=== PATIENT | male | born 1950 | race Caucasian/White ===

== ENCOUNTER 2021-07-31 15:40 | Outpatient (REF) | payer MEDICARE, OTHER, SELFPAY ==
[2021-07-31 17:13] LABS: Erythrocyte Sedimentation Rate 5 MM/HR (0-15)
[2021-08-01 13:42] LABS: Lyme Abs Screen <0.90 index
== END 2021-07-31 15:41 | disposition home or self-care (01) ==
LOC: HO.LAB 15:40
PROVIDERS: Visit Provider Psychiatry & Neurology Neurology
DX: G43.009 Migraine without aura, not intractable, without status migrainosus (principal)
CPT/HCPCS: 36415; 85652; 86617; 86618

== ENCOUNTER 2024-02-02 11:01 | Outpatient (AMB) | payer MEDICARE, OTHER, SELFPAY ==
--- NOTE | 2024-02-02 11:09 | MHC.OFFVIS ---
Vital Signs 02/02/24 11:22 Weight 176 lb Intake Visit Reasons: Bilateral inguinal hernia Intake Note: This patient presents for an assessment for bilateral inguinal hernia. Patient c/o; Onset October 2023, reports pain, reports bilateral bulge, reports constipation, reports extreme gas, reports constant abdominal pain. 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 Accompanied by: Self / Same As Patient Allergies cat dander Allergy (Verified 02/02/24 11:14) Unknown dog dander Allergy (Verified 02/02/24 11:14) Unknown mold Allergy (Verified 02/02/24 11:14) Unknown Medication List - Last Reconciled 02/02/24 by Travon Babin MD atorvastatin 40 mg PO DAILY dapagliflozin propanediol (Farxiga) 10 mg PO DAILY duloxetine 30 mg PO DAILY gabapentin 300 mg PO BID omeprazole 20 mg PO DAILY oxycodone-acetaminophen 10-325 mg 1 tab PO QID PRN semaglutide (Ozempic) mg subcut sertraline 100 mg PO DAILY tizanidine 2 mg PO BID trazodone 50 mg PO DAILY HPI Comments Details: 73-year-old male patient presenting for evaluation of bilateral inguinal hernias. He reports pain bilateral groins which seems to be increasing in severity. He also has a long history of back issues and underwent 3 recent back surgeries with resulting right foot drop. He continues to have back pain a daily basis. He now reports increased abdominal pain especially in the lower abdomen with associated constipation with alternating diarrhea. There has been no bleeding per rectum. He reported approximately 20 lb weight loss over the past month and feels his appetite is not so great. He is on Ozempic subcutaneously. He reports nausea without vomiting. He occasionally needs to take an enema to have a bowel movement but then will have several days of diarrhea. He does report a previous colonoscopy several years ago but is not sure where this was performed. [facility] Surgical History History of back surgery Family History Father Lung cancer Social History Unable to assess alcohol history related to: Unknown Patient Tobacco Use Status: Tobacco use Unknown Review of Systems Const All systems reviewed & are unremarkable except as noted in HPI and below Reports anorexia, Denies chills, Denies fever(s), Denies headache(s), Reports poor appetite and Denies weakness ENT Denies headache(s) Card Denies chest pain, Denies irregular heart rhythm, Denies palpitations and Denies dyspnea Resp Denies cough, Denies excessive phlegm production and Denies dyspnea GI Reports abdominal pain, Reports bloating, Reports change in bowel habits, Reports constipation, Denies heartburn, Reports diarrhea, Reports nausea and Denies vomiting Denies difficulty urinating and Denies urinary frequency Musc Denies back pain, Denies muscle weakness and Denies numbness Skin/Breast Denies changing lesions and Denies unusual bruising Neuro Denies headache(s), Denies numbness, Denies paresthesias and Denies weakness Psych Denies anxiety and Denies depression Endo Denies palpitations Reynold/Lymph Denies lymphadenopathy Physical Exam Const General: cooperative and no acute distress Nutritional Appearance: well nourished Orientation/consciousness: patient oriented x3 Limitations: no limitations HEENT Head: Yes normocephalic and Yes atraumatic Ears: hearing grossly normal bilaterally Resp Effort & Inspection: normal respiratory effort, no audible wheezes, no cough and no respiratory distress Cardio Jugular venous distension: no JVD GI Other: Small easily reducible bilateral inguinal hernias which increase in size with Valsalva maneuvers. There is minimal tenderness to deep palpation. No evidence of strangulation or incarceration. Inspection: Yes normal to inspection and Yes distended Palpation (GI): Soft to palpation, nontender, no guarding and not rigid Percussion: Yes normal to percussion Auscultation: normal bowel sounds Skin Other: Warm, dry, no rash Neuro General: patient oriented x3 Extrem General: Yes no clubbing, cyanosis or edema Assessment & Plan Assessment & Plan (1) Bilateral inguinal hernia: Code(s): K40.20 - Bilateral inguinal hernia, without obstruction or gangrene, not specified as recurrent Category: Medical Qualifiers: Obstruction and gangrene presence: without obstruction or gangrene Recurrence: non-recurrent Qualified Code(s): K40.20 - Bilateral inguinal hernia, without obstruction or gangrene, not specified as recurrent (2) Constipation: Code(s): K59.00 - Constipation, unspecified Category: Medical Qualifiers: Constipation type: drug induced constipation Qualified Code(s): K59.03 - Drug induced constipation (3) Abdominal bloating: Code(s): R14.0 - Abdominal distension (gaseous) Category: Medical Plan 73-year-old male patient presenting with complaints of 20 lb weight loss, abdominal distention, bloating, constipation and diarrhea presenting with bilateral small reducible inguinal hernias. It is difficult to say that his abdominal symptoms are due to the small inguinal hernias. Weight loss may be due to his Ozempic although I recommended further evaluation with CT abdomen and pelvis given his ongoing bowel symptoms. He will return following the CT to review the results and discuss treatment options. Orders: Orders CT abdomen wo IV con Today K59.00 - Constipation, unspecified Coding Level of Care Code New Pt Level 4 (49655) Diagnoses Non-recurrent bilateral inguinal hernia without obstruction or gangrene K40.20 Obstruction and gangrene presence: without obstruction or gangrene Recurrence: non-recurrent Drug-induced constipation K59.03 Constipation type: drug induced constipation Abdominal bloating R14.0
== END 2024-02-02 11:33 | disposition home or self-care (01) ==
PROVIDERS: PCP Family Medicine; Visit Provider Surgery
DX: K40.20 Bilateral inguinal hernia, without obstruction or gangrene, not specified as recurrent (principal); K59.03 Drug induced constipation; R14.0 Abdominal distension (gaseous)
CPT/HCPCS: 99203

== ENCOUNTER → 2024-02-02 11:01 | Outpatient (BNVA) | payer MEDICARE, OTHER, SELFPAY | PROVIDERS: PCP Family Medicine; Visit Provider Surgery | DX: K40.20 Bilateral inguinal hernia, without obstruction or gangrene, not specified as recurrent (principal); K59.03 Drug induced constipation; T50.905A Adverse effect of unspecified drugs, medicaments and biological substances, initial encounter; R14.0 Abdominal distension (gaseous) | CPT/HCPCS: 99202 ==

== ENCOUNTER 2024-02-05 08:23 | Outpatient (REF) | payer MEDICARE, OTHER, SELFPAY ==
--- NOTE | ~2024-02-05 | CT_ITS ---
EXAMINATION: CT ABDOMEN WITHOUT CONTRAST CLINICAL INFORMATION: Constipation unspecified COMPARISON: None available. TECHNIQUE: Contiguous axial thin section helical images of the abdomen were performed without contrast. The data set was reformatted in the coronal and sagittal planes and reviewed on an independent workstation. This CT examination was performed using dose optimization techniques as appropriate, variously including the following: *Automated exposure control *Adjustment of mA and/or kV according to patient size (this includes techniques or standardized protocols for targeted exams where dose is matched to indication/reason for exam; i.e. extremities or head) *Use of iterative reconstruction technique DLP: 335 mGy-cm FINDINGS: LUNG BASES: Lung bases grossly clear. No pleural effusions. Coronary artery calcifications noted. LIVER, GALLBLADDER, BILIARY TREE: There is a too small to characterize focus in the inferior right lobe of the liver. 5 mm, probably a tiny cyst. Liver otherwise unremarkable. No intrahepatic biliary dilatation. Surgical clips are seen in the gallbladder fossa. PANCREAS: Unremarkable SPLEEN: Unremarkable ADRENAL GLANDS AND KIDNEYS: Unremarkable. No nephrolithiasis or hydronephrosis or suspicious mass. There does appear to be a simple cyst off the lateral anterior mid left kidney at 16 mm. No further workup needed. BOWEL LOOPS: No bowel obstruction or right or left abdominal inflammatory change. Appendix normal. Pelvis not scanned. Moderate colonic stool burden observed. LYMPH NODES: Normal. VASCULAR: Aorta is atherosclerotic but not aneurysmal. BONES: Postsurgical changes in the lower lumbar spine. Hardware creates artifact. No fracture. CT/CT abdomen wo IV con IMPRESSION: No acute findings. No bowel obstruction. No peripancreatic inflammation. Moderate stool burden in the colon. Fleischner guidelines were followed.
== END 2024-02-05 08:24 | disposition home or self-care (01) ==
LOC: HO.CT 08:23
PROVIDERS: Visit Provider Surgery
DX: K59.00 Constipation, unspecified (principal)
CPT/HCPCS: 74150

== ENCOUNTER 2024-02-16 14:39 | Outpatient (AMB) | payer MEDICARE, OTHER, SELFPAY ==
--- NOTE | 2024-02-16 14:48 | A.OFFVIS_ITS ---
Vital Signs 02/16/24 14:55 Height 5 ft 9 in Weight 175 lb BMI 25.8 BP 175/87 H Blood Pressure Location Lt brachial Position Sitting Pulse 73 Intake Visit Reasons: CT follow up visit Intake Note: Patient is seen in office for CT scan following, bilateral inguinal hernias. Pt c/o: here for results no changes since last visit CT:02/05/24 Signs Cleaner Required: No Accompanied by: Self / Same As Patient Allergies cat dander Allergy (Verified 02/16/24 14:56) Unknown dog dander Allergy (Verified 02/16/24 14:56) Unknown mold Allergy (Verified 02/16/24 14:56) Unknown Medication List - Last Reconciled 02/16/24 by Travon Babin MD atorvastatin 40 mg PO DAILY dapagliflozin propanediol (Farxiga) 10 mg PO DAILY duloxetine 30 mg PO DAILY gabapentin 300 mg PO BID omeprazole 20 mg PO DAILY oxycodone-acetaminophen 10-325 mg 1 tab PO QID PRN semaglutide (Ozempic) mg subcut sertraline 100 mg PO DAILY tizanidine 2 mg PO BID trazodone 50 mg PO DAILY HPI Comments Details: 73-year-old male patient presenting for evaluation of bilateral inguinal hernias. He reports pain bilateral groins which seems to be increasing in severity. He also has a long history of back issues and underwent 3 recent back surgeries with resulting right foot drop. He continues to have back pain a daily basis. He now reports increased abdominal pain especially in the lower abdomen with associated constipation with alternating diarrhea. There has been no bleeding per rectum. He reported approximately 20 lb weight loss over the past month and feels his appetite is not so great. He is now off the Ozempic. He underwent CT abdomen and pelvis because of the weight loss and constipation. CT abdomen revealed a increased stool burden but otherwise was normal. He returns today to discuss repair of the bilateral inguinal hernias. He does continue to have pain in the right side. [facility] Surgical History History of back surgery Family History Father Lung cancer Social History Unable to assess alcohol history related to: Unknown Patient Tobacco Use Status: Tobacco use Unknown Review of Systems Const All systems reviewed & are unremarkable except as noted in HPI and below Reports anorexia, Denies chills, Denies fever(s), Denies headache(s), Reports poor appetite and Denies weakness ENT Denies headache(s) Card Denies chest pain, Denies irregular heart rhythm, Denies palpitations and Denies dyspnea Resp Denies cough, Denies excessive phlegm production and Denies dyspnea GI Reports abdominal pain, Reports bloating, Reports change in bowel habits, Reports constipation, Denies heartburn, Reports diarrhea, Reports nausea and Denies vomiting Denies difficulty urinating and Denies urinary frequency Musc Denies back pain, Denies muscle weakness and Denies numbness Skin/Breast Denies changing lesions and Denies unusual bruising Neuro Denies headache(s), Denies numbness, Denies paresthesias and Denies weakness Psych Denies anxiety and Denies depression Endo Denies palpitations Reynold/Lymph Denies lymphadenopathy Physical Exam Vital Signs: Last Vital Signs Pulse 73 02/16/24 14:55 BP 175/87 H 02/16/24 14:55 BMI result Body Mass Index 25.8 Const General: cooperative and no acute distress Nutritional Appearance: well nourished Orientation/consciousness: patient oriented x3 Limitations: no limitations HEENT Head: Yes normocephalic and Yes atraumatic Ears: hearing grossly normal bilaterally Resp Effort & Inspection: normal respiratory effort, no audible wheezes, no cough and no respiratory distress Cardio Jugular venous distension: no JVD GI Other: Small easily reducible bilateral inguinal hernias which increase in size with Valsalva maneuvers. There is minimal tenderness to deep palpation. No evidence of strangulation or incarceration. Inspection: Yes normal to inspection and Yes distended Palpation (GI): Soft to palpation, nontender, no guarding and not rigid Percussion: Yes normal to percussion Auscultation: normal bowel sounds Skin Other: Warm, dry, no rash Neuro General: patient oriented x3 Extrem General: Yes no clubbing, cyanosis or edema Assessment & Plan Assessment & Plan (1) Bilateral inguinal hernia: Code(s): K40.20 - Bilateral inguinal hernia, without obstruction or gangrene, not specified as recurrent Category: Medical Qualifiers: Obstruction and gangrene presence: without obstruction or gangrene Recurrence: non-recurrent Qualified Code(s): K40.20 - Bilateral inguinal hernia, without obstruction or gangrene, not specified as recurrent (2) Constipation: Code(s): K59.00 - Constipation, unspecified Category: Medical Qualifiers: Constipation type: drug induced constipation Qualified Code(s): K59.03 - Drug induced constipation (3) Abdominal bloating: Code(s): R14.0 - Abdominal distension (gaseous) Category: Medical Plan 73-year-old male patient presenting with complaints of 20 lb weight loss, abdominal distention, bloating, constipation and diarrhea presenting with bilateral small reducible inguinal hernias. CT abdomen was normal other than showing evidence of constipation. His hernias continue to cause discomfort therefore I recommended repair of the bilateral reducible inguinal hernias with mesh. After discussion of the procedure, risks, and alternatives, he consents to the repair of the bilateral inguinal hernias with mesh. Coding Level of Care Code Est Pt Level 4 (83726) Diagnoses Non-recurrent bilateral inguinal hernia without obstruction or gangrene K40.20 Obstruction and gangrene presence: without obstruction or gangrene Recurrence: non-recurrent Drug-induced constipation K59.03 Constipation type: drug induced constipation Abdominal bloating R14.0
[2024-02-16 14:55] VITALS: BP 175/87; PULSE 73; BMI 25.8
== END 2024-02-16 15:18 | disposition home or self-care (01) ==
PROVIDERS: PCP Family Medicine; Visit Provider Surgery
DX: K40.20 Bilateral inguinal hernia, without obstruction or gangrene, not specified as recurrent (principal); K59.03 Drug induced constipation; R14.0 Abdominal distension (gaseous)
CPT/HCPCS: 99214

== ENCOUNTER → 2024-02-16 14:39 | Outpatient (BNVA) | payer MEDICARE, OTHER, SELFPAY | PROVIDERS: PCP Family Medicine; Visit Provider Surgery | DX: K40.20 Bilateral inguinal hernia, without obstruction or gangrene, not specified as recurrent (principal); K59.03 Drug induced constipation; T50.905A Adverse effect of unspecified drugs, medicaments and biological substances, initial encounter; R14.0 Abdominal distension (gaseous) | CPT/HCPCS: 99212 ==

== ENCOUNTER 2024-03-02 08:14 | Day surgery (SDC) | payer MEDICARE, OTHER, SELFPAY ==
[2024-02-23 12:22] VITALS: BMI 25.8
--- NOTE | 2024-03-01 11:51 | P.CONAN_ITS ---
Documented by User: Court Olivas NP 03/01/24 12:02 HPI - Anesthesia Eval Consult details Narrative: 73yo M for Bilateral Hernia Inguinal Reducible with mesh Follows [facility] for CAD s/p VENKAT 2015, htn. Last office visit 12/2023 and stable from cardiac standpoint Anesthesia Pre-Procedure Meds Is the patient on any of the following meds?: SGLT2 Inhib PMFSH Active Problems Active Problems: All Active Problems Abdominal bloating (Acute) Constipation (Acute) Bilateral inguinal hernia (Acute) Past Medical History Medical History Migraine Right foot drop Neuropathy GERD (gastroesophageal reflux disease) Type 2 diabetes mellitus Chronic renal insufficiency Asthma Lumbar back pain Hyperlipidemia CAD (coronary artery disease) Family History Family History Father Lung cancer Surgical History Surgical History H/O colonoscopy Hx of heart artery stent History of open reduction and internal fixation (ORIF) procedure Hx of arthroscopy of shoulder History of back surgery Hx of cholecystectomy History of back surgery Social History Social History Are you a primary residential child care counselor to a significant other at home: No Do you presently have visiting nurse or other home services: No Unable to assess alcohol history related to: Unknown Patient Tobacco Use Status: Never used Tobacco Use of substances other than those prescribed or required for medical reasons: No Have you been hit, kicked, punched, or otherwise hurt by someone within the past year? If so, by whom?: No Are you DNR?: No Advance Directives Information Provided: Yes (as above noted) Advance Directives on File: No Recently lost weight without trying: No Eating poorly because of decreased appetite: No Nutrition Risks: Surgical patient >75years Poor oral hygiene: No (upper partial) Meds Allergies Allergy/AdvReac Type Severity Reaction Status Date / Time animal dander Allergy Intermediate hayfever Verified 03/02/24 08:48 empagliflozin Allergy Intermediate Rash Verified 03/02/24 08:48 [From Jardiance] environmental allergies Allergy Intermediate hayfever Verified 03/02/24 08:48 mold Allergy Intermediate hayfever Verified 03/02/24 08:48 Home Medications ?Medication ?Instructions ?Recorded ?Confirmed ?Last Taken ?Type atorvastatin 40 mg tablet 40 mg PO BEDTIME 02/02/24 03/02/24 Unknown History dapagliflozin propanediol 10 mg 10 mg PO QAM 02/02/24 03/02/24 02/27/24 History tablet (Farxiga) gabapentin 300 mg capsule 300 mg PO BID 02/02/24 03/02/24 Unknown History omeprazole 20 mg tablet,delayed 20 mg PO BID 02/02/24 03/02/24 03/02/24 History release sertraline 100 mg tablet 100 mg PO QAM 02/02/24 03/02/24 Unknown History trazodone 50 mg tablet 50 mg PO BEDTIME 02/02/24 03/02/24 Unknown History albuterol sulfate 2.5 mg/3 mL 2.5 mg inhalation Q4-6H PRN 02/23/24 03/02/24 Unknown History (0.083 %) solution for nebulization Shortness Of Breath Or Wheezing albuterol sulfate 90 mcg/actuation 2 puff inhalation Q4-6H PRN 02/23/24 03/02/24 Unknown History aerosol inhaler Shortness Of Breath Or Wheezing divalproex 250 mg tablet,delayed 250 mg PO BID PRN migraine 02/23/24 03/02/24 Unknown History release (Depakote) headaches insulin degludec 100 unit/mL (3 12 unit subcut DAILY 03/02/24 03/02/24 03/02/24 07:00 History mL) subcutaneous pen (Tresiba 6 units FlexTouch U-100 insulin) Exam Height,Weight and Vital Signs: Height 5 ft 9 in Weight 79.379 kg Pertinent Lab Results Pertinent Lab Results: CBC and BMP 11/2023 WNL Narrative Narrative: EKG 10/2023 NSR @ 61 LAD Stress and Echo from 2021 [place] Assessment and Plan Assessment Anesthesia Assessment: Chart Reviewed Documented by User: Mary Acosta MD 03/02/24 09:50 [facility] Past Medical History Medical History Migraine Right foot drop Neuropathy GERD (gastroesophageal reflux disease) Type 2 diabetes mellitus Chronic renal insufficiency Asthma Lumbar back pain Hyperlipidemia CAD (coronary artery disease) Family History Family History Father Lung cancer Surgical History Surgical History H/O colonoscopy Hx of heart artery stent History of open reduction and internal fixation (ORIF) procedure Hx of arthroscopy of shoulder History of back surgery Hx of cholecystectomy History of back surgery History of Problems with Anesthesia: No Social History Social History Are you a primary residential child care counselor to a significant other at home: No Do you presently have visiting nurse or other home services: No Unable to assess alcohol history related to: Unknown Patient Tobacco Use Status: Never used Tobacco Use of substances other than those prescribed or required for medical reasons: No Have you been hit, kicked, punched, or otherwise hurt by someone within the past year? If so, by whom?: No Are you DNR?: No Advance Directives Information Provided: Yes (as above noted) Advance Directives on File: No Recently lost weight without trying: No Eating poorly because of decreased appetite: No Nutrition Risks: Surgical patient >75years Poor oral hygiene: No (upper partial) Meds Allergies Allergy/AdvReac Type Severity Reaction Status Date / Time animal dander Allergy Intermediate hayfever Verified 03/02/24 08:48 empagliflozin Allergy Intermediate Rash Verified 03/02/24 08:48 [From Jardiance] environmental allergies Allergy Intermediate hayfever Verified 03/02/24 08:48 mold Allergy Intermediate hayfever Verified 03/02/24 08:48 Home Medications ?Medication ?Instructions ?Recorded ?Confirmed ?Last Taken ?Type atorvastatin 40 mg tablet 40 mg PO BEDTIME 02/02/24 03/02/24 Unknown History dapagliflozin propanediol 10 mg 10 mg PO QAM 02/02/24 03/02/24 02/27/24 History tablet (Farxiga) gabapentin 300 mg capsule 300 mg PO BID 02/02/24 03/02/24 Unknown History omeprazole 20 mg tablet,delayed 20 mg PO BID 02/02/24 03/02/24 03/02/24 History release sertraline 100 mg tablet 100 mg PO QAM 02/02/24 03/02/24 Unknown History trazodone 50 mg tablet 50 mg PO BEDTIME 02/02/24 03/02/24 Unknown History albuterol sulfate 2.5 mg/3 mL 2.5 mg inhalation Q4-6H PRN 02/23/24 03/02/24 Unknown History (0.083 %) solution for nebulization Shortness Of Breath Or Wheezing albuterol sulfate 90 mcg/actuation 2 puff inhalation Q4-6H PRN 02/23/24 03/02/24 Unknown History aerosol inhaler Shortness Of Breath Or Wheezing divalproex 250 mg tablet,delayed 250 mg PO BID PRN migraine 02/23/24 03/02/24 Unknown History release (Depakote) headaches insulin degludec 100 unit/mL (3 12 unit subcut DAILY 03/02/24 03/02/24 03/02/24 07:00 History mL) subcutaneous pen (Tresiba 6 units FlexTouch U-100 insulin) Exam Airway Mallampati Class: III TM Dist: >3cm Neck ROM: Limited Loose/Missing/Broken Teeth: Yes and Upper Heart: RRR Lungs: CTA Assessment and Plan Assessment Anesthesia Assessment: Anesthesia Plan Discussed Final Anesthetic Review History of Problems with Anesthesia: No NPO: Yes ASA Class: III Final Preanesthetic Review: Meds/Allgs Chart Reviewed, Consent Obtained/Reviewed and Anes Risks/Benef Reviewed Patient Risk: Intermediate Procedure Risk: Low Anesthetic Plan Anesthetic Plan: GA Disposition: Standard PACU
--- OUTSIDE RECORDS SUMMARY | 2024-03-02 08:16 | XMS_ITS | Continuity of Care Document ---
Author Organization [facility] Address [address] [place] [id number]- Care Team Providers Care Manager Community Development Name Role Phone Conner Lomeli MD Primary Care Physician [phone] Encounter [facility] ACCT R [id number] Date(s): 07/07/19 - 07/17/19 [facility] [address] [place] [id number]- [facility] Attending Physician: Carrington Kim Admitting Physician: AdmtrCarrington Referring Physician: Admtr, Ar8 Allergies, Adverse Reactions, Alerts Substance Reaction Severity Status Cats hayfever Active Dogs hayfever Active Dust hayfever Active Mold hayfever Active Pollen hayfever Active Immunizations Not Given Vaccine Date Status Refusal Reason pneumococcal 13-valent vaccine 06/11/17 Not Given Patient Refuses Medications aspirin 325 mg oral delayed release tablet 325 mg, 1, tablet, By Mouth, Daily, # 30 tablet, Refills 0, Maintenance, 05/10/19 16:33:25 EDT Start Date: 05/10/19 Status: Ordered atorvastatin 40 mg oral tablet 1 tablet = 40 mg, By Mouth, Daily at bedtime, TAKE 1 TABLET BY MOUTH EVERY DAY AT BEDTIME, # 90 tablet, 3 Refills, Maintenance, Tablet, Route to Pharmacy Electronically, [id number], [facility]/pharmacy #[id number] Start Date: 04/06/17 Stop Date: 04/01/18 Status: Ordered Basaglar KwikPen 100 units/mL subcutaneous solution = 40 units, Subcutaneous Injection, Daily at bedtime, # 10 mL, 0 Refills, Maintenance, 05/10/19 16:31:45 EDT, Solution Start Date: 05/10/19 Status: Ordered benazepril 5 mg oral tablet 1 tablet = 5 mg, By Mouth, Daily, # 90 tablet, 3 Refills, Maintenance, 01/25/18 13:38:02 EDT Start Date: 01/25/18 Status: Ordered benazepril 5 mg oral tablet TAKE 1 TABLET BY MOUTH EVERY DAY Start Date: 03/22/17 Status: Ordered Colace sodium 50 mg oral capsule 1 capsule = 50 mg, By Mouth, 2 times a day, PRN for constipation, # 60 capsule, 0 Refills, Maintenance, 03/31/17 8:54:33, Capsule Start Date: 03/31/17 Status: Ordered docusate sodium 100 mg oral tablet 1 tablet = 100 mg, By Mouth, 2 times a day, PRN for constipation, # 14 tablet, 0 Refills, Maintenance, 05/27/17 10:11:30, Tablet Start Date: 05/27/17 Stop Date: 06/03/17 Status: Ordered famotidine 40 mg oral tablet TAKE 1 TABLET BY MOUTH EVERY DAY Start Date: 05/10/19 Status: Ordered Flovent Diskus 100 mcg/inh inhalation powder INHALE 1 PUFF BY MOUTH DIRECTED TWICE A DAY Start Date: 05/10/19 Status: Ordered glipiZIDE 5 mg oral tablet See Instructions, 1 tablet By Mouth in am and 3 tablet By Mouth in pm, Refills 0, Maintenance, 05/10/19 16:30:33 EDT, Instructions Replace Required Details Start Date: 05/10/19 Status: Ordered isosorbide mononitrate 30 mg oral tablet, extended release 30 mg, 1, tablet, By Mouth, Daily in AM, # 30 tablet, Refills 2, Tot. Refills 2, Maintenance, 07/07/19 9:34:37 EST, Route to Pharmacy Electronically, [id number], [facility]/pharmacy #[id number], 172, cm, 07/07/19 9:07:44 EST, Height, 97.5... Start Date: 07/07/19 Status: Ordered metoprolol 25 mg oral tablet 12.5 mg, 0.5, tablet, By Mouth, Daily, Refills 0, Maintenance, 03/02/19 10:56:35 EDT Start Date: 03/02/19 Status: Ordered MiraLax oral powder for reconstitution = 17 Gm, By Mouth, Daily, dissolve in water before taking, # 255 Gm, 0 Refills, Maintenance, 03/02/19 10:58:53 EDT, REC Powder Start Date: 03/02/19 Status: Ordered Miscellaneous Rx TAKE 1 TABLET BY MOUTH TWICE A DAY Start Date: 03/22/17 Status: Ordered Miscellaneous Rx USE DIRECTED TO TEST BLOOD SUGARS 3 TIMES DAILY Start Date: 03/22/17 Status: Ordered Miscellaneous Rx TEST FOUR TIMES A DAY (DX: E11.9) Start Date: 03/22/17 Status: Ordered montelukast 10 mg oral tablet TAKE 1 TABLET BY MOUTH EVERY EVENING Start Date: 05/10/19 Status: Ordered omeprazole 20 mg oral enteric coated capsule TAKE 1 CAPSULE BY MOUTH EVERY DAY Start Date: 07/07/19 Status: Ordered PARoxetine 20 mg oral tablet TAKE 2 TABLETS EVERY MORNING Start Date: 03/22/17 Status: Ordered topiramate 50 mg oral tablet TAKE 3 TABLET BY MOUTH AT BEDTIME Start Date: 03/22/17 Status: Ordered Problem List Condition Effective Dates Status Health Status Inform ant CAD in [place] artery(Confirmed) Active Social History Social History Type Response Smoking Status Never smoker; Tobacc o user in household: No entered on: 02/08/16 Sex
--- OUTSIDE RECORDS SUMMARY | 2024-03-02 08:17 | XMS_ITS | Continuity of Care Document ---
Author Organization [facility] Address [address] [facility] [place] [address]- Care Team Providers Care [employer] Hemmer Name Role Phone Chelsi SHIELDS, Issac Simon Primary Care Physician Encounter 01/08/24 - 01/15/24 [facility] [address], [address] [place], [place] [address] Attending Physician: Farzana NEVAREZ, Doug Bahena Admitting Physician: Doug Yanes NP Referring Physician: Farzana SUPPLY CHAIN DEVELOPMENT MANAGER, Doug Bahena Allergies, Adverse Reactions, Alerts Substance Reaction Severity Status Cats hayfever Active Dogs hayfever Active Dust hayfever Active Mold hayfever Active Pollen hayfever Active Jardiance RASH Active Immunizations Given and Recorded Vaccine Date Status Refusal Reason RSV vaccine preF3, recombinant 07/13/23 Recorded influenza virus vaccine, inactivated 06/23/23 Brad rded influenza virus vaccine, inactivated 04/15/22 Brad rded influenza virus vaccine, inactivated 06/28/21 Brad rded influenza virus vaccine, inactivated 04/18/20 Brad rded influenza virus vaccine, inactivated 04/25/19 Brad rded SARS-CoV-2(COVID-19)mRNA-LNP vac([id number]) 06/23/23 Recorded SARS-CoV-2 (COVID-19) mRNA BNT-162b2 vac 04/29/22 Recorded SARS-CoV-2 (COVID-19) mRNA BNT-162b2 vac 05/08/21 Recorded SARS-CoV-2 (COVID-19) mRNA BNT-162b2 vac 10/15/20 Recorded SARS-CoV-2 (COVID-19) mRNA BNT-162b2 vac 09/24/20 Recorded [id number] 12y+ bivalent booster vax 04/15/22 Recorded pneumococcal 23-valent vaccine 10/08/21 Recorded tetanus/diphtheria/pertussis, acel(Tdap) 05/16/20 Recorded zoster vaccine, inactivated 04/20/20 Recorded pneumococcal 13-valent vaccine 04/25/19 Recorded pneumococcal 13-valent vaccine 09/09/16 Recorded Medications Albuterol (Eqv-ProAir HFA) 90 mcg/inh inhalation aerosol 2 puffs = 180 mcg, Inhalation, Every 6 hours, PRN Wheezing/Shortness of Breath, # 8.5 Gm, 5 Refills, Maintenance, 08/03/23 10:27:00 EST, Inhaler, [facility]/pharmacy #[id number], Partial fill upon patient requestif the prescription is for a schedule II opioid james... Start Date: 08/03/23 Status: Ordered albuterol 0.083% inhalation solution 3 mL = 2.5 mg, Inhalation, Every 6 hours, PRN for wheezing, # 60 each, 2 Refills, Maintenance, 04/29/23 12:22:00 EDT, Solution, [facility]/pharmacy #[id number], Partial fill upon patient request if the prescription is for a schedule II opioid drug., 172, cm, 04/08... Start Date: 04/29/23 Status: Ordered atorvastatin 40 mg oral tablet 1 tablet, By Mouth, Daily at bedtime, # 90 tablet, 1 Refills, Maintenance, 09/21/23 13:01:00 EST, [facility] STORE [id number], 172, cm, 06/30/23 9:51:00 EST, Height, 84.8, kg, 02/17/23 8:16:00 EDT, Dry Weight Start Date: 09/21/23 Status: Ordered bisacodyl 10 mg rectal suppository 1 supp = 10 mg, Rectally, Daily, PRN for constipation, # 12 supp, 1 Refills, Maintenance, 12/11/23 13:29:00 EDT, Suppository, [facility], Partial fill upon patient request if the prescription is for a schedule II opioid drug., 173, cm, 0... Start Date: 12/11/23 Status: Ordered Colace Capsule 100 mg, 1, capsule, By Mouth, 2 times a day, Refills 0, Maintenance, 11/19/23 9:28:00 EDT, Partial fill upon patient request if the prescription is for a schedule II opioid drug. Start Date: 11/19/23 Status: Ordered duloxetine 30 mg oral enteric coated capsule 1 capsule = 30 mg, By Mouth, Daily, # 90 capsule, 0 Refills, Maintenance, 12/29/23 13:11:00 EDT, Capsule, [facility]/pharmacy #[id number], Partial fill upon patient request if the prescription is for a schedule II opioid drug., 173, cm, 12/15/23 10:39:00 EDT, Heig... Start Date: 12/29/23 Status: Ordered Enoxaparin 0.4 mL = 40 mg, Subcutaneous Injection, Every 24 hours, 0 Refills, Maintenance, 11/20/23 7:53:00 EDT, Injection, Partial fill upon patient request if the prescription is for a schedule II opioid drug. Start Date: 11/20/23 Status: Ordered Farxiga 10 mg oral tablet 1 tablet = 10 mg, By Mouth, Daily, # 30 tablet, 0 Refills, Maintenance, 10/26/23 9:07:00 EDT, Tablet, Partial fill upon patient request if the prescription is for a schedule II opioid drug. Start Date: 10/26/23 Status: Ordered FREESTYLE LITE TEST STRIP FREESTYLE LITE TEST STRIP, See Instructions, # 200 Unknown, 1 Refills, Maintenance, USE TWICE A DAYTO CHECK GLUOCSE FOR TYPE 2 DIABETES MELLITUS, 12/26/23 10:29:00 EDT, 173, cm, 12/15/23 10:39:00 EDT, Height, 81.8, kg, 12/09/23 17:44:00 EDT, Dry Weight Start Date: 12/26/23 Status: Ordered Freestyle Lite Test Strips See Instructions, # 600 each, Refills 1, Tot. Refills 1, Maintenance, use twice a day to check gluocse for Type 2 Diabetes Mellitus, 11/05/22 9:27:00 EDT, Supply, 172, cm, 11/05/22 9:12:00 EDT, Height Start Date: 11/05/22 Stop Date: 05/04/23 Status: Ordered gabapentin 400 mg oral capsule 400 mg, 1, capsule, By Mouth, 3 times a day, # 120 capsule, Refills 0, Maintenance, 12/10/23 14:33:00 EDT, Partial fill upon patient request if the prescription is for a schedule II opioid drug. Start Date: 12/10/23 Status: Ordered MiraLax Powder 1 pack/packet = 17 Gm, By Mouth, Daily, PRN Constipation, 0 Refills, Maintenance, 11/20/23 7:53:00 EDT, Powder, Partial fill upon patient request if the prescription is for a schedule II opioid drug. Start Date: 11/20/23 Status: Ordered Miscellaneous Rx USE DIRECTED TO TEST BLOOD SUGARS 3 TIMES DAILY Start Date: 03/22/17 Status: Ordered Miscellaneous Rx TEST FOUR TIMES A DAY (DX: E11.9) Start Date: 03/22/17 Status: Ordered omeprazole 20 mg oral enteric coated capsule 1 capsule = 20 mg, By Mouth, 2 times a day, # 180 capsule, 1 Refills, Maintenance, 08/03/23 10:27:00 EST, EC Capsule, [facility]pharmacy #[id number], Partial fill upon patient request if the prescription is for a schedule II opioid drug., 172, cm, 06/30/23 9:51:0... Start Date: 08/03/23 Status: Ordered Ozempic 8 mg/3 mL (2 mg dose) subcutaneous solution = 2 mg, Subcutaneous Injection, Every week, in the abdomen, thigh, or upper arm, # 3 mL, 2 Refills,Maintenance, 12/15/23 11:17:00 EDT, Solution, [id number], Partial fill upon patient requestif the prescription is for a schedule II opioid james... Start Date: 12/15/23 Status: Ordered Pen [place], 31 G x 5 mm BD Ultra Fine III See Instructions, # 100 each, Refills 5, Tot. Refills 5, Maintenance, use as directed for Type 2 Diabetes Mellitus to inject insulin once a day, 08/27/23 16:46:00 EST, Supply, 172, cm, 06/30/23 9:51:00 EST, Height, 84.8, kg, 02/17/23 8:16:00 EDT, Dry... Start Date: 08/27/23 Stop Date: 02/23/24 Status: Ordered Pen [place], 31 G x 5 mm BD Ultra Fine III See Instructions, # 300 each, Refills 2, Tot. Refills 2, Maintenance, use as directed for Type 2 Diabetes Mellitus, 11/05/22 9:29:00 EDT, Supply, 172, cm, 11/05/22 9:12:00 EDT, Height Start Date: 11/05/22 Stop Date: 08/02/23 Status: Ordered Senna 8.6 mg oral tablet 17.2 mg, 2, tablet, By Mouth, Daily, PRN, Refills 0, Maintenance, Constipation, 11/20/23 7:53:00 EDT, Tablet, Partial fill upon patient request if the prescription is for a schedule II opioid drug. Start Date: 11/20/23 Status: Ordered sertraline 100 mg oral tablet 1 tablet = 100 mg, By Mouth, Daily, along with sertraline 25 mg daily., # 90 tablet, 3 Refills, Maintenance, 09/23/23 10:05:00 EST, Tablet, [id number], Partial fill upon patient request if the prescription is for a schedule II opioid drug., 17... Start Date: 09/23/23 Status: Ordered tiZANidine 2 mg oral capsule 1 capsule = 2 mg, By Mouth, 4 times a day, PRN as needed for muscle spasm, for 30 days, # 60 capsule, 1 Refills, Hard Stop 02/13/24 11:27:00 EDT, 12/15/23 11:27:00 EDT, Capsule, [id number], Partial fill upon patient request if the prescription... Start Date: 12/15/23 Stop Date: 02/13/24 Status: Ordered tiZANidine 2 mg oral capsule 1 capsule = 2 mg, By Mouth, 2 times a day, PRN as needed for muscle spasm, # 180 capsule, 0 Refills, Maintenance, 02/13/24 11:27:00 EDT, Capsule, [id number], Partial fill upon patient requestif the prescription is for a schedule II opioid james... Start Date: 02/13/24 Stop Date: 04/13/24 Status: Ordered traZODone 50 mg oral tablet 50 mg, 1, tablet, By Mouth, Daily at bedtime, TAKE 1 TABLET BY MOUTH EVERY DAY AT BEDTIME NEEDED Start Date: 04/08/23 Status: Ordered Tresiba FlexTouch 100 units/mL subcutaneous solution INJECT 12 UNITS SUBCUTANEOUS INJECTION DAILY Start Date: 12/10/23 Status: Ordered Tylenol 325 mg oral tablet 975 mg, By Mouth, Every 8 hours, Refills 0, Maintenance, 11/19/23 9:28:00 EDT, Partial fill upon patient request if the prescription is for a schedule II opioid drug. Start Date: 11/19/23 Status: Ordered Problem List Condition Confirmation Course Effective Dates Status H ealth Status Informant Stage 3b chronic kidney disease (CKD) Confirmed Active Constipation Confirmed Active CAD in [place] artery Confirmed Active Dysuria Confirmed Active History of syncope Confirmed Active Hyperlipidemia Confirmed Active Lumbar back pain with radiculopathy affecting lower extremity Confirmed Active Moderate persistent asthma Confirmed Active Type 2 diabetes mellitus with diabetic neuropathy Confirmed Active Medication management Confirmed Active Post-nasal drip Confirmed Active Seborrheic keratoses Confirmed Active Results Radiology Reports * Exam Date Time Procedure Performing Provider Status 01/08/24 5:14 PM Lumbar Spine 2 or 3 Views Christina Hicks; Auth (Verified) Notes: (Lumbar Spine 2 or 3 Views) Reason For Exam: Pain RESULT: Lumbar Spine 2 or 3 Views Lumbar Spine 2 or 3 Views Reason: Pain COMPARISON: Multiple prior lumbar spine radiographs, most recently 11/18/2023, 11/15/2023 and 04/11/2023.. FINDINGS: No acute bone lesions or fractures. Posterior fusion hardware involving L4-S1 with a disc space device at L4-L5. Similar consideration of the posterior surgical hardware without evidence of hardware failure. The intervertebral disc device is slightly tilted, though similar to the prior radiographs from 11/18/2023 and 11/15/2023 and may be positional. Mild multilevel disc height loss of the upper lumbar spine. Gentle dextrocurvature of the lumbar spine. Surgical clips have been removed. Soft tissue is otherwise unremarkable. IMPRESSION: 1. Postoperative changes of the lower lumbar spine without significant change from 11/18/2023. WSN: [id number] Ordering Physician: Doug Yanes Dictated By: Bala Ceballos MD Dictated Date/Time: 01/08/24 6:38 pm Reviewed By: Bala Ceballos MD Signed By: Bala Ceballos MD Signed Date/Time: 01/08/24 6:38 pm Transcribed By: DILLAN Transcribed Date/Time: 01/08/24 6:27 pm Social History Social History Type Response Smoking Status Never smoker; Tobacc o user in household: No entered on: 02/08/16 Sex Implantable Device List Procedure Provider Procedure Date Device Type Site Decompression Transforaminal Lumbar Inte Maycol De Guzman MD 01/01/25 Unknown Other Device Identifier Serial Number Lot or Batch Number Manufacturing Date Expiration Date Distinct Identification Code MRI Safety Implantable Status Assigning Authority [id number] Unknown [id number] Unknown 01/01/25 Unknown Unknown Active GS1 [id number] Unknown [id number] Unknown 01/01/25 Unknown Unknown Active GS1 Procedure Provider Procedure Date Device Type Site Decompression Transforaminal Lumbar Inte Maycol De Guzman MD 11/16/23 Unknown Other Device Identifier Serial Number Lot or Batch Number Manufacturing Date Expiration Date Distinct Identification Code MRI Safety Implantable Status Assigning Authority Unknown [id number] Unknown Unknown 10/19/25 Unknown Unknown Active Unknown Procedure Provider Procedure Date Device Type Site Decompression Transforaminal Lumbar Inte Maycol De Guzman MD 11/13/23 Unknown Back Device Identifier Serial Number Lot or Batch Number Manufacturing Date Expiration Date Distinct Identification Code MRI Safety Implantable Status Assigning Authority Unknown [id number] Unknown 07/23/25 Unknown Unknown Active Unknown Patient Care team information Care Team Personnel Name: Edita Raphael RN Position: [facility] RN Member Role: Primary Care Nurse Name: Alla Ibarra RN Position: [facility] RN Member Role: Primary Care Nurse Name: Lindsay Smith RN Position: [facility] RN Member Role: Primary Care Nurse Name: Haley Osullivan RN Position: [facility] RN Member Role: Primary Care Nurse Name: Rosa Motley RN Position: [facility] RN Member Role: Primary Care Nurse Name: Yuri Lima Position: [facility] Outreach Member Role: Lifetime Consulting Physician Name: Sunshine Turner RN Position: [facility] ED RN W/OE and Tasks Member Role: Primary Care Nurse Name: Rowdy Cerda MD Position: [facility] Renal MD Member Role: Lifetime Consulting Physician Address: Address: [address] [place] [address] [facility] [place] [address]- Name: Issac Gagnon MD Position: [facility] Physician - Primary Care Member Role: PCP Address: Address: [address] [place] [address] Primary [place], [place] [address] Name: Yoselin Strange RN Position: S RN Member Role: Primary Care Nurse Name: Darern Araiza RN Position: S RN Member Role: Primary Care Nurse Care Team Related Persons Name: REEMA IZQUIERDO Address: home [address] [address] Name: LETTY IZQUIERDO Address: home [address], [place] Name: ARYA IZQUIERDO Address: home [address] [place] [address]
--- OUTSIDE RECORDS SUMMARY | 2024-03-02 08:17 | XMS_ITS | Continuity of Care Document ---
Author Organization [facility] Address [address] [place] [id number]- Care Team Providers Care Instant Powder Supervisor Name Role Phone Issac Gagnon MD Primary Care Physician Encounter [facility] [place] Date(s): 04/08/23 - 05/08/23 [facility] [address] [place] [address]- Attending Physician: Carrington Kim Admitting Physician: AdmtrCarrington Referring Physician: Admtr, Ar8 Allergies, Adverse Reactions, Alerts Substance Reaction Severity Status Cats hayfever Active Dogs hayfever Active Dust hayfever Active Mold hayfever Active Pollen hayfever Active Jardiance RASH Active Immunizations Given and Recorded Vaccine Date Status Refusal Reason SARS-CoV-2 (COVID-19) mRNA BNT-162b2 vac 04/29/22 Recorded SARS-CoV-2 (COVID-19) mRNA BNT-162b2 vac 05/08/21 Recorded SARS-CoV-2 (COVID-19) mRNA BNT-162b2 vac 10/15/20 Recorded SARS-CoV-2 (COVID-19) mRNA BNT-162b2 vac 09/24/20 Recorded influenza virus vaccine, inactivated 04/15/22 Brad rded influenza virus vaccine, inactivated 06/28/21 Brad rded influenza virus vaccine, inactivated 04/18/20 Brad rded influenza virus vaccine, inactivated 04/25/19 Brad rded [id number] 12y+ bivalent booster vax 04/15/22 Recorded pneumococcal 23-valent vaccine 10/08/21 Recorded tetanus/diphtheria/pertussis, acel(Tdap) 05/16/20 Recorded zoster vaccine, inactivated 04/20/20 Recorded pneumococcal 13-valent vaccine 04/25/19 Recorded pneumococcal 13-valent vaccine 09/09/16 Recorded Medications Albuterol (Eqv-ProAir HFA) 90 mcg/inh inhalation aerosol 2 puffs = 180 mcg, Inhalation, Every 6 hours, PRN Wheezing/Shortness of Breath, # 8.5 Gm, 2 Refills, Maintenance, 04/29/23 12:20:00 EDT, Inhaler, [facility]/pharmacy #[id number], Partial fill upon patient requestif the prescription is for a schedule II opioid james... Start Date: 04/29/23 Status: Ordered albuterol 0.083% inhalation solution 3 mL = 2.5 mg, Inhalation, Every 6 hours, PRN for wheezing, # 60 each, 2 Refills, Maintenance, 04/29/23 12:22:00 EDT, Solution, [facility]/pharmacy #[id number], Partial fill upon patient request if the prescription is for a schedule II opioid drug., 172, cm, 04/08... Start Date: 04/29/23 Status: Ordered atorvastatin 40 mg oral tablet 1 tablet = 40 mg, By Mouth, Daily at bedtime, # 90 tablet, 1 Refills, Maintenance, 03/20/23 11:43:00 EDT, Tablet, [facility]/pharmacy #[id number], 172, cm, 01/09/23 15:36:00 EDT, Height, 84.8, kg, 02/17/23 8:16:00 EDT, Dry Weight Start Date: 03/20/23 Stop Date: 09/16/23 Status: Ordered divalproex sodium 250 mg oral tablet, extended release 1 tablet = 250 mg, 0 Refills, Maintenance, 04/03/23 11:20:00 EDT, Partial fill upon patient requestif the prescription is for a schedule II opioid drug. Start Date: 04/03/23 Status: Ordered Flovent Diskus 100 mcg/inh inhalation powder 1 puffs, By Mouth, 2 times a day, INHALE 1 PUFF BY MOUTH DIRECTED TWICE A DAY, # 3 each, 3 Refills, Maintenance, 08/12/22 16:50:00 EST, Powder, [facility]/pharmacy #[id number], Partial fill upon patient request if the prescription is for a schedule II opioid dr... Start Date: 08/12/22 Status: Ordered Freestyle Lite Test Strips See Instructions, # 600 each, Refills 1, Tot. Refills 1, Maintenance, use twice a day to check gluocse for Type 2 Diabetes Mellitus, 11/05/22 9:27:00 EDT, Supply, 172, cm, 11/05/22 9:12:00 EDT, Height Start Date: 11/05/22 Stop Date: 05/04/23 Status: Ordered gabapentin 300 mg oral capsule 300 mg, 1, capsule, By Mouth, 3 times a day, # 270 capsule, Refills 3, Tot. Refills 3, Maintenance,04/22/23 15:31:00 EDT, [id number] fill upon patient request if the prescription is for a schedule II... Start Date: 04/22/23 Status: Ordered ipratropium nasal 21 mcg/inh spray See Instructions, SPRAY 2 SPRAYS INTRANASALLY IN EACH NOSTRIL 3 TIMES A DAY, # 30 Unknown, 1 Refills, Maintenance, 09/30/22 12:00:00 EST, [id number], 28, SPRAY 2 SPRAYS INTRANASALLY IN EACH NOSTRIL 3 TIMES A DAY, 172, cm, 09/05/22 15:08:00 EST, H... Start Date: 09/30/22 Status: Ordered Miscellaneous Rx TAKE 1 TABLET [...] 2 times a day, # 180 capsule, 0 Refills, Maintenance, 05/07/23 8:45:00EDT, EC Capsule, [facility]/pharmacy #[id number], Partial fill upon patient request if the prescription is for aschedule II opioid drug., 172, cm, 04/08/23 8:37:00... Start Date: 05/07/23 Status: Ordered Pen [place], 31 G x 5 mm BD Ultra Fine III See Instructions, # 300 each, Refills 2, Tot. Refills 2, Maintenance, use as directed for Type 2 Diabetes Mellitus, 11/05/22 9:29:00 EDT, Supply, 172, cm, 11/05/22 9:12:00 EDT, Height Start Date: 11/05/22 Stop Date: 08/02/23 Status: Ordered sertraline 100 mg oral tablet 1 tablet = 100 mg, By Mouth, Daily, along with sertraline 25 mg daily., # 90 tablet, 1 Refills, Maintenance, 03/12/23 16:16:00 EDT, Tablet, [facility]/pharmacy #[id number], Partial fill upon patient request if the prescription is for a schedule II opioid drug., 17... Start Date: 03/12/23 Status: Ordered sertraline 25 mg oral tablet 1 tablet = 25 mg, By Mouth, Daily, along with sertraline 100 mg daily., # 90 tablet, 1 Refills, Maintenance, 03/13/23 15:21:00 EDT, Tablet, [facility]/pharmacy #[id number], Partial fill upon patient request if the prescription is for a schedule II opioid drug., 17... Start Date: 03/13/23 Status: Ordered traZODone 50 mg oral tablet TAKE 1 TABLET BY MOUTH EVERY DAY AT BEDTIME NEEDED Start Date: 04/08/23 Status: Ordered Trulicity Pen 3 mg/0.5 mL subcutaneous solution See Instructions, INJECT 3 MG (0.5 ML) SUBCUTANEOUS INJECTION SUBCUTANEOUSLY ONCE A WEEK, # 6 Unknown, 1 Refills, Maintenance, 05/07/23 9:29:00 EDT, [id number], 172, cm, 04/08/23 8:37:00 EDT, Height, 84.8, kg, 02/17/23 8:16:00 EDT, Dry Weight Start Date: 05/07/23 Status: Ordered Problem List Condition Confirmation Course Effective Dates Status H ealth Status Informant Stage 3b chronic kidney disease (CKD) Confirmed Active CAD in [place] artery Confirmed Active Hyperlipidemia Confirmed Active Moderate persistent asthma Confirmed Active Type 2 diabetes mellitus with diabetic neuropathy Confirmed Active Medication management Confirmed Active Post-nasal drip Confirmed Active Seborrheic keratoses Confirmed Active Social History Social History Type Response Smoking Status Never smoker; Tobacc o user in household: No entered on: 02/08/16 Sex Laboratory * Event Display: Non Lab Results Authored Date: Radiology * Event Display: X-Ray Chest, Non- BH Authored Date: * Event Display: CT Scan Abdomen, Non- BH Authored Date: Patient Care team information Care Team Personnel Name: Edita Raphael RN Position: [facility] RN Member Role: Primary Care Nurse Name: Yuri Lima Position: [facility] Outreach Member Role: Lifetime Consulting Physician Name: Sunshine Turner RN Position: [facility] ED RN W/OE and Tasks Member Role: Primary Care Nurse Name: Rowdy Cerda MD Position: [facility] Renal MD Member Role: Lifetime Consulting Physician Address: Address: [address] [place] [address] [facility] [place] [address]- Name: Chelsi SHIELDS, Issac Simon Position: [facility] Physician - Primary Care Member Role: PCP Address: Address: [address] [place] [address] [address] Care Team Related Persons Name: REEMA IZQUIERDO Address: [address] [place] [address] Name: LETTY IZQUIERDO Address: home [address] [place] [address] Name: ARYA IZQUIERDO Address: home [address] [place] [address]
--- OUTSIDE RECORDS SUMMARY | 2024-03-02 08:17 | XMS_ITS | Continuity of Care Document ---
Author Organization [facility] Address [address] [place] [address]- Care Team Providers Care Air Carrier Operations Inspector Name Role Phone Conner Lomeli MD Primary Care Physician [phone] Encounter [facility] [place] Date(s): 07/28/19 - 11/25/19 [facility] [address] [place] [id number]- [facility] Attending Physician: Osorio Chavez MD Referring Physician: Conner Lomeli MD Allergies, Adverse Reactions, Alerts Substance Reaction Severity Status Cats hayfever Active Dogs hayfever Active Pollen hayfever Active Dust hayfever Active Mold hayfever Active Immunizations Not Given Vaccine Date Status Refusal Reason pneumococcal 13-valent vaccine 06/11/17 Not Given Patient Refuses Medications amLODIPine 2.5 mg oral tablet 2.5 mg, 1, tablet, By Mouth, Daily, # 90 tablet, Refills 2, Tot. Refills 2, Maintenance, 07/18/19 13:23:00 EST, Route to Pharmacy Electronically, [facility]/pharmacy #[id number], 172, cm, 07/07/19 9:07:00 EST, Height, 97.5, kg, 10/20/17 15:14:00 EDT, Dry Weight Start Date: 07/18/19 Status: Ordered aspirin 325 mg oral delayed release tablet 325 mg, 1, tablet, By Mouth, Daily, # 30 tablet, Refills 0, Maintenance, 05/10/19 16:33:25 EDT Start Date: 05/10/19 Status: Ordered atorvastatin 40 mg oral tablet 1 tablet = 40 mg, By Mouth, Daily at bedtime, TAKE 1 TABLET BY MOUTH EVERY DAY AT BEDTIME, # 90 tablet, 3 Refills, Maintenance, Tablet, Route to Pharmacy Electronically, [id number], [facility]/pharmacy #[id number] Start Date: 04/06/17 Stop Date: 04/01/18 Status: Ordered Basaglar KwikPen 100 units/mL subcutaneous solution = 40 units, Subcutaneous Injection, Daily at bedtime, # 10 mL, 0 Refills, Maintenance, 05/10/19 16:31:45 EDT, Solution Start Date: 05/10/19 Status: Ordered benazepril 5 mg oral tablet TAKE 1 TABLET BY MOUTH EVERY DAY Start Date: 03/22/17 Status: Ordered benazepril 5 mg oral tablet 1 tablet = 5 mg, By Mouth, Daily, # 90 tablet, 3 Refills, Maintenance, 08/17/19 10:28:00 EST, [facility]/pharmacy #[id number], 172, cm, 07/07/19 9:07:00 EST, Height, 97.5, kg, 10/20/17 15:14:00 EDT, Dry Weight Start Date: 08/17/19 Status: Ordered Colace sodium 50 mg oral [...] Required Details Start Date: 05/10/19 Status: Ordered metoprolol 25 mg oral tablet [...] Status Health Status Inform ant CAD in [place] artery(Confirmed) Active Social History Social History Type Response Smoking Status Never smoker; Tobacc o user in household: No entered on: 02/08/16 Sex
--- OUTSIDE RECORDS SUMMARY | 2024-03-02 08:17 | XMS_ITS | Continuity of Care Document ---
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 Name Role Phone Chelsi SHIELDS, Issac Simon Primary Care Physician Encounter [facility] Date(s): 11/15/23 - 11/20/[address] [id number] Discharge Disposition: Disch/Trans to IP Rehab or unit w/in Hos Attending Physician: Maycol De Guzman MD Admitting Physician: Maycol De Guzman MD Referring Physician: Maycol De Guzman MD Allergies, Adverse Reactions, Alerts Substance Reaction [...] influenza virus vaccine, inactivated 04/25/19 Brad rded [id number] 12y+ bivalent booster vax 04/15/22 Recorded pneumococcal 23-valent vaccine 10/08/21 Recorded tetanus/diphtheria/pertussis, acel(Tdap) 05/16/20 Recorded zoster vaccine, inactivated 04/20/20 Recorded pneumococcal 13-valent vaccine 04/25/19 Recorded pneumococcal 13-valent vaccine 09/09/16 Recorded Medications Albuterol (Eqv-ProAir HFA) 90 mcg/inh inhalation aerosol 2 puffs = 180 mcg, Inhalation, Every 6 hours, PRN Wheezing/Shortness of Breath, # 8.5 Gm, 5 Refills, Maintenance, 08/03/23 10:27:00 EST, Inhaler, [facility]/pharmacy #[id number], Partial fill upon patient requestif the prescription is for a schedule II opioid james... Start Date: 08/03/23 Status: Ordered albuterol 0.083% inhalation solution 3 mL = 2.5 mg, Inhalation, Every 6 hours, PRN for wheezing, # 60 each, 2 Refills, Maintenance, 04/29/23 12:22:00 EDT, Solution, [facility]/pharmacy #[id number], Partial fill upon patient request if the prescription is for a schedule II opioid drug., 172, cm, 04/08... Start Date: 04/29/23 Status: Ordered atorvastatin 40 mg oral tablet 1 tablet, By Mouth, Daily at bedtime, # 90 tablet, 1 Refills, Maintenance, 09/21/23 13:01:00 EST, [id number], 172, cm, 06/30/23 9:51:00 EST, Height, 84.8, kg, 02/17/23 8:16:00 EDT, Dry Weight Start Date: 09/21/23 Status: Ordered Colace Capsule 100 mg, 1, capsule, By Mouth, 2 times a day, Refills 0, Maintenance, 11/19/23 9:28:00 EDT, Partial fill upon patient request if the prescription is for a schedule II opioid drug. Start Date: 11/19/23 Status: Ordered Enoxaparin 0.4 mL = 40 [...] opioid drug. Start Date: 10/26/23 Status: Ordered Freestyle Lite Test Strips See Instructions, # 600 each, Refills 1, Tot. Refills 1, Maintenance, use twice a day to check gluocse for Type 2 Diabetes Mellitus, 11/05/22 9:27:00 EDT, Supply, 172, cm, 11/05/22 9:12:00 EDT, Height Start Date: 11/05/22 Stop Date: 05/04/23 Status: Ordered gabapentin 300 mg oral capsule 300 mg, Capsule, By Mouth, 11/20/23 15:00:00 EDT Start Date: 11/20/23 Stop Date: 11/20/23 Status: Completed gabapentin 300 mg oral capsule 300 mg, 1, capsule, By Mouth, 3 times a day, # 270 capsule, Refills 3, Tot. Refills 3, Maintenance,04/22/23 15:31:00 EDT, Route to Pharmacy Electronically, [facility]/pharmacy #[id number], Partial fill upon patient request if the prescription is for a schedule II... Start Date: 04/22/23 Status: Ordered MiraLax Powder 1 pack/packet = [...] Refills, Maintenance, 08/03/23 10:27:00 EST, EC Capsule, [facility]/pharmacy #[id number], Partial fill upon patient request if the prescription is for a schedule II opioid drug., 172, cm, 06/30/23 9:51:0... Start Date: 08/03/23 Status: Ordered oxyCODONE 5 mg oral tablet See Instructions, PRN, 1-2 tablets By Mouth Every 4 hours, # 84 tablet, Refills 0, Tot. Refills 0, Acute 11/26/23 6:56:00 EDT, Pain , Moderate, 11/19/23 6:56:00 EDT, Instructions Replace Required Details, Print Requisition, Partial fill upon patient r... Start Date: 11/19/23 Stop Date: 11/26/23 Status: Ordered OxyCONTIN 10 mg oral tablet, extended release 10 mg, By Mouth, Every 12 hours, # 14 tablet, Refills 0, Tot. Refills 0, Maintenance, 11/19/23 6:56:00 EDT, Print Requisition, Partial fill upon patient request if the prescription is for a schedule II opioid drug. Start Date: 11/19/23 Stop Date: 11/26/23 Status: Ordered Pen [place], 31 G x 5 mm BD Ultra Fine III See Instructions, # 100 each, Refills 5, Tot. Refills 5, Maintenance, use as directed for Type 2 Diabetes Mellitus to inject insulin once a day, 08/27/23 16:46:00 EST, Supply, 172, cm, 06/30/23 9:51:00 EST, Height, 84.8, kg, 02/17/23 8:16:00 EDT, Dry... Start Date: 08/27/23 Stop Date: 02/23/24 Status: Ordered Pen [place], 31 G x 5 mm BD Ultra [...] 17... Start Date: 09/23/23 Status: Ordered tiZANidine 4 mg oral tablet 2 mg, By Mouth, Every 6 hours, PRN, Refills 0, Maintenance, Spasm, 11/20/23 7:53:00 EDT, Partial fill upon patient request if the prescription is for a schedule II opioid drug. Start Date: 11/20/23 Status: Ordered traZODone 50 mg oral tablet 50 mg, 1, tablet, By Mouth, Daily at bedtime, TAKE 1 TABLET BY MOUTH EVERY DAY AT BEDTIME NEEDED Start Date: 04/08/23 Status: Ordered Tresiba FlexTouch 100 units/mL subcutaneous solution = 16 units, Subcutaneous Injection, Daily, # 5 each, 1 Refills, Maintenance, 08/27/23 16:41:00 EST,[facility]/pharmacy #[id number], Partial fill upon patient request if the prescription is for a schedule II opioid drug., 172, cm, 06/30/23 9:51:00 EST, Height, 84.... Start Date: 08/27/23 Status: Ordered Trulicity Pen 4.5 mg/0.5 mL subcutaneous solution = 0.5 mL, Subcutaneous Injection, Every week, rotate injection sites, # 6 mL, 3 Refills, Maintenance, 11/06/23 16:12:00 EDT, Solution, [facility]/pharmacy #[id number], Partial fill upon patient request if the prescription is for a schedule II opioid drug., 172, cm... Start Date: 11/06/23 Status: Ordered Tylenol 325 mg oral tablet 975 mg, By Mouth, Every 8 hours, Refills 0, Maintenance, 11/19/23 9:28:00 EDT, Partial fill upon patient request if the prescription is for a schedule II opioid drug. Start Date: 11/19/23 Status: Ordered Problem List Condition Confirmation Course Effective Dates Status H ealth Status Informant Stage 3b chronic kidney disease (CKD) Confirmed Active CAD in [place] artery Confirmed Active History of syncope Confirmed Active Hyperlipidemia Confirmed Active Moderate persistent asthma Confirmed Active Type 2 diabetes mellitus with diabetic neuropathy Confirmed Active Medication management Confirmed Active Post-nasal drip Confirmed Active Seborrheic keratoses Confirmed Active Results Radiology Reports (Most Recent Ten) * Exam Date Time Procedure Performing Provider Status 11/18/23 3:57 AM Lumbar Spine 2 or 3 Views Kamar Zambrano ; Auth (Verified) Notes: (Lumbar Spine 2 or 3 Views) Reason For Exam: Upright AP and lateral;Postop RESULT: Lumbar Spine 2 or 3 Views Lumbar Spine 2 or 3 Views REASON: Postop; Upright AP and lateral; Clinical Question(s): S P Fusion COMPARISON: 11/15/2023 FINDINGS: Previously seen fusion contrast has been extended now involving L4-S1. Hardware appears intact. Overlying posterior skin flakita and surgical drain. Intervertebral spacer at L4-L5. Unchanged grade 1 anterolisthesis L4-L5. There are surgical clips in the right upper quadrant. IMPRESSION: Postoperative changes as above. WSN: [id number] Ordering Physician: Lissa Shell Dictated By: Julian Montgomery MD Dictated Date/Time: 11/18/23 10:00 a Reviewed By: Julian Montgomery MD Signed By: Julian Montgomery MD Signed Date/Time: 11/18/23 10:00 am Transcribed By: CSB Transcribed Date/Time: 11/18/23 9:58 am * Exam Date Time Procedure Performing Provider Status 11/17/23 9:16 PM C-Arm > 1 Hour Benito Serna; Auth (Claudine ified) Notes: (C-Arm > 1 Hour) Reason For Exam: Posterior Lumbar Fusion/Decompression RESULT: C-Arm > 1 Hour Lumbar Spine 2 or 3 Views, C-Arm > 1 Hour Reason: Posterior Lumbar Fusion Decompression COMPARISON: 11/16/2023 FINDINGS: Multiple intraoperative fluoroscopic spot images during fusion revision surgery. Fluoroscopy time: 1 minute 41 seconds Technologist time: 1 hour 45 minutes IMPRESSION: See above WSN: [id number] Ordering Physician: Maycol De Guzman Dictated By: Addison Howard MD Dictated Date/Time: 11/18/23 7:55 am Reviewed By: Addison Howard MD Signed By: Addison Howard MD Signed Date/Time: 11/18/23 7:55 am Transcribed By: DILLAN Transcribed Date/Time: 11/18/23 7:51 am * Exam Date Time Procedure Performing Provider Status 11/17/23 9:16 PM Lumbar Spine 2 or 3 Views Benito Serna ; Modified Notes: (Lumbar Spine 2 or 3 Views) Reason For Exam: Posterior Lumbar Fusion/Decompression RESULT: Lumbar Spine 2 or 3 Views Lumbar Spine 2 or 3 Views, C-Arm > 1 Hour Reason: Posterior Lumbar Fusion Decompression COMPARISON: 11/16/2023 FINDINGS: Multiple intraoperative fluoroscopic spot images during fusion revision surgery. Fluoroscopy time: 1 minute 41 seconds Technologist time: 1 hour 45 minutes IMPRESSION: See above WSN: [id number] Ordering Physician: Maycol De Guzman Dictated By: Addison Howard MD Dictated Date/Time: 11/18/23 7:55 am Reviewed By: Addison Howard MD Signed By: Addison Howard MD Signed Date/Time: 11/18/23 7:55 am Transcribed By: DILLAN Transcribed Date/Time: 11/18/23 7:51 am * Exam Date Time Procedure Performing Provider Status 11/16/23 5:24 PM Lumbar Spine 2 or 3 Views Hayes Simeon; Aime Notes: (Lumbar Spine 2 or 3 Views) Reason For Exam: SPONDYLOLISTHESIS LUMBAR, INTERVERTEBRAL DISC DISO RESULT: Lumbar Spine 2 or 3 Views Lumbar Spine 2 or 3 Views Reason: SPONDYLOLISTHESIS LUMBAR, INTERVERTEBRAL DISC DISO COMPARISON: Plain film 11/15/2023 FINDINGS: Multiple intraoperative fluoroscopic spot images with posterior fusion hardware in the lower lumbarspine. IMPRESSION: See above WSN: [id number] Ordering Physician: Maycol De Guzman Dictated By: Addison Howard MD Dictated Date/Time: 11/17/23 9:16 am Reviewed By: Addison Howard MD Signed By: Addison Howard MD Signed Date/Time: 11/17/23 9:16 am Transcribed By: DILLAN Transcribed Date/Time: 11/17/23 9:10 am * Exam Date Time Procedure Performing Provider Status 11/16/23 5:24 PM C-Arm > 1 Hour Branden Simeon; Blanca (Ve rified) Notes: (C-Arm > 1 Hour) Reason For Exam: SPONDYLOLISTHESIS LUMBAR, INTERVERTEBRAL DISC DISO RESULT: C-Arm > 1 Hour C-Arm > 1 Hour INDICATION: Reason: SPONDYLOLISTHESIS LUMBAR, INTERVERTEBRAL DISC DISO COMPARISONS: None TECHNIQUE: Fluoroscopy support was provided. There was no radiologist in attendance. FLUOROSCOPY TIME: 2 minutes, 38 seconds EXPOSURE: 101.37 mGy (reference air kerma) TECHNOLOGIST TIME: 1 hour, 45 minutes FINDINGS: Fluoroscopy support was provided. There was no radiologist in attendance. IMPRESSION: See above. WSN: [id number] Ordering Physician: Maycol De Guzman Dictated By: Addison Howard MD Dictated Date/Time: 11/17/23 9:17 am Reviewed By: Addison Howard MD Signed By: Addison Howard MD Signed Date/Time: 11/17/23 9:17 am Transcribed By: DILLNA Transcribed Date/Time: 11/16/23 8:12 pm * Exam Date Time Procedure Performing Provider Status 11/15/23 9:[address] Lumbar Spine W/O Contrast Mary Cantu i; Blanca (Verified) Notes: (CT Lumbar Spine W/O Contrast) Reason For Exam: Postop Spinal Fusion RESULT: CT Lumbar Spine W/O Contrast CT Lumbar Spine W/O Contrast Reason: Postop Spinal Fusion; Clinical Question(s): Fracture Dislocation; fall s p lumbar fusion; Order Comment: CLINICAL QUESTION: Fracture/Dislocation TECHNIQUE: Thin section axial images were acquired through the lumbar spine. Bone and soft tissue algorithms were reconstructed along with coronal and sagittal reformats. Weight-based protocol using automatic tube modulation was used to optimize exposure parameters. CTDIvol Body: 32.40 mGy, DLP Body: 993 mGy*cm. COMPARISON: CT 05/02/2017 FINDINGS: Grade I anterolisthesis at L4-L5. Posterior fusion hardware L4-L5. A few locules of gas within the central canal at L3 and L4. Patient with recent spinal surgery 11/13/2023 Possible left paracentral disc herniation at L3-L4 No evidence of hardware complication. No change in the appearance of the hardware when compared with prior intraoperative and postoperative plain films IMPRESSION: No evidence of fracture. Spinal canal gas likely from recent surgery. No change in appearance of the hardware when compared with prior postsurgical radiographs. No evidence of hardware complication Possible left paracentral disc herniation at L3-L4. WSN: [id number] Ordering Physician: Maycol De Guzman Dictated By: Addison Howard MD Dictated Date/Time: 11/15/23 9:24 am Reviewed By: Addison Howard MD Signed By: Addison Howard MD Signed Date/Time: 11/15/23 9:24 am Transcribed By: DILLAN Transcribed Date/Time: 11/15/23 9:14 am * Exam Date Time Procedure Performing Provider Status 11/15/23 2:17 AM Lumbar Spine 2 or 3 Views Sandy Irving; Auth (Verified) Notes: (Lumbar Spine 2 or 3 Views) Reason For Exam: Other: RESULT: Lumbar Spine 2 or 3 Views Lumbar Spine 2 or 3 Views Reason: unwitnessed fall. COMPARISON: Lumbar spine radiographs dated 11/13/2023 and 03/01/2023. FINDINGS: No bone lesions or fractures. Status post discectomy of L4-5, secured with bilateral transpedicular screws and vertical paraspinal rods. Mild loss of intervertebral disc space height at L5-S1. Normal alignment. No spondylolysis or spondylolisthesis. Normal soft tissues. IMPRESSION: Postoperative change in the lumbar spine with no radiographic evidence of lumbar vertebral fracture. WSN: [id number] Ordering Physician: Marleny Monk Dictated By: Faith Lemon MD Dictated Date/Time: 11/15/23 6:12 am Reviewed By: Faith Lemon MD Signed By: Faith Lemon MD Signed Date/Time: 11/15/23 6:12 am Transcribed By: DILLAN Transcribed Date/Time: 11/15/23 6:09 am * Exam Date Time Procedure Performing Provider Status 11/15/23 1:[address] Cervical Spine W/O Contrast Marquis Ferris; Auth (Verified) Notes: (CT Cervical Spine W/O Contrast) Reason For Exam: unwitnessed fall RESULT: CT Cervical Spine W/O Contrast CT Head/Brain W/O Contrast, CT Cervical Spine W/O Contrast INDICATION: Reason: unwitnessed fall; clinical question: Hemorrhage. TECHNIQUE: Noncontrast head CT using axial technique was reconstructed in axial and coronal planes.Noncontrast spiral CT through the cervical spine was formatted in 3 planes. Automatic tube modulation was used for the cervical spine and iterative dose reconstruction was used for both the head and cervical spine to optimize scan parameters and image quality. CTDIvol Body: 19.40 mGy, DLP Body: 489 mGy*cm. CTDIvol Head: 42.00 mGy, DLP Head: 840 mGy*cm. COMPARISON: Brain MRI 04/26/2023 FINDINGS: Building Illuminating Engineer View Findings, Lines and Tubes: None. BRAIN AND EXTRA-AXIAL SPACES: No parenchymal hemorrhage, midline shift, or mass effect. [place]-white matter differentiation is wellpreserved. Ventricles, sulci, and basilar cisterns are normal. Mild low-density white matter changes. No subarachnoid hemorrhage. No subdural or epidural collection. CALVARIUM, SKULL BASE, AND SOFT TISSUES: Small right frontal scalp hematoma No fractures or suspicious bony lesions. The paranasal sinuses and mastoid air cells are clear. Visualized orbits and globes are intact. The extracranial soft tissues are unremarkable. CERVICAL SPINE: No fracture. No acute osseous abnormalities. Normal alignment. No locked or perched facet. Moderate multilevel degenerative disc space narrowingand end plate irregularity. OTHER BONES: No acute abnormality. CERVICAL SOFT TISSUES AND LUNG APICES: Normal soft tissues. No pneumothorax. Visualized thyroid gland is atrophic. IMPRESSION: No acute abnormality of the head or cervical spine. Wet read provided via [facility] by Dr. Espinoza on 11/15/2023 2:23 AM. I have personally reviewed the images and I agree with this report. WSN: [id number] Ordering Physician: Marleny Monk Dictated By: Travon Espinoza DO Dictated Date/Time: 11/15/23 7:26 am Reviewed By: Addison Howard MD Signed By: Addison Howard MD Signed Date/Time: 11/15/23 7:31 am Transcribed By: IDLLAN Transcribed Date/Time: 11/15/23 2:23 am * Exam Date Time Procedure Performing Provider Status 11/15/23 1:[address] Head/Brain W/O Contrast Ramez Ferris; Auth (Verified) Notes: (CT Head/Brain W/O Contrast) Reason For Exam: Other: RESULT: CT Head/Brain W/O Contrast CT Head/Brain W/O Contrast, CT Cervical Spine W/O Contrast INDICATION: Reason: unwitnessed fall; clinical question: Hemorrhage. TECHNIQUE: Noncontrast head CT using axial technique was reconstructed in axial and coronal planes.Noncontrast spiral CT through the cervical spine was formatted in 3 planes. Automatic tube modulation was used for the cervical spine and iterative dose reconstruction was used for both the head and cervical spine to optimize scan parameters and image quality. CTDIvol Body: 19.40 mGy, DLP Body: 489 mGy*cm. CTDIvol Head: 42.00 mGy, DLP Head: 840 mGy*cm. COMPARISON: Brain MRI 04/26/2023 FINDINGS: Building Illuminating Engineer View Findings, Lines and Tubes: None. BRAIN AND EXTRA-AXIAL SPACES: No parenchymal hemorrhage, midline shift, or mass effect. Durand-white matter differentiation is wellpreserved. Ventricles, sulci, and basilar cisterns are normal. Mild low-density white matter changes. No subarachnoid hemorrhage. No subdural or epidural collection. CALVARIUM, SKULL BASE, AND SOFT TISSUES: Small right frontal scalp hematoma No fractures or suspicious bony lesions. The paranasal sinuses and mastoid air cells are clear. Visualized orbits and globes are intact. The extracranial soft tissues are unremarkable. CERVICAL SPINE: No fracture. No acute osseous abnormalities. Normal alignment. No locked or perched facet. Moderate multilevel degenerative disc space narrowingand end plate irregularity. OTHER BONES: No acute abnormality. CERVICAL SOFT TISSUES AND LUNG APICES: Normal soft tissues. No pneumothorax. Visualized thyroid gland is atrophic. IMPRESSION: No acute abnormality of the head or cervical spine. Wet read provided via [facility] by Dr. Espinoza on 11/15/2023 2:23 AM. I have personally reviewed the images and I agree with this report. WSN: [id number] Ordering Physician: Marleny Monk Dictated By: Travon Espinoza DO Dictated Date/Time: 11/15/23 7:26 am Reviewed By: Addison Howard MD Signed By: dAdison Howard MD Signed Date/Time: 11/15/23 7:31 am Transcribed By: DILLAN Transcribed Date/Time: 11/15/23 2:23 am * Exam Date Time Procedure Performing Provider Status 11/13/23 7:22 PM Lumbar Spine 2 or 3 Views Darnell Jacques; Auth (Verified) Notes: (Lumbar Spine 2 or 3 Views) Reason For Exam: post -op;Localization Films RESULT: Lumbar Spine 2 or 3 Views Lumbar Spine 2 or 3 Views Reason: Localization Films; post -op; Clinical Question(s): S P Fusion COMPARISON: 04/01/2023 FINDINGS: Interval placement of intervertebral disc spacer and posterior spinal fusion had L4-L5, with bilateral transpedicular screws noted. Remainder of the intervertebral disc spaces are preserved. Normal alignment. No spondylolysis or spondylolisthesis. Normal soft tissues. IMPRESSION: Interval posterior spinal fusion at L4-5 with placement of intervertebral disc spacer with no residual anterolisthesis. WSN: [id number] Ordering Physician: Mitzy Cabrera Dictated By: Masha Pimentel MD Dictated Date/Time: 11/13/23 7:46 pm Reviewed By: Masha Pimentel MD Signed By: Masha Pimentel MD Signed Date/Time: 11/13/23 7:46 pm Transcribed By: DILLAN Transcribed Date/Time: 11/13/23 7:44 pm Vital Signs Most recent to oldest [Reference Range]: 1 2 3 Weight 87.2 kg (11/17/23 5:59 PM) 87.2 kg (11/16/23 1:58 PM) Oxygen Saturation [94-100 %] 98 % (11/20/23 1:05 PM) 98 % (11/20/23 11:00 AM) 97 % (11/20/23 7:35 AM) Pulse Rate [55-90 bpm] 62 bpm (11/20/23 1:05 PM) 64 bpm (11/20/23 11:00 AM) 59 bpm (11/20/23 7:35 AM) Blood Pressure [90-138/55-84 mm Hg] 101/58mm Hg (11/20/23 1:05 PM) 149/85mm Hg *H* (11/20/23 11:00 AM) 117/61mm Hg (11/20/23 7:35 AM) Respiratory Rate [16-30 br/min] 16 br/min (11/20/23 2:00 PM) 18 br/min (11/20/23 1:05 PM) 17 br/min (11/20/23 11:00 AM) Temperature [96.8-100.4 DegF] 98.4 DegF (11/20/23 1:05 PM) 98.1 DegF (11/20/23 11:00 AM) 98.7 DegF (11/20/23 7:35 AM) Liters per Minute 6 L/min (11/17/23 10:00 PM) 3 L/min (11/16/23 8:00 PM) 3 L/min (11/16/23 7:45 PM) Mode of Delivery (Oxygen) Room air (11/20/23 1:05 PM) Room air (11/20/23 11:00 AM) Room air (11/20/23 7:35 AM) Blood pressure sites Arm, left (11/20/23 1:05 PM) Arm, left (11/20/23 11:00 AM) Arm, left (11/20/23 7:35 AM) Temperature Route Oral (11/20/23 1:05 PM) Oral (11/20/23 11:00 AM) Oral (11/20/23 7:35 AM) Dry Weight 87.2 kg (11/16/23 1:58 PM) 87.2 kg (11/13/23 7:00 AM) Weight Obtained Via Bed scale (11/16/23 1:58 PM) Dry Weight Obtained Via Bed scale (11/16/23 1:58 PM) Standing scale (11/13/23 7:00 AM) Social History Social History Type Response Smoking Status Never smoker; Tobacc o user in household: No entered on: 02/08/16 Sex Implantable Device List Procedure Provider Procedure Date Device Type Site Decompression Transforaminal Lumbar Maycol Crook MD 01/01/25 Unknown Other Device Identifier Serial Number Lot or Batch Number Manufacturing Date Expiration Date Distinct Identification Code MRI Safety Implantable Status Assigning Authority [id number] Unknown [id number] Unknown 01/01/25 Unknown Unknown Active GS1 [id number] Unknown [id number] Unknown 01/01/25 Unknown Unknown Active GS1 Procedure Provider Procedure Date Device Type Site Decompression Transforaminal Lumbar Maycol Crook MD 11/16/23 Unknown Other Device Identifier Serial Number Lot or Batch Number Manufacturing Date Expiration Date Distinct Identification Code MRI Safety Implantable Status Assigning Authority Unknown [id number] Unknown Unknown 10/19/25 Unknown Unknown Active Unknown Procedure Provider Procedure Date Device Type Site Decompression Transforaminal Lumbar Maycol Crook MD 11/13/23 Unknown Back Device Identifier Serial Number Lot or Batch Number Manufacturing Date Expiration Date Distinct Identification Code MRI Safety Implantable Status Assigning Authority Unknown [id number] Unknown 07/23/25 Unknown Unknown Active Unknown History and physical note * Event Display: History and Physical Hospital Authored Date: Cardiology * Event Display: Cardiac Rhythm Strips Authored Date: * Event Display: Cardiac Rhythm Strips Authored Date: Hospital Progress note * Darren Araiza RN: PERFORM, SIGN, VERIFY Event Display: Progress Note Hospital Authored Date: Patient: BRANDEN OSWALD Age: 73 years Sex: Male : 1950 Associated Diagnoses: None Author: Darren Araiza RN Findings Problem Related to Alteration in Comfort : Alteration in Comfort/new 11/20/2023 7:00 EDT Alteration in Comfort Related to Surgery Goals & Outcomes: Comfort Pt will report acceptable level of comfort & pain control, Pt will state importance of adhering to pain strategy regime, Pt will demonstrate necessary skills to manage pain, Non-verbal indicators will indicate comfort/pain control Interventions Implemented: Comfort Assess pain using appropriate pain scale/tools, Assess aggravating factors & prevent them accordingly, Assess alleviating factors & promote them accordingly BH Goals/Interventions, Comfort Yes Comfort, Problem Start 11/13/2023 18:18 Reviewed plan with, Comfort Patient Patient Progression, Comfort Pt progressing according to plan Comfort, Problem Ongoing Yes . Nursing Data Cardiac Data. : Cardiac Data. 11/20/2023 9:08 EDT Carotid Pulse, Left Normal Carotid Pulse, Right Normal Brachial Pulse, Left Normal Brachial Pulse, Right Normal Radial Pulse, Left Normal Radial Pulse, Right Normal Femoral Pulse, Left Normal Femoral Pulse, Right Normal Popliteal Pulse, Left Normal Popliteal Pulse, Right Normal Posttibial Pulse, Left Normal Posttibial Pulse, Right Normal Dorsalis Pedis Pulse, Left Normal Dorsalis Pedis Pulse, Right Normal Periorbital, left None Periorbital, right None Edema, Left Arm None Edema, Right Arm None Hand, left None Hand, right None Edema, sacral None Edema, Left Pretibial None Edema, Right Pretibial None Ankle, left None Ankle, right None Pedal, left None Pedal, right None Cardiovascular WNL except . Gastrointestinal Data. : Gastrointestinal Data. 11/20/2023 9:08 EDT Abdomen Distended, Non-tender, Round LLQ Tenderness To palpation LUQ Tenderness To palpation RLQ Tenderness To palpation RUQ Tenderness To palpation Bowel Sounds LUQ Present Bowel Sounds RUQ Present Bowel Sounds LLQ Present Bowel Sounds RLQ Present GI WNL except Normal Bowel Pattern Daily . Genitourinary Data. : Genitourinary Data. 11/20/2023 9:08 EDT WNL . Integumentary Data. : Integumentary Data. 11/20/2023 9:12 EDT Sensory Perception No impairment Moisture Rarely moist Activity Walks occasionally Mobility Very limited Nutrition Adequate Friction and Shear No apparent problem Tyrese Score 19 Nursing Care Plan initiated/updated Yes 11/20/2023 9:08 EDT Skin Integrity Not intact Integumentary WNL except 11/20/2023 9:07 EDT Integumentary WNL except Lumbar Lower, Middle Skin Abnormality Type: Surgical incision Wound Assessment Activity: Reassessment Surgical Incision Detailed Assessment: Yes Incision Surgical Detail: Unable to visualize Wound Dressing: Dry sterile dressing Wound Dressing Assessment: Clean, Dry, Intact Wound Dressing Activity: Intact . Musculoskeletal Data. : Musculoskeletal Data. 11/20/2023 9:08 EDT Musculoskeletal Symptoms Weakness Musculoskeletal WNL except . Vital Signs : VITAL SIGNS SECTION 11/20/2023 7:35 EDT Temperature 98.7 DegF Temperature Route Oral Pulse Rate 59 bpm Respiratory Rate 16 br/min Systolic Blood Pressure 117 mm Hg Diastolic Blood Pressure 61 mm Hg Blood pressure sites Arm, left Mean Arterial Pressure 80 mm Hg Pulse Pressure 56 mm Hg Oxygen Saturation 97 % Mode of Delivery (Oxygen) Room air . Pain Data : PAIN SECTION 11/20/2023 9:08 EDT 1 - 10 Pain Scale Score 6 . Narrative/Incidental Patient alert and oriented, complains of 6/10 pain, medicated with gabapentin, oxycodone per MD order with moderate relief. Lung sounds clear, denies shortness of breath or chest pains. Pulses palpable, no edema noted. Patient noted to have DSD dressing to the back, CDI. Voids cyu. Abdomen is round, soft and nontender, denies nausea or vomiting. Tolerating diet well. Ambulates one person assist wi tht the walker, can be unsteady at times. Voiding clear yellow urine at this time. Call mccartney in reach, can make needs known. . . Discharge Information Case Management Discharge Plan : Case Management Discharge Plan Data 11/19/2023 11:25 EDT Discharge Level of Care at Discharge Inpatient Rehab Facility/Unit Discharge Nursing Homes/Rehab Facilities [facility] Discharge Transportation Arranged [facility] [phone] [facility] [phone] Mode of Transportation Arranged Ambulance Name of Agency #1 [facility] Agency Senior Enlisted Advisor #1 Admissions Service Categories #1 Occupational Therapy, Physical Therapy, Alf Name of Person Notified of Transfer Branden Oswald Name of Receiving Clinician/Provider A clinician will be assigned to you at the facility Phone Number of Receiving Facility [facility] 11/18/2023 14:25 EDT Discharge Level of Care at Discharge In Error (In Error) Discharge VNA/Hospice/Home Care In Error (In Error) Name of Agency #1 In Error (In Error) Agency Senior Enlisted Advisor #1 In Error (In Error) Service Categories #1 In Error (In Error) Service Comments #1 In Error (In Error) Rehabilitation Discharge : Rehab Discharge Index 11/19/2023 9:06 EDT Comments on treatment indicated ADLs, funct mob, transfers, sfety, pt edu, TLSO,spinal precau Full chart review completed Yes Hospital course per CIS 11/19/2023 8:19 EDT Walker: distance 20-50 11/17/2023 8:16 EDT Walker: distance < 10 11/16/2023 8:14 EDT Walker: distance >50 * Chris Jolly NP: PERFORM, SIGN, VERIFY Event Display: Progress Note Hospital Authored Date: Patient: BRANDEN OSWALD Age: 73 years Sex: Male : 1950 Associated Diagnoses: None Author: Chris Jolly NP Ortho S: no c/o CP, SOB, N/V, +flatus, voiding spontaneously. Patient had a bowel movement on 424. Pain is well controlled while in bed, increases with ambulation. DF remains weaker on the right side, unchanged from previous exams. Dr. De Guzman aware. This is impeding his progress with physical therapy. PT recommended acute rehab. [facility] and will be discharged today. Due to his decreased mobility, patient will be started on Lovenox 40 mg daily for DVT prophylaxis per Dr. De Guzman. Dressings to be changed daily by nursing. O: Vitals Temperature 98.7 (07:36) Systolic Blood Pressure 117 (07:36) Diastolic Blood Pressure 61 (07:36) Pulse 59 (07:36) SpO2 97 (07:36) Respiratory Rate 16 (07:36) Last 24 Hours Glucose, POC: Glucose, POC (11/19/23) General: alert, lucid, in NAD Heart: RRR, normal S1S2 Lungs: CTAb Abdomen: obese, soft NT BS hypo active Neurovascular: calves soft NT, +DF weaker on the right. Dr De Guzman aware Dressing: CDI Impression and Plan Spondylolisthesis of lumbar region Plan s/p L4-5 TLIF on 11/13/23 and lumbar implant revision on 11/16/23, L4-5 revision fusion, L4-S1 PISF with Dr. De Guzman. 24 hours postop abx Pain controlled. Tolerating diet Voiding spontaneously. Encourage ambulation. Daily dressing changes by nursing Quality/Care Management DVT Prophylaxis: pneumatic compression boots, Lovenox 40 mg daily until fully ambulatory. Other spondylosis with radiculopathy, lumbar region Case discussed with Dr. De Guzman. * Margie Lobo RN: PERFORM, SIGN, VERIFY Event Display: Progress Note Hospital Authored Date: Patient: BRANDEN OSWALD Age: 73 years Sex: Male : 1950 Associated Diagnoses: None Author: Margie Lobo RN Findings Problem Related to Alteration in Comfort : Alteration in Comfort/new 11/19/2023 21:00 EDT Alteration in Comfort Related to Surgery Goals & Outcomes: Comfort Pt will report acceptable level of comfort & pain control, Pt will state importance of adhering to pain strategy regime, Pt will demonstrate necessary skills to manage pain, Non-verbal indicators will indicate comfort/pain control Interventions Implemented: Comfort Assess pain using appropriate pain scale/tools, Assess aggravating factors & prevent them accordingly, Assess alleviating factors & promote them accordingly BH Goals/Interventions, Comfort Yes Comfort, Problem Start 11/13/2023 18:18 Reviewed plan with, Comfort Patient Patient Progression, Comfort Pt progressing according to plan Comfort, Problem Ongoing Yes . Nursing Data Cardiac Data. : Cardiac Data. 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 Gastrointestinal Data. : Gastrointestinal Data. 11/19/2023 21:00 EDT Gastrointestinal Symptoms Belching, Flatulence Abdomen Soft, Distended, Non-tender Bowel Sounds LUQ Present Bowel Sounds RUQ Present Bowel Sounds LLQ Present Bowel Sounds RLQ Present GI WNL except Normal Bowel Pattern Daily . Integumentary Data. : Integumentary Data. 11/19/2023 21:00 EDT Skin Color Normal for ethnicity Skin Description Dry Skin Temperature Warm Skin Integrity Not intact Sensory Perception No impairment Mobility Slightly limited Integumentary WNL except Lumbar Lower, Middle Skin Abnormality Type: Surgical incision Wound Assessment Activity: Reassessment Surgical Incision Detailed Assessment: Yes Incision Surgical Detail: Unable to visualize Wound Dressing: Dry sterile dressing Wound Dressing Assessment: Clean, Dry, Intact Wound Dressing Activity: Intact . Musculoskeletal Data. : Musculoskeletal Data. 11/19/2023 21:00 EDT Musculoskeletal Symptoms Weakness Musculoskeletal WNL except . Neurological Data. : Neurological Data. 11/19/2023 21:00 EDT Neurological Symptoms Weakness or loss of muscle strength Level of Consciousness Full Consciousness Orientated to person, place, time Person, Place, Time, Event Facial Symmetry Intact Characteristics of Speech Clear and normal Tone LUE Normal Tone RUE Normal Tone LLE Normal Tone RLE Normal Sensation LUE Intact Sensation RUE Intact Sensation LLE Intact Sensation RLE Intact Movement LUE Spontaneous Movement RUE Spontaneous Movement LLE Spontaneous Movement RLE Spontaneous Tremors None Response Eye Opening Spontaneously Motor Response-Adult Obeys commands Verbal Response-Adult Oriented and converses [place] Coma Score 15 1 - 10 Pain Scale Score 6 Neuro WNL except Headache None Memory Intact Swallow - Neuro Normal . Respiratory/Pulmonary Data. : Respiratory/Pulmonary Data. 11/19/2023 21:00 EDT Respiratory Symptoms None Respiratory effort Unlabored Chest expansion Symmetrical Accessory Muscles use No Patient participation Cooperative Incentive Spirometry Predicted Volume 1,500 mL Incentive Spirometry Volume Achieved 2,250 mL Respiratory pattern Regular Left Upper Lobe Breath Sounds Clear Right Upper Lobe Breath Sounds Clear Right Middle Lobe Breath Sounds Clear Left Lower Lobe Breath Sounds Clear Right Lower Lobe Breath Sounds Clear Respiratory distress None Respiratory Treatment(s) Cough and deep breathe, Incentive spirometry Respiratory Treatment(s) Cough and deep breathe, Incentive spirometry Respiratory WNL except . Vital Signs : VITAL SIGNS SECTION 11/19/2023 19:48 EDT Temperature 98.7 DegF Temperature Route Oral Pulse Rate 66 bpm Respiratory Rate 16 br/min Systolic Blood Pressure 122 mm Hg Diastolic Blood Pressure 65 mm Hg Blood pressure sites Arm, left Mean Arterial Pressure 84 mm Hg Pulse Pressure 57 mm Hg Oxygen Saturation 98 % Mode of Delivery (Oxygen) Room air . Pain Data : PAIN SECTION 11/19/2023 21:00 EDT 1 - 10 Pain Scale Score 6 . Narrative/Incidental P: Alteration to Comfort I: See interventions listed above E: Pt is alert and oriented x4, VSS. Pain 6/10, see MAR for medications given. Pt verbally stated that ...I feel a lot better today . Denies dizziness, numbness, and tingling. RLE continues to be weaker than LLE (unchanged). Positive color and movement, good capillary refill and pedal pulses. No edema present. Lungs were clear to auscultation, denies shortness of breath and chest pain. IS use encouraged, reached 2250mL. Positive bowel sounds. Abdomen softly distended and nontender. Passing gas, denies nausea and vomiting. Tolerating p.o intake, last bowel movement 11/17. Pt is voiding adequate amounts of urine. Lower back DSD, clean dry and intact. See CIS for full assessment. Call mccartney is within reach and bed set to the lowest position.. Discharge Information Case Management Discharge Plan : Case Management Discharge Plan Data 11/19/2023 11:25 EDT Discharge Level of Care at Discharge Inpatient Rehab Facility/Unit Discharge Nursing Homes/Rehab Facilities [facility] Discharge Transportation Arranged [facility] [address] [facility] [phone] Mode of Transportation Arranged Ambulance Name of Agency #1 [facility] Agency Senior Enlisted Advisor #1 Admissions Service Categories #1 Occupational Therapy, Physical Therapy, Alf Name of Person Notified of Transfer Branden Oswald Name of Receiving Clinician/Provider A clinician will be assigned to you at the facility Phone Number of Receiving Facility [facility] 11/18/2023 14:25 EDT Discharge Level of Care at Discharge In Error (In Error) Discharge VNA/Hospice/Home Care In Error (In Error) Name of Agency #1 In Error (In Error) Agency Senior Enlisted Advisor #1 In Error (In Error) Service Categories #1 In Error (In Error) Service Comments #1 In Error (In Error) Rehabilitation Discharge : Rehab Discharge Index 11/19/2023 9:06 EDT Comments on treatment indicated ADLs, funct mob, transfers, sfety, pt edu, TLSO,spinal precau Full chart review completed Yes Hospital course per CIS 11/19/2023 8:19 EDT Walker: distance 20-50 11/17/2023 8:16 EDT Walker: distance < 10 11/16/2023 8:14 EDT Walker: distance >50 Note * Lila Alicia RN: PERFORM Event Display: Discharge/Transfer Note Hospital Authored Date: [id number] Nursing Discharge Note Entered On: 11/20/2023 14:48 EDT Performed On: 11/20/2023 14:47 EDT by Lila Alicia RN Nursing Discharge Note 2 Discharge Time : 11/20/2023 16:00 EDT Discharge Comments : 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 Lila Alicia RN - 11/20/2023 16:01 EDT Discharge Level of Care at Discharge : Inpatient Rehab Facility/Unit Discharge Nursing Homes/Rehab Facilities : [facility] Patient Left Unit Via : Ambulance Patient Accompanied Off Unit with : Ambulance/Chair Van Personnel Handover Given to Transport Personnel : Yes DC Instructions Provided & Signed by Pt : Yes Patient Understands D/C Instructions : Yes Verbalized Understanding of D/C Plan By : Patient Patient Instructions Discharge Signed : Yes Did Pt have Specialty Bed or Wound Vac : No Lila Alicia RN - 11/20/2023 14:47 EDT * Lila Alicia RN: PERFORM Event Display: Patient Education/Instruction Authored Date: [id number] Inpatient Adult Discharge Instructions. [address] [address] Name: BRANDEN OSWALD : 1950?? Visit: 11/15/2023 08:57?? Current Date: 11/20/2023 14:58 ?? Account: [id number]?? Inpatient Adult Discharge Instructions We would like to thank you for allowing us to assist you with your healthcare needs. The following includes patient education materials and information regarding your injury/illness. Our entire staffstrives to provide an excellent experience for our patients and their families. PLEASE ENSURE YOU FOLLOW-UP PER THE INSTRUCTIONS BELOW! ?? YOUR OPINION IS IMPORTANT TO US! Please complete the survey you may receive by mail or email. Your feedback will be used to make improvements to the healthcare experiences of our patients and their families. Surveys are administered by [employer]. ?? If further treatment with your primary care physician or another doctor is recommended, it is important for you to keep the appointment. Call your primary care physician or return to the Emergency Department immediately if your condition worsens, fails to improve, or new symptoms develop. If you need to find a doctor, you can call [facility] for a referral at [phone] or toll free at [phone] or log in to [email or web address].. ?? [facility], in keeping with [facility] guidance, no longer requires face masks for staff, patientsor visitors in most situations. Similiar to time spent indoors at other locations, there is the chance that you were exposed to repiratory viruses during your time with us (such as flu or COVID-19). If you develop symptoms concerning for a viral respiratory infection, please seek testing (and treatment if indicated) from your medical provider or home test kit. ?? You can view and manage your care through the patient portal or by using a health care yuli of your choosing. [employer] is a website that allows you to securely view your medical information including your hospital discharge summary, office visit summaries, medications and follow-up visits. You can also request appointments, renew medications, and request access to your medical information using a health care yuli of your choosing, or just ask a question. You can enroll at [email or web address] or register during your next office visit. You have been discharged from [facility], Patient Care Unit: S3??. If you have any questions regarding these instructions, including results of studies pending, afteryou leave, please call us and we will be happy to assist you 16/02. [facility] Your Care Team Attending Physician Maycol De Guzman MD?? Consulting Providers Maycol De Guzman MD?? Discharging Providers Rik NEVAREZ, Chris Your Diagnosis Other spondylosis with radiculopathy, lumbar region Spondylolisthesis of lumbar region Tests Performed Below is a partial list of the tests performed during your hospitalization. You may have had other tests and procedures not included in this list. Please discuss all test results with your provider. CBC w/ Differential Comprehensive Metabolic Panel GLUCOSE POC HOLD GEL TUBE CT Cervical Spine W/O Contrast CT Head/Brain W/O Contrast CT Lumbar Spine W/O Contrast Spine Lumbar 2 or 3 Views XR C-Arm > 1 Hour XR Lumbar Spine 2 or 3 Views No tests performed during this visit.?? Primary Care Provider Issac Gagnon MD? Advance Directive Health Care Proxy on File Yes - Health Care Proxy Discharge Vitals Temperature: 98.4 DegF Weight: 87.2 kg Pulse Rate: 62 bpm ?? Respiratory Rate: 16 br/min ?? Systolic Blood Pressure: 101 mm Hg ?? Diastolic Blood Pressure: 58 mm Hg ?? Oxygen Saturation: 98 % ?? Studies Pending All studies ordered during this hospital stay have been completed unless listed below. Please discuss all pending results with your provider listed above in these instructions. ?? No incomplete studies found?? What to do next Instructions From Your Doctor ?? Orders?? Unit Discharge Criteria Met, ??11/20/23 7:56:00 EDT?? Prescriptions??, ??11/20/23 7:56:00 EDT , ??11/19/23 9:37:00 EDT?? Scheduled Follow-Up Appointments Thursday 10:15 AM EDT ?? With: Nathanael NEVAREZ, Reinier Diop Where: [facility] [address] [place] [phone]- Status: Pending Thursday 1:40 PM EDT ?? With: Issac Gagnon MD Where: Primary Care [address] [address]- Status: Pending You Need to Schedule the Following Appointments Follow Up with??[facility] When:??Within Within two weeks Discharge Medications BRANDEN OSWALD :1950 Visit Date:11/15/2023 Medications: Please continue your medications until treatment is completed or stopped by your provider. Medications not listed below should be discontinued. Discuss any questions related to medications with your provider. What How Much When Why Instructions Next Dose New Acetaminophen (Tylenol 325 mg oral tablet) 975 Milligram Oral Every 8 hours 11/19 tonight at 10pm New Docusate (Colace Capsule) 100 Milligram Oral Twice a day 11/19 tonight New Enoxaparin 40 Milligram Subcutaneous Injection Every 24 hours 11/20 tomorrow morning at 8am New Polyethylene Glycol 3350 (MiraLax Powder) 17 gram Oral Daily as needed for Constipation as needed New Senna (Senna 8.6 mg oral tablet) 2 tab(s) Oral Daily as needed for Constipation as needed New Tizanidine (tiZANidine 4 mg oral tablet) 2 Milligram Oral Every 6 hours as needed for Spasm as needed Changed Oxycodone (oxyCODONE 5 mg oral tablet) See instructions 1-2 tablets By Mouth Every 4 hours, As needed for Pain , Moderate ?? Printed Prescription as needed Changed Oxycodone (OxyCONTIN 10 mg oral tablet, extended release) 10 Milligram Oral Every 12 hours Duration: 7 Days Printed Prescription 11/19 tonight at 8pm Unchanged Albuterol (Albuterol (Eqv-ProAir HFA) 90 mcg/ inh inhalation aerosol) 2 puff(s) Inhalation Every 6 hours as needed for Wheezing/Shortness of Breath as needed Unchanged Albuterol (albuterol 0.083% inhalation solution) 3 Milliliter Inhalation Every 6 hours as needed for for wheezing as needed Unchanged Atorvastatin (atorvastatin 40 mg oral tablet) 1 tab(s) Oral Daily at Bedtime 11/19 tonight Unchanged dapagliflozin (Farxiga 10 mg oral tablet) 1 tab(s) Oral Daily 11/20 tomorrow morning Unchanged dulaglutide (Trulicity Pen 4.5 mg/ 0.5 mL subcutaneous solution) 0.5 Milliliter Subcutaneous Injection Every week rotate injection sites ?? resume home schedule Unchanged Gabapentin (gabapentin 300 mg oral capsule) 1 capsule Oral 3 times a day 11/19 tonight Unchanged insulin degludec (Tresiba FlexTouch 100 units/ mL subcutaneous solution) 16 unit(s) Subcutaneous Injection Daily Diabetes mellitus 11/20 tomorrow morning Unchanged Omeprazole (omeprazole 20 mg oral enteric coated capsule) 1 capsule Oral Twice a day 11/19 tonight Unchanged Sertraline (sertraline 100 mg oral tablet) 1 tab(s) Oral Daily along with sertraline 25 mg daily. ?? 11/20 tomorrow morning Unchanged Trazodone (traZODone 50 mg oral tablet) 1 tab(s) Oral Daily at Bedtime TAKE 1 TABLET BY MOUTH EVERY DAY AT BEDTIME NEEDED ?? 11/19 tonight ?? What How Much When Comments Stop Taking Divalproex Sodium (divalproex sodium 250 mg oral tablet, extended release) 1 tab(s) Stop Taking Ipratropium Nasal (ipratropium nasal 21 mcg/ inh spray) See instructions SPRAY 2 SPRAYS INTRANASALLY IN EACH NOSTRIL 3 TIMES A DAY ?? Prescription Given During Visit Oxycodone (OxyCONTIN 10 mg oral tablet, extended release) - 10 mg, By Mouth, Every 12 hours, # 14 tablet, 0 Refills?? Oxycodone (oxyCODONE 5 mg oral tablet) - , # 84 tablet, 0 Refills, 1-2 tablets By Mouth Every 4 hours?? Laboratory Results Below is a partial list of the most recent Laboratory test results done prior to this discharge. You may have had other tests and procedures not included in this list. Please discuss all test resultswith your provider. CBC w/ Differential (11/18/2023) ???WBC - 6.9 k/mm3???RBC - 3.64 m/mm3???Hgb - 10.7 Gm/dL???Hct - 31.3 %???MCV - 86.0 femtoliters???MCH - 29.4 pg???MCHC - 34.2 g/dL???Platelet Count - 136 k/mm3???RDW-SD - 39.2 femtoliters???MPV - 10.8 femtoliters???Nucleated RBC (Automated) - 0.0 #/100 WBC'S???Abs. NRBC - 0.0 k/mm3???Abs. Neut - 5.3 k/mm3???Abs. Lymph - 0.8 k/mm3???Abs. [place] - 0.6 k/mm3???Abs. Eo - 0.1 k/mm3???Abs. Baso - 0.0 k/mm3???Neut % - 77.3 %???Lymph % - 11.5 %???[place] % - 9.3 %???Eos % - 1.0 %???Baso % - 0.3 %???Imm Gran - 0.6 %???Abs. Imm Gran - 0.0 k/mm3 Comprehensive Metabolic Panel (11/18/2023) ???Sodium - 140 mmol/L???Potassium - 4.3 mmol/L???Chloride - 106 mmol/L???Bicarbonate Level - 21 mmol/L???Anion Gap - 13???Glucose Level - 189 mg/dL???BUN - 19 mg/dL???Creatinine-Blood - 1.4 mg/dL???Estimated GFR Creatinine - 52 ML/MIN/1.73 M2???Calcium - 8.0 mg/dL???Protein, Total - 5.3 Gm/dL???Albumin - 3.4 Gm/dL???AG Ratio - 1.8???Alkaline Phosphatase - 44 units/L???AST (SGOT) - 51 units/L???ALT (SGPT) - 18 units/L???Bilirubin, Total - 0.5 mg/dL GLUCOSE POC (11/20/2023) ???Glucose, POC - 189 mg/dL HOLD GEL TUBE (11/15/2023) ???Hold Gel Top - SPECIMEN DISCARDED AFTER 1 WEEK Allergies (NKA means No Known Allergies) Cats??(hayfever) Dogs??(hayfever) Dust??(hayfever) Jardiance??(RASH) Mold??(hayfever) Pollen??(hayfever) Problems Active Problems??(9) CAD in [place] artery?? History of syncope?? Hyperlipidemia?? Medication management?? Moderate persistent asthma?? Post-nasal drip?? Seborrheic keratoses?? Stage 3b chronic kidney disease (CKD)?? Type 2 diabetes mellitus with diabetic neuropathy?? Education Materials Below is the list of Educational Leaflet Providered with your Discharge Instructions. Valuables and Belongings I fully understand and agree that [facility] accepts no responsibility for all my personal property including clothing, toilet articles, radios, jewelry, dentures, hearing aids, rings, money, or any other property that is in my possession or is brought to me after admission. I understand certain valuables may be placed in a hospital safe for a short period of time. I understand that the hospital is not liable for loss or damage due to accident, fire, or other natural occurrence while said property is in the safe. I accept full responsibility for any personal property that I keep with me, and will not hold the hospital responsible in case of loss or disappearance. I acknowledge that i have been encouraged to send valuables and belongings home. ?? No Valuables/Belongings: No valuables/belongings present Review of Valuable and Belonging List: With patient Disposition of Belongings: Valuables Locked Possessions released to: Wedding band sent home with spouse Date for Pt to Sign Valuables/Belongings: 11/20/23 13:05:00 ?? Other Discharge Information ? Case Management Discharge Plan?? Discharge Plan?? Discharge Agency Information?? Discharge Level of Care at Discharge: Inpatient Rehab Facility/Unit Name of Agency #1: [facility] Discharge Rx Program: Discharge Prescription Program Agency Senior Enlisted Advisor #1: Admissions Discharge Transportation Arranged: [facility] [phone] Service Categories #1: Occupational Therapy, Physical Therapy, [place] Mode of Transportation Arranged: Ambulance Name of Person Notified of Transfer: Branden Oswald Discharge Nursing Homes/Rehab Facilities: [facility] Name of Receiving Clinician/Provider: A clinician will be assigned to you at the facility ?? Phone Number of Receiving Facility: [facility] ?? Pulmonary Rehab Status?? Pulmonary Rehab Discharge Status?? Respiratory Rate: 16 br/min ? Common Emergency Awareness Tips IS IT A STROKE? Act FAST and Check for these signs: FACE Does the face look uneven? ARM Does one arm drift down? SPEECH Does their speech sound strange? TIME Call at any sign of stroke ?? Heart Attack Signs Chest discomfort: Most heart attacks involve discomfort in the center of the chest and lasts more than a few minutes, or goes away and comes back. It can feel like uncomfortable pressure, squeezing, fullness or pain. Discomfort in upper body: Symptoms can include pain or discomfort in one or both arms, back, neck, jaw or stomach. Shortness of breath: With or without discomfort. Other signs: Breaking out in a cold sweat, nausea, or lightheaded. Remember, MINUTES DO MATTER. If you experience any of these heart attack warning signs, call to get immediate medical attention! ?? Smoking can increase your chances of developing chronic health problems and can cause harmful effects to other family members in your house. If you smoke, you are strongly encouraged to quit. Please call [facility] Reissued Link at [phone] or [phone] ([phone]) or log in to [email or web address] for referrals to smoking cessation programs. ?? 194 Suicide & Crisis Lifeline is available 16/02 if you or someone you know needs to find a reason to keep living. By calling 970 you'll be connected to a skilled, trained counselor at a crisis center in your area. INPATIENT DISCHARGE INSTRUCTIONS SIGNATURE KOREY BRANDEN OSWALD Location:[facility] Registration Date and Time:11/15/2023 08:57 EDT Primary Care Physician: Chelsi SHIELSD, Issac Simon, Attending Physician: Maycol De Guzman MD, I BRANDEN OSWALD, have received the above patient education materials/instructions and have verbalized understanding. If ambulance or transport services are being used I further acknowledge being givena choice of service. ?? If you need to contact me, please call me at this number: . Patient/Supervisor Pole Yard Name: Patient/Supervisor Pole Yard Signature: Relationship to Patient: Witness Name/Signature: Date: * Chris Jolly NP: MODIFY, SIGN, PERFORM, SIGN, VERIFY Event Display: Discharge/Transfer Note Hospital Authored Date: [id number] Patient: BRANDEN OSWALD Age: 73 years Sex: Male : 1950 Associated Diagnoses: None Author: Chris Jolly NP Discharge Summary Admission Date: 11/13/2023 Discharge Date: 11/20/2023 Admitting Diagnosis: Spondylolisthesis of lumbar region, Other spondylosis with radiculopathy, lumbar region. Discharge Diagnosis: Spondylolisthesis of lumbar region, Other spondylosis with radiculopathy, lumbar region. Final Diagnosis: Spondylolisthesis of lumbar region, Other spondylosis with radiculopathy, lumbar region. Procedure: L4-5 TLIF. L4-5 laminectomy on 11/13/2023, lumbar implant revision on 11/16/2023, L4-5 revision fusion and L4-S1 PISF on 11/17/[address] De Guzman. Surgeon: Dr. De Guzman Past Medical History: CAD in [place] artery History of syncope Hyperlipidemia Moderate persistent asthma Post-nasal drip Seborrheic keratoses Stage 3b chronic kidney disease (CKD) Type 2 diabetes mellitus with diabetic neuropathy Orthopedics: It is anticipated that he will be discharged to rehab today pending PT, OT clearance. The patient is doing well from a surgical standpoint. His incision is healing well. Neurovascular status is intact with know right LE weakness. Calves are supple and nontender. The patient is weight bearing as tolerated. Making slow progress with Physical Therapy and Occupational therapy. Moderate assist with ambulation, ambulating with a walker. Pain is well controlled on his current regimen, Acetaminophen 650 mg every 6 hours and Oxycodone 5-10 mg every 4 hours as needed . Patient is tolerating this well. He will be sent to rehab with a prescription for this medication. Prescription: Oxycodone 5 mg tablet, 1-2 tablets every 4 hours as needed for mild to moderate pain,7 days # 84 Hospital course: Relatively uneventful medically. Patient struggled with pain postoperatively, particularly with ambulation. Patient has right leg dorsiflexion weakness which has been unchanged, Dr. De Guzman is aware. He had postoperative urinary retention requiring a Albert catheter which since has been removed. Patient is voiding spontaneously. Last BM was on 11/19/23. Current Medication List: Acetaminophen (Tylenol 325 mg oral tablet) 975 Milligram By Mouth Every 8 hours Albuterol (albuterol 0.083% inhalation solution) 3 Milliliter 2.5 Milligram Inhalation Every 6 hours as needed for wheezing Albuterol (Albuterol (Eqv-ProAir HFA) 90 mcg/inh inhalation aerosol) 2 puff(s) 180 Microgram Inhalation Every 6 hours as needed Wheezing/Shortness of Breath Atorvastatin (atorvastatin 40 mg oral tablet) 1 tab(s) By Mouth Daily at bedtime dapagliflozin (Farxiga 10 mg oral tablet) 1 tab(s) 10 Milligram By Mouth Daily Docusate (Colace Capsule) 100 Milligram 1 capsule By Mouth 2 times a day dulaglutide (Trulicity Pen 4.5 mg/0.5 mL subcutaneous solution) 0.5 Milliliter Subcutaneous Injection Every week rotate injection sites Durable Medical Equipment (BuyVIPe Test Strips) See Instructions for 90 Days use twice a dayto check gluocse for Type 2 Diabetes Mellitus Durable Medical Equipment (Pen [place], 31 G x 5 mm BD Ultra Fine III) See Instructions for 90 Daysuse as directed for Type 2 Diabetes Mellitus Durable Medical Equipment (Pen [place], 31 G x 5 mm BD Ultra Fine III) See Instructions for 30 Daysuse as directed for Type 2 Diabetes Mellitus to inject insulin once a day Enoxaparin 0.4 Milliliter 40 Milligram Subcutaneous Injection Every 24 hours Gabapentin (gabapentin 300 mg oral capsule) 300 Milligram 1 capsule By Mouth 3 times a day insulin degludec (Tresiba FlexTouch 100 units/mL subcutaneous solution) 16 unit(s) Subcutaneous Injection Daily Miscellaneous Rx USE DIRECTED TO TEST BLOOD SUGARS 3 TIMES DAILY Miscellaneous Rx TEST FOUR TIMES A DAY (DX: E11.9) Omeprazole (omeprazole 20 mg oral enteric coated capsule) 1 capsule 20 Milligram By Mouth 2 times aday Oxycodone (oxyCODONE 5 mg oral tablet) See Instructions as needed 1-2 tablets By Mouth Every 4 hours Pain , Moderate Oxycodone (OxyCONTIN 10 mg oral tablet, extended release) 10 Milligram By Mouth Every 12 hours for 7 Days Polyethylene Glycol 3350 (MiraLax Powder) 1 pack/packet 17 gram By Mouth Daily as needed Constipation Senna (Senna 8.6 mg oral tablet) 17.2 Milligram 2 tab(s) By Mouth Daily as needed Constipation Sertraline (sertraline 100 mg oral tablet) 1 tab(s) 100 Milligram By Mouth Daily along with sertraline 25 mg daily. Tizanidine (tiZANidine 4 mg oral tablet) 2 Milligram By Mouth Every 6 hours as needed Spasm Trazodone (traZODone 50 mg oral tablet) 50 Milligram 1 tablet By Mouth Daily at bedtime TAKE 1 TABLET BY MOUTH EVERY DAY AT BEDTIME NEEDED Allergies (Active and Proposed Allergies Only) Pollen (Severity: Unknown severity, Onset: Unknown) Reactions: hayfever Mold (Severity: Unknown severity, Onset: Unknown) Reactions: hayfever Jardiance (Severity: Unknown severity, Onset: Unknown) Reactions: RASH Dust (Severity: Unknown severity, Onset: Unknown) Reactions: hayfever Dogs (Severity: Unknown severity, Onset: Unknown) Reactions: hayfever Cats (Severity: Unknown severity, Onset: Unknown) Reactions: hayfever Current Labs: Basic Metabolic Panel: Hematology: Sodium: 140 mmol/L (11/18/23) Hgb: 10.7 Gm/dL (11/18/23) Potassium (POC): 4.3 mmol/L (11/18/23) Hemoglobin A1C (Monitoring): ------ Phosphorus: ------ WBC: 6.9 k/mm3 (11/18/23) Magnesium: ------ Platelets: 136 k/mm3 (11/18/23) BUN (POC) POC Cartridge: 19 mg/dL (11/18/23) INR Level: ------ Creatinine-Blood: 1.4 mg/dL (11/18/23) Creatinine Clearance: ------ Additional - Last 24 Hours Abs. Baso: 0.0 k/mm3 (11/18/23) Abs. Eo: 0.1 k/mm3 (11/18/23) Abs. Imm Gran: 0.0 k/mm3 (11/18/23) Abs. Lymph: 0.8 k/mm3 (11/18/23) Abs. [place]: 0.6 k/mm3 (11/18/23) Abs. Neut: 5.3 k/mm3 (11/18/23) Abs. NRBC: 0.0 k/mm3 (11/18/23) AG Ratio: 1.8 (11/18/23) Albumin: 3.4 Gm/dL (11/18/23) Alkaline Phosphatase: 44 units/L (11/18/23) ALT (SGPT): 18 units/L (11/18/23) Anion Gap: 13 (11/18/23) AST (SGOT): 51 units/L (11/18/23) Baso %: 0.3 % (11/18/23) Bicarbonate Level: 21 mmol/L (11/18/23) Bilirubin, Total: 0.5 mg/dL (11/18/23) Calcium: 8.0 mg/dL (11/18/23) Chloride: 106 mmol/L (11/18/23) Eos %: 1.0 % (11/18/23) Estimated GFR Creatinine: 52 ML/MIN/1.73 M2 (11/18/23) Glucose Level: 189 mg/dL (11/18/23) Glucose, POC: Glucose, POC (11/18/23) Hct: 31.3 % (11/18/23) Imm Gran: 0.6 % (11/18/23) Lymph %: 11.5 % (11/18/23) MCH: 29.4 pg (11/18/23) MCHC: 34.2 g/dL (11/18/23) MCV: 86.0 femtoliters (11/18/23) [place] %: 9.3 % (11/18/23) MPV: 10.8 femtoliters (11/18/23) Neut %: 77.3 % (11/18/23) Nucleated RBC (Automated): 0.0 #/100 WBC'S (11/18/23) Protein, Total: 5.3 Gm/dL (11/18/23) RBC: 3.64 m/mm3 (11/18/23) RDW-SD: 39.2 femtoliters (11/18/23) DVT prophylaxis Lovenox 40 mg daily subcutaneous injections until fully ambulatory. Disposition: Anticipates being discharged today to rehab. Follow up at [facility] as previously scheduled, patient is aware of this. The patient has a dry clean dressing in place. This to be changed daily and as needed Stay at the rehab is expected to be less than 30 days. Discharge Plan Discharge Disposition Discharge: . * Sundar Calderon RN: VERIFY, PERFORM, SIGN Event Display: Case Management Discharge Plan Authored Date: Patient: BRANDEN OSWALD Age: 73 years Sex: Male : 1950 Associated Diagnoses: None Author: Sundar Calderon RN Discharge Plan Case Management Discharge Plan : Case Management Discharge Plan Data 11/18/2023 14:25 EDT Discharge Level of Care at Discharge Homehealth/VNA Discharge VNA/Hospice/Home Care [facility] [phone] Name of Agency #1 [facility] [phone] Agency Senior Enlisted Advisor #1 Intake Service Categories #1 Physical Therapy Service [facility]. Please call their office(or your son!) with any questions or concerns. Patient Care team information Care Team Personnel Name: Edita Raphael RN Position: [facility] RN Member Role: Primary Care Nurse Name: Alla Ibarra RN Position: [facility] RN Member Role: Primary Care Nurse Name: Lindsay Smith RN Position: [facility] RN Member Role: Primary Care Nurse Name: Haley Osullivan RN Position: [facility] RN Member Role: Primary Care Nurse Name: Yuri Lima Position: [facility] Outreach Member Role: Lifetime Consulting Physician Name: Sunshine Turner RN Position: [facility] ED RN W/OE and Tasks Member Role: Primary Care Nurse Name: Rowdy Cerda MD Position: [facility] Renal MD Member Role: Lifetime Consulting Physician Address: Address: [address] [place] [address] [facility] [place] [address]- Name: Issac Gagnon MD Position: [facility] Physician - Primary Care Member Role: PCP Address: Address: [address] [place] [id number]- Name: Yoselin Strange RN Position: [facility] RN Member Role: Primary Care Nurse Name: Darren Araiza RN Position: [facility] RN Member Role: Primary Care Nurse Care Team Related Persons Name: REEMA OSWALD Address: [address] [place] [address] Name: LETTY OSWALD Address: home [address] [place] [address] Name: ARYA OSWALD Address: home [address] [place] [address]
--- OUTSIDE RECORDS SUMMARY | 2024-03-02 08:17 | XMS_ITS | Continuity of Care Document ---
Author Organization [facility] Address [address] [place] [address]- Care Team Providers Care Wilderness Guide Name Role Phone Radu Duarte MD Primary Care Physician ( [phone] Encounter [facility] Date(s): 08/28/21 - 09/27/21 [facility] [address] [place] [address]- [place] Allergies, Adverse Reactions, Alerts Substance Reaction Severity Status Cats hayfever Active Dogs hayfever Active Dust hayfever Active Mold hayfever Active Pollen hayfever Active Immunizations Not Given Vaccine Date Status Refusal Reason pneumococcal 13-valent vaccine 06/11/17 Not Given Patient Refuses Medications amLODIPine 5 mg oral tablet 5 mg, 1, tablet, By Mouth, Daily, dose increase, # 30 tablet, Refills 5, Tot. Refills 5, Maintenance, 07/24/21 16:01:00 EST, Route to Pharmacy Electronically, [facility]/pharmacy #[id number], Partial fill upon patient request if the prescription is for a schedule... Start Date: 07/24/21 Status: Ordered aspirin 325 mg oral delayed [...] Refills, Maintenance, Tablet, Route to Pharmacy Electronically, [id number], [facility]/pharmacy #[id number] Start Date: 04/06/17 Stop Date: 04/01/18 Status: Ordered Basaglar KwikPen 100 units/mL subcutaneous solution = 40 units, Subcutaneous Injection, Daily at bedtime, # 10 mL, 0 Refills, Maintenance, 05/10/19 16:31:45 EDT, Solution Start Date: 05/10/19 Status: Ordered benazepril 10 mg oral tablet 1 tablet = 10 mg, By Mouth, Daily, Dose increase, # 30 tablet, 5 Refills, Maintenance, 07/24/21 16:01:00 EST, Tablet, [facility]/pharmacy #[id number], Partial fill upon patient request if the prescription is for a schedule II opioid drug., 172, cm, 05/14/21 10:50:... Start Date: 07/24/21 Status: Ordered Cetirizine 0 Refills, Maintenance, 08/26/21 11:44:00 EST, Partial fill upon patient request if the prescription is for a schedule II opioid drug. Start Date: 08/26/21 Status: Ordered Colace sodium 50 mg oral capsule 1 capsule = 50 mg, By Mouth, 2 times a day, PRN for constipation, # 60 capsule, 0 Refills, Maintenance, 03/31/17 8:54:33, Capsule Start Date: 03/31/17 Status: Ordered Divalproex Sodium By Mouth, 0 Refills, Maintenance, 08/26/21 11:45:00 EST, Partial fill upon patient request if the prescription is for a schedule II opioid drug. Start Date: 08/26/21 Status: Ordered Flovent Diskus 100 mcg/inh inhalation powder INHALE 1 PUFF BY MOUTH DIRECTED TWICE A DAY Start Date: 05/10/19 Status: Ordered glipiZIDE 5 mg oral tablet See Instructions, 1 tablet By Mouth in am and 3 tablet By Mouth in pm, Refills 0, Maintenance, 05/10/19 16:30:33 EDT, Instructions Replace Required Details Start Date: 05/10/19 Status: Ordered Miscellaneous Rx TAKE 1 TABLET [...] EVERY MORNING Start Date: 03/22/17 Status: Ordered Toprol XL 25 mg oral tablet, extended release 12.5 mg, 0.5, tablet, By Mouth, Daily, # 15 tablet, Refills 5, Tot. Refills 5, Maintenance, 08/29/21 13:30:00 EST, Route to Pharmacy Electronically, [facility]/pharmacy #[id number], Partial fill upon patient request if the prescription is for a schedule II opioid... Start Date: 08/29/21 Stop Date: 02/25/22 Status: Ordered traZODone 50 mg oral tablet 50 mg, 1, tablet, By Mouth, 2 times a day, Refills 0, Maintenance, 08/26/21 11:43:00 EST, Partial fill upon patient request if the prescription is for a schedule II opioid drug. Start Date: 08/26/21 Status: Ordered Trulicity Pen Subcutaneous Infusion, 0 Refills, Maintenance, 08/26/21 11:45:00 EST, Partial fill upon patient request if the prescription is for a schedule II opioid drug. Start Date: 08/26/21 Status: Ordered Vitamin D2 By Mouth, 0 Refills, Maintenance, 08/26/21 11:44:00 EST, Partial fill upon patient request if the prescription is for a schedule II opioid drug. Start Date: 08/26/21 Status: Ordered Problem List Condition Effective Dates Status Health Status Inform ant CAD in [place] artery(Confirmed) Active Obese class I(Confirmed) Active Vital Signs Most recent to oldest [Reference Range]: 1 Height 172 cm (08/29/21 3:05 PM) Weight 100 kg (08/29/21 3:05 PM) Social History Social History Type Response Smoking Status Never smoker; Tobacc o user in household: No entered on: 02/08/16 Sex
--- OUTSIDE RECORDS SUMMARY | 2024-03-02 08:17 | XMS_ITS | Continuity of Care Document ---
Author Organization [facility] Address [address] [place] [address]- Care Team Providers Care Network Intelligence Analyst Name Role Phone Chelsi SHIELDS, Issac Simon Primary Care Physician Encounter [facility] Date(s): 10/26/23 - 11/25/23 [facility] [address] [place], [place] [address] Attending Physician: Carrington Kim Admitting Physician: AdmCarrington england Referring Physician: Admtr ArChristian Allergies, Adverse Reactions, Alerts Substance Reaction Severity [...] influenza virus vaccine, inactivated 04/25/19 Brad rded [id number] 12y+ bivalent booster vax 04/15/22 Recorded pneumococcal 23-valent vaccine 10/08/21 Recorded tetanus/diphtheria/pertussis, acel(Tdap) 05/16/20 Recorded zoster vaccine, inactivated 04/20/20 Recorded pneumococcal 13-valent vaccine 04/25/19 Recorded pneumococcal 13-valent vaccine 09/09/16 Recorded Medications Albuterol (Eqv-ProAir HFA) 90 mcg/inh inhalation aerosol 2 puffs = 180 mcg, Inhalation, Every 6 hours, PRN Wheezing/Shortness of Breath, # 8.5 Gm, 5 Refills, Maintenance, 08/03/23 10:27:00 EST, Inhaler, [facility]/pharmacy #[id number], Partial fill upon patient requestif the prescription is for a schedule II opioid james... Start Date: 08/03/23 Status: Ordered albuterol 0.083% inhalation solution 3 mL = 2.5 mg, Inhalation, Every 6 hours, PRN for wheezing, # 60 each, 2 Refills, Maintenance, 04/29/23 12:22:00 EDT, Solution, [facility]/pharmacy #[id number], Partial fill upon patient request if the prescription is for a schedule II opioid drug., 172, cm, 04/08... Start Date: 04/29/23 Status: Ordered atorvastatin 40 mg oral tablet 1 tablet, By Mouth, Daily at bedtime, # 90 tablet, 1 Refills, Maintenance, 09/21/23 13:01:00 EST, [facility] STORE [id number], 172, cm, 06/30/23 9:51:00 EST, Height, 84.8, [...] Maintenance,04/22/23 15:31:00 EDT, Route to Pharmacy Electronically, [facility]/pharmacy #[id number], Partial fill upon patient request [...] Refills, Maintenance, 08/03/23 10:27:00 EST, EC Capsule, [facility]/pharmacy #[id number], Partial fill upon patient request [...] 11/19/23 Stop Date: 11/26/23 Status: Ordered Pen [place], 31 G x 5 mm BD Ultra Fine III See Instructions, # 100 each, Refills 5, Tot. Refills 5, Maintenance, use as directed for Type 2 Diabetes Mellitus to inject insulin once a day, 08/27/23 16:46:00 EST, Supply, 172, cm, 06/30/23 9:51:00 EST, Height, 84.8, kg, 02/17/23 8:16:00 EDT, Dry... Start Date: 08/27/23 Stop Date: 02/23/24 Status: Ordered Pen [place], 31 G x 5 mm BD Ultra [...] 3 Refills, Maintenance, 09/23/23 10:05:00 EST, Tablet, [facility]/pharmacy #[id number], Partial fill upon patient request if the [...] 5 each, 1 Refills, Maintenance, 08/27/23 16:41:00 EST,[facility]/pharmacy #[id number], Partial fill upon patient request [...] kidney disease (CKD) Confirmed Active CAD in [place] artery Confirmed Active History of syncope Confirmed [...] Device Type Site Decompression Transforaminal Lumbar Inte Gab SHIELDS, Maycol Main 01/01/25 Unknown Other Device Identifier Serial Number Lot or Batch Number Manufacturing Date Expiration Date Distinct Identification Code MRI Safety Implantable Status Assigning Authority [id number] Unknown [id number] Unknown 01/01/25 Unknown Unknown Active GS1 [id number] Unknown [id number] Unknown 01/01/25 Unknown Unknown Active GS1 Procedure Provider Procedure Date Device Type Site Decompression Transforaminal Lumbar Inte Maycol De Guzman MD 11/16/23 Unknown Other Device Identifier Serial Number Lot or Batch Number Manufacturing Date Expiration Date Distinct Identification Code MRI Safety Implantable Status Assigning Authority Unknown [id number] Unknown Unknown 10/19/25 Unknown Unknown Active Unknown Procedure Provider Procedure Date Device Type Site Decompression Transforaminal Lumbar Inte Macyol De Guzman MD 11/13/23 Unknown Back Device Identifier Serial Number Lot or Batch Number Manufacturing Date Expiration Date Distinct Identification Code MRI Safety Implantable Status Assigning Authority Unknown [id number] Unknown 07/23/25 Unknown Unknown Active Unknown Patient Care team information Care Team Personnel Name: Edita Raphael RN Position: [facility] RN Member Role: Primary Care Nurse Name: Alla Ibarra RN Position: [facility] RN Member Role: Primary Care Nurse Name: Lindsay Smith RN Position: [facility] RN Member Role: Primary Care Nurse Name: Haley Osullivan RN Position: [facility] RN Member Role: Primary Care Nurse Name: Yuri Lima Position: [facility] Outreach Member Role: Lifetime Consulting Physician Name: Sunshine Turner RN Position: [facility] ED RN W/OE and Tasks Member Role: Primary Care Nurse Name: Rowdy Cerda MD Position: [facility] Renal MD Member Role: Lifetime Consulting Physician Address: Address: [address] [place] [address] [facility] [place] [address]- Name: Issac Gagnon MD Position: [facility] Physician - Primary Care Member Role: PCP Address: Address: [address] [place] [address] [place] [address]- Name: Yoselin Strange RN Position: [facility] RN Member Role: Primary Care Nurse Name: Darren Araiza RN Position: [facility] RN Member Role: Primary Care Nurse Care Team Related Persons Name: REEMA IZQUIERDO Address: home [address] [address] Name: LETTY IZQUIERDO Address: [address] [place] [address] Name: ARYA IZQUIERDO Address: home [address] [place] [address]
--- OUTSIDE RECORDS SUMMARY | 2024-03-02 08:17 | XMS_ITS | Continuity of Care Document ---
Author Organization [facility] Address [address] [place] [address] [address] [place] [address]- Care Team Providers Care Subsurface Augmentee Operator Name Role Phone Chelsi SHIELDS, Issac Simon Primary Care Physician Encounter [facility] Date(s): 09/19/22 - 10/19/22 [facility] [address] [place] [address]- Attending Physician: Erasmo Kim8 Admitting Physician: AdmtrCarrington Referring Physician: Admtr, Ar8 Allergies, Adverse Reactions, Alerts Substance Reaction Severity Status Cats hayfever Active Jardiance RASH Active Dogs hayfever Active Pollen hayfever Active Dust hayfever Active Mold hayfever Active Immunizations Given and Recorded Vaccine Date [...] influenza virus vaccine, inactivated 04/25/19 Brad rded [id number] 12y+ bivalent booster vax 04/15/22 Recorded pneumococcal 23-valent vaccine 10/08/21 Recorded tetanus/diphtheria/pertussis, acel(Tdap) 05/16/20 Recorded zoster vaccine, inactivated 9/25/20 Recorded pneumococcal 13-valent vaccine 04/25/19 Recorded pneumococcal 13-valent vaccine 09/09/16 Recorded Not Given Vaccine Date Status Refusal Reason pneumococcal 13-valent vaccine 06/11/17 Not Given Patient Refuses Medications Albuterol (Eqv-ProAir HFA) 90 mcg/inh inhalation aerosol 2 puffs, Inhalation, Every 6 hours, PRN Wheezing/Shortness of Breath, 0 Refills, Maintenance, 08/08/22 13:46:00 EST, Partial fill upon patient request if the prescription is for a schedule II opioid drug. Start Date: 08/08/22 Status: Ordered aspirin 325 mg oral delayed [...] Refills, Maintenance, Tablet, Route to Pharmacy Electronically, [id number], [facility]/pharmacy #[id number] Start Date: 04/06/17 Stop Date: 04/01/18 Status: Ordered Cetirizine 0 Refills, Maintenance, 08/26/21 11:44:00 EST, Partial fill upon patient request if the prescription is for a schedule II opioid drug. Start Date: 08/26/21 Status: Ordered doxycycline hyclate 100 mg oral capsule 1 capsule = 100 mg, By Mouth, 2 times a day, # 14 capsule, 0 Refills, Maintenance, 09/05/22 15:44:00 EST, [facility]/pharmacy #[id number], Partial fill upon patient request if the prescription is for a schedule II opioid drug., 172, cm, 09/05/22 15:08:00 EST, Height Start Date: 09/05/22 Status: Ordered Flovent Diskus 100 mcg/inh inhalation powder 1 puffs, By Mouth, 2 times a day, INHALE 1 PUFF BY MOUTH DIRECTED TWICE A DAY, # 3 each, 3 Refills, Maintenance, 08/12/22 16:50:00 EST, Powder, [facility]/pharmacy #[id number], Partial fill upon patient request if the prescription is for a schedule II opioid dr... Start Date: 08/12/22 Status: Ordered gabapentin 100 mg oral capsule 100 mg, 1, capsule, By Mouth, Daily at bedtime, # 90 capsule, Refills 3, Tot. Refills 3, Maintenance, 08/08/22 14:05:00 EST, Route to Pharmacy Electronically, [facility]/pharmacy #[id number], Partial fill upon patient request if the prescription is for a schedule... Start Date: 08/08/22 Status: Ordered ipratropium nasal 21 mcg/inh spray See Instructions, SPRAY 2 SPRAYS INTRANASALLY IN EACH NOSTRIL 3 TIMES A DAY, # 30 Unknown, 1 Refills, Maintenance, 09/30/22 12:00:00 EST, [facility] STORE [id number], 28, SPRAY 2 SPRAYS INTRANASALLY IN EACH NOSTRIL 3 TIMES A DAY, 172, cm, 09/05/22 15:08:00 EST, H... Start Date: 09/30/22 Status: Ordered MiraLax oral powder for reconstitution = 17 Gm, By Mouth, Daily, dissolve in water before taking, # 255 Gm, 0 Refills, Maintenance, 08/08/22 13:45:00 EST, REC Powder, Partial fill upon patient request if the prescription is for a scheduleII opioid drug. Start Date: 08/08/22 Status: Ordered Miscellaneous Rx TAKE 1 TABLET [...] mg, By Mouth, 2 times a day, TAKE 1 CAPSULE BY MOUTH EVERY DAY Start Date: 07/07/19 Status: Ordered sertraline 100 mg oral tablet 1 tablet = 100 mg, By Mouth, Daily, # 90 tablet, 0 Refills, Maintenance, 08/08/22 13:43:00 EST, Tablet, Partial fill upon patient request if the prescription is for a schedule II opioid drug. Start Date: 08/08/22 Status: Ordered topiramate 50 mg oral capsule, extended release 1 capsule = 50 mg, By Mouth, Daily, contents of capsule may be mixed with soft foods such as applesauce, # 30 capsule, 0 Refills, Maintenance, 08/08/22 13:43:00 EST, ER Capsule, Partial fill upon patient request if the prescription is for a schedule I... Start Date: 08/08/22 Status: Ordered traZODone 50 mg oral tablet 50 mg, 1, tablet, By Mouth, Daily at bedtime, Refills 0, Maintenance, 08/26/21 11:43:00 EST, Partial fill upon patient request if the prescription is for a schedule II opioid drug. Start Date: 08/26/21 Status: Ordered Trulicity Pen 1.5 mg/0.5 mL subcutaneous solution 0.5 mL = 1.5 mg, Subcutaneous Injection, Every week, rotate injection sites, # 6.5 mL, 0 Refills, Maintenance, 09/30/22 16:14:00 EST, Solution, [facility]/pharmacy #[id number], Partial fill upon patient request if the prescription is for a schedule II opioid drug.... Start Date: 09/30/22 Stop Date: 12/29/22 Status: Ordered Vitamin D2 By Mouth, 0 Refills, Maintenance, 08/26/21 11:44:00 EST, Partial fill upon patient request if the prescription is for a schedule II opioid drug. Start Date: 08/26/21 Status: Ordered Problem List Condition Confirmation Course Effective Dates Status H ealth Status Informant Acute sinusitis Confirmed Active Stage 3b chronic kidney disease (CKD) Confirmed Active CAD in [place] artery Confirmed Active Hyperlipidemia Confirmed Active Moderate persistent asthma Confirmed Active Type 2 diabetes mellitus with diabetic neuropathy Confirmed Active Medication management Confirmed Active Post-nasal drip Confirmed Active Seborrheic keratoses Confirmed Active Social History Social History Type Response Smoking Status Never smoker; Tobacc o user in household: No entered on: 02/08/16 Sex Note * Event Display: Non BH Cardiovascular Results Authored Date: [id number] Patient Care team information Care Team Personnel Name: Edita Raphael RN Position: [facility] RN Member Role: Primary Care Nurse Name: Yuri Lima Position: [facility] Outreach Member Role: Lifetime Consulting Physician Name: Sunshine Turner RN Position: [facility] ED RN W/OE and Tasks Member Role: Primary Care Nurse Name: Chelsi SHIELDS, Issac Simon Position: [facility] Primary Care Physician Member Role: PCP Address: Address: [address] [place], [place] [address] [address]- [place] Care Team Related Persons Name: REEMA IZQUIERDO Address: [address] [place] [address] Name: LETTY IZQUIERDO Address: [address] [place] [address] Name: ARYA IZQUIERDO Address: home [address] [place] [address]
--- OUTSIDE RECORDS SUMMARY | 2024-03-02 08:17 | XMS_ITS | Continuity of Care Document ---
Author Organization [facility] Address [address] [place] [address] D[address] [place] [address]- Care Team Providers Care Merchandise Carrier Name Role Phone Chelsi SHIELDS, Issac Simon Primary Care Physician Encounter [facility] Date(s): 02/18/23 - 03/20/23 [facility] [address] [place] [address]- Allergies, Adverse Reactions, Alerts Substance Reaction Severity [...] influenza virus vaccine, inactivated 04/25/19 Brad rded [id number] 12y+ bivalent booster vax 04/15/22 Recorded pneumococcal [...] opioid drug. Start Date: 08/08/22 Status: Ordered allopurinol 100 mg oral tablet 100 mg, 1, tablet, By Mouth, Daily, # 30 tablet, Refills 3, Tot. Refills 3, Maintenance, 01/22/23 9:16:00 EDT, Route to Pharmacy Electronically, [facility]/pharmacy #[id number], Partial fill upon patient request if the prescription is for a schedule II opioid drug... Start Date: 01/22/23 Status: Ordered atorvastatin 40 mg oral tablet 1 tablet = 40 mg, By Mouth, Daily at bedtime, # 90 tablet, 1 Refills, Maintenance, 03/20/23 11:43:00 EDT, Tablet, [id number], 172, cm, 01/09/23 15:36:00 EDT, Height, 84.8, kg, 02/17/23 8:16:00 EDT, Dry Weight Start Date: 03/20/23 Stop Date: 09/16/23 Status: Ordered Flovent Diskus 100 mcg/inh inhalation powder 1 puffs, By Mouth, 2 times a day, INHALE 1 PUFF BY MOUTH DIRECTED TWICE A DAY, # 3 each, 3 Refills, Maintenance, 08/12/22 16:50:00 EST, Powder, [facility]/pharmacy #[id number], Partial fill upon patient request [...] times a day, # 270 capsule, Refills 0, Tot. Refills 0, Maintenance,01/26/23 12:45:00 EDT, Route to Pharmacy Electronically, [facility]/pharmacy #[id number], Partial fill upon patient request if the prescription is for a schedule II... Start Date: 01/26/23 Status: Ordered ipratropium nasal 21 mcg/inh spray See Instructions, SPRAY 2 SPRAYS INTRANASALLY IN EACH NOSTRIL 3 TIMES A DAY, # 30 Unknown, 1 Refills, Maintenance, 09/30/22 12:00:00 EST, [facility] STORE [id number], 28, SPRAY 2 SPRAYS INTRANASALLY IN EACH [...] day, # 180 capsule, 0 Refills, Maintenance, 02/23/23 15:25:00 EDT, EC Capsule, [facility]/pharmacy #[id number], Partial fill upon patient request if the prescription is for a schedule II opioid drug., 172jacky, 01/09/23 15:36:... Start Date: 02/23/23 Status: Ordered oxyCODONE 5 mg oral capsule 1 capsule = 5 mg, By Mouth, Every 6 hours, PRN as needed for pain, 0 Refills, Maintenance, :14:00 EDT, Capsule, Partial fill upon patient request if the prescription is for a schedule II opioid drug. Start Date: 02/17/23 Status: Ordered Pen [place], 31 G x 5 mm BD Ultra Fine III See Instructions, # 300 each, Refills 2, Tot. Refills 2, Maintenance, use as directed for Type 2 Diabetes Mellitus, 11/05/22 9:29:00 EDT, Supply, 172 cm, 11/05/22 9:12:00 EDT, Height Start Date: 11/05/22 Stop Date: 08/02/23 Status: Ordered sertraline 100 mg oral tablet 1 tablet = 100 mg, By Mouth, Daily, along with sertraline 25 mg daily., # 90 tablet, 1 Refills, Maintenance, 03/12/23 16:16:00 EDT, Tablet, [facility]/pharmacy #[id number], Partial fill upon patient request if the prescription is for a schedule II opioid drug., 17... Start Date: 03/12/23 Status: Ordered sertraline 25 mg oral tablet 1 tablet = 25 mg, By Mouth, Daily, along with sertraline 100 mg daily., # 90 tablet, 1 Refills, Maintenance, 03/13/23 15:21:00 EDT, Tablet, [facility]/pharmacy #[id number], Partial fill upon patient request if the prescription is for a schedule II opioid drug., 17... Start Date: 03/13/23 Status: Ordered topiramate 50 mg oral capsule, [...] Trulicity Pen 1.5 mg/0.5 mL subcutaneous solution See Instructions, INJECT 1.5 MG (0.5 ML) SUBCUTANEOUS INJECTION EVERY WEEK,X90 DAYS,ROTATE INJECTION SITES, # 6 Unknown, 1 Refills, Maintenance, 03/16/23 9:47:00 EDT, [id number], 172, cm, 01/09/23 15:36:00 EDT, Height, 84.8, kg, 02/17/23 8:16:00... Start Date: 03/16/23 Status: Ordered Problem List Condition Confirmation Course Effective Dates Status H ealth Status Informant Stage 3b chronic kidney disease (CKD) Confirmed Active CAD in [place] artery Confirmed Active Hyperlipidemia Confirmed Active Moderate persistent asthma Confirmed Active Type 2 diabetes mellitus with diabetic neuropathy Confirmed Active Medication management Confirmed Active Post-nasal drip Confirmed Active Seborrheic keratoses Confirmed Active Social History Social History Type Response Smoking Status Never smoker; Tobacc o user in household: No entered on: 02/08/16 Sex Patient Care team information Care Team Personnel Name: Edita Raphael RN Position: [facility] RN Member Role: Primary Care Nurse Name: Diamond Ocampo Position: [facility] TA Member Role: Lifetime Consulting Physician Name: Yuri Lima Position: [facility] Outreach Member Role: Lifetime Consulting Physician Name: Sunshine Turner RN Position: [facility] ED RN W/OE and Tasks Member Role: Primary Care Nurse Name: Issac Gagnon MD Position: [facility] Physician - Primary Care Member Role: PCP Address: Address: [address] [place] [address] [place] [address]- [place] Care Team Related Persons Name: REEMA IZQUIERDO Address: [address] [place] [address] Name: LETTY IZQUIERDO Address: [address] [place] [address] Name: ARYA IZQUIERDO Address: [address] [place] [address]
--- OUTSIDE RECORDS SUMMARY | 2024-03-02 08:17 | XMS_ITS | Continuity of Care Document ---
Author Organization [facility] Address [address] [place] [address]- Care Team Providers Care Car Body Designer Name Role Phone Chelsi SHIELDS, Issac Simon Primary Care Physician [place] [facility] [place] 12/19[place]22 - 01/18/23 [facility] [address], [place] [address] Attending Physician: Carrington Kim Admitting Physician: AdmCarrington [...] influenza virus vaccine, inactivated 04/25/19 Brad rded [id number] 12y+ bivalent booster vax 04/15/22 Recorded pneumococcal [...] opioid drug. Start Date: 08/08/22 Status: Ordered atorvastatin 40 mg oral tablet 1 tablet = 40 mg, By Mouth, Daily at bedtime, TAKE 1 TABLET BY MOUTH EVERY DAY AT BEDTIME, # 90 tablet, 3 Refills, Maintenance, Tablet, Route to Pharmacy Electronically, [id number], [facility]/pharmacy #[id number] Start Date: 04/06/17 Stop Date: 04/01/18 Status: Ordered Cetirizine 0 Refills, Maintenance, 08/26/21 11:44:00 EST, Partial fill upon patient request if the prescription is for a schedule II opioid drug. Start Date: 08/26/21 Status: Ordered doxycycline hyclate 100 mg oral capsule 1 capsule = 100 mg, By Mouth, 2 times a day, # 14 capsule, 0 Refills, Maintenance, 09/05/22 15:44:00 EST, [facility]/pharmacy #[id number], Partial fill upon patient request if the prescription is for a schedule II opioid drug., 172, cm, 09/05/22 15:08:00 EST, Height Start Date: 09/05/22 Status: Ordered Flovent Diskus 100 mcg/inh inhalation powder 1 puffs, By Mouth, 2 times a day, INHALE 1 PUFF BY MOUTH DIRECTED TWICE A DAY, # 3 each, 3 Refills, Maintenance, 08/12/22 16:50:00 EST, Powder, [facility]acy [id number], Partial fill upon patient request if the prescription is for a schedule II opioid drFaisal. Start Date: 08/12/22 Status: Ordered Freestyle Lite [...] 270 capsule, Refills 0, Tot. Refills 0, Maintenance,10/27/22 16:23:00 EDT, Route to Pharmacy Electronically, [facility]/pharmacy #[id number], Partial fill upon patient request if the prescription is for a schedule II... Start Date: 10/27/22 Status: Ordered ipratropium nasal 21 mcg/inh spray See Instructions, SPRAY 2 SPRAYS INTRANASALLY IN EACH NOSTRIL 3 TIMES A DAY, # 30 Unknown, 1 Refills, Maintenance, 09/30/22 12:00:00 EST, [facility] STORE [id number], 28, SPRAY 2 SPRAYS INTRANASALLY IN EACH NOSTRIL 3 TIMES A DAY, 172, cm, 09/05/22 15:08:00 EST, H... Start Date: 09/30/22 Status: Ordered meclizine 25 mg oral tablet 1 tablet = 25 mg, By Mouth, 3 times a day, PRN for motion sickness, # 30 tablet, 0 Refills, Maintenance, 11/21/22 12:57:00 EDT, Tablet, [facility]/pharmacy #[id number], Partial fill upon patient request if the prescription is for a schedule II opioid drug., 172, c... Start Date: 11/21/22 Status: Ordered MiraLax oral powder for reconstitution [...] (DX: E11.9) Start Date: 03/22/17 Status: Ordered naproxen 250 mg oral tablet See Instructions, PRN, 1-2 tablet(s) By Mouth q12h with food. Take lowest effective dose, # 30 tablet, Refills 0, Tot. Refills 0, Maintenance, Pain , Moderate, 12/13/22 8:51:00 EDT, Instructions Replace Required Details, Route to Pharmacy Electronic... Start Date: 12/13/22 Status: Ordered omeprazole 20 mg oral enteric coated capsule 1 capsule = 20 mg, By Mouth, 2 times a day, TAKE 1 CAPSULE BY MOUTH EVERY DAY Start Date: 07/07/19 Status: Ordered Pen [place], 31 G x 5 mm BD Ultra [...] Start Date: 08/26/21 Status: Ordered Trulicity Pen 3 mg/0.5 mL subcutaneous solution = 3 mg, Subcutaneous Injection, Every week, # 6 mL, 1 Refills, Maintenance, 11/18/22 17:26:00 EDT, [facility]/pharmacy #[id number], Partial fill upon patient request if the prescription is for a schedule II opioid drug., 172, cm, 11/05/22 9:12:00 EDT, Height Start Date: 11/18/22 Stop Date: 05/17/23 Status: Ordered Vitamin D2 By Mouth, 0 Refills, Maintenance, 08/26/21 11:44:00 EST, Partial fill upon patient request if the prescription is for a schedule II opioid drug. Start Date: 08/26/21 Status: Ordered Problem List Condition Confirmation Course Effective Dates Status H ealth Status Informant Stage 3b chronic kidney disease (CKD) Confirmed Active CAD in [place] artery Confirmed Active Hyperlipidemia Confirmed Active Moderate [...] Team Personnel Name: Edita Raphael RN Position: [facility] RN Member Role: Primary Care Nurse Name: Diamond Ocampo Position: [facility] TA Member Role: Lifetime Consulting Physician Name: Yuri Lima Position: [facility] Outreach Member Role: Lifetime Consulting Physician Name: Sunshine Turner RN Position: [facility] ED RN W/OE and Tasks Member Role: Primary Care Nurse Name: Chelsi SHIELDS, Issac Simon Position: [facility] Physician - Primary Care Member Role: PCP Address: Address: [address] [place] [address] [place] [address]- [place] Care Team Related Persons Name: REEAM IZQUIERDO Address: [address] [place] [address] Name: LETTY IZQUIERDO Address: [address] [place] [address] Name: ARYA IZQUIERDO Address: [address] [place] [address]
--- OUTSIDE RECORDS SUMMARY | 2024-03-02 08:17 | XMS_ITS | Continuity of Care Document ---
Author Organization [facility] Address [address] [place] [address]- Care Team Providers Care Sales Leader Name Role Phone Issac Gagnon MD Primary Care Physician [phone] [place] [facility] [id number] Date(s): 10/08/23 - 11/07/23 [facility] [address] [place] [address]- Attending Physician: AdmCarrington england Admitting Physician: Admtr, Ar8 Referring Physician: Admtr, Ar8 Allergies, Adverse Reactions, [...] influenza virus vaccine, inactivated 04/25/19 Brad rded [id number] 12y+ bivalent booster vax 04/15/22 Recorded pneumococcal 23-valent vaccine 10/08/21 Recorded tetanus/diphtheria/pertussis, acel(Tdap) 05/16/20 Recorded zoster vaccine, inactivated 04/20/20 Recorded pneumococcal 13-valent vaccine 04/25/19 Recorded pneumococcal 13-valent vaccine 09/09/16 Recorded Medications Albuterol (Eqv-ProAir HFA) 90 mcg/inh inhalation aerosol 2 puffs = 180 mcg, Inhalation, Every 6 hours, PRN Wheezing/Shortness of Breath, # 8.5 Gm, 5 Refills, Maintenance, 08/03/23 10:27:00 EST, Inhaler, [facility]/pharmacy #[id number], Partial fill upon patient requestif the prescription is for a schedule II opioid james... Start Date: 08/03/23 Status: Ordered albuterol 0.083% inhalation solution 3 mL = 2.5 mg, Inhalation, Every 6 hours, PRN for wheezing, # 60 each, 2 Refills, Maintenance, 04/29/23 12:22:00 EDT, Solution, [facility]/pharmacy #[id number], Partial fill upon patient request if the prescription is for a schedule II opioid drug., 172, cm, 04/08... Start Date: 04/29/23 Status: Ordered atorvastatin 40 mg oral tablet 1 tablet, By Mouth, Daily at bedtime, # 90 tablet, 1 Refills, Maintenance, 09/21/23 13:01:00 EST, [facility] STORE [id number], 172, cm, 06/30/23 9:51:00 EST, Height, 84.8, kg, 02/17/23 8:16:00 EDT, Dry Weight Start Date: 09/21/23 Status: Ordered divalproex sodium 250 mg oral tablet, extended release 1 tablet = 250 mg, 0 Refills, Maintenance, 04/03/23 11:20:00 EDT, Partial fill upon patient requestif the prescription is for a schedule II opioid drug. Start Date: 04/03/23 Status: Ordered Farxiga 10 mg oral tablet [...] Maintenance,04/22/23 15:31:00 EDT, Route to Pharmacy Electronically, [facility]/pharmacy #[id number], Partial fill upon patient request if the prescription is for a schedule II... Start Date: 04/22/23 Status: Ordered ipratropium nasal 21 mcg/inh spray See Instructions, SPRAY 2 SPRAYS INTRANASALLY IN EACH NOSTRIL 3 TIMES A DAY, # 30 Unknown, 1 Refills, Maintenance, 09/30/22 12:00:00 EST, [facility] STORE [id number], 28, SPRAY 2 SPRAYS INTRANASALLY IN EACH [...] Refills, Maintenance, 08/03/23 10:27:00 EST, EC Capsule, [facility]/pharmacy #[id number], Partial fill upon patient request if the prescription is for a schedule II opioid drug., 172, cm, 06/30/23 9:51:0... Start Date: 08/03/23 Status: Ordered Pen [place], 31 G x 5 mm BD Ultra Fine III See Instructions, # 100 each, Refills 5, Tot. Refills 5, Maintenance, use as directed for Type 2 Diabetes Mellitus to inject insulin once a day, 08/27/23 16:46:00 EST, Supply, 172, cm, 06/30/23 9:51:00 EST, Height, 84.8, kg, 02/17/23 8:16:00 EDT, Dry... Start Date: 08/27/23 Stop Date: 02/23/24 Status: Ordered Pen [place], 31 G x 5 mm BD Ultra [...] drug., 17... Start Date: 09/23/23 Status: Ordered traZODone 50 mg oral tablet [...] 172, cm... Start Date: 11/06/23 Status: Ordered Problem List Condition Confirmation Course Effective Dates Status H ealth Status Informant Stage 3b chronic kidney disease (CKD) Confirmed Active CAD in [place] artery Confirmed Active History of syncope Confirmed [...] Team Personnel Name: Edita Raphael RN Position: [facility] RN Member Role: Primary Care Nurse Name: Yuri Lima Position: [facility] Outreach Member Role: Lifetime Consulting Physician Name: Sunshine Turner RN Position: [facility] ED RN W/OE and Tasks Member Role: Primary Care Nurse Name: Rowdy Cerda MD Position: [facility] Renal MD Member Role: Lifetime Consulting Physician Address: Address: [address] [place] [address] [facility] [place] [address]- Name: Chelsi SHIELDS, Issac Simon Position: [facility] Physician - Primary Care Member Role: PCP Address: Address: [address] [place] [address] [place] [address]- Care Team Related Persons Name: REEMA IZQUIERDO Address: [address] [place] [address] Name: LETTY IZQUIERDO Address: [address] [place] [address] Name: ARYA IZQUIERDO Address: [address] [place] [address]
--- OUTSIDE RECORDS SUMMARY | 2024-03-02 08:17 | XMS_ITS | Continuity of Care Document ---
Author Organization [facility] Address [address] [place] [address] Matheus abdullahi, [address] [place] [address]- Care Team Providers Care Project Analyst Name Role Phone Chelsi SHIELDS, Issac K Primary Care Physician [place] [facility] [place] 02/17/24 - 02/24/[address] [place], [place] [address] Attending Physician: Not on Staff, Attending MD Referring Physician: Assobtali PODIATRIST ASSISTANT, Doug Bahena Allergies, Adverse Reactions, Alerts Substance Reaction Severity Status Jardiance RASH Active Cats hayfever Active Dogs hayfever Active Dust hayfever Active Pollen hayfever Active Mold hayfever Active Immunizations Given and Recorded Vaccine Date Status Refusal Reason RSV vaccine preF3, recombinant 07/13/23 Recorded influenza virus vaccine, inactivated 06/23/23 Brad rded influenza virus vaccine, inactivated 04/15/22 Brad rded influenza virus vaccine, inactivated 06/28/21 Brad rded influenza virus vaccine, inactivated 04/18/20 Brad rded influenza virus vaccine, inactivated 04/25/19 Brad rded SARS-CoV-2(COVID-19)mRNA-LNP vac(pon818) 06/23/23 Recorded SARS-CoV-2 (COVID-19) mRNA BNT-162b2 vac 04/29/22 Recorded SARS-CoV-2 (COVID-19) mRNA BNT-162b2 vac 05/08/21 Recorded SARS-CoV-2 (COVID-19) mRNA BNT-162b2 vac 10/15/20 Recorded SARS-CoV-2 (COVID-19) mRNA BNT-162b2 vac 09/24/20 Recorded [id number] 12y+ bivalent booster vax 04/15/22 Recorded pneumococcal 23-valent vaccine 10/08/21 Recorded tetanus/diphtheria/pertussis, acel(Tdap) 05/16/20 Recorded zoster vaccine, inactivated 04/20/20 Recorded pneumococcal 13-valent vaccine 04/25/19 Recorded pneumococcal 13-valent vaccine 09/09/16 Recorded Medications Albuterol (Eqv-ProAir HFA) 90 mcg/inh inhalation aerosol 2 puffs = 180 mcg, Inhalation, Every 6 hours, PRN Wheezing/Shortness of Breath, # 8.5 Gm, 5 Refills, Maintenance, 08/03/23 10:27:00 EST, Inhaler, [facility]/pharmacy #[id number], Partial fill upon patient requestif the prescription is for a schedule II opioid james... Start Date: 08/03/23 Status: Ordered albuterol 0.083% inhalation solution 3 mL = 2.5 mg, Inhalation, Every 6 hours, PRN for wheezing, # 60 each, 2 Refills, Maintenance, 04/29/23 12:22:00 EDT, Solution, [facility]/pharmacy #[id number], Partial fill upon patient request if the prescription is for a schedule II opioid drug., 172, cm, 13... Start Date: 04/29/23 Status: Ordered atorvastatin 40 mg oral tablet 1 tablet, By Mouth, Daily at bedtime, # 90 tablet, 1 Refills, Maintenance, 09/21/23 13:01:00 EST, [facility] STORE [id number], 172, cm, 06/30/23 9:51:00 EST, Height, 84.8, kg, 02/17/23 8:16:00 EDT, Dry Weight Start Date: 09/21/23 Status: Ordered bisacodyl 10 mg rectal suppository 1 supp = 10 mg, Rectally, Daily, PRN for constipation, # 12 supp, 1 Refills, Maintenance, 12/11/23 13:29:00 EDT, Suppository, [facility], Partial fill upon patient [...] 0 Refills, Maintenance, 12/29/23 13:11:00 EDT, Capsule, [facility]/pharmacy #[id number], Partial fill upon patient request if the [...] 20 mg oral enteric coated capsule 1 capsule, By Mouth, 2 times a day, # 180 capsule, 1 Refills, Maintenance, 02/16/24 9:27:00 EDT, [id number], 173, cm, 01/08/24 16:16:00 EDT, Height, 81.8, kg, 12/09/23 17:44:00 EDT, Dry Weight Start Date: 02/16/24 Status: Ordered Ozempic 8 mg/3 mL (2 mg dose) subcutaneous solution = 2 mg, Subcutaneous Injection, Every week, in the abdomen, thigh, or upper arm, # 3 mL, 2 Refills,Maintenance, 12/15/23 11:17:00 EDT, Solution, [id number], Partial fill upon patient requestif the prescription is for a schedule II opioid james... Start Date: 12/15/23 Status: Ordered Pen Benedict, 31 G x 5 mm BD Ultra Fine III See Instructions, # 100 each, Refills 5, Tot. Refills 5, Maintenance, use as directed for Type 2 Diabetes Mellitus to inject insulin once a day, 08/27/23 16:46:00 EST, Supply, 172, cm, 06/30/23 9:51:00 EST, Height, 84.8, kg, 02/17/23 8:16:00 EDT, Dry... Start Date: 08/27/23 Stop Date: 02/23/24 Status: Ordered Pen Benedict, 31 G x 5 mm BD Ultra [...] 3 Refills, Maintenance, 09/23/23 10:05:00 EST, Tablet, [facility]/pharmacy #[id number], Partial fill upon patient request if the prescription is for a schedule II opioid drug., 17... Start Date: 09/23/23 Status: Ordered tiZANidine 2 mg oral capsule 1 capsule = 2 mg, By Mouth, 2 times a day, PRN as needed for muscle spasm, # 180 capsule, 0 Refills, Maintenance, 02/13/24 11:27:00 EDT, Capsule, [facility]/pharmacy #[id number], Partial fill upon patient requestif the prescription is for a schedule II opioid james... Start Date: 02/13/24 Stop Date: 04/13/24 Status: Ordered traZODone 50 mg oral tablet 50 mg, 1, tablet, By Mouth, Daily at bedtime, TAKE 1 TABLET BY MOUTH EVERY DAY AT BEDTIME NEEDED Start Date: 04/08/23 Status: Ordered Tresiba Subcutaneous Infusion, Daily, 0 Refills, Maintenance, 02/17/24 14:59:00 EDT, Partial fill upon patient request if the prescription is for a schedule II opioid drug. Start Date: 02/17/24 Status: Ordered Tresiba FlexTouch 100 units/mL subcutaneous [...] Confirmed Active Constipation Confirmed Active CAD in [place] artery Confirmed Active Dysuria Confirmed Active History of syncope Confirmed Active Hyperlipidemia Confirmed Active Lumbar back pain with radiculopathy affecting lower extremity Confirmed Active Moderate persistent asthma Confirmed Active Type 2 diabetes mellitus with diabetic neuropathy Confirmed Active Medication management Confirmed Active Post-nasal drip Confirmed Active Seborrheic keratoses Confirmed Active Vital Signs Most recent to oldest [Reference Range]: 1 Height 173 cm (02/17/24 2:58 PM) Weight 78.4 kg (02/17/24 2:58 PM) Body Mass Index [18.5-24.99 kg/m2] 26.2 kg/m2 *H* (02/17/24 2:58 PM) Social History Social History Type Response Smoking Status Never smoker; Tobacc o user in household: No entered on: 02/08/16 Sex Implantable Device List Procedure Provider Procedure Date Device Type Site Decompression Transforaminal Lumbar Maycol Crook MD 01/01/25 Unknown Other Device Identifier Serial Number Lot or Batch Number Manufacturing Date Expiration Date Distinct Identification Code MRI Safety Implantable Status Assigning Authority [id number] Unknown [id number] Unknown 01/01/25 Unknown Unknown Active GS1 [id number] Unknown [id number] Unknown 01/01/25 Unknown Unknown Active GS1 Procedure Provider Procedure Date Device Type Site Decompression Transforaminal Lumbar Maycol Crook MD 11/16/23 Unknown Other Device Identifier Serial Number Lot or Batch Number Manufacturing Date Expiration Date Distinct Identification Code MRI Safety Implantable Status Assigning Authority Unknown [id number] Unknown Unknown 10/19/25 Unknown Unknown Active Unknown Procedure Provider Procedure Date Device Type Site Decompression Transforaminal Lumbar Maycol Crook MD 11/13/23 Unknown Back Device Identifier Serial Number Lot or Batch Number Manufacturing Date Expiration Date Distinct Identification Code MRI Safety Implantable Status Assigning Authority Unknown [id number] Unknown 07/23/25 Unknown Unknown Active Unknown Patient Care team information Care Team Personnel Name: Edita Raphael RN Position: [facility] RN Member Role: Primary Care Nurse Name: Alla Ibarra RN Position: [facility] RN Member Role: Primary Care Nurse Name: Lindsay Smith RN Position: [facility] RN Member Role: Primary Care Nurse Name: Haley Osullivan RN Position: [facility] RN Member Role: Primary Care Nurse Name: Rosa Motley RN Position: [facility] RN Member Role: Primary Care Nurse Name: Yuri Lima Position: [facility] Outreach Member Role: Lifetime Consulting Physician Name: Sunshine Turner RN Position: [facility] ED RN W/OE and Tasks Member Role: Primary Care Nurse Name: Rowdy Cerda MD Position: [facility] Renal MD Member Role: Lifetime Consulting Physician Address: Address: [address] [place] [address] [facility] [place] [address]- Name: Issac Gagnon MD Position: [facility] Physician - Primary Care Member Role: PCP Address: Address: [address] [place] [address] [place], [place] [address] Name: Yoselin Strange RN Position: [facility] RN Member Role: Primary Care Nurse Name: Darren Araiza RN Position: [facility] RN Member Role: Primary Care Nurse Care Team Related Persons Name: REEMA IZQUIERDO Address: home [address] [place] [address] Name: LETTY IZQUIERDO Address: home [address] [place] [address] Name: ARYA IZQUIERDO Address: home [address] [place] [address]
--- OUTSIDE RECORDS SUMMARY | 2024-03-02 08:17 | XMS_ITS | Continuity of Care Document ---
Author Organization [facility] Address [address] [place] [address]- Care Team Providers Care Social Services Counselor Name Role Phone Conner Lomeli MD Primary Care Physician Encounter [facility] [place] [facility] [id number] Date(s): 10/05/19 - 10/15/19 [facility] [address] [place] [address] [facility] Attending Physician: AdmtrCarrington Admitting Physician: Admtr, Carrington Referring Physician: Admtr, Ar8 Allergies, Adverse Reactions, [...] 07/18/19 13:23:00 EST, Route to Pharmacy Electronically, [facility]/pharmacy #[id number], 172, cm, 07/07/19 9:07:00 EST, Height, [...] Refills, Maintenance, Tablet, Route to Pharmacy Electronically, [id number], [facility]/pharmacy #[id number] Start Date: 04/06/17 Stop Date: [...] tablet, 3 Refills, Maintenance, 08/17/19 10:28:00 EST, [facility]/pharmacy #[id number], 172, cm, 07/07/19 9:07:00 EST, Height, [...] Status Health Status Inform ant CAD in [place] artery(Confirmed) Active Social History Social History Type Response Smoking Status Never smoker; Tobacc o user in household: No entered on: 02/08/16 Sex
--- OUTSIDE RECORDS SUMMARY | 2024-03-02 08:17 | XMS_ITS | Continuity of Care Document ---
Author Organization [facility] Address [address] [place] [address] Dr [address] [place] [address]- Care Team Providers Care Project Buyer Name Role Phone Chelsi SHIELDS, Issac Simon Primary Care Physician [phone] [place] [facility] [place]/24/22 - 10/19/[address] [place] [address]- Attending Physician: Gab Malik MD Referring Physician: Not on Staff, Referring MD Allergies, Adverse Reactions, Alerts Substance Reaction [...] influenza virus vaccine, inactivated 04/25/19 Brad rded [id number] 12y+ bivalent booster vax 04/15/22 Recorded pneumococcal [...] Refills, Maintenance, Tablet, Route to Pharmacy Electronically, [id number], [facility]/pharmacy #[id number] Start Date: 04/06/17 Stop Date: 04/01/18 Status: Ordered Cetirizine 0 Refills, Maintenance, 08/26/21 11:44:00 EST, Partial fill upon patient request if the prescription is for a schedule II opioid drug. Start Date: 08/26/21 Status: Ordered doxycycline hyclate 100 mg oral capsule 1 capsule = 100 mg, By Mouth, 2 times a day, # 14 capsule, 0 Refills, Maintenance, 09/05/22 15:44:00 EST, [facility]/pharmacy #[id number], Partial fill upon patient request if the prescription is for a schedule II opioid drug., 172, cm, 09/05/22 15:08:00 EST, Height Start Date: 09/05/22 Status: Ordered Flovent Diskus 100 mcg/inh inhalation powder 1 puffs, By Mouth, 2 times a day, INHALE 1 PUFF BY MOUTH DIRECTED TWICE A DAY, # 3 each, 3 Refills, Maintenance, 08/12/22 16:50:00 EST, Powder, [facility]/pharmacy #[id number], Partial fill upon patient request if the prescription is for a schedule II opioid . Start Date: 08/12/22 Status: Ordered gabapentin 100 mg oral capsule 100 mg, 1, capsule, By Mouth, Daily at bedtime, # 90 capsule, Refills 3, Tot. Refills 3, Maintenance, 08/08/22 14:05:00 EST, Route to Pharmacy Electronically, [facility]/pharmacy #[id number], Partial fill upon patient request if the prescription is for a schedule... Start Date: 08/08/22 Status: Ordered ipratropium nasal 21 mcg/inh spray See Instructions, SPRAY 2 SPRAYS INTRANASALLY IN EACH NOSTRIL 3 TIMES A DAY, # 30 Unknown, 1 Refills, Maintenance, 09/30/22 12:00:00 EST, [facility] STORE [id number], 28, SPRAY 2 SPRAYS INTRANASALLY IN EACH [...] 0 Refills, Maintenance, 09/30/22 16:14:00 EST, Solution, [facility]/pharmacy #[id number], Partial fill upon patient request [...] kidney disease (CKD) Confirmed Active CAD in [place] artery Confirmed Active Hyperlipidemia Confirmed Active [...] Team Personnel Name: Edita Raphael RN Position: [facility] RN Member Role: Primary Care Nurse Name: Yuri Lima Position: [facility] Outreach Member Role: Lifetime Consulting Physician Name: Sunshine Turner RN Position: [facility] ED RN W/OE and Tasks Member Role: Primary Care Nurse Name: Issac Gagnon MD Position: [facility] Primary Care Physician Member Role: PCP Address: Address: [address] [place] [address]- Care Team Related Persons Name: REEMA IZQUIERDO Address: [address] [place] [address] Name: LETTY IZQUIERDO Address: [address] [place] [address] Name: ARYA IZQUIERDO Address: home [address] [place] [address]
--- OUTSIDE RECORDS SUMMARY | 2024-03-02 08:17 | XMS_ITS | Continuity of Care Document ---
Author Organization [facility] Address [address] [place] [address] [address] ve [address] [place] [address]- Care Team Providers Care Mercantile Agent Name Role Phone Chelsi SHIELDS, Issac Simon Primary Care Physician [phone] Encounter [facility] Date(s): 04/01/23 - 05/01/23 [facility] [address] [place] [address]- Allergies, Adverse Reactions, Alerts Substance Reaction Severity Status Cats hayfever Active Mold hayfever Active Jardiance RASH Active Dogs hayfever Active Pollen hayfever Active Dust hayfever Active Immunizations Given and Recorded Vaccine [...] influenza virus vaccine, inactivated 04/25/19 Brad rded [id number] 12y+ bivalent booster vax 04/15/22 Recorded pneumococcal 23-valent vaccine 10/08/21 Recorded tetanus/diphtheria/pertussis, acel(Tdap) 05/16/20 Recorded zoster vaccine, inactivated 04/20/20 Recorded pneumococcal 13-valent vaccine 04/25/19 Recorded pneumococcal 13-valent vaccine 09/09/16 Recorded Medications Albuterol (Eqv-ProAir HFA) 90 mcg/inh inhalation aerosol 2 puffs = 180 mcg, Inhalation, Every 6 hours, PRN Wheezing/Shortness of Breath, # 8.5 Gm, 2 Refills, Maintenance, 04/29/23 12:20:00 EDT, Inhaler, [facility]/pharmacy #[id number], Partial fill upon patient requestif the prescription is for a schedule II opioid james... Start Date: 04/29/23 Status: Ordered albuterol 0.083% inhalation solution 3 mL = 2.5 mg, Inhalation, Every 6 hours, PRN for wheezing, # 60 each, 2 Refills, Maintenance, 04/29/23 12:22:00 EDT, Solution, [id number], Partial fill upon patient request if the prescription is for a schedule II opioid drug., 172, cm, 04/08... Start Date: 04/29/23 Status: Ordered atorvastatin 40 mg oral tablet 1 tablet = 40 mg, By Mouth, Daily at bedtime, # 90 tablet, 1 Refills, Maintenance, 03/20/23 11:43:00 EDT, Tablet, [facility]/pharmacy #[id number], 172, cm, 01/09/23 15:36:00 EDT, Height, [...] Maintenance,04/22/23 15:31:00 EDT, Route to Pharmacy Electronically, [facility]/pharmacy #[id number], Partial fill upon patient request if the prescription is for a schedule II... Start Date: 04/22/23 Status: Ordered ipratropium nasal 21 mcg/inh spray See Instructions, SPRAY 2 SPRAYS INTRANASALLY IN EACH NOSTRIL 3 TIMES A DAY, # 30 Unknown, 1 Refills, Maintenance, 09/30/22 12:00:00 EST, [facility] STORE [facility], 28, SPRAY 2 SPRAYS INTRANASALLY IN EACH [...] Refills, Maintenance, 02/23/23 15:25:00 EDT, EC Capsule, [facility]/pharmacy #[id number], Partial fill upon patient request if the prescription is for a schedule II opioid drug., 172, cm, 01/09/23 15:36:... Start Date: 02/23/23 Status: Ordered Pen [place], 31 G x 5 mm BD Ultra [...] 1 Refills, Maintenance, 03/12/23 16:16:00 EDT, Tablet, [facility]/pharmacy #[id number], Partial fill upon patient request if the prescription is for a schedule II opioid drug., 17... Start Date: 03/12/23 Status: Ordered sertraline 25 mg oral tablet 1 tablet = 25 mg, By Mouth, Daily, along with sertraline 100 mg daily., # 90 tablet, 1 Refills, Maintenance, 03/13/23 15:21:00 EDT, Tablet, [facility]/pharmacy #[id number], Partial fill upon patient request if the prescription is for a schedule II opioid drug., 17... Start Date: 03/13/23 Status: Ordered traZODone 50 mg oral tablet TAKE 1 TABLET BY MOUTH EVERY DAY AT BEDTIME NEEDED Start Date: 04/08/23 Status: Ordered Trulicity Pen 1.5 mg/0.5 mL subcutaneous solution See Instructions, 3 mg per week, # 6 Unknown, 1 Refills, Maintenance, 03/16/23 9:47:00 EDT, [id number], 172, cm, 01/09/23 15:36:00 EDT, Height, 84.8, kg, 02/17/23 8:16:00 EDT, Dry Weight Start Date: 03/16/23 Status: Ordered Problem List Condition Confirmation Course Effective Dates Status H ealth Status Informant Stage 3b chronic kidney disease (CKD) Confirmed Active CAD in [place] artery Confirmed Active Hyperlipidemia Confirmed Active Moderate [...] Team Personnel Name: Edita Raphael RN Position: [facility] RN Member Role: Primary Care Nurse Name: Yuri Lima Position: S Outreach Member Role: Lifetime Consulting Physician Name: Sunshine Turner RN Position: [facility] ED RN W/OE and Tasks Member Role: Primary Care Nurse Name: Chelsi SHIELDS, Issac Simon Position: [facility] Physician - Primary Care Member Role: PCP Address: Address: [address] [place] [address] [place] [address]- [place] Care Team Related Persons Name: REEMA IZQUIERDO Address: [address] [place] [address] Name: LETTY IZQUIERDO Address: [address] [place] [address] Name: ARYA IZQUIERDO Address: [address] [place] [address]
--- OUTSIDE RECORDS SUMMARY | 2024-03-02 08:17 | XMS_ITS | Continuity of Care Document ---
Author Organization [facility] Address [address] [place] [place] [address]- Care Team Providers Care Material Checker Name Role Phone Radu Duarte MD Primary Care Physician [place] [facility] [place](s): 07/16/21 - 09/26/21 [facility] [address] [place] [place] [address]- Attending Physician: Gregoria Gonzalez NP Admitting Physician: Gregoria Gonzalez NP Referring Physician: Radu Duarte MD Allergies, Adverse Reactions, Alerts Substance Reaction Severity Status Cats hayfever Active Dust hayfever Active Dogs hayfever Active Pollen hayfever Active Mold hayfever Active Immunizations Not Given Vaccine Date Status Refusal Reason pneumococcal 13-valent vaccine 06/11/17 Not Given Patient Refuses Medications amLODIPine 5 mg oral tablet 5 mg, 1, tablet, By Mouth, Daily, dose increase, # 30 tablet, Refills 5, Tot. Refills 5, Maintenance, 07/24/21 16:01:00 EST, Route to Pharmacy Electronically, [facility]/pharmacy #[id number], Partial fill upon patient request if the [...] Refills, Maintenance, Tablet, Route to Pharmacy Electronically, [id number], [facility]/pharmacy #[id number] Start Date: 04/06/17 Stop Date: 04/01/18 Status: Ordered Basaglar KwikPen 100 units/mL subcutaneous solution = 40 units, Subcutaneous Injection, Daily at bedtime, # 10 mL, 0 Refills, Maintenance, 05/10/19 16:31:45 EDT, Solution Start Date: 05/10/19 Status: Ordered benazepril 10 mg oral tablet 1 tablet = 10 mg, By Mouth, Daily, Dose increase, # 30 tablet, 5 Refills, Maintenance, 07/24/21 16:01:00 EST, Tablet, [facility]/pharmacy #[id number], Partial fill upon patient request if [...] 08/29/21 13:30:00 EST, Route to Pharmacy Electronically, [facility]/pharmacy #[id number], Partial fill upon patient request if the [...] Status Health Status Inform ant CAD in [place] artery(Confirmed) Active Obese class I(Confirmed) Active Social History Social History Type Response Smoking Status Never smoker; Tobacc o user in household: No entered on: 02/08/16 Sex
--- OUTSIDE RECORDS SUMMARY | 2024-03-02 08:17 | XMS_ITS | Continuity of Care Document ---
Author Organization [facility] Address [address] [place] [address] D[address] [place] [address]- Care Team Providers Care Monumental Stonemason Name Role Phone Chelsi SHIELDS, Issac Simon Primary Care Physician Encounter [facility] Date(s): 01/09/23 - 02/08/23 [facility] [address] [place] [address] Drive [address] [place], [place] [address] Attending Physician: Carrington Kim Admitting Physician: AdmCarrington england Referring Physician: Admtr, Ar8 Allergies, Adverse Reactions, [...] influenza virus vaccine, inactivated 04/25/19 Brad rded [id number] 12y+ bivalent booster vax 04/15/22 Recorded pneumococcal [...] 01/22/23 9:16:00 EDT, Route to Pharmacy Electronically, [facility]/pharmacy #[id number], Partial fill upon patient request if the prescription is for a schedule II opioid drug... Start Date: 01/22/23 Status: Ordered atorvastatin 40 mg oral tablet 1 tablet = 40 mg, By Mouth, Daily at bedtime, TAKE 1 TABLET BY MOUTH EVERY DAY AT BEDTIME, # 90 tablet, 3 Refills, Maintenance, Tablet, Route to Pharmacy Electronically, [id number], [facility]/pharmacy #[id number] Start Date: 04/06/17 Stop Date: 04/01/18 Status: Ordered Cetirizine 0 Refills, Maintenance, 08/26/21 11:44:00 EST, Partial fill upon patient request if the prescription is for a schedule II opioid drug. Start Date: 08/26/21 Status: Ordered doxycycline hyclate 100 mg oral capsule 1 capsule = 100 mg, By Mouth, 2 times a day, # 14 capsule, 0 Refills, Maintenance, 09/05/22 15:44:00 EST, [id number], Partial fill upon patient request if the prescription is for a schedule II opioid drug., 172, cm, 09/05/22 15:08:00 EST, Height Start Date: 09/05/22 Status: Ordered Flovent Diskus 100 mcg/inh inhalation powder 1 puffs, By Mouth, 2 times a day, INHALE 1 PUFF BY MOUTH DIRECTED TWICE A DAY, # 3 each, 3 Refills, Maintenance, 08/12/22 16:50:00 EST, Powder, [facility]/pharmacy #[id number], Partial fill [...] Maintenance,01/26/23 12:45:00 EDT, Route to Pharmacy Electronically, [facility]/pharmacy #[id number], Partial fill upon patient request if the prescription is for a schedule II... Start Date: 01/26/23 Status: Ordered ipratropium nasal 21 mcg/inh spray See Instructions, SPRAY 2 SPRAYS INTRANASALLY IN EACH NOSTRIL 3 TIMES A DAY, # 30 Unknown, 1 Refills, Maintenance, 09/30/22 12:00:00 EST, [facility] STORE [id number], 28, SPRAY 2 SPRAYS INTRANASALLY IN EACH NOSTRIL 3 TIMES A DAY, 172, cm, 09/05/22 15:08:00 EST, H... Start Date: 09/30/22 Status: Ordered meclizine 25 mg oral tablet 1 tablet = 25 mg, By Mouth, 3 times a day, PRN for motion sickness, # 30 tablet, 0 Refills, Maintenance, 11/21/22 12:57:00 EDT, Tablet, [facility]/pharmacy #[id number], Partial [...] DAY Start Date: 07/07/19 Status: Ordered Pen [place], 31 G x 5 mm BD Ultra [...] mL, 1 Refills, Maintenance, 11/18/22 17:26:00 EDT, [facility]/pharmacy #[id number], Partial fill upon patient request if the [...] kidney disease (CKD) Confirmed Active CAD in [place] artery Confirmed Active Hyperlipidemia Confirmed Active Moderate [...] Team Personnel Name: Edita Raphael RN Position: [facility] RN Member Role: Primary Care Nurse Name: Diamond Ocampo Position: [facility] TA Member Role: Lifetime Consulting Physician Name: Yuri Lima Position: [facility] Outreach Member Role: Lifetime Consulting Physician Name: Sunshine Turner RN Position: [facility] ED RN W/OE and Tasks Member Role: Primary Care Nurse Name: Issac Gagnon MD Position: [facility] Physician - Primary Care Member Role: PCP Address: Address: [address] [place] [address] [place] [address]- Care Team Related Persons Name: REEMA IZQUIERDO Address: home [address] [place] [address] Name: LETTY IZQUIERDO Address: home [address] [place] [address] Name: ARYA IZQUIERDO Address: home [address] [place] [address]
--- OUTSIDE RECORDS SUMMARY | 2024-03-02 08:17 | XMS_ITS | Continuity of Care Document ---
Author Organization [facility] Address [address] [place] [address]- Care Team Providers Care Manager Employee Benefits Name Role Phone Chelsi SHIELDS, Issac Simon Primary Care Physician [phone] [place] [facility] [place] 11/11/23 [facility] [address] [place] [address] Allergies, Adverse Reactions, Alerts Substance Reaction [...] influenza virus vaccine, inactivated 04/25/19 Brad rded [id number] 12y+ bivalent booster vax 04/15/22 Recorded pneumococcal 23-valent vaccine 10/08/21 Recorded tetanus/diphtheria/pertussis, acel(Tdap) 05/16/20 Recorded zoster vaccine, inactivated 04/20/20 Recorded pneumococcal 13-valent vaccine 04/25/19 Recorded pneumococcal 13-valent vaccine 09/09/16 Recorded Medications Albuterol (Eqv-ProAir HFA) 90 mcg/inh inhalation aerosol 2 puffs = 180 mcg, Inhalation, Every 6 hours, PRN Wheezing/Shortness of Breath, # 8.5 Gm, 5 Refills, Maintenance, 08/03/23 10:27:00 EST, Inhaler, [facility]/pharmacy #[id number], Partial fill upon patient [...] tablet, 1 Refills, Maintenance, 09/21/23 13:01:00 EST, [id number], 172, cm, 06/30/23 9:51:00 EST, Height, 84.8, [...] Maintenance,04/22/23 15:31:00 EDT, Route to Pharmacy Electronically, [facility]/pharmacy #[id number], Partial fill upon patient request if the prescription is for a schedule II... Start Date: 04/22/23 Status: Ordered ipratropium nasal 21 mcg/inh spray See Instructions, SPRAY 2 SPRAYS INTRANASALLY IN EACH NOSTRIL 3 TIMES A DAY, # 30 Unknown, 1 Refills, Maintenance, 09/30/22 12:00:00 EST, [facility] STORE [id number], 28, SPRAY 2 SPRAYS INTRANASALLY IN EACH [...] Refills, Maintenance, 08/03/23 10:27:00 EST, EC Capsule, [facility]/pharmacy #[id number], Partial fill upon patient request if the prescription is for a schedule II opioid drug., 172, cm, 06/30/23 9:51:0... Start Date: 08/03/23 Status: Ordered Pen [place], 31 G x 5 mm BD Ultra Fine III See Instructions, # 100 each, Refills 5, Tot. Refills 5, Maintenance, use as directed for Type 2 Diabetes Mellitus to inject insulin once a day, 08/27/23 16:46:00 EST, Supply, 172, cm, 06/30/23 9:51:00 EST, Height, 84.8, kg, 02/17/23 8:16:00 EDT, Dry... Start Date: 08/27/23 Stop Date: 02/23/24 Status: Ordered Pen [place], 31 G x 5 mm BD Ultra [...] 3 Refills, Maintenance, 09/23/23 10:05:00 EST, Tablet, [facility]/pharmacy #[id number], Partial fill upon patient [...] 5 each, 1 Refills, Maintenance, 08/27/23 16:41:00 EST,[facility]/pharmacy #[id number], Partial fill upon patient request if the prescription is for a schedule II opioid drug., 172, cm, 06/30/23 9:51:00 EST, Height, 84.... Start Date: 08/27/23 Status: Ordered Trulicity Pen 4.5 mg/0.5 mL subcutaneous solution = 0.5 mL, Subcutaneous Injection, Every week, rotate injection sites, # 6 mL, 3 Refills, Maintenance, 11/06/23 16:12:00 EDT, Solution, [facility]/pharmacy #[id number], Partial fill upon patient request if the prescription is for a schedule II opioid drug., 172, cm... Start Date: 11/06/23 Status: Ordered Problem List Condition Confirmation Course Effective Dates Status H ealth Status Informant Stage 3b chronic kidney disease (CKD) Confirmed Active CAD in [place] artery Confirmed Active History of syncope Confirmed Active Hyperlipidemia Confirmed Active Moderate persistent asthma Confirmed Active Type 2 diabetes mellitus with diabetic neuropathy Confirmed Active Medication management Confirmed Active Post-nasal drip Confirmed Active Seborrheic keratoses Confirmed Active Social History Social History Type Response Smoking Status Never smoker; Tobacc o user in household: No entered on: 7/15/16 Sex Patient Care team information Care Team Personnel Name: Edita Raphael RN Position: [facility] RN Member Role: Primary Care Nurse Name: Yuri Lima Position: [facility] Outreach Member Role: Lifetime Consulting Physician Name: Sunshine Turner RN Position: [facility] ED RN W/OE and Tasks Member Role: Primary Care Nurse Name: Rowdy Cerda MD Position: [facility] Renal MD Member Role: Lifetime Consulting Physician Address: Address: [address] [place] [address] [facility] [place] [address]- Name: Chelsi SHIELDS, Issac Simon Position: [facility] Physician - Primary Care Member Role: PCP Address: Address: [address] [place] [address] [place] [address]- Care Team Related Persons Name: REEMA IZQUIERDO Address: [address] [place] [address] Name: LETTY IZQUIERDO Address: home [address] [place] [address] Name: ARYA IZQUIERDO Address: home [address] [place] [address]
--- OUTSIDE RECORDS SUMMARY | 2024-03-02 08:18 | XMS_ITS | Continuity of Care Document ---
Author Organization [facility] Address [address] [place] [address]- Care Team Providers Care Concrete Mixer Truck Driver Name Role Phone Chelsi SHIELDS, Issac Simon Primary Care Physician Encounter [facility] Date(s): 10/26/23 - 11/02/23 [facility] [address] [place], [place] [address] Attending Physician: Juwan Blas MD Referring Physician: Maycol De Guzman MD [...] influenza virus vaccine, inactivated 04/25/19 Brad rded [id number] 12y+ bivalent booster vax 04/15/22 Recorded pneumococcal 23-valent vaccine 10/08/21 Recorded tetanus/diphtheria/pertussis, acel(Tdap) 05/16/20 Recorded zoster vaccine, inactivated 04/20/20 Recorded pneumococcal 13-valent vaccine 04/25/19 Recorded pneumococcal 13-valent vaccine 09/09/16 Recorded Medications Albuterol (Eqv-ProAir HFA) 90 mcg/inh inhalation aerosol 2 puffs = 180 mcg, Inhalation, Every 6 hours, PRN Wheezing/Shortness of Breath, # 8.5 Gm, 5 Refills, Maintenance, 08/03/23 10:27:00 EST, Inhaler, [facility]/pharmacy #[id number], Partial fill upon patient requestif the prescription is for a schedule II opioid james... Start Date: 08/03/23 Status: Ordered albuterol 0.083% inhalation solution 3 mL = 2.5 mg, Inhalation, Every 6 hours, PRN for wheezing, # 60 each, 2 Refills, Maintenance, 04/29/23 12:22:00 EDT, Solution, [facility]/pharmacy #[id number], Partial fill upon patient request if the prescription is for a schedule II opioid drug., 172, cm, 04/08... Start Date: 04/29/23 Status: Ordered atorvastatin 40 mg oral tablet 1 tablet, By Mouth, Daily at bedtime, # 90 tablet, 1 Refills, Maintenance, 09/21/23 13:01:00 EST, [facility] STORE [id number], 172, cm, 06/30/23 9:51:00 EST, Height, 84.8, [...] Maintenance,04/22/23 15:31:00 EDT, Route to Pharmacy Electronically, [facility]/pharmacy #[id number], Partial fill upon patient request if the prescription is for a schedule II... Start Date: 04/22/23 Status: Ordered ipratropium nasal 21 mcg/inh spray See Instructions, SPRAY 2 SPRAYS INTRANASALLY IN EACH NOSTRIL 3 TIMES A DAY, # 30 Unknown, 1 Refills, Maintenance, 09/30/22 12:00:00 EST, [facility] STORE [id number], 28, SPRAY 2 SPRAYS INTRANASALLY IN EACH [...] Refills, Maintenance, 08/03/23 10:27:00 EST, EC Capsule, [facility]/pharmacy #[id number], Partial fill upon patient request if the prescription is for a schedule II opioid drug., 172, cm, 06/30/23 9:51:0... Start Date: 08/03/23 Status: Ordered Pen [place], 31 G x 5 mm BD Ultra Fine III See Instructions, # 100 each, Refills 5, Tot. Refills 5, Maintenance, use as directed for Type 2 Diabetes Mellitus to inject insulin once a day, 08/27/23 16:46:00 EST, Supply, 172, cm, 06/30/23 9:51:00 EST, Height, 84.8, kg, 02/17/23 8:16:00 EDT, Dry... Start Date: 08/27/23 Stop Date: 02/23/24 Status: Ordered Pen [place], 31 G x 5 mm BD Ultra [...] Injection, Every week, rotate injection sites, # 3 each, 1 Refills, Maintenance, 08/14/23 11:33:00 EST, Solution, [id number], Partial fill upon patient request if the prescription is for a schedule II opioid drug., 172,... Start Date: 08/14/23 Status: Ordered Problem List Condition Confirmation Course Effective Dates Status H ealth Status Informant Stage 3b chronic kidney disease (CKD) Confirmed Active CAD in [place] artery Confirmed Active History of syncope Confirmed Active Hyperlipidemia Confirmed Active Moderate persistent asthma Confirmed Active Type 2 diabetes mellitus with diabetic neuropathy Confirmed Active Medication management Confirmed Active Post-nasal drip Confirmed Active Seborrheic keratoses Confirmed Active Vital Signs Most recent to oldest [Reference Range]: 1 Height 172 cm (10/26/23 8:56 AM) Weight 86.5 kg (10/26/23 8:56 AM) Oxygen Saturation [94-100 %] 99 % (10/26/23 8:56 AM) Pulse Rate [55-90 bpm] 63 bpm (10/26/23 8:56 AM) Body Mass Index [18.5-24.99 kg/m2] 29.24 kg/m2 *H* (10/26/23 8:56 AM) Blood Pressure [90-138/55-84 mm Hg] 139/ 66mm Hg *H* (10/26/23 8:56 AM) Respiratory Rate [16-30 br/min] 16 br/mi n (10/26/23 8:56 AM) Blood pressure sites Arm, right (10/26/23 8:56 AM) Weight Obtained Via Standing scale (10/26/23 8:56 AM) Social History Social History Type Response Smoking Status Never smoker; Tobacc o user in household: No entered on: 02/08/16 Sex EKG study * Event Display: ECG 12-Lead Authored Date: Please click on pdf link to open report * Event Display: ECG 12-Lead Authored Date: Ventricular Rate: 61 BPM Atrial Rate: 61 BPM P-R Interval: 202 ms QRS Duration: 90 ms Q-T Interval: 404 ms QTC Calculation(Bazett): 406 ms P [place]: 58 degrees R [place]: -36 degrees T [place]: 0 degrees Normal sinus rhythm Left axis deviation Abnormal ECG When compared with ECG of 03-APR-2023 10:35, No significant change was found Confirmed by Alex Landry ([id number]) on 10/26/2023 10:19:40 AM [place]: Alex Landry Patient Care team information Care Team Personnel Name: Edita Raphael RN Position: [facility] RN Member Role: Primary Care Nurse Name: Yuri Lima Position: [facility] Outreach Member Role: Lifetime Consulting Physician Name: Sunshine Turner RN Position: [facility] ED RN W/OE and Tasks Member Role: Primary Care Nurse Name: Rowdy Cerda MD Position: [facility] Renal MD Member Role: Lifetime Consulting Physician Address: Address: [address] [facility] [place] [address]- Name: Chelsi SHIELDS, Issac Simon Position: [facility] Physician - Primary Care Member Role: PCP Address: Address: [address] [place] [address] [place] [address]- Care Team Related Persons Name: REEMA IZQUIERDO Address: [address] [place] [address] Name: LETTY IZQUIERDO Address: [address] [place] [address] Name: ARYA IZQUIERDO Address: [address] [place] [address]
--- OUTSIDE RECORDS SUMMARY | 2024-03-02 08:18 | XMS_ITS | Continuity of Care Document ---
Author Organization [facility] Address [address] [place] [address]- Care Team Providers Care Assurance Manager Name Role Phone Gerald SHIELDS, Radu Primary Care Physician [place] [facility] [place] - 07/16/[address] [address]- Discharge Disposition: A-D/C Walkout Attending Physician: Not on Staff, Attending MD Admitting Physician: Not on Staff, Admitting MD Referring Physician: Not on Staff, Referring [...] 07/18/19 13:23:00 EST, Route to Pharmacy Electronically, [facility]/pharmacy #[id number], 172, cm, 07/07/19 9:07:00 EST, Height, 97.5, [...] Refills, Maintenance, Tablet, Route to Pharmacy Electronically, [id number], [facility]/pharmacy #[id number] Start Date: 04/06/17 Stop Date: 04/01/18 Status: Ordered Basaglar KwikPen 100 units/mL subcutaneous solution = 40 units, Subcutaneous Injection, Daily at bedtime, # 10 mL, 0 Refills, Maintenance, 05/10/19 16:31:45 EDT, Solution Start Date: 05/10/19 Status: Ordered benazepril 5 mg oral tablet 1 tablet = 5 mg, By Mouth, Daily, # 90 tablet, 3 Refills, Maintenance, 05/13/21 15:41:00 EDT, [facility]/pharmacy #[id number], 172, cm, 05/13/21 14:58:00 EDT, Height Start Date: 05/13/21 Status: Ordered benazepril 5 mg oral tablet TAKE 1 TABLET BY MOUTH EVERY DAY Start Date: 03/22/17 Status: Ordered Colace sodium 50 mg oral capsule 1 capsule = 50 mg, By Mouth, 2 times a day, PRN for constipation, # 60 capsule, 0 Refills, Maintenance, 03/31/17 8:54:33, Capsule Start Date: 03/31/17 Status: Ordered Flovent Diskus 100 mcg/inh inhalation [...] EVERY MORNING Start Date: 03/22/17 Status: Ordered Problem List Condition Effective Dates Status Health Status Inform ant CAD in [place] artery(Confirmed) Active Vital Signs Most recent to oldest [Reference Range]: 1 2 Oxygen Saturation [94-100 %] 96 % (07/16/21 1:44 PM) 99 % (07/16/21 1:35 PM) Pulse Rate [55-90 bpm] 90 bpm (07/16/21 1:44 PM) 98 bpm *H* (07/16/21 1:35 PM) Blood Pressure [90-138/55-84 mm Hg] 162/ 103mm Hg *H* (07/16/21 1:44 PM) 186/106mm Hg *H* (07/16/21 1:44 PM) Respiratory Rate [16-30 br/min] 20 br/mi n (07/16/21 1:44 PM) Temperature [96.8-100.4 DegF] 97.5 DegF (07/16/21 1:44 PM) Mode of Delivery (Oxygen) Room air (07/16/21 1:44 PM) Room air (07/16/21 1:35 PM) Blood pressure sites Arm, left (07/16/21 1:44 PM) Arm, right (07/16/21 1:44 PM) Temperature Route Oral (07/16/21 1:44 PM) Social History Social History Type Response Smoking Status Never smoker; Tobacc o user in household: No entered on: 02/08/16 Sex
--- OUTSIDE RECORDS SUMMARY | 2024-03-02 08:18 | XMS_ITS | Continuity of Care Document ---
Author Organization [facility] Address [address] [place] [address] [address] [place] [address]- Care Team Providers Care Building Insulation Installer Name Role Phone Issac Gagnon MD Primary Care Physician [place] [facility] [place](s): 01/09/23 - 01/16/23 [facility] [address] [place] [address]- Attending Physician: Jamaal Jordan MD Referring Physician: Issac Gagnon MD Allergies, Adverse Reactions, Alerts Substance Reaction [...] influenza virus vaccine, inactivated 04/25/19 Brad rded [id number] 12y+ bivalent booster vax 04/15/22 Recorded pneumococcal 23-valent vaccine 10/08/21 Recorded tetanus/diphtheria/pertussis, acel(Tdap) 05/16/20 Recorded zoster vaccine, inactivated 04/20/20 Recorded pneumococcal 13-valent vaccine 04/25/19 Recorded pneumococcal 13-valent vaccine 2/14/17 Recorded Not Given Vaccine Date Status Refusal [...] Refills, Maintenance, Tablet, Route to Pharmacy Electronically, [id number], [facility]/pharmacy #[id number] Start Date: 04/06/17 Stop Date: 04/01/18 Status: Ordered Cetirizine 0 Refills, Maintenance, 08/26/21 11:44:00 EST, Partial fill upon patient request if the prescription is for a schedule II opioid drug. Start Date: 08/26/21 Status: Ordered doxycycline hyclate 100 mg oral capsule 1 capsule = 100 mg, By Mouth, 2 times a day, # 14 capsule, 0 Refills, Maintenance, 09/05/22 15:44:00 EST, [facility]/pharmacy #[id number], Partial fill upon patient request if the prescription is for a schedule II opioid drug., 172, cm, 09/05/22 15:08:00 EST, Height Start Date: 09/05/22 Status: Ordered Flovent Diskus 100 mcg/inh inhalation powder 1 puffs, By Mouth, 2 times a day, INHALE 1 PUFF BY MOUTH DIRECTED TWICE A DAY, # 3 each, 3 Refills, Maintenance, 08/12/22 16:50:00 EST, Powder, [facility]/pharmacy #[id number], Partial fill upon patient [...] Maintenance,10/27/22 16:23:00 EDT, Route to Pharmacy Electronically, [facility]/pharmacy #[id number], Partial fill upon patient request if the prescription is for a schedule II... Start Date: 10/27/22 Status: Ordered ipratropium nasal 21 mcg/inh spray See Instructions, SPRAY 2 SPRAYS INTRANASALLY IN EACH NOSTRIL 3 TIMES A DAY, # 30 Unknown, 1 Refills, Maintenance, 09/30/22 12:00:00 EST, [facility] STORE [id number], 28, SPRAY 2 SPRAYS INTRANASALLY IN EACH NOSTRIL 3 TIMES A DAY, 172, cm, 09/05/22 15:08:00 EST, H... Start Date: 09/30/22 Status: Ordered meclizine 25 mg oral tablet 1 tablet = 25 mg, By Mouth, 3 times a day, PRN for motion sickness, # 30 tablet, 0 Refills, Maintenance, 11/21/22 12:57:00 EDT, Tablet, [facility]/pharmacy #[id number], Partial fill upon patient [...] DAY Start Date: 07/07/19 Status: Ordered Pen [place], 31 G x 5 mm BD Ultra [...] mL, 1 Refills, Maintenance, 11/18/22 17:26:00 EDT, [facility]/pharmacy #[id number], Partial fill upon patient request if the [...] kidney disease (CKD) Confirmed Active CAD in [place] artery Confirmed Active Hyperlipidemia Confirmed Active Moderate persistent asthma Confirmed Active Type 2 diabetes mellitus with diabetic neuropathy Confirmed Active Medication management Confirmed Active Post-nasal drip Confirmed Active Seborrheic keratoses Confirmed Active Vital Signs Most recent to oldest [Reference Range]: 1 Height 172 cm (01/09/23 3:36 PM) Weight 86.1 kg (01/09/23 3:36 PM) Pulse Rate [55-90 bpm] 75 bpm (01/09/23 3:36 PM) Body Mass Index [18.5-24.99 kg/m2] 29.1 kg/m2 *H* (01/09/23 3:36 PM) Blood Pressure [90-138/55-84 mm Hg] 141/ 98mm Hg *H* (01/09/23 3:36 PM) Blood pressure sites Arm, right (01/09/23 3:36 PM) Weight Obtained Via Standing scale (01/09/23 3:36 PM) Social History Social History Type Response Smoking Status Never smoker; Tobacc o user in household: No entered on: 02/08/16 Sex Patient Care team information Care Team Personnel Name: Edita Raphael RN Position: [facility] RN Member Role: Primary Care Nurse Name: Diamond Ocampo Position: [facility] TA Member Role: Lifetime Consulting Physician Name: Yuri Lima Position: [facility] Outreach Member Role: Lifetime Consulting Physician Name: Sunshine Turner RN Position: [facility] ED RN W/OE and Tasks Member Role: Primary Care Nurse Name: Chelsi SHIELDS, Issac Simon Position: [facility] Physician - Primary Care Member Role: PCP Address: Address: [address] [place] [address] [place] [address]- Care Team Related Persons Name: REEMA IZQUIERDO Address: home [address] [place] [address] Name: LETTY IZQUIERDO Address: [address] [place] [address] Name: ARYA IZQUIERDO Address: [address] [place] [address]
--- OUTSIDE RECORDS SUMMARY | 2024-03-02 08:18 | XMS_ITS | Continuity of Care Document ---
Author Organization [facility] Address [address] [place] [address]- Care Team Providers Care Customer Data Technician Name Role Phone Radu Duarte MD Primary Care Physician Encounter [facility] Date(s): 07/24/21 - 08/23/21 [facility] [address] [place] [address]- [place] Allergies, Adverse Reactions, Alerts Substance Reaction [...] 07/24/21 16:01:00 EST, Route to Pharmacy Electronically, [facility]/pharmacy #[id number], Partial fill upon patient request if the [...] Refills, Maintenance, Tablet, Route to Pharmacy Electronically, [id number], [facility]/pharmacy #[id number] Start Date: 04/06/17 Stop Date: 04/01/18 Status: Ordered Basaglar KwikPen 100 units/mL subcutaneous solution = 40 units, Subcutaneous Injection, Daily at bedtime, # 10 mL, 0 Refills, Maintenance, 05/10/19 16:31:45 EDT, Solution Start Date: 05/10/19 Status: Ordered benazepril 10 mg oral tablet 1 tablet = 10 mg, By Mouth, Daily, Dose increase, # 30 tablet, 5 Refills, Maintenance, 07/24/21 16:01:00 EST, Tablet, [facility]/pharmacy #[id number], Partial fill upon patient request if the prescription is for a schedule II opioid drug., 172, cm, 05/14/21 10:50:... Start Date: 07/24/21 Status: Ordered Colace sodium 50 mg oral [...] Status Health Status Inform ant CAD in [place] artery(Confirmed) Active Social History Social History Type Response Smoking Status Never smoker; Tobacc o user in household: No entered on: 02/08/16 Sex
--- OUTSIDE RECORDS SUMMARY | 2024-03-02 08:18 | XMS_ITS | Continuity of Care Document ---
Author Organization [facility] Address [address] [place] [address]- Care Team Providers Care Muck Farmer Name Role Phone Conner Lomeli MD Primary Care Physician Encounter [facility] Date(s): 09/05/19 - 11/04/19 [facility] [address] [place] [address]- [facility] Attending Physician: Osorio Chavez MD Referring Physician: [...] 07/18/19 13:23:00 EST, Route to Pharmacy Electronically, [facility]/pharmacy #[id number], 172, cm, 07/07/19 9:07:00 EST, [...] Refills, Maintenance, Tablet, Route to Pharmacy Electronically, [id number], [facility]/pharmacy #[id number] Start Date: 04/06/17 Stop [...] tablet, 3 Refills, Maintenance, 08/17/19 10:28:00 EST, [facility]/pharmacy #[id number], 172, cm, 07/07/19 9:07:00 EST, [...] Status Health Status Inform ant CAD in [place] artery(Confirmed) Active Social History Social History Type Response Smoking Status Never smoker; Tobacc o user in household: No entered on: 02/08/16 Sex
--- OUTSIDE RECORDS SUMMARY | 2024-03-02 08:18 | XMS_ITS | Continuity of Care Document ---
Author Organization [facility] Address [address] [place] [address]- Care Team Providers Care Cinder Crane Operator Name Role Phone Chelsi SHIELDS, Issac K Primary Care Physician En[place] [facility] Date(s): 06/14/23 - 06/21/23 [facility] [address] [place] [address]- Attending Physician: Mario Hutchison MD Allergies, Adverse Reactions, Alerts Substance Reaction Severity Status Cats hayfever Active Dust hayfever Active Jardiance RASH Active Dogs hayfever [...] influenza virus vaccine, inactivated 04/25/19 Brad rded [id number] 12y+ bivalent booster vax 04/15/22 Recorded pneumococcal 23-valent vaccine 10/08/21 Recorded tetanus/diphtheria/pertussis, acel(Tdap) 05/16/20 Recorded zoster vaccine, inactivated 04/20/20 Recorded pneumococcal 13-valent vaccine 04/25/19 Recorded pneumococcal 13-valent vaccine 09/09/16 Recorded Medications Albuterol (Eqv-ProAir HFA) 90 mcg/inh inhalation aerosol 2 puffs = 180 mcg, Inhalation, Every 6 hours, PRN Wheezing/Shortness of Breath, # 8.5 Gm, 2 Refills, Maintenance, 04/29/23 12:20:00 EDT, Inhaler, [facility]/pharmacy #[id number], Partial fill upon patient requestif the [...] 1 Refills, Maintenance, 03/20/23 11:43:00 EDT, Tablet, [facility]/pharmacy #[id number], 172, cm, 01/09/23 15:36:00 EDT, Height, [...] 3 Refills, Maintenance, 08/12/22 16:50:00 EST, Powder, [facility]/pharmacy #[id number], Partial fill upon patient request if [...] Maintenance,04/22/23 15:31:00 EDT, Route to Pharmacy Electronically, [facility]/pharmacy #[id number], Partial fill upon patient request if the prescription is for a schedule II... Start Date: 04/22/23 Status: Ordered ipratropium nasal 21 mcg/inh spray See Instructions, SPRAY 2 SPRAYS INTRANASALLY IN EACH NOSTRIL 3 TIMES A DAY, # 30 Unknown, 1 Refills, Maintenance, 09/30/22 12:00:00 EST, [facility] STORE [id number], 28, SPRAY 2 SPRAYS INTRANASALLY IN EACH [...] 0 Refills, Maintenance, 05/07/23 8:45:00EDT, EC Capsule, [facility]/pharmacy #[id number], Partial fill upon patient request if the prescription is for aschedule II opioid drug., 172, cm, 04/08/23 8:37:00... Start Date: 05/07/23 Status: Ordered Pen [place], 31 G x 5 mm BD Ultra [...] 1 Refills, Maintenance, 03/12/23 16:16:00 EDT, Tablet, [facility]/pharmacy #[id number], Partial fill upon patient request if the prescription is for a schedule II opioid drug., 17... Start Date: 03/12/23 Status: Ordered sertraline 25 mg oral tablet 1 tablet = 25 mg, By Mouth, Daily, along with sertraline 100 mg daily., # 90 tablet, 1 Refills, Maintenance, 03/13/23 15:21:00 EDT, Tablet, [facility]/pharmacy #[id number], Partial fill upon patient request if [...] Refills, Maintenance, 05/07/23 9:29:00 EDT, [id number], 172, cm, 04/08/23 8:37:00 EDT, Height, 84.8, kg, 02/17/23 8:16:00 EDT, Dry Weight Start Date: 05/07/23 Status: Ordered Problem List Condition Confirmation Course Effective Dates Status H ealth Status Informant Stage 3b chronic kidney disease (CKD) Confirmed Active CAD in [place] artery Confirmed Active Hyperlipidemia Confirmed Active Moderate [...] Team Personnel Name: Edita Raphael RN Position: [facility] RN Member Role: Primary Care Nurse Name: Yuri Lima Position: S Outreach Member Role: Lifetime Consulting Physician Name: Sunshine Turner RN Position: [facility] ED RN W/OE and Tasks Member Role: Primary Care Nurse Name: Rowdy Cerda MD Position: [facility] Renal MD Member Role: Lifetime Consulting Physician Address: Address: [address] [place] [address] [facility] [place] [address]- Name: Issac Gagnon MD Position: [facility] Physician - Primary Care Member Role: PCP Address: Address: [address] [place] [address] [place] [address]- Care Team Related Persons Name: REEMA IZQUIERDO Address: [address] [place] [address] Name: LETTY IZQUIERDO Address: home [address] [place] [address] Name: ARYA IZQUIERDO Address: home [address] [place] [address]
--- OUTSIDE RECORDS SUMMARY | 2024-03-02 08:18 | XMS_ITS | Continuity of Care Document ---
Author Organization [facility] Address [address] [place] [address]- Care Team Providers Care Button Sewer Hand Name Role Phone Chelsi SHIELDS, Issac Simon Primary Care Physician Encounter [facility] Date(s): 07/08/23 - 08/07/[address] [address] Attending Physician: AdmCarrington england Admitting Physician: AdmtrCarrington Referring Physician: Admtr, Ar8 Allergies, Adverse Reactions, Alerts Substance Reaction Severity Status Cats hayfever Active Dogs hayfever Active Pollen hayfever Active Jardiance RASH Active Dust hayfever Active Mold hayfever Active [...] influenza virus vaccine, inactivated 04/25/19 Brad rded [id number] 12y+ bivalent booster vax 04/15/22 Recorded pneumococcal 23-valent vaccine 10/08/21 Recorded tetanus/diphtheria/pertussis, acel(Tdap) 05/16/20 Recorded zoster vaccine, inactivated 04/20/20 Recorded pneumococcal 13-valent vaccine 04/25/19 Recorded pneumococcal 13-valent vaccine 09/09/16 Recorded Medications Albuterol (Eqv-ProAir HFA) 90 mcg/inh inhalation aerosol 2 puffs = 180 mcg, Inhalation, Every 6 hours, PRN Wheezing/Shortness of Breath, # 8.5 Gm, 5 Refills, Maintenance, 08/03/23 10:27:00 EST, Inhaler, [facility]/pharmacy #[id number], Partial fill upon patient requestif the prescription is for a schedule II opioid james... Start Date: 08/03/23 Status: Ordered albuterol 0.083% inhalation solution 3 mL = 2.5 mg, Inhalation, Every 6 hours, PRN for wheezing, # 60 each, 2 Refills, Maintenance, 04/29/23 12:22:00 EDT, Solution, [facility]/pharmacy #[id number], Partial fill upon patient request if the prescription is for a schedule II opioid drug., 172, cm, 04/08... Start Date: 04/29/23 Status: Ordered atorvastatin 40 mg oral tablet 1 tablet = 40 mg, By Mouth, Daily at bedtime, # 90 tablet, 1 Refills, Maintenance, 03/20/23 11:43:00 EDT, Tablet, [facility]/pharmacy #[id number], 172, cm, 01/09/23 15:36:00 EDT, Height, [...] 3 Refills, Maintenance, 08/12/22 16:50:00 EST, Powder, [facility]/pharmacy #[id number], Partial fill upon patient request [...] Maintenance,04/22/23 15:31:00 EDT, Route to Pharmacy Electronically, [facility]/pharmacy #[id number], Partial fill upon patient request if the prescription is for a schedule II... Start Date: 04/22/23 Status: Ordered GlipiZIDE XL 5 mg oral tablet, extended release 1 tablet = 5 mg, By Mouth, Daily, # 90 tablet, 0 Refills, Maintenance, 06/30/23 10:29:00 EST, ER Tablet, [facility]/pharmacy #[id number], Partial fill upon patient request if the prescription is for a schedule IIopioid drug., 172, cm, 06/30/23 9:51:00 EST, Height... Start Date: 06/30/23 Status: Ordered ipratropium nasal 21 mcg/inh spray See Instructions, SPRAY 2 SPRAYS INTRANASALLY IN EACH NOSTRIL 3 TIMES A DAY, # 30 Unknown, 1 Refills, Maintenance, 09/30/22 12:00:00 EST, [facility] STORE 16028, 28, SPRAY 2 SPRAYS INTRANASALLY IN EACH [...] 9:51:0... Start Date: 08/03/23 Status: Ordered Pen [place], 31 G x 5 mm BD Ultra [...] 1 Refills, Maintenance, 03/12/23 16:16:00 EDT, Tablet, [facility]/pharmacy #[id number], Partial fill upon patient request if the prescription is for a schedule II opioid drug., 17... Start Date: 03/12/23 Status: Ordered traZODone 50 mg oral tablet TAKE 1 TABLET BY MOUTH EVERY DAY AT BEDTIME NEEDED Start Date: 04/08/23 Status: Ordered Trulicity Pen 3 mg/0.5 mL subcutaneous solution See Instructions, INJECT 3 MG (0.5 ML) SUBCUTANEOUS INJECTION SUBCUTANEOUSLY ONCE A WEEK, # 6 Unknown, 1 Refills, Maintenance, 05/07/23 9:29:00 EDT, [id number], 172, cm, 04/08/23 8:37:00 EDT, Height, 84.8, kg, 02/17/23 8:16:00 EDT, Dry Weight Start Date: 05/07/23 Status: Ordered Problem List Condition Confirmation Course Effective Dates Status H ealth Status Informant Stage 3b chronic kidney disease (CKD) Confirmed Active CAD in [place] artery Confirmed Active History of syncope Confirmed [...] Team Personnel Name: Edita Raphael RN Position: [facility] RN Member Role: Primary Care Nurse Name: Yuri Lima Position: [facility] Outreach Member Role: Lifetime Consulting Physician Name: Sunshine Turner RN Position: [facility] ED RN W/OE and Tasks Member Role: Primary Care Nurse Name: Rowdy Cerda MD Position: [facility] Renal MD Member Role: Lifetime Consulting Physician Address: Address: [address] [place] [address] [facility] [place] [address]- Name: Chelsi SHIELDS, Issac Simon Position: [facility] Physician - Primary Care Member Role: PCP Address: Address: [address] [place] [address]- Care Team Related Persons Name: REEMA IZQUIERDO Address: [address] [place] [address] Name: LETTY IZQUIERDO Address: home [address] [place] [address] Name: ARYA IZQUIERDO Address: [address] [place] [address]
--- OUTSIDE RECORDS SUMMARY | 2024-03-02 08:18 | XMS_ITS | Continuity of Care Document ---
Author Organization [facility] Address [address] [place] [address]- Care Team Providers Care Nib Finisher Name Role Phone Chelsi SHIELDS, Issac Simon Primary Care Physician Encounter [facility] Date(s): 04/01/23 - 05/01/23 [facility] [address] [place], [place] [address] Attending Physician: Carrington Kim Admitting Physician: [...] influenza virus vaccine, inactivated 04/25/19 Brad rded [id number] 12y+ bivalent booster vax 04/15/22 Recorded pneumococcal 23-valent vaccine 10/08/21 Recorded tetanus/diphtheria/pertussis, acel(Tdap) 05/16/20 Recorded zoster vaccine, inactivated 04/20/20 Recorded pneumococcal 13-valent vaccine 04/25/19 Recorded pneumococcal 13-valent vaccine 09/09/16 Recorded Medications Albuterol (Eqv-ProAir HFA) 90 mcg/inh inhalation aerosol 2 puffs = 180 mcg, Inhalation, Every 6 hours, PRN Wheezing/Shortness of Breath, # 8.5 Gm, 2 Refills, Maintenance, 04/29/23 12:20:00 EDT, Inhaler, [facility]/pharmacy #[id number], Partial fill upon patient requestif the prescription is for a schedule II opioid james... Start Date: 04/29/23 Status: Ordered albuterol 0.083% inhalation solution 3 mL = 2.5 mg, Inhalation, Every 6 hours, PRN for wheezing, # 60 each, 2 Refills, Maintenance, 04/29/23 12:22:00 EDT, Solution, [facility]/pharmacy #[id number], Partial fill upon patient request if the prescription is for a schedule II opioid drug., 172, cm, 04/08... Start Date: 04/29/23 Status: Ordered atorvastatin 40 mg oral tablet 1 tablet = 40 mg, By Mouth, Daily at bedtime, # 90 tablet, 1 Refills, Maintenance, 03/20/23 11:43:00 EDT, Tablet, [facility]/pharmacy #[id number], 172, cm, 01/09/23 15:36:00 EDT, [...] 3 Refills, Maintenance, 08/12/22 16:50:00 EST, Powder, [facility]/pharmacy #[id number], Partial fill upon patient request [...] Maintenance,04/22/23 15:31:00 EDT, Route to Pharmacy Electronically, [facility]/pharmacy #[id number], Partial fill upon patient request if the prescription is for a schedule II... Start Date: 04/22/23 Status: Ordered ipratropium nasal 21 mcg/inh spray See Instructions, SPRAY 2 SPRAYS INTRANASALLY IN EACH NOSTRIL 3 TIMES A DAY, # 30 Unknown, 1 Refills, Maintenance, 09/30/22 12:00:00 EST, [facility] STORE [id number], 28, SPRAY 2 SPRAYS INTRANASALLY IN EACH [...] Refills, Maintenance, 02/23/23 15:25:00 EDT, EC Capsule, [facility]/pharmacy #[id number], Partial fill upon patient request if the prescription is for a schedule II opioid drug., 172, cm, 01/09/23 15:36:... Start Date: 02/23/23 Status: Ordered Pen [place], 31 G x 5 mm BD Ultra [...] 1 Refills, Maintenance, 03/12/23 16:16:00 EDT, Tablet, [facility]/pharmacy #[id number], Partial fill upon patient request if the prescription is for a schedule II opioid drug., 17... Start Date: 03/12/23 Status: Ordered sertraline 25 mg oral tablet 1 tablet = 25 mg, By Mouth, Daily, along with sertraline 100 mg daily., # 90 tablet, 1 Refills, Maintenance, 03/13/23 15:21:00 EDT, Tablet, [facility]/pharmacy #[id number], Partial fill upon patient request [...] Refills, Maintenance, 03/16/23 9:47:00 EDT, [facility], 172, cm, 01/09/23 15:36:00 EDT, Height, 84.8, kg, 02/17/23 8:16:00 EDT, Dry Weight Start Date: 03/16/23 Status: Ordered Problem List Condition Confirmation Course Effective Dates Status H ealth Status Informant Stage 3b chronic kidney disease (CKD) Confirmed Active CAD in [place] artery Confirmed Active Hyperlipidemia Confirmed Active Moderate [...] Name: Edita Raphael RN Position: [facility] RN Member Role: Primary Care Nurse Name: Yuri Lima Position: [facility] Outreach Member Role: Lifetime Consulting Physician Name: Sunshine Turner RN Position: [facility] ED RN W/OE and Tasks Member Role: Primary Care Nurse Name: Chelsi SHIELDS, Issac Simon Position: [facility] Physician - Primary Care Member Role: PCP Address: Address: [address] [place] [address] [place] [address]- [place] Care Team Related Persons Name: REEMA IZQUIERDO Address: [address] [place] [address] Name: LETTY IZQUIERDO Address: [address] [place] [address] Name: ARYA IZQUIERDO Address: home [address] [place] [address]
--- OUTSIDE RECORDS SUMMARY | 2024-03-02 08:18 | XMS_ITS | Continuity of Care Document ---
Author Organization [facility] Address [address] [place] [address]- Care Team Providers Care Grocery Store Courtesy Clerk Name Role Phone Gerald SHIELDS, Radu Primary Care Physician [place] [facility] [place] - 06/20/[address] [address] Attending Physician: Carrington Kim Admitting Physician: Carrington Kim Referring Physician: AdmtrCarrington Allergies, Adverse Reactions, Alerts Substance Reaction Severity [...] 07/24/21 16:01:00 EST, Route to Pharmacy Electronically, [facility]/pharmacy #[id number], Partial fill upon patient request if the [...] Refills, Maintenance, Tablet, Route to Pharmacy Electronically, [id number], [facility]/pharmacy #[id number] Start Date: 04/06/17 Stop Date: [...] 5 Refills, Maintenance, 07/24/21 16:01:00 EST, Tablet, [facility]/pharmacy #[id number], Partial fill upon patient request if the [...] Status: Ordered montelukast 10 mg oral tablet 10 mg, 1, tablet, By Mouth, Daily, Refills 0, Maintenance, 12/17/21 14:30:00 EDT, Partial fill uponpatient request if the prescription is for a schedule II opioid drug. Start Date: 12/17/21 Status: Ordered omeprazole 20 mg oral enteric [...] 08/29/21 13:30:00 EST, Route to Pharmacy Electronically, [facility]/pharmacy #[id number], Partial fill upon patient request if the [...] List Condition Confirmation Course Effective Dates Status Health St atus Informant CAD in [place] artery Confirmed Active Obese class I Confirmed Active Social History Social History Type Response Smoking Status Never smoker; Tobacc o user in household: No entered on: 02/08/16 Sex Patient Care team information Care Team Personnel Name: Edita Raphael RN Position: [facility] RN Member Role: Primary Care Nurse Name: Radu Duarte MD Position: [facility] Outreach Member Role: PCP Address: Address: [address] [place] [address]- Name: Yuri Lima Position: [facility] Outreach Member Role: Lifetime Consulting Physician Name: Sunshine Turner RN Position: [facility] ED RN W/OE and Tasks Member Role: Primary Care Nurse Care Team Related Persons Name: REEMA IZQUIERDO Address: [address] [place] [address] Name: LETTY IZQUIERDO Address: [address] [place] [address] Name: ARYA IZQUIERDO Address: home [address] [place] [address]
--- OUTSIDE RECORDS SUMMARY | 2024-03-02 08:18 | XMS_ITS | Continuity of Care Document ---
Author Organization [facility] Address [address] [place] [address]- Care Team Providers Care Alkylation Operator Name Role Phone Chelsi SHIELDS, Issac Simon Primary Care Physician Encounter [facility] Date(s): 04/07/23 - 05/16/[address] [address] Attending Physician: Con NEVAREZ, Cata Farfan Admitting Physician: Cata Andujar NP Referring Physician: Cata Andujar NP Allergies, Adverse Reactions, Alerts Substance Reaction Severity [...] influenza virus vaccine, inactivated 04/25/19 Brad rded [id number] 12y+ bivalent booster vax 04/15/22 Recorded pneumococcal 23-valent vaccine 10/08/21 Recorded tetanus/diphtheria/pertussis, acel(Tdap) 05/16/20 Recorded zoster vaccine, inactivated 04/20/20 Recorded pneumococcal 13-valent vaccine 04/25/19 Recorded pneumococcal 13-valent vaccine 09/09/16 Recorded Medications Albuterol (Eqv-ProAir HFA) 90 mcg/inh inhalation aerosol 2 puffs = 180 mcg, Inhalation, Every 6 hours, PRN Wheezing/Shortness of Breath, # 8.5 Gm, 2 Refills, Maintenance, 04/29/23 12:20:00 EDT, Inhaler, [facility]/pharmacy #[id number], Partial fill upon patient requestif the prescription is for a schedule II opioid james... Start Date: 04/29/23 Status: Ordered albuterol 0.083% inhalation solution 3 mL = 2.5 mg, Inhalation, Every 6 hours, PRN for wheezing, # 60 each, 2 Refills, Maintenance, 04/29/23 12:22:00 EDT, Solution, [facility]/pharmacy #[id number], Partial fill upon patient request if the prescription is for a schedule II opioid drug., 172, cm, 04/08... Start Date: 04/29/23 Status: Ordered atorvastatin 40 mg oral tablet 1 tablet = 40 mg, By Mouth, Daily at bedtime, # 90 tablet, 1 Refills, Maintenance, 03/20/23 11:43:00 EDT, Tablet, [facility]/pharmacy #[id number], 172, cm, 01/09/23 15:36:00 EDT, Height, [...] Maintenance,04/22/23 15:31:00 EDT, Route to Pharmacy Electronically, [facility]/pharmacy #[id number], Partial fill upon patient request if the prescription is for a schedule II... Start Date: 04/22/23 Status: Ordered ipratropium nasal 21 mcg/inh spray See Instructions, SPRAY 2 SPRAYS INTRANASALLY IN EACH NOSTRIL 3 TIMES A DAY, # 30 Unknown, 1 Refills, Maintenance, 09/30/22 12:00:00 EST, [facility] STORE 78962, 28, SPRAY 2 SPRAYS INTRANASALLY IN EACH [...] 0 Refills, Maintenance, 05/07/23 8:45:00EDT, EC Capsule, [facility]/pharmacy #[id number], Partial fill upon patient request if the prescription is for aschedule II opioid drug., 172, cm, 04/08/23 8:37:00... Start Date: 05/07/23 Status: Ordered Pen [place], 31 G x 5 mm BD Ultra [...] 1 Refills, Maintenance, 03/12/23 16:16:00 EDT, Tablet, [facility]/pharmacy #[id number], Partial fill upon patient request if the prescription is for a schedule II opioid drug., 17... Start Date: 03/12/23 Status: Ordered sertraline 25 mg oral tablet 1 tablet = 25 mg, By Mouth, Daily, along with sertraline 100 mg daily., # 90 tablet, 1 Refills, Maintenance, 03/13/23 15:21:00 EDT, Tablet, [id number], Partial fill upon patient [...] Refills, Maintenance, 05/07/23 9:29:00 EDT, [facility], 172, cm, 04/08/23 8:37:00 EDT, Height, 84.8, kg, 02/17/23 8:16:00 EDT, Dry Weight Start Date: 05/07/23 Status: Ordered Problem List Condition Confirmation Course Effective Dates Status H ealth Status Informant Stage 3b chronic kidney disease (CKD) Confirmed Active CAD in [place] artery Confirmed Active Hyperlipidemia Confirmed Active Moderate [...] Primary Care Nurse Name: Yuri Lima Position: [facility] Outreach Member Role: Lifetime Consulting Physician Name: Sunshine Turner RN Position: [facility] ED RN W/OE and Tasks Member Role: Primary Care Nurse Name: Rowdy Cerda MD Position: [facility] Renal MD Member Role: Lifetime Consulting Physician Address: Address: [address] [place] [address] [facility] [place] [address]- Name: Chelsi SHIELDS, Issac Simon Position: [facility] Physician - Primary Care Member Role: PCP Address: Address: [address] [place] [address] [place] [address]- Care Team Related Persons Name: REEMA IZQUIERDO Address: [address] [place] [address] Name: LETTY IZQUIERDO Address: [address] [place] [address] Name: ARYA IZQUIERDO Address: [address] [place] [address]
--- OUTSIDE RECORDS SUMMARY | 2024-03-02 08:18 | XMS_ITS | Continuity of Care Document ---
Author Organization [facility] gualberto Address [address] [place] [address] [address] [place] [address]- Care Team Providers Care Nurse Tech Name Role Phone Chelsi SHIELDS, Issac Simon Primary Care Physician [phone] Encounter [facility] Date(s): 03/02/23 - 03/09/23 [facility] [address] [place] [address]- Attending Physician: Mack Thakkar MD Allergies, Adverse Reactions, Alerts Substance Reaction [...] influenza virus vaccine, inactivated 04/25/19 Brad rded [id number] 12y+ bivalent booster vax 04/15/22 Recorded pneumococcal [...] 01/22/23 9:16:00 EDT, Route to Pharmacy Electronically, [facility]/pharmacy #[id number], Partial fill upon patient request if the prescription is for a schedule II opioid drug... Start Date: 01/22/23 Status: Ordered atorvastatin 40 mg oral tablet 1 tablet = 40 mg, By Mouth, Daily at bedtime, TAKE 1 TABLET BY MOUTH EVERY DAY AT BEDTIME, # 90 tablet, 3 Refills, Maintenance, Tablet, Route to Pharmacy Electronically, [id number], [facility]/pharmacy #[id number] Start Date: 04/06/17 Stop Date: 04/01/18 Status: Ordered Flovent Diskus 100 mcg/inh inhalation powder 1 puffs, By Mouth, 2 times a day, INHALE 1 PUFF BY MOUTH DIRECTED TWICE A DAY, # 3 each, 3 Refills, Maintenance, 08/12/22 16:50:00 EST, Powder, [facility]/pharmacy #[id number], Partial fill upon patient [...] Maintenance,01/26/23 12:45:00 EDT, Route to Pharmacy Electronically, [facility]/pharmacy #[id number], Partial fill upon patient request if the prescription is for a schedule II... Start Date: 01/26/23 Status: Ordered ipratropium nasal 21 mcg/inh spray See Instructions, SPRAY 2 SPRAYS INTRANASALLY IN EACH NOSTRIL 3 TIMES A DAY, # 30 Unknown, 1 Refills, Maintenance, 09/30/22 12:00:00 EST, [facility] STORE [id number], 28, SPRAY 2 SPRAYS INTRANASALLY IN EACH [...] Refills, Maintenance, 02/23/23 15:25:00 EDT, EC Capsule, [facility]/pharmacy #[id number], Partial fill upon patient [...] drug. Start Date: 02/17/23 Status: Ordered [place], 31 G x 5 mm BD Ultra Fine III See Instructions, # 300 each, Refills 2, Tot. Refills 2, Maintenance, use as directed for Type 2 Diabetes Mellitus, 11/05/22 9:29:00 EDT, Supply, 172jacky, 11/05/22 9:12:00 EDT, Height Start Date: 11/05/22 [...] mL, 1 Refills, Maintenance, 11/18/22 17:26:00 EDT, [facility]/pharmacy #[id number], Partial fill upon patient request if the prescription is for a schedule II opioid drug., 172, cm, 11/05/22 9:12:00 EDT, Height Start Date: 11/18/22 Stop Date: 05/17/23 Status: Ordered Problem List Condition Confirmation Course [...] Team Personnel Name: Edita Raphael RN Position: [facility] RN Member Role: Primary Care Nurse Name: Diamond Ocampo Position: [facility] TA Member Role: Lifetime Consulting Physician Name: Yuri Lima Position: [facility] Outreach Member Role: Lifetime Consulting Physician Name: Sunshine Turner RN Position: [facility] ED RN W/OE and Tasks Member Role: Primary Care Nurse Name: Chelsi SHIELDS, Issac Simon Position: [facility] Physician - Primary Care Member Role: PCP Address: Address: [address] [place] [address] [place] [address]- Care Team Related Persons Name: REEMA IZQUIERDO Address: [address] [place] [address] Name: LETTY IZQUIERDO Address: [address] [place] [address] Name: ARYA IZQUIERDO Address: [address] [place] [address]
--- OUTSIDE RECORDS SUMMARY | 2024-03-02 08:18 | XMS_ITS | Continuity of Care Document ---
Author Organization [facility] Address [address] [place] [address]- Care Team Providers Care Process Treater Name Role Phone Issac Gagnon MD Primary Care Physician [phone] Encounter [facility] Date(s): 10/12/23 - 11/12/23 [facility] [address] [place] [address]- Attending Physician: Osorio Chavez MD Admitting Physician: Osorio Chavez MD Referring Physician: Issac Gagnon MD Allergies, [...] influenza virus vaccine, inactivated 04/25/19 Brad rded [id number] 12y+ bivalent booster vax 04/15/22 Recorded pneumococcal 23-valent vaccine 10/08/21 Recorded tetanus/diphtheria/pertussis, acel(Tdap) 05/16/20 Recorded zoster vaccine, inactivated 04/20/20 Recorded pneumococcal 13-valent vaccine 04/25/19 Recorded pneumococcal 13-valent vaccine 09/09/16 Recorded Medications Albuterol (Eqv-ProAir HFA) 90 mcg/inh inhalation aerosol 2 puffs = 180 mcg, Inhalation, Every 6 hours, PRN Wheezing/Shortness of Breath, # 8.5 Gm, 5 Refills, Maintenance, 08/03/23 10:27:00 EST, Inhaler, [facility]/pharmacy #[id number], Partial fill upon patient requestif the prescription is for a schedule II opioid james... Start Date: 08/03/23 Status: Ordered albuterol 0.083% inhalation solution 3 mL = 2.5 mg, Inhalation, Every 6 hours, PRN for wheezing, # 60 each, 2 Refills, Maintenance, 04/29/23 12:22:00 EDT, Solution, [facility]/pharmacy #[id number], Partial fill upon patient request if the prescription is for a schedule II opioid drug., 172, cm, 04/08... Start Date: 04/29/23 Status: Ordered atorvastatin 40 mg oral tablet 1 tablet, By Mouth, Daily at bedtime, # 90 tablet, 1 Refills, Maintenance, 09/21/23 13:01:00 EST, [facility] STORE [id number], 172, cm, 06/30/23 9:51:00 EST, Height, 84.8, [...] Maintenance,04/22/23 15:31:00 EDT, [id number] Partial fill upon patient request if the prescription is for a schedule II... Start Date: 04/22/23 Status: Ordered ipratropium nasal 21 mcg/inh spray See Instructions, SPRAY 2 SPRAYS INTRANASALLY IN EACH NOSTRIL 3 TIMES A DAY, # 30 Unknown, 1 Refills, Maintenance, 09/30/22 12:00:00 EST, [facility] STORE [id number], 28, SPRAY 2 SPRAYS INTRANASALLY IN EACH [...] Refills, Maintenance, 08/03/23 10:27:00 EST, EC [facility]apsule, [id number] Partial fill upon patient request if the prescription is for a schedule II opioid drug., 172, cm, 06/30/23 9:51:0... Start Date: 08/03/23 Status: Ordered Pen [place], 31 G x 5 mm BD Ultra Fine III See Instructions, # 100 each, Refills 5, Tot. Refills 5, Maintenance, use as directed for Type 2 Diabetes Mellitus to inject insulin once a day, 08/27/23 16:46:00 EST, Supply, 172, cm, 06/30/23 9:51:00 EST, Height, 84.8, kg, 02/17/23 8:16:00 EDT, Dry... Start Date: 08/27/23 Stop Date: 02/23/24 Status: Ordered [place], 31 G x 5 mm BD Ultra [...] kidney disease (CKD) Confirmed Active CAD in [place] artery Confirmed Active History of syncope Confirmed [...] Team Personnel Name: Edita Raphael RN Position: [facility] RN Member Role: Primary Care Nurse Name: Yuri Lima Position: [facility] Outreach Member Role: Lifetime Consulting Physician Name: Sunshine Turner RN Position: [facility] ED RN W/OE and Tasks Member Role: Primary Care Nurse Name: Rowdy Cerda MD Position: [facility] Renal MD Member Role: Lifetime Consulting Physician Address: Address: [address] [place] [address] [facility] [place] [address]- Name: Chelsi SHIELDS, Issac Simon Position: [facility] Physician - Primary Care Member Role: PCP Address: Address: [address] [place] [address] [place] [address]- Care Team Related Persons Name: REEMA IZQUIERDO Address: [address] [place] [address] Name: LETTY IZQUIERDO Address: [address] [place] [address] Name: ARYA IZQUIERDO Address: [address] [place] [address]
--- OUTSIDE RECORDS SUMMARY | 2024-03-02 08:18 | XMS_ITS | Continuity of Care Document ---
Author Organization [facility] gualberto Address [address] [place] [address] [address] [place] [address]- Care Team Providers Care Supervisor [place] Name Role Phone Chelsi SHEILDS, Issac Simon Primary Care Physician Encounter [facility] Date(s): 02/18/23 - 03/25/23 [facility] [address] [place] [address]- Attending Physician: Jamaal Jordan MD Allergies, Adverse Reactions, Alerts Substance Reaction [...] influenza virus vaccine, inactivated 04/25/19 Brad rded [id number] 12y+ bivalent booster vax 04/15/22 Recorded pneumococcal [...] 01/22/23 9:16:00 EDT, Route to Pharmacy Electronically, [facility]/pharmacy #[id number], Partial fill upon patient request if the prescription is for a schedule II opioid drug... Start Date: 01/22/23 Status: Ordered atorvastatin 40 mg oral tablet 1 tablet = 40 mg, By Mouth, Daily at bedtime, # 90 tablet, 1 Refills, Maintenance, 03/20/23 11:43:00 EDT, Tablet, [facility]/pharmacy #[id number], 172, cm, 01/09/23 15:36:00 EDT, Height, 84.8, kg, 02/17/23 8:16:00 EDT, Dry Weight Start Date: 03/20/23 Stop Date: 09/16/23 Status: Ordered Flovent Diskus 100 mcg/inh inhalation powder 1 puffs, By Mouth, 2 times a day, INHALE 1 PUFF BY MOUTH DIRECTED TWICE A DAY, # 3 each, 3 Refills, Maintenance, 08/12/22 16:50:00 EST, Powder, [facility]/pharmacy #[id number], Partial fill upon patient request if the [...] Maintenance,01/26/23 12:45:00 EDT, Route to Pharmacy Electronically, [facility]/pharmacy #[id number], Partial fill upon patient request if the prescription is for a schedule II... Start Date: 01/26/23 Status: Ordered ipratropium nasal 21 mcg/inh spray See Instructions, SPRAY 2 SPRAYS INTRANASALLY IN EACH NOSTRIL 3 TIMES A DAY, # 30 Unknown, 1 Refills, Maintenance, 09/30/22 12:00:00 EST, [facility] STORE [id number], 28, SPRAY 2 SPRAYS INTRANASALLY IN EACH [...] Refills, Maintenance, 02/23/23 15:25:00 EDT, EC Capsule, [facility]/pharmacy #[id number], Partial fill upon patient [...] drug. Start Date: 02/17/23 Status: Ordered Pen [place], 31 G x 5 mm BD Ultra [...] Refills, Maintenance, 03/12/23 16:16:00 EDT, Tablet, [facility]/pharmacy #[id number], Partial fill upon patient request if the prescription is for a schedule II opioid drug., 17... Start Date: 03/12/23 Status: Ordered sertraline 25 mg oral tablet 1 tablet = 25 mg, By Mouth, Daily, along with sertraline 100 mg daily., # 90 tablet, 1 Refills, Maintenance, 03/13/23 15:21:00 EDT, Tablet, [facility]/pharmacy #[id number], Partial fill upon patient [...] Refills, Maintenance, 03/16/23 9:47:00 EDT, [id number], 172, cm, 01/09/23 15:36:00 EDT, Height, 84.8, kg, 02/17/23 8:16:00... Start Date: 03/16/23 Status: Ordered Problem List Condition Confirmation Course Effective Dates Status H ealth Status Informant Stage 3b chronic kidney disease (CKD) Confirmed Active CAD in [place] artery Confirmed Active Hyperlipidemia Confirmed Active Moderate [...] Team Personnel Name: Edita Raphael RN Position: [facility] RN Member Role: Primary Care Nurse Name: Diamond Ocampo Position: [facility] TA Member Role: Lifetime Consulting Physician Name: Yuri Lima Position: [facility] Outreach Member Role: Lifetime Consulting Physician Name: Sunshine Turner RN Position: [facility] ED RN W/OE and Tasks Member Role: Primary Care Nurse Name: Chelsi SHIELDS, Issac Simon Position: [facility] Physician - Primary Care Member Role: PCP Address: Address: [address] [place] [address]- [place] Care Team Related Persons Name: REEMA IZQUIERDO Address: [address] [place] [address] Name: LETTY IZQUIERDO Address: [address] [place] [address] Name: ARYA IZQUIERDO Address: [address] [place] [address]
--- OUTSIDE RECORDS SUMMARY | 2024-03-02 08:18 | XMS_ITS | Continuity of Care Document ---
Author Organization [facility] Address [address] [place] [address]- Care Team Providers Care Transmitter Engineer Name Role Phone Radu Duarte MD Primary Care Physician Encounter [facility] Date(s): 05/16/21 - 08/07/21 [facility] [address] [place] [address]- Attending Physician: Gregoria Gonzalez NP Admitting Physician: [...] 07/24/21 16:01:00 EST, Route to Pharmacy Electronically, [facility]/pharmacy #[id number], Partial fill upon patient request if the [...] Refills, Maintenance, Tablet, Route to Pharmacy Electronically, [id number], [facility]/pharmacy #[id number] Start Date: 04/06/17 Stop Date: 04/01/18 Status: Ordered Basaglar KwikPen 100 units/mL subcutaneous solution = 40 units, Subcutaneous Injection, Daily at bedtime, # 10 mL, 0 Refills, Maintenance, 05/10/19 16:31:45 EDT, Solution Start Date: 05/10/19 Status: Ordered benazepril 10 mg oral tablet 1 tablet = 10 mg, By Mouth, Daily, Dose increase, # 30 tablet, 5 Refills, Maintenance, 07/24/21 16:01:00 EST, Tablet, [facility]/pharmacy #[id number], Partial fill upon [...] Status Health Status Inform ant CAD in [place] artery(Confirmed) Active Social History Social History Type Response Smoking Status Never smoker; Tobacc o user in household: No entered on: 02/08/16 Sex
--- OUTSIDE RECORDS SUMMARY | 2024-03-02 08:18 | XMS_ITS | Continuity of Care Document ---
Author Organization [facility] Address [address] [place] [address]- Care Team Providers Care Health Sciences Manager Name Role Phone Conner Lomeli MD Primary Care Physician [phone] Encounter [facility] Date(s): 05/13/19 - 08/05/19 [facility] [address] [place] [address]- [facility] Attending Physician: Gregoria Gonzalez NP Admitting Physician: Gregoria Gonzalez NP Referring Physician: Conner Lomeli MD Allergies, Adverse [...] 07/18/19 13:23:00 EST, Route to Pharmacy Electronically, [facility]/pharmacy #[id number], 172, cm, 07/07/19 9:07:00 EST, [...] Refills, Maintenance, Tablet, Route to Pharmacy Electronically, [id number], [facility]/pharmacy #[id number] Start Date: 04/06/17 Stop Date: 04/01/18 Status: [...] Status Health Status Inform ant CAD in [place] artery(Confirmed) Active Social History Social History Type Response Smoking Status Never smoker; Tobacc o user in household: No entered on: 02/08/16 Sex
--- OUTSIDE RECORDS SUMMARY | 2024-03-02 08:18 | XMS_ITS | Continuity of Care Document ---
Author Organization [facility] ter Address [address] [place] [id number]- Care Team Providers Care Medical Staffing Coordinator Name Role Phone Chelsi SHIELDS, Issac iSmon Primary Care Physician Encounter [facility] [place] Date(s): 12/10/23 - 12/11/[address] [id number]- Encounter Diagnosis Radicular pain(Final) - 12/10/23 Nerve compression(Final) - 12/10/23 Uncontrolled pain(Final) - 12/10/23 Back pain(Final) - 12/10/23 Discharge Disposition: A-D/C Home Attending Physician: Jhoan Sloan MD Admitting Physician: Ari Galarza MD Referring Physician: Not on Staff, Referring [...] influenza virus vaccine, inactivated 04/25/19 Brad rded [id number] 12y+ bivalent booster vax 04/15/22 Recorded pneumococcal 23-valent vaccine 10/08/21 Recorded tetanus/diphtheria/pertussis, acel(Tdap) 05/16/20 Recorded zoster vaccine, inactivated 04/20/20 Recorded pneumococcal 13-valent vaccine 04/25/19 Recorded pneumococcal 13-valent vaccine 09/09/16 Recorded Medications Albuterol (Eqv-ProAir HFA) 90 mcg/inh inhalation aerosol 2 puffs = 180 mcg, Inhalation, Every 6 hours, PRN Wheezing/Shortness of Breath, # 8.5 Gm, 5 Refills, Maintenance, 08/03/23 10:27:00 EST, Inhaler, [facility]/pharmacy #[id number], Partial fill upon patient requestif the prescription is for a schedule II opioid jamse... Start Date: 08/03/23 Status: Ordered albuterol 0.083% inhalation solution 3 mL = 2.5 mg, Inhalation, Every 6 hours, PRN for wheezing, # 60 each, 2 Refills, Maintenance, 04/29/23 12:22:00 EDT, Solution, [facility]/pharmacy #[id number], Partial fill upon patient request if the prescription is for a schedule II opioid drug., 172, cm, 04/08... Start Date: 04/29/23 Status: Ordered atorvastatin 40 mg oral tablet 1 tablet, By Mouth, Daily at bedtime, # 90 tablet, 1 Refills, Maintenance, 09/21/23 13:01:00 EST, [id number], 172, cm, 06/30/23 9:51:00 EST, Height, 84.8, kg, 02/17/23 8:16:00 EDT, Dry Weight Start Date: 09/21/23 Status: Ordered bisacodyl 10 mg rectal suppository 1 supp = 10 mg, Rectally, Daily, PRN for constipation, # 12 supp, 1 Refills, Maintenance, 12/11/23 13:29:00 EDT, Suppository, [facility], Partial fill upon patient request if [...] opioid drug. Start Date: 10/26/23 Status: Ordered Fioricet Tablet 1 tablet, Tablet, By Mouth, Every 6 hours, PRN for Headache, Routine, 12/10/23 17:13:00 EDT Notes: acetaminophen/butalbital/caffeine 325 mg-50 mg-40 mg oral tablet Start Date: 12/10/23 Stop Date: 12/12/23 Status: Discontinued Freestyle Lite Test Strips See Instructions, # [...] Refills, Maintenance, 08/03/23 10:27:00 EST, EC Capsule, [facility]/pharmacy #[id number], Partial fill upon patient request if the prescription is for a schedule II opioid drug., 172, cm, 06/30/23 9:51:0... Start Date: 08/03/23 Status: Ordered oxyCODONE 5 mg oral tablet 5 mg, Tablet, By Mouth, Hold for: Pain Intensity less than 5, RR<12, Somnolence, 12/11/23 9:00:00 EDT Start Date: 12/11/23 Stop Date: 12/11/23 Status: Completed Pen [place], 31 G x 5 mm BD Ultra Fine III See Instructions, # 100 each, Refills 5, Tot. Refills 5, Maintenance, use as directed for Type 2 Diabetes Mellitus to inject insulin once a day, 08/27/23 16:46:00 EST, Supply, 172, cm, 06/30/23 9:51:00 EST, Height, 84.8, kg, 02/17/23 8:16:00 EDT, Dry... Start Date: 08/27/23 Stop Date: 02/23/24 Status: Ordered [place], 31 G x 5 mm BD Ultra Fine III See Instructions, # 300 each, Refills 2, Tot. Refills 2, Maintenance, use as directed for Type 2 Diabetes Mellitus, 11/05/22 9:29:00 EDT, Supply, 172, cm, 11/05/22 9:12:00 EDT, Height Start Date: 11/05/22 Stop Date: 08/02/23 Status: Ordered Percocet 10 mg-325 mg oral tablet 1 tablet, By Mouth, Every 6 hours, PRN Pain , Severe, for 14 days, for acute on chronic back pain postoperatively., # 56 tablet, 0 Refills, Acute 12/21/23 11:07:00 EDT, 12/07/23 11:07:00 EDT, [id number], Partial fill upon patient request if th... Start Date: 12/07/23 Stop Date: 12/21/23 Status: Ordered Senna 8.6 mg oral tablet [...] 3 Refills, Maintenance, 09/23/23 10:05:00 EST, Tablet, [facility]/pharmacy #[id number], Partial fill upon patient request if [...] INJECTION DAILY Start Date: 12/10/23 Status: Ordered Trulicity Pen 4.5 mg/0.5 mL subcutaneous solution = 0.5 mL, Subcutaneous Injection, Every week, rotate injection sites, # 6 mL, 3 Refills, Maintenance, 11/06/23 16:12:00 EDT, Solution, [facility]/pharmacy #[id number], Partial fill upon patient request if [...] kidney disease (CKD) Confirmed Active CAD in [place] artery Confirmed Active History of syncope Confirmed Active Hyperlipidemia Confirmed Active Lumbar back pain with radiculopathy affecting lower extremity Confirmed Active Moderate persistent asthma Confirmed Active Type 2 diabetes mellitus with diabetic neuropathy Confirmed Active Medication management Confirmed Active Post-nasal drip Confirmed Active Seborrheic keratoses Confirmed Active Results Radiology Reports * Exam Date Time Procedure Performing Provider Status 12/09/23 10:14 PM MRI Lumbar Spine W+W/O Contrast Izabela Torres; Blanca (Verified) Notes: (MRI Lumbar Spine W+W/O Contrast) Reason For Exam: Epidural abscess;Other: RESULT: MRI Lumbar Spine W+W/O Contrast MRI Lumbar Spine W+W/O Contrast INDICATION: Refer to EMR; Hx of Present Illness: 4 17 had spinal fusion, had to be operated on two more times after that for hardware repair, went to rehab, has been home x1wk, has been having back Rhip R groin pain and R foot drop since the surg. sent for r o DVT.; Reason: Other:; Epidural abscess; Clinical Question(s): Epidural Empyema; Special Instructions: obtain within six hours; Order Comment: Please Epidural Empyema TECHNIQUE: MRI of the lumbar spine was performed with and without intravenous contrast utilizing sagittal T1, sagittal T2, sagittal STIR, axial T1, and fat- saturated axial T2-weighted sequences, and post-contrast sagittal T1 and fat- saturated axial T1-weighted sequences. 18 mL of Clariscan was administered intravenously. COMPARISON: CT lumbar spine, 12/09/2023. FINDINGS: Multiple images are degraded by motion, which may obscure fine detail. LOCALIZER: Localizer images include large [id number] sagittal T2 weighted sequence through the entire spine. Mild loss of vertebral body height at T6 and T7 is noted with evidence of prior vertebroplasty at these levels. Vertebral body heights, morphology, and alignment are maintained throughoutthe remainder of the cervical and thoracic spine. Probable hemangiomas are noted at C7 and T5. Multilevel disc bulges are present, greatest at C4-5 and C5-6 with at least mild central stenosis at these levels. No high-grade stenosis or cord compression is seen. NUMBERING: Numbering is based on large ubmev-sx-axzk images of the entire spine. There is a normal complement of 7 cervical, 12 thoracic, and 5 lumbar vertebral bodies. LUMBAR SPINE: ALIGNMENT, VERTEBRAE, MARROW, AND DISCS: There has been posterior fusion from L4 through S1, with pedicle screws in place bilaterally at L4, on the left at L5, and bilaterally at S1. There appears keesha a ghost track from prior right pedicle screw at L5. Interbody graft base is also present at L4-L5. The hardware and immediately adjacent structures are not directly assessed due to susceptibility artifact. There is evidence of right laminectomy at L4-5, with fluid in the laminectomy bed best seen on sagittal images (partially obscured on multiple axial images by susceptibility artifact. Grade 1 anterolisthesis of L4 on L5 is unchanged. Mild dextroconvex lumbar curvature is noted. Alignment is otherwise preserved. Vertebral body heights are preserved. Marrow signal is mildly heterogeneous with no suspicious marrow lesions. Rounded T1 and T2 hyperintense foci in the T11 and less prominently T12, L1, and L3 vertebral bodies are compatible with hemangiomas. Intervertebral discs are desiccated between L3 and the sacrum with mild loss of disc space at L4-5 and L5-S1. No abnormal fluid signal or enhancement in the disc spaces. CONUS: The conus is normal in signal and contour, with normal level of termination at L1. There is epidural enhancement at the surgical site, greatest in the right L4-5 laminectomy bed where there iker small amount of fluid. PARASPINAL TISSUES: Edema in the posterior soft tissues compatible with sequelae of recent surgery.No discrete paraspinal fluid collection DETAILED FINDINGS BY LEVEL: L1-L2: No significant canal stenosis or neural foraminal narrowing. L2-L3: No significant canal stenosis or neural foraminal narrowing. L3-L4: Mild broad-based disc bulge. Minimal central stenosis. Minimal right and mild to moderate left neural foraminal narrowing. L4-L5: Prior fusion and hemilaminectomy. Fluid is present in the right laminectomy bed with smooth surrounding enhancement, likely granulation tissue in the setting of recent surgery. Mild central stenosis is seen, right greater than left. There is suspected moderate right and mild left neural foraminal narrowing, not well assessed due to susceptibility. L5-S1: Broad-based disc bulge with superimposed right paracentral disc extrusion, partially effacing the right subarticular recess with crowding of traversing right S1 nerve root. Otherwise no significant central stenosis. Mild right and minimal left neural foraminal narrowing IMPRESSION: 1. Postsurgical changes from L4-5 and L5-S1 fusion and right L4-5 laminectomy, with fluid in the right L4-5 laminectomy bed and surrounding enhancement which likely reflects granulation tissue. Evaluation is limited by susceptibility artifact from hardware, but there is suspected mild right-sided central stenosis, and moderate right and mild left neural foraminal narrowing at L4-5. 2. Right paracentral disc extrusion at L5-S1 effacing the right subarticular recess with crowding of the traversing right S1 nerve root. 3. No clear signs of discitis/osteomyelitis or other spinal infection. Major findings are in agreement with the preliminary report by [facility]. WSN: [id number] Ordering Physician: Mateus Julian Dictated By: Aleta Godwin MD Dictated Date/Time: 12/10/23 11:42 a Reviewed By: Aleta Godwin MD Signed By: Aleta Godwin MD Signed Date/Time: 12/10/23 11:42 am Transcribed By: DILLAN Transcribed Date/Time: 12/10/23 11:04 am * Exam Date Time Procedure Performing Provider Status 12/09/23 4:[address] Lumbar Spine W/ Contrast Yolis Ovalle; Auth (Verified) Notes: (CT Lumbar Spine W/ Contrast) Reason For Exam: Back Pain RESULT: CT Lumbar Spine W/ Contrast CT Abd/Pelvis W/ IV Contrast Only, CT Lumbar Spine W/ Contrast Reason: LLQ abdominal pain; Clinical Question(s): Diverticulitis; TECHNIQUE: Spiral CT through the abdomen, pelvis, and lumbar spine with IV contrast formatted in 3 planes. 100 cc of Omnipaque 300 was administered intravenously. Bone and soft tissue algorithms werereconstructed for the lumbar spine along with coronal and sagittal reformats. This study was performed without oral contrast. Weight-based protocol using automatic tube modulation was used to optimize exposure parameters. CTDIvol Body: 15.30 mGy, DLP Body: 836 mGy*cm. COMPARISON: Noncontrast lumbar spine-11/15/[address] abdomen/pelvis with IV contrast-06/09/2017. FINDINGS: Jar Capper View Findings, Lines and Tubes: None. Visualized Chest: No focal consolidation. Minimal nodular pleural thickening of the posterior pleura bilaterally (201:8). Posterior left lower lobe 2 mm nodule (201:6). No pleural effusion. The heartis normal in size. Status post coronary artery stenting. No pericardial effusion. Diaphragm: Intact. Liver: Multiple subcentimeter circumscribed low-density lesions likely represent cysts (in the absence of known malignancy). Gallbladder: Absent consistent with prior cholecystectomy. Bile ducts: Mild intrahepatic and extra hepatic biliary ductal dilatation, likely due to the reservoir effect given post cholecystectomy status. Spleen: Normal. Pancreas: Mild fatty atrophy. Adrenal glands: Normal. Kidneys and ureters: No hydronephrosis, stones, or suspicious masses. Simple appearing renal cysts and hypodensities that are too small to characterize are noted, requiring no dedicated follow up. Bladder: Normal. Reproductive organs: Prostatomegaly measuring 5.1 cm (201:130). Partially visualized small bilateral hydroceles. Stomach, small bowel, and large bowel: Mild sliding hiatal hernia. Stomach is physiologically distended with ingested contents. Small bowel loops are normal in caliber. Moderate stool throughout the colon. No evidence of obstruction. No evidence of acute inflammatory change. Appendix: Normal caliber appendix without evidence of acute inflammatory changes. Peritoneum and retroperitoneum: No ascites or pneumoperitoneum. No omental or mesenteric lesions. Lymph nodes: No enlarged lymph nodes. Blood vessels: Mild vascular calcifications but no aneurysm. No evidence of venous thrombosis. Abdominal and pelvic wall: Small fat-containing umbilical and bilateral inguinal hernias. There is heterogeneous density in the posterior paraspinal musculature, compatible with the recent surgery. No discrete rim-enhancing fluid collection is seen in this region. Small foci of subcutaneous gas is seen anteriorly in the left aspect of the abdominal wall, likely injection site. Lumbar spine: Grade 1 anterolisthesis of L4 on L5 without significant change. Status post discectomy at L4-5, secured with bilateral vertical paraspinal rods and bilateral transpedicular screws in L4 and S1 as well as a left L5 transpedicular screw. Tract from prior right L5 transpedicular screw is seen. Lucency along the superior aspect of the right L5 transverse process isseen, which may reflect postoperative change. The intervertebral spacer at the L4-5 level appears similar in position to the prior examination. There is slight concavity of the right anterosuperior aspect of the L5 vertebral body with adjacent sclerosis which may reflect evolving postoperative change. Other bone: No acute abnormality. IMPRESSION: 1. No evidence of an acute abnormality of the abdomen or pelvis. 2. Postsurgical changes of the lumbar spine, with evidence of surgical revision of the posterior fusion which now extends from L4 through S1. The disc spacer device at L4-L5 is unchanged. There is noevidence of acute hardware complication. I have personally reviewed the images and I agree with this report. WSN: [id number] Ordering Physician: Layne Munson Dictated By: Francesco Del Angel MD Dictated Date/Time: 12/09/23 5:40 pm Reviewed By: Faith Lemon MD Signed By: Faith Lemon MD Signed Date/Time: 12/09/23 5:45 pm Transcribed By: DILLAN Transcribed Date/Time: 12/09/23 5:20 pm * Exam Date Time Procedure Performing Provider Status 12/09/23 4:[address] Abd/Pelvis W/ IV Contrast Only Mariacrmen Sol; Auth (Verified) Notes: (CT Abd/Pelvis W/ IV Contrast Only) Reason For Exam: LLQ abdominal pain;Other: RESULT: CT Abd/Pelvis W/ IV Contrast Only CT Abd/Pelvis W/ IV Contrast Only, CT Lumbar Spine W/ Contrast Reason: LLQ abdominal pain; Clinical Question(s): Diverticulitis; TECHNIQUE: Spiral CT through the abdomen, pelvis, and lumbar spine with IV contrast formatted in 3 planes. 100 cc of Omnipaque 300 was administered intravenously. Bone and soft tissue algorithms werereconstructed for the lumbar spine along with coronal and sagittal reformats. This study was performed without oral contrast. Weight-based protocol using automatic tube modulation was used to optimize exposure parameters. CTDIvol Body: 15.30 mGy, DLP Body: 836 mGy*cm. COMPARISON: Noncontrast lumbar spine-11/15/[address] abdomen/pelvis with IV contrast-06/09/2017. FINDINGS: Jar Capper View Findings, Lines and Tubes: None. Visualized Chest: No focal consolidation. Minimal nodular pleural thickening of the posterior pleura bilaterally (201:8). Posterior left lower lobe 2 mm nodule (201:6). No pleural effusion. The heartis normal in size. Status post coronary artery stenting. No pericardial effusion. Diaphragm: Intact. Liver: Multiple subcentimeter circumscribed low-density lesions likely represent cysts (in the absence of known malignancy). Gallbladder: Absent consistent with prior cholecystectomy. Bile ducts: Mild intrahepatic and extra hepatic biliary ductal dilatation, likely due to the reservoir effect given post cholecystectomy status. Spleen: Normal. Pancreas: Mild fatty atrophy. Adrenal glands: Normal. Kidneys and ureters: No hydronephrosis, stones, or suspicious masses. Simple appearing renal cysts and hypodensities that are too small to characterize are noted, requiring no dedicated follow up. Bladder: Normal. Reproductive organs: Prostatomegaly measuring 5.1 cm (201:130). Partially visualized small bilateral hydroceles. Stomach, small bowel, and large bowel: Mild sliding hiatal hernia. Stomach is physiologically distended with ingested contents. Small bowel loops are normal in caliber. Moderate stool throughout the colon. No evidence of obstruction. No evidence of acute inflammatory change. Appendix: Normal caliber appendix without evidence of acute inflammatory changes. Peritoneum and retroperitoneum: No ascites or pneumoperitoneum. No omental or mesenteric lesions. Lymph nodes: No enlarged lymph nodes. Blood vessels: Mild vascular calcifications but no aneurysm. No evidence of venous thrombosis. Abdominal and pelvic wall: Small fat-containing umbilical and bilateral inguinal hernias. There is heterogeneous density in the posterior paraspinal musculature, compatible with the recent surgery. No discrete rim-enhancing fluid collection is seen in this region. Small foci of subcutaneous gas is seen anteriorly in the left aspect of the abdominal wall, likely injection site. Lumbar spine: Grade 1 anterolisthesis of L4 on L5 without significant change. Status post discectomy at L4-5, secured with bilateral vertical paraspinal rods and bilateral transpedicular screws in L4 and S1 as well as a left L5 transpedicular screw. Tract from prior right L5 transpedicular screw is seen. Lucency along the superior aspect of the right L5 transverse process isseen, which may reflect postoperative change. The intervertebral spacer at the L4-5 level appears similar in position to the prior examination. There is slight concavity of the right anterosuperior aspect of the L5 vertebral body with adjacent sclerosis which may reflect evolving postoperative change. Other bone: No acute abnormality. IMPRESSION: 1. No evidence of an acute abnormality of the abdomen or pelvis. 2. Postsurgical changes of the lumbar spine, with evidence of surgical revision of the posterior fusion which now extends from L4 through S1. The disc spacer device at L4-L5 is unchanged. There is noevidence of acute hardware complication. I have personally reviewed the images and I agree with this report. WSN: [id number] Ordering Physician: Layne Munson Dictated By: Francesco Del Angel MD Dictated Date/Time: 12/09/23 5:40 pm Reviewed By: Faith Lemon MD Signed By: Faith Lemon MD Signed Date/Time: 12/09/23 5:45 pm Transcribed By: DILLAN Transcribed Date/Time: 12/09/23 5:20 pm * Exam Date Time Procedure Performing Provider Status 12/09/23 3:52 PM US Doppler Ext Lower Venous Right Fent on , Silvia; Auth (Verified) Notes: (US Doppler Ext Lower Venous Right) Reason For Exam: Pain in limb;Other: RESULT: US Doppler Ext Lower Venous Right US Doppler Ext Lower Venous Right Hx of Present Illness: 4 17 had spinal fusion, had to be operated on two more times after that for hardware repair, went to rehab, has been home x1wk, has been having back R hip R groin pain and R foot drop since the surg. sent for r o DVT.; Reason: Other:; Pain in limb; Clinical Question(s): Thrombus COMPARISON: None IMAGING TECHNIQUE: Ultrasound of the veins from the groin through the calf was performed using grayscale, color, and spectral Doppler ultrasound assessing for complete compressibility and normal flowcharacteristics. FINDINGS: Common femoral vein: Patent. No thrombosis. Femoral vein: Patent. No thrombosis. Popliteal vein: Patent. No thrombosis. Gastrocnemius veins: The visualized portions are patent without evidence of thrombosis. Peroneal veins: The visualized portions are patent without evidence of thrombosis. Posterior tibial veins: The visualized portions are patent without evidence of thrombosis. Contralateral common femoral vein: Patent. No thrombosis. OTHER FINDINGS: Anechoic oblong fluid collection is noted in the right popliteal fossa measuring 2.7 x 0.9 x 0.2 cm. IMPRESSION: 1. No evidence of deep venous thrombosis. 2. 2.7 cm right Romero's cyst. WSN: [id number] Ordering Physician: Layne Munson Dictated By: Aleta Godwin MD Dictated Date/Time: 12/09/23 3:58 pm Reviewed By: Aleta Godwin MD Signed By: Aleta Godwin MD Signed Date/Time: 12/09/23 3:58 pm Transcribed By: DILLAN Transcribed Date/Time: 12/09/23 3:56 pm Vital Signs Most recent to oldest [Reference Range]: 1 2 3 Height 173 cm (12/10/23 7:00 AM) 173 cm (12/10/23 5:53 AM) 173 cm (12/09/23 5:44 PM) Weight 77.2 kg (12/10/23 5:53 AM) 81.8 kg (12/09/23 5:44 PM) 81.8 kg (12/09/23 1:55 PM) Oxygen Saturation [94-100 %] 95 % (12/11/23 11:00 AM) 96 % (12/11/23 7:00 AM) 98 % (12/11/23 3:00 AM) Pulse Rate [55-90 bpm] 78 bpm (12/11/23 11:00 AM) 83 bpm (12/11/23 7:00 AM) 81 bpm (12/11/23 3:00 AM) Body Mass Index [18.5-24.99 kg/m2] 25.79 kg/m2 *H* (12/10/23 5:53 AM) 27.33 kg/m2 *H* (12/09/23 5:44 PM) 27.33 kg/m2 *H* (12/09/23 12:50 PM) Blood Pressure [90-138/55-84 mm Hg] 137/94mm Hg (12/11/23 11:00 AM) 147/98mm Hg *H* (12/11/23 7:00 AM) 176/96mm Hg *H* (12/11/23 3:00 AM) Respiratory Rate [16-30 br/min] 18 br/min (12/11/23 4:31 PM) 18 br/min (12/11/23 12:40 PM) 18 br/min (12/11/23 10:43 AM) Temperature [96.8-100.4 DegF] 98.4 DegF (12/11/23 11:00 AM) 98.4 DegF (12/11/23 7:00 AM) 98.1 DegF (12/11/23 3:00 AM) Liters per Minute 1 L/min (12/10/23 1:55 AM) Mode of Delivery (Oxygen) Room air (12/11/23 7:00 AM) Room air (12/11/23 3:00 AM) Room air (12/10/23 11:00 PM) Blood pressure sites Arm, left (12/11/23 11:00 AM) Arm, left (12/11/23 7:00 AM) Arm, left (12/11/23 3:00 AM) Temperature Route Temporal (12/11/23 11:00 AM) Temporal (12/11/23 7:00 AM) Temporal (12/11/23 3:00 AM) Dry Weight 81.8 kg (12/09/23 5:44 PM) 81.8 kg (12/09/23 1:55 PM) 81.8 kg (12/09/23 12:50 PM) Weight Obtained Via Bed scale (12/10/23 5:53 AM) Patient/family stated (12/09/23 12:50 PM) Dry Weight Obtained Via Patient/family s tated (12/09/23 12:50 PM) Social History Social History Type Response Smoking Status Never smoker; Tobacc o user in household: No entered on: 02/08/16 Sex Implantable Device List Procedure Provider Procedure Date Device Type Site Decompression Transforaminal Lumbar Maycol Crook MD 01/01/25 Unknown Other Device Identifier Serial Number Lot or Batch Number Manufacturing Date Expiration Date Distinct Identification Code MRI Safety Implantable Status Assigning Authority [id number] Unknown [id number] Unknown 01/01/25 Unknown Unknown Active GS1 [id number] Unknown [id number] Unknown 01/01/25 Unknown Unknown Active GS1 Procedure Provider Procedure Date Device Type Site Decompression Transforaminal Lumbar Maycol Crook MD 11/16/23 Unknown Other Device Identifier Serial Number Lot or Batch Number Manufacturing Date Expiration Date Distinct Identification Code MRI Safety Implantable Status Assigning Authority Unknown [id number] Unknown Unknown 10/19/25 Unknown Unknown Active Unknown Procedure Provider Procedure Date Device Type Site Decompression Transforaminal Lumbar Maycol Crook MD 11/13/23 Unknown Back Device Identifier Serial Number Lot or Batch Number Manufacturing Date Expiration Date Distinct Identification Code MRI Safety Implantable Status Assigning Authority Unknown [id number] Unknown 07/23/25 Unknown Unknown Active Unknown Admission evaluation note * Charan Jessica MD: PERFORM, MODIFY Event Display: Admission Note Authored Date: [id number] Patient: ??WHITE, BRANDEN ? Age:??73 Years?Sex:??Male?:??[id number]?? Chief Complaint/Reason for Consultation Uncontrolled back pain. History of Present Illness 73 explore the possibility history significant for coronary artery disease status post stenting, history of essential hypertension, type 2 diabetes mellitus,??diabetic neuropathy, mood disorder,??history of spondylolisthesis status post L4-L5 TLIF,??L4-5 laminectomy on 11/13/2023,??lumbar implant revision on 11/16/2023,??L4-L5 revision fusion??and L5-S1 PSF on??11/17/2023??by ??Gab??presentsto our hospital with a chief complaint of lower??back pain??and right lower extremity weakness. ? Patient has a history of chronic low back pain and had??procedures as mentioned above. ??Patient mentioned that??since his first surgery on 11/12, he has been having right lower??extremity weakness.??The weakness has not gotten better.?? Patient was in the rehab, was eventually discharged home fromrehab. ??Patient was doing his physical therapy at home, however??for the last 2 3 days from, his lower back pain has gotten more worse.?? He mentions it hurts even to get??out of the bed??and to turn on sides.?? His pain medication??was??increased,??however??did not help much.?? He denies any??urin rachelle or bladder incontinence.?? He feels numbness in bilateral lower extremities. ??He denies any??anesthesia in the area in his thighs,??denies any??fall??or trauma.?? Patient called the office and he was asked to come to ER for further evaluation and management. ?? Patient underwent CT scan??which did not show any??hardware complication. ??MRI was done??which showed??postsurgical changes from L4-5 and L5-S1 fusion and right L4-5 laminectomy, with fluid in the right L4-5 laminectomy bed and surrounding enhancement which likely reflects granulation tissue ?? Blood work with no leukocytosis. ??Electrolytes fairly normal range. ?? Otherwise denies any chest pain, shortness of breath.?? No fever, chills. ??No??passing out episode.?? No bladder or bowel??complaints. Review of Systems Negative except above Objective Measurements?? Height: 173 cm (12/10/23) Weight: 77.2 kg (12/10/23) Dry Weight: 81.8 kg (12/09/23) Body Mass Index:??25.79 kg/m2??High (12/10/23) ? Vital Signs?? Temperature: 97.7 DegF (12/10/23 08:00:00) Temperature Route: Oral (12/10/23 08:00:00) Pulse Rate: 85 bpm (12/10/23 08:00:00) Respiratory Rate: 18 br/min (12/10/23 11:52:00) Systolic Blood Pressure:??146 mm Hg??High (12/10/23 08:00:00) Diastolic Blood Pressure:??93 mm Hg??High (12/10/23 08:00:00) Blood pressure sites: Arm, right (12/10/23 08:00:00) Mean Arterial Pressure: 123 mm Hg (12/10/23 05:53:00) Pulse Pressure: 74 mm Hg (12/10/23 05:53:00) Oxygen Saturation: 97 % (12/10/23 08:00:00) Liters per Minute: 1 L/min (12/10/23 01:55:00) Mode of Delivery (Oxygen): Room air (12/10/23 08:00:00) Early Warning Score: 2 (12/10/23 13:26:43) ? Pain Scores?? No qualifying data available. ? Ventilator Settings?? No qualifying data available. ?? Intake/Output? No Data Available ?? Precautions No Precautions documented.? Mercedez Coma Scale Orlando Coma Score: 15 (12/09/23 19:45:00) Motor Response-Adult: Obeys commands (12/09/23 19:45:00) Response Eye Opening: Spontaneously (12/09/23 19:45:00) Verbal Response-Adult: Oriented and converses (12/09/23 19:45:00) ? Physical Exam General:??Alert and oriented, mild distress from pain HEENT: No pallor, icterus next respiratory: Normal extubation. ?? Cardiovascular: Normal rate and rhythm. ??No murmur?? abdomen: Soft and nontender bowel sound present Extremities: No peripheral edema Neuro:??Upper extremities??strength 5 x 5.?? Sensation decreased in bilateral lower extremities as compared to??upper extremities.?? Right??lower extremity weakness??pronounced as compared to left.??Also has impaired dorsiflexion on right side Assessment/Plan Diagnoses Back pain ??(M54.9) COPD with emphysema ??(J43.9) Chronic pain ??(G89.29) Chronic, continuous use of opioids ??(F11.90) Depression ??(F32.A) Diabetic neuropathy ??(E11.40) Nerve compression ??(T14.8XXA) Radicular pain ??(M54.10) Type 2 diabetes mellitus ??(E11.9) Uncontrolled pain ??(R52) ?? Discharge Planning:? Patient with history of??COPD,??diabetes mellitus, diabetic neuropathy,??spondylolisthesis??with??history of laminectomy and??subsequent revision procedure, presents with??uncontrolled low back pain??and right lower extremity weakness. ?? Radicular pain ??(M54.10) Back pain ??(M54.9) Spondylolisthesis status post L4-L5 TLIF,??L4-5 laminectomy on 11/13/2023,??lumbar implant revision on 11/16/2023,??L4-L5 revision fusion??and L5-S1 PSF on??11/17/2023??by ??Gab?? -??Pt admitted for sev lowback pain -Has weakness in RLE, also has foot drop on right side -ER spoke with Dr. Gusman with [facility] recommending inpatient mission for pain control and will speak with Dr. De Guzman to see patient today -CT with no hardware complications -MRI shows postsurgical changes from L4-5 and L5-S1 fusion and right L4-5 laminectomy, with fluid in the right L4-5 laminectomy bed and surrounding enhancement which likely reflects granulation tissue, no evidence of infection -Pt on oxycodone at home; noticed recent prescription for percocet ( oxy dose increased) -No any bladder or bowel incontinence -Will do dilaudid for sev pain, sdchedule tylenol, oxy for mod pain. Tizanidine for spasm -Will reach out to [facility] office -PT eval ?? Type 2 diabetes mellitus ??(E11.9) Diabetic neuropathy ??(E11.40) -On Insulin degludec 12 u daily and glipizide -Sliding scale -POC -Will do 10 U AM -Hypoglycemia protocols ? COPD with emphysema ??(J43.9) -Not in exacerbation -Continue albuterol PRN ?? Depression ??(F32.A) -Continue home meds: trazodone, sertaline 125 ? DVTp: Lovenox ?? Code status: FULL ? Disposition: Continue with pain management. ??PT evaluation. ??Await evaluation by spine surgery. ?? I spent 75 minutes on??chart review, history taking, patient examination, labs, documentation, reviewing??images,??care coordination. ? Histories Allergies Allergies ?(Active and Proposed Allergies Only) Pollen? (Severity: Unknown severity, Onset: Unknown) ?Reactions: hayfever Mold? (Severity: Unknown severity, Onset: Unknown) ?Reactions: hayfever Jardiance? (Severity: Unknown severity, Onset: Unknown) ?Reactions: RASH Dust? (Severity: Unknown severity, Onset: Unknown) ?Reactions: hayfever Dogs? (Severity: Unknown severity, Onset: Unknown) ?Reactions: hayfever Cats? (Severity: Unknown severity, Onset: Unknown) ?Reactions: hayfever ? Past Medical History/Problem List Active Problems(10) CAD in [place] artery History of syncope Hyperlipidemia Lumbar back pain with radiculopathy affecting lower extremity Medication management Moderate persistent asthma Post-nasal drip Seborrheic keratoses Stage 3b chronic kidney disease (CKD) Type 2 diabetes mellitus with diabetic neuropathy ? Past Surgical History Cholecystectomy: 2017 Surgery-spine: 2005 Arthroscopy-right shoulder: 1994 ORIF - Open reduction and internal fixation of fracture-right elbow: 1991 ? Social History Alcohol Details:??Use: Never. Employment/School Details:??Status: Retired. 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 Exercise Details:??Self assessment: Fair condition. ??Regular exercise: No. Home/Environment Details:??Living situation: Home/Independent. ??Lives with: Spouse. Nutrition/Health Details:??Diet: Diabetic. Substance Abuse Details:??Use: Never. Tobacco Details:??Never smoker, Tobacco user in household: No. Electronic Cigarette/Vaping Details:??Electronic Cigarette Use: Never. ? Psychosocial History ? Family History Mother: Diabetes mellitus Father: Cancer of lung Brother??(): Alcohol user ? Travel History Travel Outside [facility]: No ? Functional Assessments Activity Assistance: Moderate assistance, One person assistance Activity Status ADL: Back to bed, Bathroom privileges, Up with assistance Ambulatory devices needed: Walker Repositioning: Assist ?? Medications Home Medications Acetaminophen (Tylenol 325 mg oral tablet)?975?Milligram?By Mouth?Every 8 hours Albuterol (albuterol 0.083% inhalation solution)?3?Milliliter?2.5?Milligram?Inhalation?Every 6 hours?as needed?for wheezing Albuterol (Albuterol (Eqv-ProAir HFA) 90 mcg/inh inhalation aerosol)?2?puff(s)?180?Microgram?Inhalation?Every 6 hours?as needed?Wheezing/Shortness of Breath Atorvastatin (atorvastatin 40 mg oral tablet)?1?tab(s)?By Mouth?Daily at bedtime dapagliflozin (Farxiga 10 mg oral tablet)?1?tab(s)?10?Milligram?By Mouth?Daily Docusate (Colace Capsule)?100?Milligram?1?capsule?By Mouth?2 times a day dulaglutide (Trulicity Pen 4.5 mg/0.5 mL subcutaneous solution)?0.5?Milliliter?Subcutaneous Injection?Every week?rotate injection sites Durable Medical Equipment (Freestyle Lite Test Strips)?See Instructions?for 90?Days?usetwice a day to check gluocse for Type 2 Diabetes Mellitus Durable Medical Equipment ([place], 31 G x 5 mm BD Ultra Fine III)?See Instructions?for 90?Days?use as directed for Type 2 Diabetes Mellitus Durable Medical Equipment ([place], 31 G x 5 mm BD Ultra Fine III)?See Instructions?for 30?Days?use as directed for Type 2 Diabetes Mellitus to inject insulin once a day Enoxaparin?0.4?Milliliter?40?Milligram?Subcutaneous Injection?Every 24 hours Gabapentin (gabapentin 300 mg oral capsule)?300?Milligram?1?capsule?By Mouth?3 times a day insulin degludec (Tresiba FlexTouch 100 units/mL subcutaneous solution)?16?unit(s)?Subcutaneous Injection?Daily Miscellaneous Rx?USE DIRECTED TO TEST BLOOD SUGARS 3 TIMES DAILY Miscellaneous Rx?TEST FOUR TIMES A DAY (DX: E11.9) Omeprazole (omeprazole 20 mg oral enteric coated capsule)?1?capsule?20?Milligram?By Mouth?2 times a day Oxycodone / Acetaminophen (Percocet 10 mg-325 mg oral tablet)?1?tab(s)?By Mouth?Every 6hours?as needed?Pain , Severe?for 14?Days?for acute on chronic back pain postoperatively. Polyethylene Glycol 3350 (MiraLax Powder)?1?pack/packet?17?gram?By Mouth?Daily?as needed?Constipation Senna (Senna 8.6 mg oral tablet)?17.2?Milligram?2?tab(s)?By Mouth?Daily?as needed?Constipation Sertraline (sertraline 100 mg oral tablet)?1?tab(s)?100?Milligram?By Mouth?Daily?along with sertraline 25 mg daily. Tizanidine (tiZANidine 4 mg oral tablet)?2?Milligram?By Mouth?Every 6 hours?as needed?Spasm Trazodone (traZODone 50 mg oral tablet)?50?Milligram?1?tablet?By Mouth?Daily at bedtime?TAKE 1 TABLET BY MOUTH EVERY DAY AT BEDTIME NEEDED ? Inpatient Medications Medications (16) Active SCHEDULED: (3) Acetaminophen 325 mg Tablet (Tylenol 325 mg oral tablet) ??975 mg, By Mouth, Every 8 hours Insulin Lispro 100 units/mL Inj (Geriatrics LISPRO Sliding Scale) ??2-10 units, Subcutaneous Injection, 3 times a day before meals NaCl 0.9% Flush 3ml (NaCL 0.9% Flush) ??3 mL, IV Push, Every 8 hours CONTINUOUS: (0) PRN: (13) Dextrose Inj Syringe (Dextrose 50% Inj Syringe (25Gm)) ??12.5 Gm, IV Push Slowly, Every 20 minutes Dextrose Inj Syringe (Dextrose 50% Inj Syringe (25Gm)) ??25 Gm, IV Push Slowly, Every 15 minutes Docusate Sodium 100 mg Capsule (Docusate Sodium Capsule) ??100 mg 1 capsule, By Mouth, 2 times a day Glucagon 1 mg Inj (Glucagon Inj) ??1 mg, Intramuscular, Once Glucose 40% Gel (15 Gm) (Glucose Gel) ??15 Gm, By Mouth, Every 20 minutes Glucose 40% Gel (15 Gm) (Glucose Gel) ??30 Gm, By Mouth, Every 20 minutes HYDROmorphone 1 mg/mL Inj Syringe (Dilaudid Inj) ??1 mg 1 mL, IV Push Slowly, Every 4 hours Melatonin 3 mg Tablet (Melatonin Tablet) ??3 mg, By Mouth, Daily at bedtime NaCl 0.9% Flush 3ml (NaCL 0.9% Flush) ??3 mL, IV Push, Every 8 hours OxyCODONE 5 mg IR Tablet (oxyCODONE 5 mg oral tablet) ??5 mg, By Mouth, Every 6 hours Polyethylene Glycol 17 Gm Powder (MiraLax Powder) ??17 Gm 1 pack/packet, By Mouth, Daily Senna Tablet ??8.6 mg 1 tablet, By Mouth, 2 times a day Simethicone 80 mg Chewable Tablet (Simethicone Tablet) ??80 mg, Chew, 3 times a day ? Results Recent Labs BLOOD COUNT & DIFF WBC 7.3 k/mm3 ()?? 12/10/2023 09:19 RBC 4.65 m/mm3 (Low)?? 12/10/2023 09:19 Hgb 13.6 Gm/dL (Low)?? 12/10/2023 09:19 Hct 40.6 % ()?? 12/10/2023 09:19 MCV 87.3 femtoliters ()?? 12/10/2023 09:19 MCH 29.2 pg ()?? 12/10/2023 09:19 MCHC 33.5 g/dL ()?? 12/10/2023 09:19 Platelet Count 295 k/mm3 ()?? 12/10/2023 09:19 RDW-SD 42.8 femtoliters ()?? 12/10/2023 09:19 MPV 10.5 femtoliters ()?? 12/10/2023 09:19 Nucleated RBC (Automated) 0.0 #/100 WBC'S ()?? 12/10/2023 09:19 Abs. NRBC 0.0 k/mm3 ()?? 12/10/2023 09:19 Abs. Neut 3.2 k/mm3 ()?? 12/09/2023 14:41 Abs. Lymph 2.6 k/mm3 ()?? 12/09/2023 14:41 Abs. [place] 0.5 k/mm3 ()?? 12/09/2023 14:41 Abs. Eo 0.7 k/mm3 (High)?? 12/09/2023 14:41 Abs. Baso 0.1 k/mm3 ()?? 12/09/2023 14:41 Neut % 44.8 % ()?? 12/09/2023 14:41 Lymph % 36.0 % ()?? 12/09/2023 14:41 [place] % 7.5 % ()?? 12/09/2023 14:41 Eos % 9.5 % (High)?? 12/09/2023 14:41 Baso % 1.4 % ()?? 12/09/2023 14:41 Imm Gran 0.8 % ()?? 12/09/2023 14:41 Abs. Imm Gran 0.1 k/mm3 ()?? 12/09/2023 14:41 ?? CHEM GENERAL Sodium 138 mmol/L ()?? 12/10/2023 09:19 Potassium 5.0 mmol/L ()?? 12/10/2023 09:19 Chloride 101 mmol/L ()?? 12/10/2023 09:19 Bicarbonate Level 21 mmol/L (Low)?? 12/10/2023 09:19 Anion Gap 16 ()?? 12/10/2023 09:19 Glucose Level 147 mg/dL (High)?? 12/10/2023 09:19 Glucose, POC 109 mg/dL (High)?? 12/10/2023 11:12 BUN 17 mg/dL ()?? 12/10/2023 09:19 Creatinine-Blood 1.30 mg/dL (High)?? 12/10/2023 09:19 Estimated GFR Creatinine 57 ML/MIN/1.73 M2 ()?? 12/10/2023 09:19 Calcium 9.7 mg/dL ()?? 12/10/2023 09:19 Magnesium 2.1 mg/dL ()?? 12/10/2023 09:19 Protein, Total 7.4 Gm/dL ()?? 12/09/2023 14:41 Albumin 4.6 Gm/dL ()?? 12/09/2023 14:41 AG Ratio 1.6 ()?? 12/09/2023 14:41 Alkaline Phosphatase 139 units/L (High)?? 12/09/2023 14:41 AST (SGOT) 13 units/L ()?? 12/09/2023 14:41 ALT (SGPT) 10 units/L ()?? 12/09/2023 14:41 Bilirubin, Total 0.4 mg/dL ()?? 12/09/2023 14:41 Lactate 1.3 mmol/L ()?? 12/09/2023 14:41 C-Reactive Protein <0.3 mg/dL ()?? 12/09/2023 14:41 ?? HEME OTHER Sed Rate 23 mm/hr (High)?? 12/09/2023 14:41 ?? UA/URINALYSIS Appear/Color, Urine COLORLESS ()?? 12/09/2023 15:25 Specific [place], Urine 1.009 ()?? 12/09/2023 15:25 pH, Urine 6.0 ()?? 12/09/2023 15:25 Albumin, Urine NEGATIVE ()?? 12/09/2023 15:25 Glucose, Urine 4+ (Abnormal)?? 12/09/2023 15:25 Ketones, Urine NEGATIVE ()?? 12/09/2023 15:25 Bilirubin, Urine NEGATIVE ()?? 12/09/2023 15:25 Hemoglobin, Urine NEGATIVE ()?? 12/09/2023 15:25 Nitrite, Urine NEGATIVE ()?? 12/09/2023 15:25 Leukocyte, Urine NEGATIVE ()?? 12/09/2023 15:25 Urobilinogen NORMAL mg/dL ()?? 12/09/2023 15:25 WBC's, Urine NONE SEEN /HPF ()?? 12/09/2023 15:25 RBC's, Urine <1 /HPF ()?? 12/09/2023 15:25 Mucus SLIGHT /LPF ()?? 12/09/2023 15:25 ?? URINE OTHER Est Creatinine Clearance 47.68 mL/min ()?? 12/10/2023 10:08 ?? VIROLOGY COVID-19 by RT-PCR NEGATIVE ()?? 12/10/2023 03:28 ? Abnormal Labs ?? BLOOD COUNT & DIFF Abs. Eo?0.7 k/mm3 (High)?12/09/2023 14:41 Abs. Imm Gran?0.1 k/mm3 ()?12/09/2023 14:41 Abs. NRBC?0.0 k/mm3 ()?12/10/2023 09:19 Eos %?9.5 % (High)?12/09/2023 14:41 Hgb?13.6 Gm/dL (Low)?12/10/2023 09:19 Imm Gran?0.8 % ()?12/09/2023 14:41 Nucleated RBC (Automated)?0.0 #/100 WBC'S ()?12/10/2023 09:19 RBC?4.65 m/mm3 (Low)?12/10/2023 09:19 RDW-SD?42.8 femtoliters ()?12/10/2023 09:19 ?? CHEM GENERAL AG Ratio?1.6 ()?12/09/2023 14:41 Alkaline Phosphatase?139 units/L (High)?12/09/2023 14:41 Bicarbonate Level?21 mmol/L (Low)?12/10/2023 09:19 Creatinine-Blood?1.30 mg/dL (High)?12/10/2023 09:19 Estimated GFR Creatinine?57 ML/MIN/1.73 M2 ()?12/10/2023 09:19 Glucose Level?147 mg/dL (High)?12/10/2023 09:19 Glucose, POC?109 mg/dL (High)?12/10/2023 11:12 ?? HEME OTHER Hold Blue Top?SPECIMEN DISCARDED AFTER 4 HOURS. ()?12/09/2023 14:41 Sed Rate?23 mm/hr (High)?12/09/2023 14:41 ?? UA/URINALYSIS Albumin, Urine?NEGATIVE ()?12/09/2023 15:25 Appear/Color, Urine?COLORLESS ()?12/09/2023 15:25 Bilirubin, Urine?NEGATIVE ()?12/09/2023 15:25 Glucose, Urine?4+ (Abnormal)?12/09/2023 15:25 Hemoglobin, Urine?NEGATIVE ()?12/09/2023 15:25 Hold Urine Culture?Testing available 48 hours from time of collection. () ?12/09/2023 15:25 Ketones, Urine?NEGATIVE ()?12/09/2023 15:25 Leukocyte, Urine?NEGATIVE ()?12/09/2023 15:25 Mucus?SLIGHT /LPF ()?12/09/2023 15:25 Nitrite, Urine?NEGATIVE ()?12/09/2023 15:25 Urobilinogen?NORMAL mg/dL ()?12/09/2023 15:25 ?? VIROLOGY COVID-19 by RT-PCR?NEGATIVE ()?12/10/2023 03:28 ?? Note: Critical results are displayed in red. ? Blood Glucose Trend Glucose Level:??147 mg/dL??High (12/10/23 09:19:00) Glucose Level:??139 mg/dL??High (12/09/23 14:41:00) Glucose, POC:??109 mg/dL??High (12/10/23 11:12:00) Glucose, POC:??115 mg/dL??High (12/10/23 06:53:00) ? Coagulation Profile?? No qualifying data available. ?? LFT Albumin: 4.6 Gm/dL (14:41) Alkaline Phosphatase:??139 units/L??High (14:41) ALT (SGPT): 10 units/L (14:41) AST (SGOT): 13 units/L (14:41) Bilirubin, Total: 0.4 mg/dL (14:41) ?? Urinalysis Albumin, Urine: NEGATIVE (15:25) Appear/Color, Urine: COLORLESS (15:25) Bilirubin, Urine: NEGATIVE (15:25) Est Creatinine Clearance: 47.68 mL/min (10:08) Est Creatinine Clearance: 48.42 mL/min (15:50) Glucose, Urine: 4+ Abnormal (15:25) Hemoglobin, Urine: NEGATIVE (15:25) Hold Urine Culture: Testing available 48 hours from time of collection. (15:25) Ketones, Urine: NEGATIVE (15:25) Leukocyte, Urine: NEGATIVE (15:25) Mucus: SLIGHT (15:25) Nitrite, Urine: NEGATIVE (15:25) pH, Urine: 6 (15:25) RBC's, Urine: <1 (15:25) Specific [place], Urine: 1.009 (15:25) Urobilinogen: NORMAL (15:25) WBC's, Urine: NONE SEEN (15:25) ?? Microbiology ?? COVID-19 (Novel Coronavirus), Rapid PCR?? Completed?? Source: Nasal Body Site: Nose Collected Dt/Tm: 12/10/2023 02:59 Last Updated Dt/Tm: 12/10/2023 04:22 ? Blood Gases?? No qualifying data available. ? * Charan Jessica MD: PERFORM Event Display: Admission Note Authored Date: Patient evaluated by spine??surgery team.?? I was also able to??discuss with Dr. De Guzman,patient'ssurgeon. ??Advised Patient's right sided weakness and foot drop chronic??no further intervention needed, recommended pain management, and physical therapy.?? Will request PMNR consultation??as well Hospital Progress note * Sung HARGROVE, Valerie: PERFORM, SIGN, VERIFY Event Display: Progress Note Hospital Authored Date: Patient: BRANDEN OSWALD Age: 73 years Sex: Male : 1950 Associated Diagnoses: None Author: Sung RN, Valerie Findings Problem Related to Alteration in Neurological : Alteration in Neurological Function/new 12/11/2023 12:00 EDT Alteration in Neuro status Related to Other: pain control Goals & Outcomes, Neurological Pt is safe with transfers & activities, Pt will maintain intact skin integrity, Pt will remain free from injury, Pt will state importance of adhering to medication regime, Pt/caregiver will receive psychosocial support as needed, Pt/caregiver will state understanding of rehab plan, Pt/caregiver will state strategies to reduce risk factors, Pt/caregiver will state understanding of plan/goals of care, Pt/caregiver will state understanding of the D/C plan Interventions, Neurological Assess/monitor neurologic status, Assess/monitor VS per unit standards & prn, Call/Report variances in assessments to provider, Maintain patient safety if unsteady gait, Monitor for headaches, nausea, vomiting, Monitor speech fluency, aphasia, word finding difficulty, Physical assessment per unit standards, Provide emotional support to Pt/caregiver, Teach pt/caregiver discharge plan & follow up care, Teach pt/caregiver on plan of care, treatment, s/s & meds Goals/Interventions, Neurological Yes Neurological, Problem Start 12/10/2023 16:16 Reviewed plan with, Neurological Patient Patient Progression, Neurological Pt progressing according to plan . Nursing Data Neurological Data. : Neurological Data. 12/11/2023 9:00 EDT Tongue Disposition Midline Level of Consciousness Full Consciousness Orientated to person, place, time Person, Place, Time, Event Hallucinations None Facial Symmetry Intact Characteristics of Speech Clear and normal Swallowing Difficulty None Pupil description, left Regular Pupil description, right Regular Pupil reaction, left Brisk Pupil reaction, right Brisk Pupil Size, Left 3 mm Pupil Size, Right 3 mm Strength LUE 5-Active movement against gravity & full resistance Strength RUE 5-Active movement against gravity & full resistance Strength LLE 4-Active movement against gravity & some resistance Strength RLE 3-Active movement against gravity Tone LUE Normal Tone RUE Normal Tone LLE Normal Tone RLE Normal Sensation LUE Intact Sensation RUE Intact Sensation LLE Diminished Sensation RLE Diminished Movement LUE Spontaneous, To command, Flexes to pain Movement RUE Spontaneous, To command, Flexes to pain Movement LLE Spontaneous, To command, Flexes to pain Movement RLE Spontaneous, To command, Flexes to pain Gait Unsteady Response Eye Opening Spontaneously Motor Response-Adult Obeys commands Verbal Response-Adult Oriented and converses [place] Coma Score 15 Neuro WNL except Headaches, Characteristic Pressing/tightening Headaches, Duration Intermittent Memory Intact . Evaluation Pt AOx4 speech clear, follows simple commands. PERRL face symmetrical tongue midline. pt reports 8/10 DAVIS, denies dizziness and vision changes PRN Fioricet given with good effect. BUE 5/5 RLE 3/5 LLE 4/5 pt ambulates with one assist, gait unsteady. Pt reports N,T to bilateral toes and shins. Lung sounds clear, pt reports occasional SOB with exertion, denies chest pain. Abdomen soft non tender, last BM 12/08 voiding with no complaints, fair p.o. intake, pills whole. POC 119, 125 via phone andat bedside, all questions and concerns addressed pt to be discharged home. Bed in low position, call mccartney with in reach, bed alarm on for safety, hourly rounding, safety maintained.. . * Chris Jolly NP: PERFORM, SIGN, VERIFY Event Display: Progress Note Hospital Authored Date: [id number] Patient: BRANDEN OSWALD Age: 73 years Sex: Male : 1950 Associated Diagnoses: None Author: Chris Jolly NP Mr. Oswald is a pleasant 73-year-old male with CAD status post stenting, hypertension, diabetes mellitus type 2, anxiety, depression, history of spondylolisthesis s/p L4-5 TLIF. L4-5 laminectomy on 11/13/2023, lumbar implant revision on 11/16/2023, L4-5 revision fusion and L4-S1 PISF on 11/17/[address] De Guzman presented emergency department for pain in the right side of back, right hip and right leg. Patient reports has had pain is sites since surgery. States that he has been home from rehab forapproximately 1 week. He was seen by his PCP 12/07/2023 who increased Oxycodone dose. Also recommended to continue tizanidine. States pain has worsened over the last 2 nights. He is also had a right foot drop since the surgery that has not worsened. Denies recent falls, fever, chills. Denies any new numbness or tingling, changes in bowel movements. He does not report urinary or bowel incontinence. Reports pain that starts in his back and travelsdown his leg 10 out of 10. He reports poor pain control overnight. Pain appears to be radicular in nature. Gabapentin or Lyrica should be added to the regimen as narcotics probably will not be effective. Spoke to the son and patient extensively at bedside and notified them that per Dr. De Guzman, there is no surgical intervention needed at this time. Patient and son report understanding. Patient is cleared for discharge from orthopedic standpoint once his pain is under better control. O: Vitals Temperature 98.4 (08:32) Systolic Blood Pressure 147 (08:32) Diastolic Blood Pressure 98 (08:32) Pulse 83 (08:32) SpO2 96 (08:32) Respiratory Rate 18 (06:39) Last 24 Hours Basic Metabolic Panel: Hematology: Sodium: 137 mmol/L (12/11/23) Hgb: 12.6 Gm/dL (12/11/23) Potassium (POC): 4.5 mmol/L (12/11/23) Hemoglobin A1C (Monitoring): ------ Phosphorus: ------ WBC: 7.4 k/mm3 (12/11/23) Magnesium: ------ Platelets: 272 k/mm3 (12/11/23) BUN (POC) POC Cartridge: 20 mg/dL (12/11/23) INR Level: ------ Creatinine-Blood: 1.24 mg/dL (12/11/23) Creatinine Clearance: ------ Additional - Last 24 Hours Abs. NRBC: 0.0 k/mm3 (12/11/23) Anion Gap: 17 (12/11/23) Bicarbonate Level: 22 mmol/L (12/11/23) Calcium: 9.5 mg/dL (12/11/23) Chloride: 98 mmol/L (12/11/23) Est Creatinine Clearance: 49.98 (12/11/23) Estimated GFR Creatinine: 61 ML/MIN/1.73 M2 (12/11/23) Glucose Level: 114 mg/dL (12/11/23) Glucose, POC: 119 mg/dL (12/11/23) Hct: 37.1 % (12/11/23) MCH: 28.9 pg (12/11/23) MCHC: 34.0 g/dL (12/11/23) MCV: 85.1 femtoliters (12/11/23) MPV: 10.7 femtoliters (12/11/23) Nucleated RBC (Automated): 0.0 #/100 WBC'S (12/11/23) RBC: 4.36 m/mm3 (12/11/23) RDW-SD: 41.7 femtoliters (12/11/23) MRI from 12/09/2023: IMPRESSION: 1. Postsurgical changes from L4-5 and L5-S1 fusion and right L4-5 laminectomy, with fluid in the right L4-5 laminectomy bed and surrounding enhancement which likely reflects granulation tissue. Evaluation is limited by susceptibility artifact from hardware, but there is suspected mild right-sided central stenosis, and moderate right and mild left neural foraminal narrowing at L4-5. 2. Right paracentral disc extrusion at L5-S1 effacing the right subarticular recess with crowding of the traversing right S1 nerve root. 3. No clear signs of discitis/osteomyelitis or other spinal infection. CT lumbar spine 12/09/2023: IMPRESSION: 1. No evidence of an acute abnormality of the abdomen or pelvis. 2. Postsurgical changes of the lumbar spine, with evidence of surgical revision of the posterior fusion which now extends from L4 through S1. The disc spacer device at L4-L5 is unchanged. There is noevidence of acute hardware complication. Physical Exam: General: alert,lucid, in NAD Neurovascular/Musculoskeletal: Normal sensation to light touch to BLE and BUE. Calves soft and nontender. Patient is able to raise the bilateral lower extremities against gravity, though the right lower extremity against gravity is weaker. Palpable dorsalis pedis pulse and posterior tibial pulse bilaterally. Skin: Healed surgical site to lower back without swelling or erythema. A/P: Mr. Oswald is a pleasant 73-year-old male with CAD status post stenting, hypertension, diabetesmellitus type 2, anxiety, depression, history of spondylolisthesis s/p L4-5 TLIF. L4-5 laminectomy on 11/13/2023, lumbar implant revision on 11/16/2023, L4-5 revision fusion and L4-S1 PISF on 11/17/[address] De Guzman presented emergency department for pain in the right side of back, right hip and right leg. States pain has worsened over the last several nights. He is also had a right foot drop since the surgery that has not worsened. Was admitted from the ER after discussion with Dr. Gusman who recommended stay for pain control and discussion with Dr. De Guzman -CT scan and MRI performed while in ER. Results above have been reviewed by Dr. De Guzman. No indication for surgery at this time per Dr. De Guzman. -Pain control per primary team. We recommend adding gabapentin or Lyrica to the regimen to help with radicular pain -Can consider vitamin D supplementation. -Right AFO if patient does not currently have one from prior surgery. -Physical therapy eval and treatment. Case discussed with Dr. De Guzman. * Yon AGUILAR, Alberto Mckenna: PERFORM Event Display: Progress Note Hospital Authored Date: Patient: ??BRANDEN OSWALD ? Age:??73 Years?Sex:??Male?:??1950?? Notified by RN that patient tried to leave AMA around 5 AM, however was then agreeable to stay.?? Patient vocalized they would like to speak with surgical team this morning to discuss plan. Pt states he is also frustrated with his pain control regimen however states he was comfortable at the time of my evaluation. Will continue to closely monitor. Day team to follow up.?? Consult note * Luke SHIELDS, Rowdy Zee: PERFORM Event Display: Consultation Note Authored Date: [id number] Patient: ??BRANDEN OSWALD ? Age:??73 Years?Sex:??Male?:??1950?? Chief Complaint/Reason for Consult Pain History of Present Illness 73yo M with h/o CAD, HTN, DM, CKD, depression, recent back surgery that required revision after a fall last month presented with complaint of worsening back pain, bilat??hip pains (worse on right), and bilat knee pains. Pain also radiates down the right lateral leg into the foot. Pain does not radiate below the knee on the left. He had a fall POD 1 with worsening pain and went back for revision on 11/15 and subsequently had another revision on 11/16 with PISF. He went to [facility] for rehab and subsequently transitioned home. He is c/o pain in bilateral hips, knees, and lower back. Reviewed hisCT abd/pelvis and has some moderate degenerative changes at the hips which may be contributing to his pain. He is indep with mobility with a walker since discharge from [facility]. He denies any recent falls, saddle anesthesia, and no bowel/bladder dysfunction. His is at the bedside. Review of Systems 14 point review of systems negative except as noted above in HPI. Physical Exam Vitals & Measurements T:??98.4?F?? HR:??78??(Peripheral)?? RR:??18?? BP:??137/94?? SpO2:??95%?? HT:??173??cm?? WT:??77.2??kg?? BMI:??25.79?? Gen: Alert, oriented x 3 in NAD HEENT: EOMs intact, no JVD. CV: Reg, no murmurs Chest: CTA bilat Abd: +BS, soft, NT Exts:??no pedal edema Neuro: CN II-XII intact MMT: RUE:?LUE: Delt?5/5?Delt?5/5 Bi?5/5?Bi?5/5 WE? 5/5? WE? 5/5 Tri? 5/5? Tri? 5/5 FF? 5/5? FF?5/5 ?? Some giveway weakness with R hip flexion due to pain. RLE:? LLE: HF? 5/5? HF? 5/5 Quad?? 5/5? Quad?? 5/5 DF? 5/5? DF? 5/5 PF? 5/5? PF?5/5 Guevara's negative bilat Babinski absent Sensory: intact DTRs: biceps and patella 1+ bilat SLR: negative on right. Mild pain to palpation of bilat lateral hips and shoulders bilat. ?? Speech/Language: normal. Mobility: bed mobility indep, sit to stand indep, Ambulated 100ft in hallway with RW independent. Stated pain was an 8 but did not appear in any distress or significant discomfort during ambulation. Assessment/Plan 73yo M with??recent h/o back surgery??that required revision x 2 last month, DM, CAD, HTN, depression with multiple musculoskeletal complaints and worsening back pain. Reviewed CT pelvis--signficant degenerative changes at bilateral hips which may be contributing to his pain. ?? Recommend: Switching IV Dilaudid to PO Dilaudid 2mg q 4 hrs prn severe pain.??Could continue scheduled oxycodone for now but would D/C in the next 24-48 hours. Recommend trial of Neurontin 100mg tid and could titrate up to 300mg tid in a couple of days if tolerated.?? Continue Scheduled Tylenol. Lidocaine patches to hips bilateral. Consider switching Zoloft to Cymbalta but would be best done in the outpatient setting. Does not need inpatient rehab as he was??ambulating modified independent in hallway. Also does not need therapy here either. Dispo: home with PT Discussed with patient and at bedside. ?? Problem List/Past Medical History Ongoing CAD in [place] artery History of syncope Hyperlipidemia Lumbar back pain with radiculopathy affecting lower extremity Medication management Moderate persistent asthma Post-nasal drip Seborrheic keratoses Stage 3b chronic kidney disease (CKD) Type 2 diabetes mellitus with diabetic neuropathy Procedure/Surgical History Cholecystectomy: 2016 Surgery-spine: 2004 Arthroscopy-right shoulder: 1993 ORIF - Open reduction and internal fixation of fracture-right elbow: 1991 Home Medications Acetaminophen: 975 mg, By Mouth, Every 8 hours Albuterol: 2.5 mg = 3 mL, Inhalation, Every 6 hours, PRN (for wheezing) Albuterol: 180 mcg = 2 puffs, Inhalation, Every 6 hours, PRN (Wheezing/Shortness of Breath) Atorvastatin: 1 tablet, By Mouth, Daily at bedtime dapagliflozin: 10 mg = 1 tablet, By Mouth, Daily Docusate: 100 mg = 1 capsule, By Mouth, 2 times a day dulaglutide: 0.5 mL, Subcutaneous Injection, Every week, rotate injection sites Durable Medical Equipment: See Instructions, use twice a day to check gluocse for Type 2 Diabetes Mellitus Durable Medical Equipment: See Instructions, use as directed for Type 2 Diabetes Mellitus Durable Medical Equipment: See Instructions, use as directed for Type 2 Diabetes Mellitus to injectinsulin once a day Enoxaparin: 40 mg = 0.4 mL, Subcutaneous Injection, Every 24 hours Gabapentin: 400 mg = 1 capsule, By Mouth, 3 times a day insulin degludec: INJECT 12 UNITS SUBCUTANEOUS INJECTION DAILY Miscellaneous Rx: USE DIRECTED TO TEST BLOOD SUGARS 3 TIMES DAILY Miscellaneous Rx: TEST FOUR TIMES A DAY (DX: E11.9) Omeprazole: 20 mg = 1 capsule, By Mouth, 2 times a day Oxycodone / Acetaminophen: 1 tablet, By Mouth, Every 6 hours, PRN (Pain , Severe), for acute on chronic back pain postoperatively. Polyethylene Glycol 3350: 17 Gm = 1 pack/packet, By Mouth, Daily, PRN (Constipation) Senna: 17.2 mg = 2 tablet, By Mouth, Daily, PRN (Constipation) Sertraline: 100 mg = 1 tablet, By Mouth, Daily, along with sertraline 25 mg daily. Tizanidine: 2 mg, By Mouth, Every 6 hours, PRN (Spasm) Trazodone: 50 mg = 1 tablet, By Mouth, Daily at bedtime, TAKE 1 TABLET BY MOUTH EVERY DAY AT BEDTIME NEEDED Hospital Medications Medications (23) Active SCHEDULED: (8) Acetaminophen 325 mg Tablet (Tylenol 325 mg oral tablet) ??975 mg, By Mouth, Every 8 hours Enoxaparin 40 mg Inj (Enoxaparin Inj) ??40 mg 0.4 mL, Subcutaneous Injection, Daily Insulin Lispro 100 units/mL Inj (Geriatrics LISPRO Sliding Scale) ??2-10 units, Subcutaneous Injection, 3 times a day before meals NaCl 0.9% Flush 3ml (NaCL 0.9% Flush) ??3 mL, IV Push, Every 8 hours OxyCODONE 5 mg IR Tablet (oxyCODONE 5 mg oral tablet) ??5 mg, By Mouth, Every 6 hours Sertraline 25 mg Tablet (sertraline 50 mg oral tablet) ??125 mg, By Mouth, Daily Trazodone 50 mg Tablet (traZODone 50 mg oral tablet) ??50 mg, By Mouth, Daily at bedtime Vitamin D 1000 IU Tablet (Vitamin D3 2000 intl units oral capsule) ??2,000 International_Units, By Mouth, Daily CONTINUOUS: (0) PRN: (15) Acetaminophen/Butalbital/Caffeine Tablet (Fioricet Tablet) ??1 tablet, By Mouth, Every 6 hours Albuterol 90mcg/Inhalation Inhaler HFA (albuterol CFC free 90 mcg/inh inhalation aerosol) ??180 mcg2 puffs, Inhalation, Every 4 hours Dextrose Inj Syringe (Dextrose 50% Inj Syringe (25Gm)) ??12.5 Gm, IV Push Slowly, Every 20 minutes Dextrose Inj Syringe (Dextrose 50% Inj Syringe (25Gm)) ??25 Gm, IV Push Slowly, Every 15 minutes Docusate Sodium 100 mg Capsule (Docusate Sodium Capsule) ??100 mg 1 capsule, By Mouth, 2 times a day Glucagon 1 mg Inj (Glucagon Inj) ??1 mg, Intramuscular, Once Glucose 40% Gel (15 Gm) (Glucose Gel) ??15 Gm, By Mouth, Every 20 minutes Glucose 40% Gel (15 Gm) (Glucose Gel) ??30 Gm, By Mouth, Every 20 minutes HYDROmorphone 1 mg/mL Inj Syringe (Dilaudid Inj) ??1 mg 1 mL, IV Push Slowly, Every 4 hours Melatonin 3 mg Tablet (Melatonin Tablet) ??3 mg, By Mouth, Daily at bedtime NaCl 0.9% Flush 3ml (NaCL 0.9% Flush) ??3 mL, IV Push, Every 8 hours Polyethylene Glycol 17 Gm Powder (MiraLax Powder) ??17 Gm 1 pack/packet, By Mouth, Daily Senna Tablet ??8.6 mg 1 tablet, By Mouth, 2 times a day Simethicone 80 mg Chewable Tablet (Simethicone Tablet) ??80 mg, Chew, 3 times a day Tizanidine 4 mg Tablet (tiZANidine 4 mg oral tablet) ??2 mg, By Mouth, Every 6 hours Lab Results PM&R Labs WBC: 7.4 k/mm3 (12/11/23) Platelet Count: 272 k/mm3 (12/11/23) Sodium: 137 mmol/L (12/11/23) BUN: 20 mg/dL (12/11/23) Creatinine-Blood:??1.24 mg/dL??High (12/11/23) AST (SGOT): 13 units/L (12/09/23 14:41:00) AST (SGOT):??51 units/L??High (11/18/23 01:21:00) ALT (SGPT): 10 units/L (12/09/23 14:41:00) ALT (SGPT): 18 units/L (11/18/23 01:21:00) Note * Khalida Guajardo RN: PERFORM Event Display: Discharge/Transfer Note Hospital Authored Date: [id number] Nursing Discharge Note Entered On: 12/11/2023 16:40 EDT Performed On: 12/11/2023 15:30 EDT by Khalida Guajardo RN Nursing Discharge Note 2 Discharge Time : 12/11/2023 15:30 EDT Discharge Level of Care at Discharge : Homehealth/VNA Discharge VNA/Hospice/Home Care(v001) : [facility] t [phone] Patient Left Unit Via : Wheelchair Patient Accompanied Off Unit with : Significant other, Responsible adult DC Instructions Provided & Signed by Pt : Yes Patient Understands D/C Instructions : Yes Verbalized Understanding of D/C Plan By : Patient, Significant other Patient Instructions Discharge Signed : Yes Discharge Comments : IV removed, cannula tip intact. Pt and SO able to state when pt to take next doses of all meds and when to make and attend all follow up appoitnments Did Pt have Specialty Bed or Wound Vac : No Khalida Guajardo RN - 12/11/2023 16:39 EDT * Amanda SHIELDS, Art: PERFORM, MODIFY, MODIFY Event Display: Discharge/Transfer Note Hospital Authored Date: [id number] Patient: ??WHITE, BRANDEN ? Age:??73 Years?Sex:??Male?:??1950?? Patient Information Discharge Location: A Primary Care Physician: Issac Gagnon MD Admit Date/Time: 12/10/23 02:41 Discharge Disposition Discharge Disposition: Home with Home Health Discharge Diagnosis Uncontrolled pain (R52) Back pain (M54.9) Chronic, continuous use of opioids (F11.90) Moderate persistent asthma (J45.40) Type 2 diabetes mellitus (E11.9) Diabetic neuropathy (E11.40) Hyperlipidemia (E78.5) Stage 3b chronic kidney disease (CKD) (N18.32) CAD in [place] artery (I25.10) Radicular pain (M54.10) Nerve compression (T14.8XXA) Depression (F32.A) Chronic pain (G89.29) _ Discharge Medications Acetaminophen (Tylenol 325 mg oral tablet)?975?Milligram?By Mouth?Every 8 hours Albuterol (albuterol 0.083% inhalation solution)?3?Milliliter?2.5?Milligram?Inhalation?Every 6 hours?as needed?for wheezing Albuterol (Albuterol (Eqv-ProAir HFA) 90 mcg/inh inhalation aerosol)?2?puff(s)?180?Microgram?Inhalation?Every 6 hours?as needed?Wheezing/Shortness of Breath Atorvastatin (atorvastatin 40 mg oral tablet)?1?tab(s)?By Mouth?Daily at bedtime Bisacodyl (bisacodyl 10 mg rectal suppository)?1?suppository(ies)?10?Milligram?Rectal ly?Daily?as needed?for constipation dapagliflozin (Farxiga 10 mg oral tablet)?1?tab(s)?10?Milligram?By Mouth?Daily Docusate (Colace Capsule)?100?Milligram?1?capsule?By Mouth?2 times a day dulaglutide (Trulicity Pen 4.5 mg/0.5 mL subcutaneous solution)?0.5?Milliliter?Subcutaneous Injection?Every week?rotate injection sites Durable Medical Equipment (Freestyle Lite Test Strips)?See Instructions?for 90?Days?usetwice a day to check gluocse for Type 2 Diabetes Mellitus Durable Medical Equipment ([place], 31 G x 5 mm BD Ultra Fine III)?See Instructions?for 90?Days?use as directed for Type 2 Diabetes Mellitus Durable Medical Equipment ([place], 31 G x 5 mm BD Ultra Fine III)?See Instructions?for 30?Days?use as directed for Type 2 Diabetes Mellitus to inject insulin once a day Enoxaparin?0.4?Milliliter?40?Milligram?Subcutaneous Injection?Every 24 hours Gabapentin (gabapentin 400 mg oral capsule)?400?Milligram?1?capsule?By Mouth?3 times a day insulin degludec (Tresiba FlexTouch 100 units/mL subcutaneous solution)?INJECT 12 UNITS SUBCUTANEOUS INJECTION DAILY Miscellaneous Rx?USE DIRECTED TO TEST BLOOD SUGARS 3 TIMES DAILY Miscellaneous Rx?TEST FOUR TIMES A DAY (DX: E11.9) Omeprazole (omeprazole 20 mg oral enteric coated capsule)?1?capsule?20?Milligram?By Mouth?2 times a day Oxycodone / Acetaminophen (Percocet 10 mg-325 mg oral tablet)?1?tab(s)?By Mouth?Every 6hours?as needed?Pain , Severe?for 14?Days?for acute on chronic back pain postoperatively. Polyethylene Glycol 3350 (MiraLax Powder)?1?pack/packet?17?gram?By Mouth?Daily?as needed?Constipation Senna (Senna 8.6 mg oral tablet)?17.2?Milligram?2?tab(s)?By Mouth?Daily?as needed?Constipation Sertraline (sertraline 100 mg oral tablet)?1?tab(s)?100?Milligram?By Mouth?Daily?along with sertraline 25 mg daily. Tizanidine (tiZANidine 4 mg oral tablet)?2?Milligram?By Mouth?Every 6 hours?as needed?Spasm Trazodone (traZODone 50 mg oral tablet)?50?Milligram?1?tablet?By Mouth?Daily at bedtime?TAKE 1 TABLET BY MOUTH EVERY DAY AT BEDTIME NEEDED ? Medications Started Bisacodyl Supp PRN Medications Discontinued None Doses Changed None PCP Follow-Up/Heads-Up F/U for pain control Future Appointments Thursday 10:15 AM EDT ?? With: Nathanael NEVAREZ, Reinier Diop Where: [facility] [address] [place] [id number]- Status: Pending Thursday 1:40 PM EDT ?? With: Chelsi SHIELDS, Issac Simon Where: [place] [address]- Status: Pending Hospital Course Branden Oswald,??73-year-old male, with a medical history of??coronary artery disease status post stenting,??diabetes mellitus type 2, hypertension, anxiety and depression, history of spondylolisthesis??s/p L4-5 TLIF. L4-5 laminectomy on 11/13/2023, lumbar implant revision on 11/16/2023, L4-5 revision fusion and L4-S1 PISF on 11/17/[address] De Guzman?presented to??[facility] on 11/30/2023?for evaluation of??worsened pain in the right side of the back, right hip, right leg.??He was recently discharged from the??rehab??to home??a week prior to his presentation.??Subsequently was seen by his primary care physician 12/06,??who??increased oxycodone dose from 5 mg to 10 mg??every 4-6 hours for pain.??Imaging??was done which showed postsurgical changes of the lumbar spine,??with evidence of??surgical revision of the posterior fusion which??extended from L4-S1, with unchanged disc space device at L4-5.?No acute hardware complication was noted on imaging.?Upon evaluation,??pain was assessed to be radicular in nature.??Per the??orthopedics??team, no surgical intervention??was needed??duringthe hospitalization. ?? Patient??is hemodynamically stable,??ready for discharge.??Tells me that he will continue to managehis pain at home. He will follow-up with the??orthopedician??and his primary care physician in the office. ?? Objective Assessment and Plan ?? Radicular pain ??(M54.10) Back pain ??(M54.9) Foot drop Spondylolisthesis status post L4-L5 TLIF,??L4-5 laminectomy on 11/13/2023,??lumbar implant revision on 11/16/2023,??L4-L5 revision fusion??and L5-S1 PSF on??11/17/2023??by ??Gab?? -CT with no hardware complications -MRI shows postsurgical changes from L4-5 and L5-S1 fusion and right L4-5 laminectomy, with fluid in the right L4-5 laminectomy bed and surrounding enhancement which likely reflects granulation tissue, no evidence of infection -Continue Oxycodone as prescribed by your PCP -Follow up with Orthopedics and PCP in the next??few weeks ?? Type 2 diabetes mellitus ??(E11.9) Diabetic neuropathy ??(E11.40) -Continue Insulin degludec 12 u daily and glipizide ?? COPD with emphysema ??(J43.9) -Not in exacerbation -Continue albuterol PRN ?? Depression ??(F32.A) -Continue home Meds: trazodone, sertraline 125 ?? . Physical Exam General: No acute distress HEENT: EOMI. CV: Regular rate and rhythm. No murmurs, gallops, rubs Respiratory: Diffuse mild wheezing GI: Soft, nontender. Bowel sounds noted : No suprapubic tenderness Extremities: No lower extremity edema Neuro: AAO x3.??Moves all extremities spontaneously. Sensation intact [facility] Pending Results No Pending Results Patient Instructions You came to the hospital for evaluation of your??right??sided??back pain, right hip pain and right leg pain.?? Upon evaluation, it was noted??that??this was not due to??any??acute hardware complication??from her recent surgeries, or significant changes in her spine. ??? Please continue to take your medications as prescribed, including??oxycodone. ??? Please follow-up with the alteration??primary care physician in their offices??in the??following??few weeks. ?If your symptoms become much worse,??or you start developing??any symptoms??such as??urinary retention??(inability to pee),??in inability to move stools along with??hardened belly,??weakness??inthe legs, or??loss of sensation in the legs -please return to the ER for evaluation. Home Health Face to Face *Denotes mandatory pitt ?? *I certify that this patient is under my care and that I or an allowed non- physician working with me had a face to face encounter with the patient on this date:??12/11/2023 13:43 ?? *The encounter with the patient was in whole, or in part, for the following medical condition, which is the primary diagnosis(es) for home health care:??Uncontrolled pain (R52) Back pain (M54.9) Chronic, continuous use of opioids (F11.90) Moderate persistent asthma (J45.40) Type 2 diabetes mellitus (E11.9) Diabetic neuropathy (E11.40) Hyperlipidemia (E78.5) Stage 3b chronic kidney disease (CKD) (N18.32) CAD in [place] artery (I25.10) Radicular pain (M54.10) Nerve compression (T14.8XXA) Depression (F32.A) Chronic pain (G89.29) ?? *Select the indications for the discipline/s that are being arranged for this patient. Nursing (select all that apply): [_] None [_] Medication management (reconciliation, teaching)?? [_] Chronic disease management?? [_] Wound care and treatment?? [_] Home safety evaluation [_] Administer SQ/IM/IV medications?? [_] Cath care?? [_] Drain care?? [_] Trach or GT care?? Other _ Occupation Therapy (select all that apply): [_] None [_] ADL Management [_] Fall prevention training [_] Energy conservation [_] Cognitive training Other _ Physical Therapy (select all that apply): [_] None [X] Functional mobility training [X] Home exercise program to strengthen [_] Increase ROM?? [X] Falls prevention training [X] Home maintenance program for chronic disease Other _ Speech Therapy (select all that apply): [_] None [_] Swallow evaluation and training [_] Speech and language training [_] Cognitive training to process, organize, and/or recall information Other _ ? *Homebound due to (select all that apply): [X] Inability to leave home without assistance/supervision [_] Inability to ambulate without assistance [_] Pain [_] Decreased strength and endurance [_] Unsteady gait [_] Severe SOB and fatigue [_] Impaired transfers [_] Inability to negotiate stairs [_] Limited weight bearing [_] Mental status change? *Physician Signature:??Art Patel MD ?? *By signing this, I certify that I have personally evaluated the patient and agree with the findings and recommendations as documented above. ? ealthFTF Results Image ?CT Lumbar Spine W/ Contrast??12/09/2023 16:32 by Maricarmen Ovalle ?IMPRESSION: 1. No evidence of an acute abnormality of the abdomen or pelvis. 2. Postsurgical changes of the lumbar spine, with evidence of surgical revision of the posterior fusion which now extends from L4 through S1. The disc spacer device at L4-L5 is unchanged. There is no evidenceof acute hardware complication. ?CT Abd/Pelvis W/ IV Contrast Only??12/09/2023 16:32 by Maricarmen Ovalle ?IMPRESSION: 1. No evidence of an acute abnormality of the abdomen or pelvis. 2. Postsurgical changes of the lumbar spine, with evidence of surgical revision of the posterior fusion which now extends from L4 through S1. The disc spacer device at L4-L5 is unchanged. There is no evidenceof acute hardware complication. ?US Doppler Ext Lower Venous Right??12/09/2023 15:52 by Silvia Hicks ?IMPRESSION: 1. No evidence of deep venous thrombosis. 2. 2.7 cm right Romero's cyst. ?MRI Lumbar Spine W+W/O Contrast??12/09/2023 22:14 by Izabela Torres ?IMPRESSION: 1. Postsurgical changes from L4-5 and L5-S1 fusion and right L4-5 laminectomy, with fluid in the right L4-5 laminectomy bed and surrounding enhancement which likely reflectsgranulation tissue. Evaluation is limited by susceptibility artifact from hardware, but there is suspected mild right-sided central stenosis, and moderate right and mild left neural foraminal narrowing at L4-5. 2. Right paracentral disc extrusion at L5-S1 effacing the right subarticular recess withcrowding of the traversing right S1 nerve root. 3. No clear signs of discitis/osteomyelitis or other spinal infection. ?? Patient seen and discussed with the attending physician, Dr. Sloan. Art Patel MD Internal Medicine Resident Pager #[phone] ?? This note was dictated??by [employer] voice detection software,??for any errors??or clarifications, please do not hesitate to reach out for clarifications. ?? 40??minutes spent on discharge * Jhoan Sloan MD: PERFORM Event Display: Discharge/Transfer Note Hospital Authored Date: [id number] I ??interviewed and examined??BRANDEN??WHITE??on??12/10, reviewed the medical record, and discussed care with the resident team. ??I agree with the discharge as outlined. ??We reviewed signs and symptoms of worsening disease, and reasons to call PCP (Chelsi SHIELDS, Issac Simon??phone?? )?? or return to ER. ?? Diagnoses ?? 1. ??Uncontrolled pain ??(R52) 2. ??Back pain ??(M54.9) 3. ??Chronic, continuous use of opioids ??(F11.90) 4. ??Moderate persistent asthma ??(J45.40) 5. ??Type 2 diabetes mellitus ??(E11.9) 6. ??Diabetic neuropathy ??(E11.40) 7. ??Hyperlipidemia ??(E78.5) 8. ??Stage 3b chronic kidney disease (CKD) ??(N18.32) 9. ??CAD in [place] artery ??(I25.10) ?? time on discharge: <30 min ? Please feel free to contact me with any further questions. ? Jhoan Sloan MD TigerText: Jhoan Sloan MD office: ??[phone] ??(internal medicine) office: ??[phone] ??(pediatrics) ?? * Casandra HARGROVE, Khalida: PERFORM Event Display: Patient Education/Instruction Authored Date: [id number] Inpatient Adult Discharge Instructions. [place] [id number] Name: BRANDEN OSWALD : 1950?? Visit: 12/10/2023 02:41?? Current Date: 12/11/2023 14:03 ?? Account: [id number]?? Inpatient Adult Discharge Instructions We would like [...] and their families. Surveys are administered by [employer] ?? If further treatment with your primary care physician or another doctor is recommended, it is important for you to keep the appointment. Call your primary care physician or return to the Emergency Department immediately if your condition worsens, fails to improve, or new symptoms develop. If you need to find a doctor, you can call [facility] Link for a referral at [phone] or toll free at [phone]) or log in to [email or web address].. ?? [facility], in keeping with [facility] guidance, no longer requires face masks for [...] a health care yuli of your choosing. [employer]High is a website that allows you to securely view your medical information including your hospital discharge summary, office visit summaries, medications and follow-up visits. You can also request appointments, renew medications, and request access to your medical information using a health care yuli of your choosing, or just ask a question. You can enroll at [email or web address] or register during your next office visit. You have been discharged from [facility], Patient Care Unit: D5A??. If you have any questions regarding these instructions, including results of studies pending, afteryou leave, please call us and we will be happy to assist you 16/02. [facility] Your Care Team Attending Physician Jhoan Sloan MD?? Consulting Providers Jhoan Sloan MD?? Discharging Providers Art Patel MD Reason for Your Visit Pain control, epidural fluid collection?? Your Diagnosis Chronic, continuous use of opioids Moderate persistent asthma Type 2 diabetes mellitus Diabetic neuropathy Hyperlipidemia Stage 3b chronic kidney disease (CKD) CAD in [place] artery Chronic pain Depression General medical Tests Performed Below is a partial list of the tests performed during your hospitalization. You may have had other tests and procedures not included in this list. Please discuss all test results with your provider. Basic Metabolic Panel CBC CBC w/ Differential Comprehensive Metabolic Panel COVID-19 (Novel Coronavirus), Rapid PCR CRP ESR GLUCOSE POC Hold Blue Top Tube Lactate Level Magnesium Level Urinalysis w/hold for Urine Culture CT Abd/Pelvis W/ IV Contrast Only CT Lumbar Spine W/ Contrast MRI Lumbar Spine W+W/O Contrast US Doppler Ext Lower Venous Right No tests performed during this visit.?? Primary Care Provider Chelsi SHIELDS, Issac Simon? Advance Directive Health Care Proxy on File Yes - Health Care Proxy Discharge Vitals Temperature: 98.4 DegF Height: 173 cm Pulse Rate: 78 bpm Weight: 77.2 kg Respiratory Rate: 18 br/min Body Mass Index:??25.79 kg/m2??High Systolic Blood Pressure: 137 mm Hg Body surface area: 1.93 Diastolic Blood Pressure:??94 mm Hg??High ?? Oxygen Saturation: 95 % ?? Studies Pending All studies ordered during this hospital stay have been completed unless listed below. Please discuss all pending results with your provider listed above in these instructions. ?? No incomplete studies found?? What to do next Instructions From Your Doctor You came to the hospital for evaluation of your??right??sided??back pain, right hip pain and right leg pain.?? Upon evaluation, it was noted??that??this was not due to??any??acute hardware complication??from her recent surgeries, or significant changes in her spine. ??? Please continue to take your medications as prescribed, including??oxycodone. ??? Please follow-up with the alteration??primary care physician in their offices??in the??following??few weeks. ?If your symptoms become much worse,??or you start developing??any symptoms??such as??urinary retention??(inability to pee),??in inability to move stools along with??hardened belly,??weakness??inthe legs, or??loss of sensation in the legs -please return to the ER for evaluation. ?? Orders? 12/11/23 13:42:00 EDT?? Prescriptions??, ??12/11/23 13:42:00 EDT?? Scheduled Follow-Up Appointments Thursday 10:15 AM EDT ?? With: Nathanael NEVAREZ, Reinier Diop Where: [facility] [address] [place] [id number]- Status: Pending Ildefonso Venkata. 10, 2024 1:40 PM EDT ?? With: Chelsi SHIELDS, Issac Simon Where: Primary Care [place] [id number]- Status: Pending Discharge Medications BRANDEN OSWALD :1950 Visit Date:12/10/2023 Medications: Please continue your medications until treatment is completed or stopped by your provider. Medications not listed below should be discontinued. Discuss any questions related to medications with your provider. What How Much When Why Instructions Next Dose New Bisacodyl (bisacodyl 10 mg rectal suppository) 1 suppository(ies) Per rectum Daily as needed for for constipation Refills: 1 Pickup at [facility] 3 Take as prescribed Changed Gabapentin (gabapentin 400 mg oral capsule) 1 capsule Oral 3 times a day Take as prescribed Changed insulin degludec (Tresiba FlexTouch 100 units/ mL subcutaneous solution) INJECT 12 UNITS SUBCUTANEOUS INJECTION DAILY ?? Take as prescribed Unchanged Acetaminophen (Tylenol 325 mg oral tablet) 975 Milligram Oral Every 8 hours Tonight 12/11/23 8pm Unchanged Albuterol (Albuterol (Eqv-ProAir HFA) 90 mcg/ inh inhalation aerosol) 2 puff(s) Inhalation Every 6 hours as needed for Wheezing/Shortness of Breath Take as prescribed Unchanged Albuterol (albuterol 0.083% inhalation solution) 3 Milliliter Inhalation Every 6 hours as needed for for wheezing Take as prescribed Unchanged Atorvastatin (atorvastatin 40 mg oral tablet) 1 tab(s) Oral Daily at Bedtime Take as prescribed Unchanged dapagliflozin (Farxiga 10 mg oral tablet) 1 tab(s) Oral Daily Take as prescribed Unchanged Docusate (Colace Capsule) 100 Milligram Oral Twice a day Take as prescribed Unchanged dulaglutide (Trulicity Pen 4.5 mg/ 0.5 mL subcutaneous solution) 0.5 Milliliter Subcutaneous Injection Every week rotate injection sites ?? Take as prescribed Unchanged Durable Medical Equipment (Freestyle Lite Test Strips) See instructions Type 2 diabetes mellitus with diabetic neuropathy Duration: 90 Days use twice a day to check gluocse for Type 2 Diabetes Mellitus ?? As directed Unchanged Durable Medical Equipment ([place], 31 G x 5 mm BD Ultra Fine III) See instructions Type 2 diabetes mellitus with diabetic neuropathy Duration: 90 Days use as directed for Type 2 Diabetes Mellitus ?? As directed Unchanged Durable Medical Equipment ([place], 31 G x 5 mm BD Ultra Fine III) See instructions Diabetes mellitus Duration: 30 Days use as directed for Type 2 Diabetes Mellitus to inject insulin once a day ?? As directed Unchanged Enoxaparin 40 Milligram Subcutaneous Injection Every 24 hours Tomorrow 12/12/23 9am Unchanged Miscellaneous Rx USE DIRECTED TO TEST BLOOD SUGARS 3 TIMES DAILY ?? As directed Unchanged Miscellaneous Rx TEST FOUR TIMES A DAY (DX: E11.9) ?? As directed Unchanged Omeprazole (omeprazole 20 mg oral enteric coated capsule) 1 capsule Oral Twice a day Take as prescribed Unchanged Oxycodone / Acetaminophen (Percocet 10 mg-325 mg oral tablet) 1 tab(s) Oral Every 6 hours as needed for Pain , Severe Lumbar back pain with radiculopathy affecting lower extremity Duration: 14 Days for acute on chronic back pain postoperatively. ?? Today 12/11/23 4pm as needed Unchanged Polyethylene Glycol 3350 (MiraLax Powder) 17 gram Oral Daily as needed for Constipation Take as prescribed Unchanged Senna (Senna 8.6 mg oral tablet) 2 tab(s) Oral Daily as needed for Constipation Tomorrow 12/12/23 9am as needed Unchanged Sertraline (sertraline 100 mg oral tablet) 1 tab(s) Oral Daily along with sertraline 25 mg daily. ?? Tomorrow 12/12/23 9am Unchanged Tizanidine (tiZANidine 4 mg oral tablet) 2 Milligram Oral Every 6 hours as needed for Spasm Take as prescribed Unchanged Trazodone (traZODone 50 mg oral tablet) 1 tab(s) Oral Daily at Bedtime TAKE 1 TABLET BY MOUTH EVERY DAY AT BEDTIME NEEDED ?? Tonight 12/11/23 9pm as needed Pharmacy Information [facility]: [address], [place] [id number] [phone] Prescription Given During Visit Bisacodyl (bisacodyl 10 mg rectal suppository) - 1 supp = 10 mg, Rectally, Daily, # 12 supp, 1 Refills, [facility], [address] [place] [address] [phone]?? Laboratory Results Below is a partial list of the most recent Laboratory test results done prior to this discharge. You may have had other tests and procedures not included in this list. Please discuss all test resultswith your provider. Est Creatinine Clearance - 49.98 mL/min (12/11/2023) Basic Metabolic Panel (12/11/2023) ???Sodium - 137 mmol/L???Potassium - 4.5 mmol/L???Chloride - 98 mmol/L???Bicarbonate Level - 22 mmol/L???Anion Gap - 17???Glucose Level - 114 mg/dL???BUN - 20 mg/dL???Creatinine-Blood - 1.24 mg/dL???Estimated GFR Creatinine - 61 ML/MIN/1.73 M2???Calcium - 9.5 mg/dL CBC (12/11/2023) ???WBC - 7.4 k/mm3???RBC - 4.36 m/mm3???Hgb - 12.6 Gm/dL???Hct - 37.1 %???MCV - 85.1 femtoliters???MCH - 28.9 pg???MCHC - 34.0 g/dL???Platelet Count - 272 k/mm3???RDW-SD - 41.7 femtoliters???MPV - 10.7 femtoliters???Nucleated RBC (Automated) - 0.0 #/100 WBC'S???Abs. NRBC - 0.0 k/mm3 CBC w/ Differential (12/09/2023) ???WBC - 7.2 k/mm3???RBC - 4.54 m/mm3???Hgb - 13.0 Gm/dL???Hct - 39.1 %???MCV - 86.1 femtoliters???MCH - 28.6 pg???MCHC - 33.2 g/dL???Platelet Count - 291 k/mm3???RDW-SD - 41.0 femtoliters???MPV - 10.6 femtoliters???Nucleated RBC (Automated) - 0.0 #/100 WBC'S???Abs. NRBC - 0.0 k/mm3???Abs. Neut - 3.2 k/mm3???Abs. Lymph - 2.6 k/mm3???Abs. [place] - 0.5 k/mm3???Abs. Eo - 0.7 k/mm3???Abs. Baso - 0.1 k/mm3???Neut % - 44.8 %???Lymph % - 36.0 %???[place] % - 7.5 %???Eos % - 9.5 %???Baso % - 1.4 %???Imm Gran - 0.8 %???Abs. Imm Gran - 0.1 k/mm3 Comprehensive Metabolic Panel (12/09/2023) ???Sodium - 137 mmol/L???Potassium - 4.8 mmol/L???Chloride - 101 mmol/L???Bicarbonate Level - 25 mmol/L???Anion Gap - 11???Glucose Level - 139 mg/dL???BUN - 16 mg/dL???Creatinine-Blood - 1.28 mg/dL???Estimated GFR Creatinine - 58 ML/MIN/1.73 M2???Calcium - 10.0 mg/dL???Protein, Total - 7.4 Gm/dL???Albumin - 4.6 Gm/dL???AG Ratio - 1.6???Alkaline Phosphatase - 139 units/L???AST (SGOT) - 13 units/L???ALT (SGPT) - 10 units/L???Bilirubin, Total - 0.4 mg/dL COVID-19 (Novel Coronavirus), Rapid PCR (12/10/2023) ???COVID-19 by RT-PCR - NEGATIVE CRP (12/09/2023) ? ?C-Reactive Protein - <0.3 mg/dL ESR (12/09/2023) ???Sed Rate - 23 mm/hr GLUCOSE POC (12/11/2023) ???Glucose, POC - 125 mg/dL Hold Blue Top Tube (12/09/2023) ???Hold Blue Top - SPECIMEN DISCARDED AFTER 4 HOURS. Lactate Level (12/09/2023) ???Lactate - 1.3 mmol/L Magnesium Level (12/11/2023) ???Magnesium - 2.0 mg/dL Urinalysis w/hold for Urine Culture (12/09/2023) ???Appear/Color, Urine - COLORLESS???Specific [place], Urine - 1.009???pH, Urine - 6.0???Albumin, Urine - NEGATIVE???Glucose, Urine - 4+???Ketones, Urine - NEGATIVE???Bilirubin, Urine - NEGATIVE???Hemoglobin, Urine - NEGATIVE???Nitrite, Urine - NEGATIVE???Leukocyte, Urine - NEGATIVE???Urobilinogen - NORMAL? ?WBC's, Urine - NONE SEEN? ?RBC's, Urine - <1 /HPF? ?Mucus - SLIGHT? ?Hold Urine Culture - Testing available 48 hours from time of collection. Allergies (NKA means No Known Allergies) Cats??(hayfever) Dogs??(hayfever) Dust??(hayfever) Jardiance??(RASH) Mold??(hayfever) Pollen??(hayfever) Problems Active Problems??(10) CAD in [place] artery?? History of syncope?? Hyperlipidemia?? Lumbar back pain with radiculopathy affecting lower extremity?? Medication management?? Moderate persistent asthma?? Post-nasal drip?? Seborrheic keratoses?? Stage 3b chronic kidney disease (CKD)?? Type 2 diabetes mellitus with diabetic neuropathy?? Education Materials Below is the list of Educational Leaflet Providered with your Discharge Instructions. Valuables and Belongings I fully understand and agree that [facility] accepts no responsibility for all my [...] of Valuable and Belonging List: With patient Date for Pt to Sign Valuables/Belongings: 12/10/23 06:32:00 ?? Other Discharge Information ? Case Management Discharge Plan?? Discharge Plan?? Discharge Agency Information?? Discharge Level of Care at Discharge: Homehealth/VNA Name of Agency #1: [phone] Service Categories #1: Physical Therapy ?? Service Comments #1: [facility] will resume your home services with next visit being sched. for Thursday. If you do not hear from them, please call [phone] ?? Pulmonary Rehab Status?? Pulmonary Rehab Discharge Status?? Respiratory Rate: 18 br/min ? Common Emergency Awareness Tips IS [...] are strongly encouraged to quit. Please call [facility] Link at [phone] or [phone] ([phone]) or log in to [email or web address] for referrals to smoking cessation programs. ?? 659 Suicide & Crisis Lifeline is available 16/02 if you or someone you know needs to find a reason to keep living. By calling 477 you'll be connected to a skilled, trained counselor at a crisis center in your area. INPATIENT DISCHARGE INSTRUCTIONS SIGNATURE KOREY BRANDEN OSWALD Location:[facility] Registration Date and Time:12/10/2023 02:41 EDT Primary Care Physician: Issac Gagnon MD, Attending Physician: Jhoan Sloan MD, I BRANDEN OSWALD, have received the above patient education materials/instructions and have verbalized understanding. If ambulance or transport services are being used I further acknowledge being givena choice of service. ?? If you need to contact me, please call me at this number: . Patient/Vocational Nurse Lvn Name: Patient/Vocational Nurse Lvn Signature: Relationship to Patient: Witness Name/Signature: Date: * Khalida Guajardo RN: PERFORM Event Display: Patient Education Leaflets Authored Date: [id number] Back Care Tips ?? [id number] Back Care Tips Caring for your back These are things you can do to prevent a recurrence of acute back pain and to reduce symptoms from chronic back pain: ??? Stay at a healthy weight. If you are overweight, losing weight will help mosttypes of back pain. ??? Exercise is an important part of recovery from most types of back pain. Themuscles behind and in front of the spine support the back. This means strengthening both the back muscles and the belly (abdominal) muscles will provide better support for your spine.? Swimming and brisk walking are good overall exercises to improve your fitness level. ??? Practice safe lifting methods (see below). ??? Practice good posture when sitting, standing, and walking. Don't sit for a long time. This puts more stress on the low back than standing or walking. ??? Wear quality shoes with good arch support. Foot and ankle alignment can affect back symptoms. Don't wear high heels. ??? Therapeutic massage can help relax the back muscles without stretching them. ??? During the first 24 to 72 hours after an acute injury or flare-up of chronic back pain, put an ice pack on the painful area for 20 minutes and then remove it for 20 minutes. Do this over a period of 60 to 90 minutes, or several times a day. As a safety precaution, don't use a heating pad at bedtime. Sleeping on a heating pad can lead to skin guadalupe or tissue damage. ??? You can alternate using ice and heat. ?? Medicines Talk with your healthcare provider before using medicines, especially if you have other health problems or are taking other medicines. ??? You may use luae-ulf-uvgwjut medicines, such as acetaminophen, ibuprofen, or naproxen to control pain, unless your healthcare provider prescribed other pain medicine. Talk with your provider before taking any medicines if you have a long-term (chronic) condition, such as diabetes, liver or kidney disease, stomach ulcers, or digestive bleeding, or are taking blood thinners. ??? Be careful if you are given prescription pain medicines, opioids, or medicine for muscle spasm. They can cause drowsiness, and affect your coordination, reflexes, and judgment. Don' t drive or operate heavy machinery while taking these types of medicines. Take prescription pain medicine only as prescribed by your provider. ?? Lumbar stretch This simple stretch will help relax muscle spasm and keep your back more limber. If exercise makes your back pain worse, don???t do it. ??? Lie on your back with your knees bent and both feet on the ground. ??? Slowly raise your left knee to your chest as you flatten your low back against the floor. Hold for 5 seconds. ??? Relax and repeat the exercise with your right knee. ??? Do 10 of these exercises for each leg. ?? Safe lifting method ??? Don???t bend over at the waist to lift an object off the floor.?? Instead, bend your knees and hips in a squat.? Keep your back and head upright ??? Hold the object closeto your body, directly in front of you. ??? Straighten your legs to lift the object.? Lower the object to the floor in the reverse fashion. ??? If you must slide something across the floor, push it. ?? Posture tips Sitting Sit in chairs with straight backs or low-back support. Keep your knees lower than your hips, with your feet flat on the floor. When driving, sit up straight. Adjust the seat forward so you are not leaning toward the steering wheel.??A small pillow or rolled towel behind your low back may help if you are driving long distances.?? Standing When standing for long periods, shift most of your weight to one leg at a time. Switch legs every few minutes.?? Sleeping The best way to sleep is on your side with your knees bent. Put a low pillow under your head to support your neck in a neutral spine position. Don't use thick pillows that bend your neck to one side.Put a pillow between your legs to further relax your low back. If you sleep on your back, put pillows under your knees to support your legs in a slightly flexed position. Use a firm mattress. If yourmattress sags, replace it, or use a 1/2-inch plywood board under the mattress to add support. ?? Follow-up care Follow up with your??healthcare provider as advised. If X-rays, a CT scan, or an MRI scan were taken, they may be reviewed by a radiologist. You will betold of any new findings that may affect your care. ?? Call 911 Call 911 if any of the following occur: ??? Trouble breathing ??? Confusion ??? Very drowsy ??? Fainting or loss of consciousness ??? Very fast or very slow heart rate ??? Loss of??bowel or bladder control ?? When to get medical advice Call your healthcare provider right away??if any of these occur: ??? Pain becomes worse or spreads to your arms or legs ??? Weakness or numbness in 1 or both arms or legs ??? Numbness in the groin area ?? Last Reviewed Date: 2022 ?? 5396-1468 [employer]. All rights reserved. This information is not intended as a substitute for professional medical care. Always follow your healthcare professional's instructions. ?? * Khalida Guajardo RN: PERFORM Event Display: Patient Education Leaflets Authored Date: [id number] Back Pain (Acute or Chronic) ?? [id number] Back Pain (Acute or Chronic) Back pain is one of the most common problems. The good news is that most people feel better in 1 to2 weeks, and most of the rest in 1 to 2 months. Most people can remain active. People who have pain??describe it differently???not??everyone is the same. ??? The pain can be sharp, stabbing, shooting, aching, cramping or burning. ??? Movement, standing,bending, lifting, sitting, or walking may worsen pain. ??? It can be limited to one spot or area, or it can be more generalized. ??? It can spread upwards, to the front, or go down your arms or legs (sciatica). ??? It can cause muscle spasm. Most of the time, mechanical problems with the muscles??or spine cause the pain. Mechanical problems??are usually caused by an injury to the muscles or ligaments. Illness can cause back pain, but it's usually not caused by a serious illness. Mechanical problems include:? Physical activity such as sports, exercise, work, or normal activity ??? Overexertion, lifting,pushing, pulling incorrectly or too aggressively ??? Sudden twisting, bending, or stretching from an accident, or accidental movement ??? Poor posture ??? Stretching or moving wrong, without noticingpain at the time ??? Poor coordination, lack of regular exercise (check with your doctor about this) ??? Spinal disc disease or arthritis ??? Stress Pain can also be related to , or illness such as appendicitis, bladder or kidney infections, kidney stones, and pelvic infections. Acute back pain usually gets better in??1 to 2 weeks. Back pain related to disk disease, arthritis in the spinal joints, or narrowing of the spinal canal (spinal stenosis) can become chronic and lastfor months or years. Unless you had a physical injury such as a car accident or fall, X-rays are usually not needed for the first assessment of back pain. If pain continues and does not respond to medical treatment, you may need X-rays and other tests. Home care Try this home care advice: ??? When in bed, try??to find a position of comfort. A firm mattress is best. Try lying flat on your back with pillows under your knees. You can also try lying on your side with your knees bent up toward your chest and a pillow between your knees. ??? At first, don't try to stretch out the sore spots. If there is a strain, it's not like the good soreness you get after exercising without an injury. In this case, stretching may make it worse. ??? Don't sit for long periods, as in a long car ride or during other??travel. This puts more stress on the lower back than standing or walking. ??? During the first 24 to 72 hours after an acute injury or flare up of chronic back pain, apply an ice pack to the painful area for 20 minutes and then remove it for 20 minutes. Do this over a period of 60 to 90 minutes or several times a day. This will reduce swelling and pain. Wrap the ice pack in a thintowel or plastic to protect your skin. ??? You can start with ice, then switch to heat. Heat (hot shower, hot bath, or heating pad) reduces pain and works well for muscle spasms. Heat can be applied to the painful area for 20 minutes then remove it for 20 minutes. Do this over a period of 60 to 90 minutes or several times a day. Don't sleep on a heating pad. It can lead to skin guadalupe or tissue damage. ??? You can alternate ice and heat therapy. Talk with your doctor about??the best treatment for your back pain. ??? Therapeutic massage can help relax the back muscles without stretching them. ??? Be aware of safe lifting methods. Don't lift anything without stretching first. Medicines Talk to your doctor before using medicine, especially if you have other medical problems or are taking other medicines. ??? You may use neql-jqo-ryqoakl medicine as directed on the bottle to control pain, unless another pain medicine was prescribed. Talk with your healthcare provider before using these medicines if you have chronic conditions such as diabetes, liver or kidney disease, stomach ulcers, or digestive bleeding. Also talk with your provider if you take blood thinners. ??? Be careful if you are given a prescription medicines, narcotics, or medicine for muscle spasms. They can cause drowsiness, affect your coordination, reflexes, and judgment. Don't drive or operate heavy machinery. ?? Follow-up care Follow up with your healthcare provider, or as advised.?? If X-rays were taken, you will be told of any new findings that may affect your care. ?? Call 911 Call 911 if any of the following occur: ??? Trouble breathing ??? Confusion ??? Very drowsy or trouble awakening ??? Fainting or loss of consciousness ??? Rapid or very slow heart rate ??? Loss of bowel or bladder control ?? When to seek medical advice Call your healthcare provider right away if any of these occur:? Pain gets worse or spreads toyour legs ??? Your bowel or bladder control changes ??? Fever ??? Blood in your urine ??? Weakness or numbness in one or both legs ??? Numbness in the groin or genital area ?? Last Reviewed Date: 2021 ?? 9281-7888 [employer]. All rights reserved. This information is not intended as a substitute for professional medical care. Always follow your healthcare professional's instructions. ?? * Khalida Guajardo RN: PERFORM Event Display: Patient Education Leaflets Authored Date: [id number] Bisacodyl Rectal Suppository ?? [id number] Bisacodyl Rectal Suppository Brands: Bisac-Evac, Dulcolax, The Magic Bullet Uses For bowel movement. ?? Instructions This medicine is for use in the rectum. DO NOT take this medicine by mouth. Wash your hands before and after using this medicine. However, do not get up right away to wash your hands if you are supposed to lie down for a period of time to give the medicine time to work. Lie on your left side, with your right knee bent toward your chest. Or, you may kneel on both knees, with your arms folded on the floor with your head resting on your arms. Unwrap the suppository and moisten it with a few drops of cool water. Insert the pointed end into the anus, and push it all the way in with your finger. If the suppository becomes soft, you can make it firmer by refrigerating it. You can run it under cold water if the suppository is wrapped. Try to keep the suppository inside you for at least 15 minutes. A bowel movement will usually occurwithin an hour. Keep the medicine at room temperature. Avoid heat and direct light. Frequent or fci use of laxatives can cause your bowels to depend on them. Do not use laxatives for more than one week unless directed by your doctor. To reduce constipation, eat high fiber foods, drink plenty of water and exercise. Tell your doctor and pharmacist about all your medicines. Include prescription and jhdm-foo-epydyzetjmowkxbq, vitamins, and herbal medicines. If you forget to take a dose on time, take it as soon as you remember. If it is almost time for thenext dose, do not take the missed dose. Return to your normal schedule. Do not take 2 doses at one time. Tell your doctor if symptoms do not get better or if they get worse. ?? Cautions Tell your doctor and pharmacist if you ever had an allergic reaction to a medicine. Do not use the medication any more than instructed. It is unknown if this medicine passes into breast milk. Ask your doctor before . During , this medicine should be used only when clearly needed. Talk to your doctor about the risks and benefits. ?? Side Effects The following is a list of some common side effects from this medicine. Please speak with your doctor about what you should do if you experience these or other side effects. ??? abdominal cramps ??? diarrhea ??? nausea ??? rectal burning or irritation ??? stomach upset or abdominal pain Call your doctor or get medical help right away if you notice any of these more serious side effects: ??? bleeding from rectum ??? severe, watery or bloody diarrhea ??? dizziness ??? dry mouth ??? fainting ??? fast or irregular heart beats ??? urinating less often A few people may have an allergic reaction to this medicine. Symptoms can include difficulty breathing, skin rash, itching, swelling, or severe dizziness. If you notice any of these symptoms, seek medical help quickly. ?? Extra Please speak with your doctor, nurse, or pharmacist if you have any questions about this medicine. ?? [email or web address] IMPORTANT NOTE: This document tells you briefly how to take your medicine, but it does not tell youall there is to know about it. Your doctor or pharmacist may give you other documents about your medicine. Please talk to them if you have any questions. Always follow their advice. There is a more complete description of this medicine available in Ukrainian. Scan this code on your smartphone or tablet or use the web address below. You can also ask your pharmacist for a printout. If you have any questions, please ask your pharmacist. The display and use of this drug information is subject to Terms of Use. Copyright(c) 2023 [employer]. ?? [employer]. All rights reserved. This information is not intended as a substitute for professional medical care. Always follow your healthcare professional's instructions. ?? Patient Care team information Care Team Personnel Name: Edita Raphael RN Position: [facility] RN Member Role: Primary Care Nurse Name: Alla Ibarra RN Position: [facility] RN Member Role: Primary Care Nurse Name: Lindsay Smith RN Position: [facility] RN Member Role: Primary Care Nurse Name: Haley Osullivan RN Position: [facility] RN Member Role: Primary Care Nurse Name: Rosa Motley RN Position: [facility] RN Member Role: Primary Care Nurse Name: Yuri Lima Position: [facility] Outreach Member Role: Lifetime Consulting Physician Name: Sunshine Turner RN Position: [facility] ED RN W/OE and Tasks Member Role: Primary Care Nurse Name: Rowdy Cerda MD Position: [facility] Renal MD Member Role: Lifetime Consulting Physician Address: Address: [address] [place] [address] [facility] [address] Name: Issac Gagnon MD Position: [facility] Physician - Primary Care Member Role: PCP Address: Address: [address] [place] [address] [place] [address]- [place] Name: Alie HARGROVE, Yoselin Position: S RN Member Role: Primary Care Nurse Name: Darren Araiza RN Position: S RN Member Role: Primary Care Nurse Care Team Related Persons Name: REEMA OSWALD Address: [place] [address] [address] Name: LETTY OSWALD Address: home [address] [place] [address] Name: ARYA OSWALD Address: home [address] [place] [address]
--- OUTSIDE RECORDS SUMMARY | 2024-03-02 08:18 | XMS_ITS | Continuity of Care Document ---
Author Organization [facility] Address [address] [place] [address]- Care Team Providers Care Hand Tube Bender Name Role Phone Radu Duarte MD Primary Care Physician Encounter [facility] [place] Date(s): 05/14/21 - 06/13/21 [facility] [address] [place] [address]- [place] Allergies, Adverse Reactions, Alerts Substance Reaction [...] 07/18/19 13:23:00 EST, Route to Pharmacy Electronically, [facility]/pharmacy #[id number], 172, cm, 07/07/19 9:07:00 EST, Height, [...] Refills, Maintenance, Tablet, Route to Pharmacy Electronically, [id number], [facility]/pharmacy #[id number] Start Date: 04/06/17 Stop Date: 04/01/18 Status: Ordered Basaglar KwikPen 100 units/mL subcutaneous solution = 40 units, Subcutaneous Injection, Daily at bedtime, # 10 mL, 0 Refills, Maintenance, 05/10/19 16:31:45 EDT, Solution Start Date: 05/10/19 Status: Ordered benazepril 5 mg oral tablet 1 tablet = 5 mg, By Mouth, Daily, # 90 tablet, 3 Refills, Maintenance, 05/13/21 15:41:00 EDT, [facility]/pharmacy #[id number], 172, cm, 05/13/21 14:58:00 EDT, Height [...] Status Health Status Inform ant CAD in [place] artery(Confirmed) Active Social History Social History Type Response Smoking Status Never smoker; Tobacc o user in household: No entered on: 02/08/16 Sex
--- OUTSIDE RECORDS SUMMARY | 2024-03-02 08:18 | XMS_ITS | Continuity of Care Document ---
Author Organization [facility] Address [address] [place] [address] Matheus abdullahi, [address] [place] [address]- Care Team Providers Care Unit Nurse Name Role Phone Chelsi SHIELDS, Issac K Primary Care Physician Encounter [facility] [place] Date(s): 01/19/24 - 02/18/[address] [place], [place] [address] Allergies, Adverse Reactions, Alerts Substance Reaction Severity [...] virus vaccine, inactivated 04/25/19 Brad rded SARS-CoV-2(COVID-19)mRNA-LNP vac([id number]) 06/23/23 Recorded SARS-CoV-2 (COVID-19) mRNA BNT-162b2 vac 04/29/22 Recorded SARS-CoV-2 (COVID-19) mRNA BNT-162b2 vac 05/08/21 Recorded SARS-CoV-2 (COVID-19) mRNA BNT-162b2 vac 10/15/20 Recorded SARS-CoV-2 (COVID-19) mRNA BNT-162b2 vac 09/24/20 Recorded [id number] 12y+ bivalent booster vax 04/15/22 Recorded pneumococcal 23-valent vaccine 10/08/21 Recorded tetanus/diphtheria/pertussis, acel(Tdap) 05/16/20 Recorded zoster vaccine, inactivated 04/20/20 Recorded pneumococcal 13-valent vaccine 04/25/19 Recorded pneumococcal 13-valent vaccine 09/09/16 Recorded Medications Albuterol (Eqv-ProAir HFA) 90 mcg/inh inhalation aerosol 2 puffs = 180 mcg, Inhalation, Every 6 hours, PRN Wheezing/Shortness of Breath, # 8.5 Gm, 5 Refills, Maintenance, 08/03/23 10:27:00 EST, Inhaler, [facility]/pharmacy #[id number], Partial fill upon patient requestif the prescription is for a schedule II opioid james... Start Date: 08/03/23 Status: Ordered albuterol 0.083% inhalation solution 3 mL = 2.5 mg, Inhalation, Every 6 hours, PRN for wheezing, # 60 each, 2 Refills, Maintenance, 04/29/23 12:22:00 EDT, Solution, [facility]/pharmacy #[id number], Partial fill upon patient request if the prescription is for a schedule II opioid drug., 172, cm, 04/08... Start Date: 04/29/23 Status: Ordered atorvastatin 40 mg oral tablet 1 tablet, By Mouth, Daily at bedtime, # 90 tablet, 1 Refills, Maintenance, 09/21/23 13:01:00 EST, [facility] STORE 49650, 172, cm, 06/30/23 9:51:00 EST, Height, 84.8, kg, 02/17/23 8:16:00 EDT, Dry Weight Start Date: 09/21/23 Status: Ordered bisacodyl 10 mg rectal suppository 1 supp = 10 mg, Rectally, Daily, PRN for constipation, # 12 supp, 1 Refills, Maintenance, 12/11/23 13:29:00 EDT, Suppository, [facility], Partial fill upon patient request if [...] 0 Refills, Maintenance, 12/29/23 13:11:00 EDT, Capsule, [facility]/pharmacy #[id number], Partial fill upon patient request if the [...] capsule, 1 Refills, Maintenance, 02/16/24 9:27:00 EDT, [facility] STORE 95632, 173, cm, 01/08/24 16:16:00 EDT, Height, 81.8, kg, 12/09/23 17:44:00 EDT, Dry Weight Start Date: 02/16/24 Status: Ordered Ozempic 8 mg/3 mL (2 mg dose) subcutaneous solution = 2 mg, Subcutaneous Injection, Every week, in the abdomen, thigh, or upper arm, # 3 mL, 2 Refills,Maintenance, 12/15/23 11:17:00 EDT, Solution, [facility]/pharmacy #[id number], Partial fill upon patient requestif the prescription is for a schedule II opioid james... Start Date: 12/15/23 Status: Ordered Pen [place], 31 G x 5 mm BD Ultra Fine III See Instructions, # 100 each, Refills 5, Tot. Refills 5, Maintenance, use as directed for Type 2 Diabetes Mellitus to inject insulin once a day, 08/27/23 16:46:00 EST, Supply, 172, cm, 06/30/23 9:51:00 EST, Height, 84.8, kg, 02/17/23 8:16:00 EDT, Dry... Start Date: 08/27/23 Stop Date: 02/23/24 Status: Ordered Pen [place], 31 G x 5 mm BD Ultra [...] 3 Refills, Maintenance, 09/23/23 10:05:00 EST, Tablet, [facility]/pharmacy #[id number], Partial fill upon patient request if the prescription is for a schedule II opioid drug., 17... Start Date: 09/23/23 Status: Ordered tiZANidine 2 mg oral capsule 1 capsule = 2 mg, By Mouth, 2 times a day, PRN as needed for muscle spasm, # 180 capsule, 0 Refills, Maintenance, 02/13/24 11:27:00 EDT, Capsule, [facility]/pharmacy #[id number], Partial fill upon patient requestif [...] Confirmed Active Constipation Confirmed Active CAD in [place] artery Confirmed Active Dysuria Confirmed Active History [...] Code MRI Safety Implantable Status Assigning Authority [id number] Unknown [id number] Unknown 01/01/25 Unknown Unknown Active GS1 [id number] Unknown [id number] Unknown 01/01/25 Unknown Unknown Active GS1 Procedure Provider Procedure Date Device Type Site Decompression Transforaminal Lumbar Inte Maycol De Guzman MD 11/16/23 Unknown Other Device Identifier Serial Number Lot or Batch Number Manufacturing Date Expiration Date Distinct Identification Code MRI Safety Implantable Status Assigning Authority Unknown [id number] Unknown Unknown 10/19/25 Unknown Unknown Active Unknown Procedure Provider Procedure Date Device Type Site Decompression Transforaminal Lumbar Inte Maycol De Guzman MD 11/13/23 Unknown Back Device Identifier Serial Number Lot or Batch Number Manufacturing Date Expiration Date Distinct Identification Code MRI Safety Implantable Status Assigning Authority Unknown [id number] Unknown 07/23/25 Unknown Unknown Active Unknown Patient Care team information Care Team Personnel Name: Edita Raphael RN Position: [facility] RN Member Role: Primary Care Nurse Name: Alla Ibarra RN Position: [facility] RN Member Role: Primary Care Nurse Name: Lindsay Smith RN Position: [facility] RN Member Role: Primary Care Nurse Name: Haley Osullivan RN Position: [facility] RN Member Role: Primary Care Nurse Name: Rosa Motley RN Position: [facility] RN Member Role: Primary Care Nurse Name: Yuri Lima Position: [facility] Outreach Member Role: Lifetime Consulting Physician Name: Sunshine Turner RN Position: [facility] ED RN W/OE and Tasks Member Role: Primary Care Nurse Name: Rowdy Cerda MD Position: [facility] Renal MD Member Role: Lifetime Consulting Physician Address: Address: [address] [place] [address] [facility] [place] [address]- Name: Issac Gagnon MD Position: [facility] Physician - Primary Care Member Role: PCP Address: Address: [address] [place] [address] [place] [address]- Name: Yoselin Strange RN Position: [facility] RN Member Role: Primary Care Nurse Name: Darren Araiza RN Position: [facility] RN Member Role: Primary Care Nurse Care Team Related Persons Name: REEMA IZQUIERDO Address: [address] [place] [address] Name: LETTY IZQUIERDO Address: home [address] [place], [place] Name: ARYA IZQUIERDO Address: home [address] [place] [address]
--- OUTSIDE RECORDS SUMMARY | 2024-03-02 08:19 | XMS_ITS | Continuity of Care Document ---
Author Organization [facility] Address [address] [place] [address]- Care Team Providers Care Patent Searcher Name Role Phone Issac Gagnon MD Primary Care Physician Encounter [facility] [place] Date(s): 06/14/23 - 07/14/23 [facility] [address] [place] [address]- Attending Physician: Carrington Kim Admitting Physician: AdmtrCarrington [...] influenza virus vaccine, inactivated 04/25/19 Brad rded [id number] 12y+ bivalent booster vax 04/15/22 Recorded pneumococcal 23-valent vaccine 10/08/21 Recorded tetanus/diphtheria/pertussis, acel(Tdap) 05/16/20 Recorded zoster vaccine, inactivated 04/20/20 Recorded pneumococcal 13-valent vaccine 04/25/19 Recorded pneumococcal 13-valent vaccine 09/09/16 Recorded Medications Albuterol (Eqv-ProAir HFA) 90 mcg/inh inhalation aerosol 2 puffs = 180 mcg, Inhalation, Every 6 hours, PRN Wheezing/Shortness of Breath, # 8.5 Gm, 2 Refills, Maintenance, 04/29/23 12:20:00 EDT, Inhaler, [facility]/pharmacy #[id number], Partial fill upon patient requestif the prescription is for a schedule II opioid james... Start Date: 04/29/23 Status: Ordered albuterol 0.083% inhalation solution 3 mL = 2.5 mg, Inhalation, Every 6 hours, PRN for wheezing, # 60 each, 2 Refills, Maintenance, 04/29/23 12:22:00 EDT, Solution, [facility]/pharmacy #[id number], Partial fill upon patient request if the prescription is for a schedule II opioid drug., 172, cm, 04/08... Start Date: 04/29/23 Status: Ordered atorvastatin 40 mg oral tablet 1 tablet = 40 mg, By Mouth, Daily at bedtime, # 90 tablet, 1 Refills, Maintenance, 03/20/23 11:43:00 EDT, Tablet, [facility]/pharmacy #2476, 172, cm, 01/09/23 15:36:00 [...] 3 Refills, Maintenance, 08/12/22 16:50:00 EST, Powder, [facility]/pharmacy #2476, Partial fill upon patient [...] Maintenance,04/22/23 15:31:00 EDT, [id number] Partial fill upon patient request if the prescription is for a schedule II... Start Date: 04/22/23 Status: Ordered GlipiZIDE XL 5 mg oral tablet, extended release 1 tablet = 5 mg, By Mouth, Daily, # 90 tablet, 0 Refills, Maintenance, 06/30/23 10:29:00 EST, ER Tablet, [facility]/pharmacy #[id number], Partial fill upon patient request if the prescription is for a schedule IIopioid drug., 172, cm, 06/30/23 9:51:00 EST, Height... Start Date: 06/30/23 Status: Ordered ipratropium nasal 21 mcg/inh spray See Instructions, SPRAY 2 SPRAYS INTRANASALLY IN EACH NOSTRIL 3 TIMES A DAY, # 30 Unknown, 1 Refills, Maintenance, 09/30/22 12:00:00 EST, [facility] STORE 19772, 28, SPRAY 2 SPRAYS INTRANASALLY IN EACH [...] 0 Refills, Maintenance, 05/07/23 8:45:00EDT, EC Capsule, [facility]/pharmacy #2476, Partial fill upon patient request if the prescription is for aschedule II opioid drug., 172, cm, 04/08/23 8:37:00... Start Date: 05/07/23 Status: Ordered Pen [place], 31 G x 5 mm BD Ultra [...] 1 Refills, Maintenance, 03/12/23 16:16:00 EDT, Tablet, [facility]/pharmacy #3916, Partial fill upon patient request if the [...] Refills, Maintenance, 05/07/23 9:29:00 EDT, [facility], 172, cm, 04/08/23 8:37:00 EDT, Height, 84.8, kg, 02/17/23 8:16:00 EDT, Dry Weight Start Date: 05/07/23 Status: Ordered Problem List Condition Confirmation Course Effective Dates Status H ealth Status Informant Stage 3b chronic kidney disease (CKD) Confirmed Active CAD in [place] artery Confirmed Active History of syncope Confirmed [...] * Event Display: CT Scan Abdomen, Non- Authored Date: Patient Care team information Care Team Personnel Name: Edita Raphael RN Position: [facility] RN Member Role: Primary Care Nurse Name: Yuri Lima Position: [facility] Outreach Member Role: Lifetime Consulting Physician Name: Sunshine Turner RN Position: [facility] ED RN W/OE and Tasks Member Role: Primary Care Nurse Name: Rowdy Cerda MD Position: [facility] Renal MD Member Role: Lifetime Consulting Physician Address: Address: [address] [place] [address] [facility] [place] [address]- Name: Chelsi SHIELDS, Issac Simon Position: [facility] Physician - Primary Care Member Role: PCP Address: Address: [address] [place] [address] [place] [address]- Care Team Related Persons Name: REEMA IZQUIERDO Address: [address] [place] [address] Name: LETTY IZQUIERDO Address: home [address] [place] [address] Name: ARYA IZQUIERDO Address: home [address] [place] [address]
--- OUTSIDE RECORDS SUMMARY | 2024-03-02 08:19 | XMS_ITS | Continuity of Care Document ---
Author Organization [facility] Address [address] [place] [address]- Care Team Providers Care Ob/Gyn Physician Name Role Phone Chelsi SHIELDS, Issac Simon Primary Care Physician [phone] [place] [facility] [place] - 01/22/23 [facility] [address] [place] [address]- Attending Physician: Carrington Kim Admitting Physician: AdmtrCarrington [...] influenza virus vaccine, inactivated 04/25/19 Brad rded [id number] 12y+ bivalent booster vax 04/15/22 Recorded pneumococcal [...] 01/22/23 9:16:00 EDT, Route to Pharmacy Electronically, [facility]/pharmacy #[id number], Partial fill upon patient request if the prescription is for a schedule II opioid drug... Start Date: 01/22/23 Status: Ordered atorvastatin 40 mg oral tablet 1 tablet = 40 mg, By Mouth, Daily at bedtime, TAKE 1 TABLET BY MOUTH EVERY DAY AT BEDTIME, # 90 tablet, 3 Refills, Maintenance, Tablet, Route to Pharmacy Electronically, [id number], [facility]/pharmacy #2476 Start Date: 04/06/17 Stop [...] 16:23:00 EDT, Route to Pharmacy Electronically, [facility]/pharmacy #1994, Partial fill upon patient request if the prescription is for a schedule II... Start Date: 10/27/22 Status: Ordered ipratropium nasal 21 mcg/inh spray See Instructions, SPRAY 2 SPRAYS INTRANASALLY IN EACH NOSTRIL 3 TIMES A DAY, # 30 Unknown, 1 Refills, Maintenance, 09/30/22 12:00:00 EST, [facility] STORE 92649, 28, SPRAY 2 SPRAYS INTRANASALLY IN EACH NOSTRIL 3 TIMES A DAY, 172, cm, 09/05/22 15:08:00 EST, H... Start Date: 09/30/22 Status: Ordered meclizine 25 mg oral tablet 1 tablet = 25 mg, By Mouth, 3 times a day, PRN for motion sickness, # 30 tablet, 0 Refills, Maintenance, 11/21/22 12:57:00 EDT, Tablet, [facility]/pharmacy #[id number], Partial fill upon patient [...] DAY Start Date: 07/07/19 Status: Ordered Pen [place], 31 G x 5 mm BD Ultra [...] 1 Refills, Maintenance, 11/18/22 17:26:00 EDT, [facility]/pharmacy #7297, Partial fill upon patient request if the [...] kidney disease (CKD) Confirmed Active CAD in [place] artery Confirmed Active Hyperlipidemia Confirmed Active Moderate [...] Radiology * Event Display: X-Ray Chest, Non- Authored Date: * Event Display: CT Scan Abdomen, Non- Authored Date: Patient Care team information Care Team Personnel Name: Edita Raphael RN Position: [facility] RN Member Role: Primary Care Nurse Name: Diamond Ocampo Position: [facility] TA Member Role: Lifetime Consulting Physician Name: Yuri Lima Position: [facility] Outreach Member Role: Lifetime Consulting Physician Name: Sunshine Turner RN Position: [facility] ED RN W/OE and Tasks Member Role: Primary Care Nurse Name: Issac Gagnon MD Position: [facility] Physician - Primary Care Member Role: PCP Address: Address: [address] [place] [address] [place] [address]- Care Team Related Persons Name: REEMA IZQUIERDO Address: home [address] [place] [id number] Name: LETTY IZQUIERDO Address: [address] [place] [address] Name: ARYA IZQUIERDO Address: [address] [place] [address]
--- OUTSIDE RECORDS SUMMARY | 2024-03-02 08:19 | XMS_ITS ---
Author Organization [facility] Address [address] [place] [address] Care Team Providers Care Systems Test Engineer Name Role Phone Charlesjadiel Issac Primary Care Provider Yuli Naylor Unavailable [phone] REASON FOR VISIT Records Release Encounters En[facility] Date [facility] [address] [id number] 04/27/[facility]23 Yuli Lopez PLAN OF TREATMENT No Information
--- OUTSIDE RECORDS SUMMARY | 2024-03-02 08:19 | XMS_ITS | Continuity of Care Document ---
Author Organization [facility] g[facility]berto Address [address] [place] [address] [address] [place] [address]- Care Team Providers Care Advisor To Command In Combat Name Role Phone Chelsi SHIELDS, Issac [place] Primary Care Physician Encounter [facility] Date(s): 03/02/23 - 04/01/23 [facility] [address] [place], [place] [address] Attending Physician: AdmErasmo england8 Admitting Physician: AdmtrCarrington Referring Physician: Admtr, Ar8 [...] influenza virus vaccine, inactivated 04/25/19 Brad rded [id number] 12y+ bivalent booster vax 04/15/22 Recorded pneumococcal [...] 01/22/23 9:16:00 EDT, Route to Pharmacy Electronically, [facility]/pharmacy #[id number], Partial fill upon patient request if the prescription is for a schedule II opioid drug... Start Date: 01/22/23 Status: Ordered atorvastatin 40 mg oral tablet 1 tablet = 40 mg, By Mouth, Daily at bedtime, # 90 tablet, 1 Refills, Maintenance, 03/20/23 11:43:00 EDT, Tablet, [facility]/pharmacy #[id number], 172, cm, 01/09/23 15:36:00 EDT, Height, 84.8, kg, 02/17/23 8:16:00 EDT, Dry Weight Start Date: 03/20/23 Stop Date: 09/16/23 Status: Ordered Flovent Diskus 100 mcg/inh inhalation powder 1 puffs, By Mouth, 2 times a day, INHALE 1 PUFF BY MOUTH DIRECTED TWICE A DAY, # 3 each, 3 Refills, Maintenance, 08/12/22 16:50:00 EST, Powder, [facility]/pharmacy #[id number], Partial fill upon patient request if the prescription is for a schedule II opioid drJason.. Start Date: 08/12/22 Status: Ordered Freestyle Lite [...] Maintenance,01/26/23 12:45:00 EDT, [id number] Partial fill upon patient request if the prescription is for a schedule II... Start Date: 01/26/23 Status: Ordered ipratropium nasal 21 mcg/inh spray See Instructions, SPRAY 2 SPRAYS INTRANASALLY IN EACH NOSTRIL 3 TIMES A DAY, # 30 Unknown, 1 Refills, Maintenance, 09/30/22 12:00:00 EST, [facility] STORE [id number], 28, SPRAY 2 SPRAYS INTRANASALLY IN EACH NOSTRIL 3 TIMES A DAY, 172jacky, 09/05/22 15:08:00 EST, H... Start Date: 09/30/22 [...] Refills, Maintenance, 02/23/23 15:25:00 EDT, EC Capsule, [facility]/pharmacy #[id number], Partial fill upon patient request [...] drug. Start Date: 02/17/23 Status: Ordered Pen [place], 31 G x 5 mm BD Ultra [...] 1 Refills, Maintenance, 03/12/23 16:16:00 EDT, Tablet, [facility]/pharmacy #[id number], Partial fill upon patient request if the prescription is for a schedule II opioid drug., 17... Start Date: 03/12/23 Status: Ordered sertraline 25 mg oral tablet 1 tablet = 25 mg, By Mouth, Daily, along with sertraline 100 mg daily., # 90 tablet, 1 Refills, Maintenance, 03/13/23 15:21:00 EDT, Tablet, [facility]/pharmacy #[id number], Partial fill upon patient request [...] Refills, Maintenance, 03/16/23 9:47:00 EDT, [id number], 172, cm, 01/09/23 15:36:00 EDT, Height, 84.8, kg, 02/17/23 8:16:00... Start Date: 03/16/23 Status: Ordered Problem List Condition Confirmation Course Effective Dates Status H ealth Status Informant Stage 3b chronic kidney disease (CKD) Confirmed Active CAD in [place] artery Confirmed Active Hyperlipidemia Confirmed Active Moderate [...] Team Personnel Name: Edita Raphael RN Position: [facility] RN Member Role: Primary Care Nurse Name: Diamond Ocampo Position: [facility] TA Member Role: Lifetime Consulting Physician Name: Yuri Lima Position: [facility] Outreach Member Role: Lifetime Consulting Physician Name: Sunshine Turner RN Position: [facility] ED RN W/OE and Tasks Member Role: Primary Care Nurse Name: Issac Gagnon MD Position: [facility] Physician - Primary Care Member Role: PCP Address: Address: [address] [place] [address] - [place] [address]- [place] Care Team Related Persons Name: REEMA IZQUIERDO Address: [address] [place] [address] Name: LETTY IZQUIERDO Address: [address] [place] [address] Name: ARYA IZQUIERDO Address: [address] [place] [address]
--- OUTSIDE RECORDS SUMMARY | 2024-03-02 08:19 | XMS_ITS | Patient Health Record ---
Author Organization [facility] Address [address] [facility] [place] [address] Care Team Providers Care Sales Project Coordinator Name Role Phone Chelsi Issac Primary Care Provider Yuli Naylor Unavailable [phone] ALLERGIES No Known Allergies REASON FOR REFERRAL No Information MEDICATIONS Medication SIG (Take, Route, Frequency, Duration) Notes Start Date End Date Status Basaglar KwikPen Not -Taking amLODIPine Besylate Unknown Flovent Diskus 100 MCG/BLIST 1 puff Inhalation Twice a day Active MiraLax - as directed Orally N ot-Taking traZODone HCl 50 MG 1 tablet at bedtime as needed Orally Once a day Active Famotidine 40 MG 1 tablet at bedtime Orally Once a day for 30 day(s) Not-Taking Trulicity 3 MG/0.5ML as directed Subcutaneous Active Allopurinol 100 MG TAKE 1 TABLET BY JOSAFAT TH EVERY DAY for 90 Not-Taking Omeprazole 20 MG 1 capsule 30 minutes before morning meal Orally Once a day Active Night Splint AFO - L1930 as directed 08/05/2019 Not-Taking Gabapentin 300mg three times a day or ally daily Active Extra Depth Orthopedic Shoes (1 Pair) with Customized Heat Molded Multidensity Innersoles (3 Pair) as directed Dx: NIDDM/Polyneuropathy (E11.42), Hammertoe Foot Deformity (M20.41,M20.42), Preulcerative Skin Lesion(s) (L85.1 08/05/2019 Not-Taking Topiramate 50 MG 1 tablet Orally Once a day for 30 day(s) Not-Taking Keflex 500 MG 1 capsule Orally aureliano ry 12 hrs for 7 days 02/26/2023 Active Allopurinol 100 MG 1 tablet Orally Once a day Active Atorvastatin Calcium 40 MG 1 tablet Orally Once a day for 30 day(s) Active PARoxetine HCl 20 MG 1 tablet in the mor francesca Orally Once a day for 30 day(s) Not-Taking Montelukast Sodium 10 MG 1 tablet Orally Once a day for 30 day(s) Not-Taking glipiZIDE 5 MG 1 tablet 30 minutes before breakfast Orally Once a day for 30 day(s) Not-James ing Benazepril HCl 5 MG Orally Not-Taking IMMUNIZATIONS Vaccine Route Administration Date Status Comme nts Influenza Unknown 05/21/2022 Administered SOCIAL HISTORY Tobacco Use: Social History Observation Description Date Details (start date - stop date) Never Smoker NA - NA Sex Assigned At : Social History Observation Description Sex Assigned At Unknown Tobacco Use/Smoking Question Answer Notes Are you a: nonsmoker Additional Findings: Tobacco Non-User Current no n-smoker Alcohol Screen Question Answer Notes Did you have a drink containing alcohol in the p ast year? No Points 0 Interpretation Negative Tobacco use other than smoking: Question Answer Notes Are you an other tobacco user? 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) Active confirmed [id number] Encounters Encounter Location Date Provider Diagnosis [facility] [address] [place] [address] 03/09/2023 Yuli Lopez [facility] [address] [address] 03/12/2023 Yuli Lopez [facility] [address] 04/27/2023 Yuli Lopez PLAN OF TREATMENT Pending Test Test Name Order Date X ray : Foot, left 3V 08/05/2019 X ray : Foot, right 3V 02/26/2023 X ray : Foot, right 3V 08/05/2019 Insurance Providers Payer Name Payer Address Payer Phone Subscriber Number Group Number Insured Name Patient Relationship to Insured Coverage Start Date Coverage End Date Medicare National Govt [employer] [address] [place] [address] [id number] Amarjit Oswald Self - patient is the insured 5 [employer] [address] [place] [id number] Amarjit Oswald Self - patient is the insured 9 MEDICAL (GENERAL) HISTORY Medical History History ICD Code Anxiety asthma Back,Hip,and Knee pain Broken bones CAD (Cholesterol) Chicken pox Depression Diabetes mellitus Gall bladder problems Gout Headaches/Migraines Heart disease High blood pressure Kidney disease Measles Mumps Poor circulation chronic sinusitis Surgical History Surgery Date(Month/Year) disc surgery right elbow sx 1995 rotator cuff tear repair 2006 gall bladder 2018 left carpal tunnel surgery 02/17/2023
--- OUTSIDE RECORDS SUMMARY | 2024-03-02 08:19 | XMS_ITS | Continuity of Care Document ---
Author Organization [facility] Address [address] [place] [address]- Care Team Providers Care Local Combination Truck Driver Name Role Phone Issac Gagnon MD Primary Care Physician Encounter [facility] [place] Date(s): 04/01/23 - 04/08/23 [facility] [address] [place] [address]- Encounter Diagnosis Left wrist pain(Discharge Diagnosis) - 04/01/23 Low back pain(Discharge Diagnosis) - 04/03/23 Syncope(Discharge Diagnosis) - 04/03/23 Attending Physician: Rayray Fraser MD Referring Physician: Issac Gagnon MD Allergies, [...] influenza virus vaccine, inactivated 04/25/19 Brad rded [id number] 12y+ bivalent booster vax 04/15/22 Recorded pneumococcal [...] Refills, Maintenance, 03/20/23 11:43:00 EDT, Tablet, [facility]/pharmacy #[id number], 172, cm, 01/09/23 15:36:00 EDT, Height, 84.8, [...] Refills, Maintenance, 08/12/22 16:50:00 EST, Powder, [facility]/pharmacy #1286, Partial fill upon patient request if the prescription is for a schedule II opioid . Start Date: 08/12/22 Status: Ordered Freestyle Lite [...] Maintenance,01/26/23 12:45:00 EDT, [id number] Partial fill upon patient request if the prescription is for a schedule II... Start Date: 01/26/23 Status: Ordered ipratropium nasal 21 mcg/inh spray See Instructions, SPRAY 2 SPRAYS INTRANASALLY IN EACH NOSTRIL 3 TIMES A DAY, # 30 Unknown, 1 Refills, Maintenance, 09/30/22 12:00:00 EST, [facility] STORE [id number], 28, SPRAY 2 SPRAYS INTRANASALLY IN EACH [...] Refills, Maintenance, 02/23/23 15:25:00 EDT, EC Capsule, [facility]/pharmacy #[id number], Partial fill upon patient request if the prescription is for a schedule II opioid drug., 172, cm, 01/09/23 15:36:... Start Date: 02/23/23 Status: Ordered Pen [place], 31 G x 5 mm BD Ultra [...] Refills, Maintenance, 03/12/23 16:16:00 EDT, Tablet, [facility]/pharmacy #7766, Partial fill upon patient request if the prescription is for a schedule II opioid drug., 17... Start Date: 03/12/23 Status: Ordered sertraline 25 mg oral tablet 1 tablet = 25 mg, By Mouth, Daily, along with sertraline 100 mg daily., # 90 tablet, 1 Refills, Maintenance, 03/13/23 15:21:00 EDT, Tablet, [facility]/pharmacy #0036, Partial fill upon patient request if the [...] Refills, Maintenance, 03/16/23 9:47:00 EDT, [facility], 172, cm, 01/09/23 15:36:00 EDT, Height, 84.8, kg, 02/17/23 8:16:00 EDT, Dry Weight Start Date: 03/16/23 Status: Ordered Problem List Condition Confirmation Course Effective Dates Status H ealth Status Informant Stage 3b chronic kidney disease (CKD) Confirmed Active CAD in [place] artery Confirmed Active Hyperlipidemia Confirmed Active Moderate persistent asthma Confirmed Active Type 2 diabetes mellitus with diabetic neuropathy Confirmed Active Medication management Confirmed Active Post-nasal drip Confirmed Active Seborrheic keratoses Confirmed Active Diagnosis Diagnosis Type Effective Dates Health Status inical Service Informant Left wrist pain Discharge Diagnosis 04/01/23 Low back pain Discharge Diagnosis 04/03/23 Syncope Discharge Diagnosis 04/03/23 Vital Signs Most recent to oldest [Reference Range]: 1 Height 172 cm (04/01/23 12:56 PM) Oxygen Saturation [94-100 %] 98 % (04/01/23 12:56 PM) Pulse Rate [55-90 bpm] 73 bpm (04/01/23 12:56 PM) Blood Pressure [90-138/55-84 mm Hg] 146/ 98mm Hg *H* (04/01/23 12:56 PM) Respiratory Rate [16-30 br/min] 20 br/mi n (04/01/23 12:56 PM) Temperature [96.8-100.4 DegF] 97.6 DegF (04/01/23 12:56 PM) Mode of Delivery (Oxygen) Room air (04/01/23 12:56 PM) Blood pressure sites Arm, right (04/01/23 12:56 PM) Temperature Route Temporal (04/01/23 12:56 PM) Social History Social History Type Response Smoking Status Never smoker; Tobacc o user in household: No entered on: 02/08/16 Sex Note * Daniel Cochran: PERFORM, SIGN, VERIFY Event Display: Patient Education/Instruction Authored Date: [id number] [facility] Clinical Summary Name BRANDEN IZQUIERDO Age 72 Years 1950 PCP Chelsi SHIELDS, Issac [place] PCP Visit Date 04/01/2023 12:21:00 Additional Instructions: Scheduled Appointments?? Future Appointments ?No Future Appointments Scheduled Follow-Up Instructions ?? Diagnosis Medications: Please continue your medications until treatment is completed or stopped by your provider. Discuss any questions related to medications with your provider. Medications to Continue with No Changes These medications were not printed or sent to your pharmacy Albuterol (Albuterol (Eqv-ProAir HFA) 90 mcg/inh inhalation aerosol) 2 puff(s) Inhalation every 6 hours as needed Wheezing/Shortness of Breath. Next Dose: Allopurinol (allopurinol 100 mg oral tablet) 1 tab(s) Oral Daily. Refills: 3. Next Dose: Atorvastatin (atorvastatin 40 mg oral tablet) 1 tab(s) Oral Daily at Bedtime for 90 Days. Refills: 1. Next Dose: dulaglutide (Trulicity Pen 1.5 mg/0.5 mL subcutaneous solution) INJECT 1.5 MG (0.5 ML) SUBCUTANEOUSINJECTION EVERY WEEK,X90 DAYS,ROTATE INJECTION SITES. Refills: 1. Next Dose: Durable Medical Equipment (Freestyle Lite Test Strips) use twice a day to check gluocse for Type 2 Diabetes Mellitus. Refills: 1. Next Dose: Durable Medical Equipment (Pen [place], 31 G x 5 mm BD Ultra Fine III) use as directed for Type 2 Diabetes Mellitus. Refills: 2. Next Dose: Fluticasone (Flovent Diskus 100 mcg/inh inhalation powder) 1 puff(s) Oral twice a day. INHALE 1 PUFF BY MOUTH DIRECTED TWICE A DAY. Refills: 3. Next Dose: Gabapentin (gabapentin 300 mg oral capsule) 1 capsule Oral 3 times a day. Refills: 0. Next Dose: Ipratropium Nasal (ipratropium nasal 21 mcg/inh spray) SPRAY 2 SPRAYS INTRANASALLY IN EACH NOSTRIL 3 TIMES A DAY. Refills: 1. Next Dose: Miscellaneous Rx USE DIRECTED TO TEST BLOOD SUGARS 3 TIMES DAILY. Next Dose: Miscellaneous Rx TEST FOUR TIMES A DAY (DX: E11.9). Next Dose: Miscellaneous Rx TAKE 1 TABLET BY MOUTH TWICE A DAY. Next Dose: Omeprazole (omeprazole 20 mg oral enteric coated capsule) 1 capsule Oral twice a day. Refills: 0. Next Dose: Oxycodone (oxyCODONE 5 mg oral capsule) 1 capsule Oral every 6 hours as needed as needed for pain. Next Dose: Sertraline (sertraline 100 mg oral tablet) 1 tab(s) Oral Daily. along with sertraline 25 mg daily..Refills: 1. Next Dose: Sertraline (sertraline 25 mg oral tablet) 1 tab(s) Oral Daily. along with sertraline 100 mg daily..Refills: 1. Next Dose: Topiramate (topiramate 50 mg oral capsule, extended release) 1 capsule Oral Daily. contents of capsule may be mixed with soft foods such as applesauce. Next Dose: Trazodone (traZODone 50 mg oral tablet) 1 tab(s) Oral Daily at Bedtime. Next Dose: Allergy Info:?? Jardiance; Pollen; Mold; Dust; Dogs; Cats Medications Given This Visit Future Orders ?No future orders Vital Signs Height 172 cm Weight BMI Blood Pressure 146 mm Hg/98 mm Hg Temperature 97.6 DegF Pulse Rate 73 bpm Respiratory Rate 20 br/min 02 Sat Mode of Delivery 98 %/Room air You can now view a summary of your hospital visit from the comfort of your home through a free online portal called [employer]. [employer] is a website that allows you to securely view your medical information including discharge summary, medications and follow-up visits. ??You can alsosend a secure electronic message to your doctor???s office to request appointments, renew medications or just ask a question. You can enroll at [email or web address] or register during your next office visit. Disclaimer:?? The information provided is of a general nature and is intended to be used in conjunction with the recommendations and advice of your health care practitioner. ??Every effort has been made to ensure that the information provided is accurate and complete at the time it is provided to you however, as your needs change, or, as new ??information becomes available, different or additional instructions may be required. If you have questions, please consult with your primary care provider or pharmacist, as appropriate. ??This information is not intended to serve as substitution for assessment and evaluation by a qualified health care provider. If you do not have a primary care provider, you may find a [facility] provider by calling [facility] [employer] at [phone]. [facility], in keeping with [facility] guidance, no longer requires face masks for staff, patientsor visitors in most situations. Similar to time spent indoors at other locations, there is the chance that you were exposed to respiratory viruses during your time with us (such as flu or COVID-19).? If you develop symptoms concerning for a viral respiratory infection, please seek testing (and treatment if indicated) from your medical provider or home test kit. For information about the plan of care including goals and instructions for your diagnosis, please see the patient education orders section of this document. Patient Education Materials?? The content of this educational material or handout may have been modified, supplemented, or adapted from its original content and format to support your individualized medical care. Patient Care team information Care Team Personnel Name: Edita Raphael RN Position: [facility] RN Member Role: Primary Care Nurse Name: Diamond Ocampo Position: [facility] TA Member Role: Lifetime Consulting Physician Name: Yuri Lima Position: [facility] Outreach Member Role: Lifetime Consulting Physician Name: Sunshine Turner RN Position: [facility] ED RN W/OE and Tasks Member Role: Primary Care Nurse Name: Chelsi SHIELDS, Issac [place] Position: [facility] Physician - Primary Care Member Role: PCP Address: Address: [address] [facility] [place] [address]- [place] Care Team Related Persons Name: REEMA IZQUIERDO Address: home [address] [place], [place] Name: LETTY IZQUIERDO Address: [address], [place] Name: ARYA IZQUIERDO Address: [address] [place] [address]
--- OUTSIDE RECORDS SUMMARY | 2024-03-02 08:19 | XMS_ITS | Continuity of Care Document ---
Author Organization [facility] Address [address] [place] [address]- Care Team Providers Care Primer Assembler Name Role Phone Radu Duarte MD Primary Care Physician ( [phone] Encounter [facility] [place] Date(s): 03/02/21 - 06/30/21 [facility] [address] [place] [address]- Attending Physician: Gilson Houser MD Admitting Physician: Gilson Houser MD Referring Physician: Kavya Rojas MD Allergies, Adverse Reactions, Alerts Substance Reaction [...] 07/18/19 13:23:00 EST, Route to Pharmacy Electronically, [facility]/pharmacy #[id number], 172, cm, 07/07/19 9:07:00 EST, [...] Refills, Maintenance, Tablet, Route to Pharmacy Electronically, [id number], [facility]/pharmacy #[id number] Start Date: 04/06/17 Stop Date: 04/01/18 Status: Ordered Basaglar KwikPen 100 units/mL subcutaneous solution = 40 units, Subcutaneous Injection, Daily at bedtime, # 10 mL, 0 Refills, Maintenance, 05/10/19 16:31:45 EDT, Solution Start Date: 05/10/19 Status: Ordered benazepril 5 mg oral tablet 1 tablet = 5 mg, By Mouth, Daily, # 90 tablet, 3 Refills, Maintenance, 05/13/21 15:41:00 EDT, [facility]/pharmacy #[id number], 172, cm, 05/13/21 14:58:00 EDT, Height Start [...] Status Health Status Inform ant CAD in [place] artery(Confirmed) Active Social History Social History Type Response Smoking Status Never smoker; Tobacc o user in household: No entered on: 02/08/16 Sex
--- OUTSIDE RECORDS SUMMARY | 2024-03-02 08:19 | XMS_ITS | Continuity of Care Document ---
Author Organization [facility] Address [address] [place] [address]- Care Team Providers Care Pillowcase Folder Name Role Phone Radu Duarte MD Primary Care Physician Encounter [place] Date(s): 05/31/21 - 06/30/21 [facility] [address] [place], [place] [address]- Attending Physician: Carrington Kim Admitting Physician: AdmCarrington england Referring Physician: AdmtrCarrington Allergies, Adverse Reactions, Alerts Substance Reaction Severity Status Cats hayfever Active Mold hayfever Active Dogs hayfever Active Pollen hayfever Active Dust hayfever Active Immunizations Not Given Vaccine Date Status Refusal Reason pneumococcal 13-valent vaccine 06/11/17 Not Given Patient Refuses Medications amLODIPine 2.5 mg oral tablet 2.5 mg, 1, tablet, By Mouth, Daily, # 90 tablet, Refills 2, Tot. Refills 2, Maintenance, 07/18/19 13:23:00 EST, Route to Pharmacy Electronically, [facility]/pharmacy #[id number], 172, cm, 07/07/19 9:07:00 EST, [...] Refills, Maintenance, Tablet, Route to Pharmacy Electronically, [id number], [facility]/pharmacy #[id number] Start Date: 04/06/17 Stop Date: 04/01/18 Status: Ordered Basaglar KwikPen 100 units/mL subcutaneous solution = 40 units, Subcutaneous Injection, Daily at bedtime, # 10 mL, 0 Refills, Maintenance, 05/10/19 16:31:45 EDT, Solution Start Date: 05/10/19 Status: Ordered benazepril 5 mg oral tablet 1 tablet = 5 mg, By Mouth, Daily, # 90 tablet, 3 Refills, Maintenance, 05/13/21 15:41:00 EDT, [facility]/pharmacy #[id number], 172, cm, 05/13/21 14:58:00 EDT, Height Start [...] Status Health Status Inform ant CAD in [place] artery(Confirmed) Active Social History Social History Type Response Smoking Status Never smoker; Tobacc o user in household: No entered on: 02/08/16 Sex
--- OUTSIDE RECORDS SUMMARY | 2024-03-02 08:19 | XMS_ITS ---
Author Organization [facility] Address [address] [place] [address] Care Team Providers Care Financial Representative Name Role Phone Charlesjadiel Issac Primary Care Provider Yuli Naylor Unavailable [phone] REASON FOR VISIT CX 03/12/23 Encounters En[facility] Date [facility] [address] [address] 03/09/2023 Yuli Lopez PLAN OF TREATMENT No Information
--- OUTSIDE RECORDS SUMMARY | 2024-03-02 08:19 | XMS_ITS | Continuity of Care Document ---
Author Organization [facility] Address [address] [place] [address]- Care Team Providers Care Stock Trader Name Role Phone Conner Lomeli MD Primary Care Physician Encounter [facility] [place] Date(s): 09/12/19 - 09/12/[address] [address] [facility] Attending Physician: Conner Lomeli MD Allergies, Adverse Reactions, [...] 07/18/19 13:23:00 EST, Route to Pharmacy Electronically, [facility]/pharmacy #[id number], 172, cm, 07/07/19 9:07:00 EST, [...] Refills, Maintenance, Tablet, Route to Pharmacy Electronically, [id number], [facility]/pharmacy #[id number] Start Date: 04/06/17 Stop Date: [...] tablet, 3 Refills, Maintenance, 08/17/19 10:28:00 EST, [facility]/pharmacy #[id number], 172, cm, 07/07/19 9:07:00 EST, [...] Status Health Status Inform ant CAD in [place] artery(Confirmed) Active Social History Social History Type Response Smoking Status Never smoker; Tobacc o user in household: No entered on: 02/08/16 Sex
--- OUTSIDE RECORDS SUMMARY | 2024-03-02 08:19 | XMS_ITS ---
Author Organization [facility] Address [address] [facility] [place], [place] [address] Care Team Providers Care Slinger Sequins Name Role Phone Chelsi Issac Primary Care Provider Yuli Naylor Unavailable [phone] Encounters Encounter Location Date Provider Diagnosis [address] [place] [id number] 03/12/2023 Yuli Lopez PLAN OF TREATMENT No Information
[2024-03-02 08:51] VITALS: BP 123/79; PULSE 68; RESP 16; TEMP 36.9; O2SAT 98
[2024-03-02 08:57] LABS: Glucose, Whole Blood 174 mg/dL (60-115)
[2024-03-02] MEDS: Lactated Ringers 1,000 ML 100 ML IVCONT (09:34)
--- NOTE | 2024-03-02 09:34 | MHC.SHP ---
Pre-Procedural Eval Section A - 24 Hr Update-Section A only Date of Service: 03/02/24 The patient is an INPATIENT: No Changes since office visit: Yes Patient answered all questions; No Cold of Flu in the past 2 weeks, No New Medical Problems and No Changes in Medication The patient has been examined within 24 hours of the surgical procedure. The History & Physical has been completed within 30 days and I have reviewed it.: Yes Section B - Complete if H&P > 30 days Chief Complaint: Bilateral inguinal hernia, without obstruction Allergies: Allergies Allergy/AdvReac Type Severity Reaction Status Date / Time animal dander Allergy Intermediate hayfever Verified 03/02/24 08:48 empagliflozin Allergy Intermediate Rash Verified 03/02/24 08:48 [From Jardiance] environmental allergies Allergy Intermediate hayfever Verified 03/02/24 08:48 mold Allergy Intermediate hayfever Verified 03/02/24 08:48 Plan Diagnosis/Plan: Unchanged I have reviewed the history and physical and performed a pertinent physical examination on my patient. No changes have occurred unless specified. Time Spent With Patient Time: Total time managing care of this patient today ____ minutes.
--- NOTE | 2024-03-02 11:47 | W.PM.OPN ---
Operative Note Operative Note Date of Service: 03/02/24 Narrative: Preoperative diagnosis: Bilateral inguinal hernias, reducible Postoperative diagnosis: Same Procedure: Repair of bilateral inguinal hernias Surgeon: Travon Babin MD [facility] Manager: Julian Morgan MS 3 Anesthesia: General LMA Indications for procedure: 73-year-old male patient presenting with a palpable hernia in bilateral groins which increase with lifting and straining but reduce in the supine position. On examination he is found to have bilateral inguinal hernias which increase in size with Valsalva maneuvers. The hernia is easily reduce with light pressure. Operative findings: Patient was found to have bilateral indirect inguinal hernias containing preperitoneal fat Specimen: Lipoma of the cord right groin Estimated blood loss: 5 mL Complications: None Procedure details: Patient was brought to the OR and placed in a supine position. After administering general anesthesia the patient's abdomen was prepped with ChloraPrep and draped in a sterile fashion. A surgical time-out was called and the consent confirmed. Patient received preoperative antibiotics and Venodyne boots were in place. Local anesthesia consisting of 0.5% Sensorcaine was then infiltrated over the bilateral inguinal ligaments. Beginning in the right groin and incision was made over the inguinal ligament and carried out through subcutaneous tissue, past Duncan's fascia up to the external oblique aponeurosis. This was then incised with a scalpel widened with the Metzenbaum scissors. The spermatic cord was then dissected free from the surrounding inguinal canal. Cord was noted to be quite thick from a lipoma. The floor of the inguinal canal was found to be intact. The spermatic cord was then retracted using an Leana drain. Fibers of the cremaster muscle were and the cord explored. A large lipoma was dissected down to the internal ring. No hernia sac could be identified. The lipoma was ligated at its base with a 0 Polysorb suture and excised. This was sent as a specimen. The internal ring was then dissected in a preperitoneal space created using an open Ray-Reginaldo sponge. A large PHS mesh was then obtained. The circular underlay was then deployed within the preperitoneal space. The overlay was then secured to the pubic tubercle, conjoined tendon, and shelving edge of the inguinal ligament using a 0 Polysorb suture. A slit was made in the mesh in the mesh wrapped around the spermatic cord at the internal ring. This was then secured to the shelving edge using the 0 Polysorb suture. The remainder of the mesh was placed below the external oblique aponeurosis laterally. The wounds were then irrigated with saline solution and suctioned dry. External oblique aponeurosis was then closed using interrupted 2-0 Polysorb sutures. Zenrelef 4 mL was then instilled below the external oblique aponeurosis. Duncan's fascia and dermis were then reapproximated using interrupted 3-0 Polysorb sutures. Skin was closed using a running subcuticular 4-0 Polysorb suture. Attention was then directed to the left groin where again local was infiltrated over the inguinal ligament. Incision was then made with a scalpel and carried out through subcutaneous tissue, past Duncan's fashion up to the external oblique aponeurosis. This was then incised with a scalpel widened with the Metzenbaum scissors. The spermatic cord was then dissected free from the surrounding inguinal canal retracted with a Leana drain. Once again a indirect hernia was noted and the floor of the inguinal canal was found to be intact. Fibers of the cremaster muscle were then in the cord dissected. A once again a lipoma of the cord was identified, somewhat smaller than on the right side. This was dissected down to the internal ring and then returned into the preperitoneal space. The preperitoneal space was further dissected using an open Ray-Reginaldo sponge. A large PHS mesh was then obtained. The circular underlay was then deployed within the preperitoneal space. The overlay was then secured to the pubic tubercle, conjoined tendon, and shelving edge of the inguinal ligament using a 0 Polysorb suture. A slit was made in the mesh in the mesh wrapped around the spermatic cord at the internal ring this was then secured to the shelving edge. Wounds were then irrigated with saline solution and suctioned dry. External oblique aponeurosis was then closed using a running 2-0 Polysorb suture. 4 mL of Zenrelef was then instilled below the external oblique aponeurosis. Duncan's fascia and dermis were then reapproximated using interrupted 3-0 Polysorb sutures. Skin was then closed using a running subcuticular 4-0 Polysorb suture. Sterile dressings consisting of Steri-Strips, 4 x 4 gauze and Tegaderm were then applied. The patient tolerated the procedure well. Sponge, instrument, and needle counts reported as correct. The patient was transferred to PACU in stable condition.
[2024-03-02 11:50] VITALS: BP 136/75; PULSE 66; RESP 18; TEMP 36.7; O2SAT 97
[2024-03-02 11:55] VITALS: BP 134/68; PULSE 64; RESP 18; O2SAT 96
[2024-03-02 12:00] VITALS: BP 125/75; PULSE 65; RESP 16; O2SAT 96
[2024-03-02 12:05] VITALS: BP 132/79; PULSE 64; RESP 16; O2SAT 96
[2024-03-02 12:16] VITALS: BP 135/78; PULSE 66; RESP 16; TEMP 36.6; O2SAT 95
== END 2024-03-02 13:09 | disposition home or self-care (01) ==
PROVIDERS: PCP Family Medicine; Visit Provider Surgery
PROC: (CPT 49505; principal; 2024-03-02 10:00)
DX: K40.20 Bilateral inguinal hernia, without obstruction or gangrene, not specified as recurrent (principal); D17.6 Benign lipomatous neoplasm of spermatic cord; K59.03 Drug induced constipation; R14.0 Abdominal distension (gaseous); R63.4 Abnormal weight loss; I25.10 Atherosclerotic heart disease of native coronary artery without angina pectoris; Z95.5 Presence of coronary angioplasty implant and graft; Z68.25 Body mass index [BMI] 25.0-25.9, adult; E11.22 Type 2 diabetes mellitus with diabetic chronic kidney disease; N18.32 Chronic kidney disease, stage 3b; Z79.85 Long-term (current) use of injectable non-insulin antidiabetic drugs; Z79.899 Other long term (current) drug therapy; Z88.8 Allergy status to other drugs, medicaments and biological substances; Z98.890 Other specified postprocedural states
CPT/HCPCS: 49505; 55520; 82947; 88304; C1781; C9088; J0131; J0690; J1885; J2405; J2704; J3010

== ENCOUNTER → 2024-03-02 08:14 | Outpatient (BNV) | payer MEDICARE, OTHER, SELFPAY | PROVIDERS: PCP Family Medicine; Visit Provider Surgery | DX: K40.20 Bilateral inguinal hernia, without obstruction or gangrene, not specified as recurrent (principal) | CPT/HCPCS: 49505 ==

== ENCOUNTER 2024-03-15 11:38 | Outpatient (AMB) | payer MEDICARE, OTHER, SELFPAY ==
--- NOTE | 2024-03-15 11:40 | MHC.OFFVIS ---
Vital Signs 03/15/24 11:44 Height 59 ft Weight 183 lb 6.793 oz BMI 0.3 Pulse 62 Intake Visit Reasons: S/P bilateral reducible Ing. hernia repair/mesh Intake Note: Patient is seen in office for post op assessment post bilateral inguinal hernia repairs. Pt c/o: pain in both side, right side is worse, swollen, warm, minimal redness, not taking pain meds, denies n/v/d/c Risk And Compliance Analytics Director Required: No Accompanied by: Self / Same As Patient Allergies animal dander Allergy (Intermediate, Verified 03/15/24 11:45) hayfever empagliflozin [From Jardiance] Allergy (Intermediate, Verified 03/15/24 11:45) Rash environmental allergies Allergy (Intermediate, Verified 03/15/24 11:45) hayfever mold Allergy (Intermediate, Verified 03/15/24 11:45) hayfever HPI Comments Details: Patient reports needing to lift his twice after she fell during the past week and now notes swelling especially in the right groin. He has pain mainly in the right groin, to a lesser degree in the left groin. He is concerned that he re-injured himself after the surgery. [facility] Medical History Migraine Right foot drop Neuropathy GERD (gastroesophageal reflux disease) Type 2 diabetes mellitus Chronic renal insufficiency Asthma Lumbar back pain Hyperlipidemia CAD (coronary artery disease) Surgical History History of inguinal hernia repair, bilateral (03/02/24) H/O colonoscopy Hx of heart artery stent History of open reduction and internal fixation (ORIF) procedure Hx of arthroscopy of shoulder History of back surgery Hx of cholecystectomy History of back surgery Family History Father Lung cancer Social History Are you a primary animal care giver to a significant other at home: No Do you presently have visiting nurse or other home services: No Unable to assess alcohol history related to: Unknown Patient Tobacco Use Status: Never used Tobacco Physical Exam Vital Signs: Last Vital Signs Pulse 62 03/15/24 11:44 BMI result Body Mass Index 0.3 Const General: no acute distress Nutritional Appearance: well nourished Orientation/consciousness: patient oriented x3 Resp Effort & Inspection: normal respiratory effort GI Other: Bilateral inguinal incisions are clean, dry, and intact. There is bilateral swelling slightly greater in the right compared to the left. Ecchymosis is extending down the right leg. Examination with Valsalva maneuvers reveals no evidence of a recurrent hernia. Skin Other: warm, dry, no rash Neuro General: patient oriented x3 Assessment & Plan Assessment & Plan (1) Bilateral inguinal hernia: Code(s): K40.20 - Bilateral inguinal hernia, without obstruction or gangrene, not specified as recurrent Category: Medical Qualifiers: Obstruction and gangrene presence: without obstruction or gangrene Recurrence: non-recurrent Qualified Code(s): K40.20 - Bilateral inguinal hernia, without obstruction or gangrene, not specified as recurrent Plan Patient returns 1 week following repair of a bilateral inguinal hernia repair with mesh ; he has some swelling in bilateral groins with no evidence of recurrent hernia. Wounds are clean and intact without evidence of infection . I recommend no lifting greater than 10 lb for another month. He should return at that time for wound check. He is welcome to call sooner for any new concerns. Coding Level of Care Code Global (97433) Diagnoses Non-recurrent bilateral inguinal hernia without obstruction or gangrene K40.20 Obstruction and gangrene presence: without obstruction or gangrene Recurrence: non-recurrent
[2024-03-15 11:44] VITALS: PULSE 62
== END 2024-03-15 11:53 | disposition home or self-care (01) ==
PROVIDERS: PCP Family Medicine; Visit Provider Surgery
DX: K40.20 Bilateral inguinal hernia, without obstruction or gangrene, not specified as recurrent (principal)
CPT/HCPCS: 99024

== ENCOUNTER → 2024-03-15 11:38 | Outpatient (BNVA) | payer MEDICARE, OTHER, SELFPAY | PROVIDERS: PCP Family Medicine; Visit Provider Surgery | DX: K40.20 Bilateral inguinal hernia, without obstruction or gangrene, not specified as recurrent (principal); Z48.815 Encounter for surgical aftercare following surgery on the digestive system | CPT/HCPCS: 99212 ==

== ENCOUNTER 2024-04-22 10:40 | Outpatient (AMB) | payer MEDICARE, OTHER, SELFPAY ==
--- NOTE | 2024-04-22 10:41 | MHC.OFFVIS ---
Vital Signs 04/22/24 10:48 Height 5 ft 9 in Weight 183 lb 6 oz BMI 27.1 BP 146/75 H Blood Pressure Location Lt brachial Position Sitting Pulse 69 Intake Visit Reasons: 1 mth S/P gali reducible Ing. hernia repair/mesh Intake Note: Patient is seen in office for one moth follow up visit, post bilateral inguinal hernia repair. Pt c/o: still feel a hard lump in the area, denies any other concerns Layer Up Required: No Accompanied by: Self / Same As Patient Allergies animal dander Allergy (Intermediate, Verified 04/22/24 10:42) hayfever empagliflozin [From Jardiance] Allergy (Intermediate, Verified 04/22/24 10:42) Rash environmental allergies Allergy (Intermediate, Verified 04/22/24 10:42) hayfever mold Allergy (Intermediate, Verified 04/22/24 10:42) hayfever HPI Comments Details: 74-year-old male patient status post repair of bilateral inguinal hernias proximally 1 month ago returning for a final postoperative visit. He feels much improved with no further pain in the groin. He does feel some hardness in the incision especially on the right side but denies any pain associated with this. He is eating well and denies any nausea or vomiting. His bowels are normal. [facility] Medical History Migraine Right foot drop Neuropathy GERD (gastroesophageal reflux disease) Type 2 diabetes mellitus Chronic renal insufficiency Asthma Lumbar back pain Hyperlipidemia CAD (coronary artery disease) Surgical History History of inguinal hernia repair, bilateral (03/02/24) H/O colonoscopy Hx of heart artery stent History of open reduction and internal fixation (ORIF) procedure Hx of arthroscopy of shoulder History of back surgery Hx of cholecystectomy History of back surgery Family History Father Lung cancer Social History Are you a primary manager medicare to a significant other at home: No Do you presently have visiting nurse or other home services: No Unable to assess alcohol history related to: Unknown Patient Tobacco Use Status: Never used Tobacco Physical Exam Vital Signs: Last Vital Signs Pulse 69 04/22/24 10:48 BP 146/75 H 04/22/24 10:48 BMI result Body Mass Index 27.1 Const General: comfortable Nutritional Appearance: well nourished Orientation/consciousness: patient oriented x3 Resp Effort & Inspection: normal respiratory effort, no audible wheezes, no cough and no respiratory distress GI Other: Soft, nondistended, well-healed bilateral inguinal incisions. There is a underlying healing ridge which is normal. No changes noted with Valsalva maneuvers. No evidence of recurrent hernia or infection. Neuro General: patient oriented x3 Extrem General: Yes no clubbing, cyanosis or edema Assessment & Plan Assessment & Plan (1) Bilateral inguinal hernia: Code(s): K40.20 - Bilateral inguinal hernia, without obstruction or gangrene, not specified as recurrent Category: Medical Qualifiers: Obstruction and gangrene presence: without obstruction or gangrene Recurrence: non-recurrent Qualified Code(s): K40.20 - Bilateral inguinal hernia, without obstruction or gangrene, not specified as recurrent Plan 74-year-old male patient status post repair of bilateral inguinal hernias. He tolerated the procedure well and his wounds are now well healed. He may resume normal activity without restriction and should follow up as needed. Coding Level of Care Code Global (23812) Diagnoses Non-recurrent bilateral inguinal hernia without obstruction or gangrene K40.20 Obstruction and gangrene presence: without obstruction or gangrene Recurrence: non-recurrent
[2024-04-22 10:48] VITALS: BP 146/75; PULSE 69; BMI 27.1
== END 2024-04-22 10:55 | disposition home or self-care (01) ==
PROVIDERS: PCP Family Medicine; Visit Provider Surgery
DX: K40.20 Bilateral inguinal hernia, without obstruction or gangrene, not specified as recurrent (principal)
CPT/HCPCS: 99024

== ENCOUNTER → 2024-04-22 10:40 | Outpatient (BNVA) | payer MEDICARE, OTHER, SELFPAY | PROVIDERS: PCP Family Medicine; Visit Provider Surgery | DX: K40.20 Bilateral inguinal hernia, without obstruction or gangrene, not specified as recurrent (principal) | CPT/HCPCS: 99212 ==

== ENCOUNTER 2024-11-18 09:23 | Outpatient (REF) | payer MEDICARE, OTHER, SELFPAY ==
--- NOTE | ~2024-11-18 | XR_ITS ---
EXAMINATION: XR SHOULDER, LEFT CLINICAL INFORMATION: M25.519 - Pain in unspecified shoulder COMPARISON: None available. TECHNIQUE: AP external rotation, Grashey, scapular Y, and axillary views of the left shoulder. FINDINGS: No acute cortical disruption or malalignment. Mild widening at the acromioclavicular joint. Mild subchondral cyst formation in the greater tuberosity. No lytic or blastic lesions. XR/XR shoulder LT min 2V IMPRESSION: Mild degenerative changes without acute fracture or dislocation. Electronically signed by: Raheel Nolan MD 11/21/2024 02:10 PM EDT
--- OUTSIDE RECORDS SUMMARY | 2024-11-21 10:25 | XMS_ITS | Encounter Summary ---
Author Organization [facility], Address [address] [place] [address] Phone Care Team Providers Care Puller Out Name Role Phone Issac Gagnon MD Primary Care Provider [phone] Encounter Details Date Type Department Care Team (Late st Contact Info) Description 07/31/2022 Documentation Only [facility], [address] [place] [phone] Alberto Light PA Social History Tobacco Use [...] Visit [facility] [address] [address] April Sesay ARNP [address] [phone] documented as of this encounter Visit Diagnoses Not on filedocumented in this encounter Care Teams Puller Out Relationship Specialty Start Date End Date Issac Gagnon MD [address] [place] [id number] PCP - General Family Medicine 05/05/23 documented as of this encounter
--- OUTSIDE RECORDS SUMMARY | 2024-11-21 10:25 | XMS_ITS | Encounter Summary ---
Author Organization [facility], Address [address] [place] [address] Phone Care Team Providers Care Assistant Hairstylist Name Role Phone Issac Gagnon MD Primary Care Provider [phone] Encounter Details Date Type Department Care Team (Late st Contact Info) Description 02/12/2022 Documentation Only [facility], [address] [place] [phone] Alberto Light PA Social History Tobacco Use [...] Visit [facility] [address] [address] April Sesay ARNP [address] [phone] documented as of this encounter Visit Diagnoses Not on filedocumented in this encounter Care Teams Assistant Hairstylist Relationship Specialty Start Date End Date Issac Gagnon MD [address] [place] [id number] PCP - General Family Medicine 05/05/23 documented as of this encounter
--- OUTSIDE RECORDS SUMMARY | 2024-11-21 10:25 | XMS_ITS | Clinical Summary ---
Author Organization [facility] Address [address] [place] [address] Care Team Providers Care Produce Manager Name Role Phone Issac Gagnon Primary Care Provider [phone] Allergies Active Allergy Reactions Criticality Noted Date [...] Description 08/25/2024 1:00 PM EST Office Visit [facility] [address] [place] [address] Xavi Beasley MD Failed back syndrome (Primary [...] topic Sigmoidoscopy Discontinued Procedures * Due to [place] state law, this organization might not be [...] to Health Maintenance Results * Due to [place] state law, this organization might not be sharing negative HIV tests. * (ABNORMAL) Hemoglobin A1c (01/11/2016 11:14 AM EDT) Pathologist [facility] Hemoglobin A1C 6.7(H) <5.7 [facility] Comment: UNITS OF MEASURE: % of total [...] for children. eAG (MG/DL) 146 () (calc) [facility] eAG (MMOL/L) 8.1 () (calc) [facility] 01/11/2016 11:1 4 AM EDT 01/11/2016 12:39 PM EDT us Ru Lopez MD LAB BLOOD ORDERABLES Final Re sult [facility] * COLONOSCOPY (01/09/2016 12:00 AM EDT) HM Colonoscopy 01/09/2016 OTHER 01/09/2016 us Historical Conversion Provider HEALTH MAINTENANC E Final Result OTHER * Microalbumin/Creatinine Urine, Random (07/06/2015 10:58 AM EST) Microalbumin Urine <1 mg/dL [facility] Creatinine Urine 103 22 - 328 mg/dL [facility] Albumin/Creat Ratio Unable to Calculate <30.0 mcg/mgCr [facility] 07/06/2015 10:5 8 AM EST 07/06/2015 11:31 AM EST us Ru Lopez MD LAB URINE ORDERABLES Final Re sult Performing Organization Address [facility] Co de Phone Number [facility] [address] [place] [address], * HM DIABETES EYE EXAM (07/06/2015 12:00 AM EST) HM Eye Exam 07/06/2015 [facility] MANUAL RESULTS 07/06/2015 us Conversion Physician HEALTH MAINTENANCE Final Re sult Performing Organization Address City/[facility]/ZIP Co de Phone Number [facility] MANUAL RESULTS * Occult Blood, Fecal (FIT) (02/08/2014 12:00 PM EDT) Occult Blood,Fecal Negative NEGATIVE FIT [facility] 02/08/2014 12:0 0 PM EDT 02/08/2014 10:45 PM EDT Ru Lopez MD LAB BODY FLUIDS AND STOOLS OR DERABLES Final Result Performing Organization Address [facility] Co de Phone Number [facility] [address] [place] [address], * (ABNORMAL) Comprehensive Metabolic Panel (07/16/2013 10:30 AM EST) Sodium Blood 140 135 - 145 mmol/L [facility] Potassium Blood 4.9 3.5 - 5.3 mmol/L [facility] Chloride Blood 104 97 - 110 mmol/L [facility] Carbon Dioxide 29 24 - 32 mmol/L [facility] Gap 7 5 - 15 [facility] Glucose 156(H) 70 - 99 mg/dL [facility] BUN 16 7 - 23 mg/dL [facility] Creatinine 1.11 0.60 - 1.30 mg/dL [facility] eGFR Non- >60 >60 [facility] Comment: Units = mL/min/1.73 [...] Calcium Blood 10.3 8.7 - 10.7 mg/dL [facility] Total Protein Blood 7.2 6.0 - 8.0 g/dL [facility] Albumin Blood 4.8 3.5 - 4.8 g/dL [facility] Bilirubin Total 0.5 0.3 - 1.2 mg/dL [facility] Alkaline Phosphatase 47 30 - 115 IU/L [facility] AST 22 10 - 40 IU/L [facility] ALT 27 10 - 40 IU/L [facility] 07/16/2013 10:3 0 AM EST 07/16/2013 11:04 AM EST Ru Lopez MD LAB BLOOD ORDERABLES Final Re sult [facility] [address] [place] [address], from Last 3 Months or Most Recently Relevant to Health Maintenance Insurance MEDICARE [facility] Care Teams Produce Manager Relationship Specialty Start Date End Date Issac Gagnon [address] [place] [address] PCP - General Family Medicine 07/18/24
--- OUTSIDE RECORDS SUMMARY | 2024-11-21 10:25 | XMS_ITS | Referral Summary ---
Author Organization [facility] Address [address] [place] [address] Care Team Providers Care Animal Stunner Name Role Phone Issac Gagnon Primary Care Provider [phone] Encounters Date Type Department Care Team Description 08/25/2024 1:00 PM EST Office Visit [facility] [address] [place] [address] Xavi Beasley MD Failed back syndrome (Primary [...] Not on file Procedures * Due to [place] [employer] law, this organization might not be sharing [...] to Health Maintenance Results * Due to [facility] law, this organization might not be sharing negative HIV tests. * (ABNORMAL) Hemoglobin A1c (01/11/2016 11:14 AM EDT) Hemoglobin A1C 6.7(H) <5.7 [facility] Comment: UNITS OF MEASURE: % of [...] children. eAG (MG/DL) 146 () (calc) [facility] eAG (MMOL/L) 8.1 () (calc) [facility] 01/11/2016 11:1 4 AM EDT 01/11/2016 12:39 PM EDT Ru Lopez MD LAB BLOOD ORDERABLES Final Re sult [facility] * COLONOSCOPY (01/09/2016 12:00 AM EDT) Colonoscopy 01/09/2016 OTHER 01/09/2016 us Historical Conversion Provider HEALTH MAINTENANC E Final Result OTHER * Microalbumin/Creatinine Urine, Random (07/06/2015 10:58 AM EST) Microalbumin Urine <1 mg/dL [facility] Creatinine Urine 103 22 - 328 mg/dL [facility] Albumin/Creat Ratio Unable to Calculate <30.0 mcg/mgCr [facility] 07/06/2015 10:5 8 AM EST 07/06/2015 11:31 AM EST Ru Lopez MD LAB URINE ORDERABLES Final Re sult Performing Organization Address [facility] Co de Phone Number [facility] [address] [place] [address], * DIABETES EYE EXAM (07/06/2015 12:00 AM EST) Eye Exam 07/06/2015 [facility] MANUAL RESULTS 07/06/2015 us Conversion Physician HEALTH MAINTENANCE Final Re sult [facility] MANUAL RESULTS * Occult Blood, Fecal (FIT) (02/08/2014 12:00 PM EDT) Occult Blood,Fecal Negative NEGATIVE FIT [facility] 02/08/2014 12:0 0 PM EDT 02/08/2014 10:45 PM EDT us Ru Lopez MD LAB BODY FLUIDS AND STOOLS OR DERABLES Final Result [facility] [address] [place] [address], * (ABNORMAL) Comprehensive Metabolic Panel (07/16/2013 10:30 AM EST) Sodium Blood 140 135 - 145 mmol/L [facility] Potassium Blood 4.9 3.5 - 5.3 mmol/L [facility] Chloride Blood 104 97 - 110 mmol/L [facility] Carbon Dioxide 29 24 - 32 mmol/L [facility] Gap 7 5 - 15 [facility] Glucose 156(H) 70 - 99 mg/dL [facility] BUN 16 7 - 23 mg/dL [facility] Creatinine 1.11 0.60 - 1.30 mg/dL [facility] eGFR Non- >60 >60 [facility] Comment: Units = mL/min/1.73 [...] Calcium Blood 10.3 8.7 - 10.7 mg/dL [facility] Total Protein Blood 7.2 6.0 - 8.0 g/dL [facility] Albumin Blood 4.8 3.5 - 4.8 g/dL [facility] Bilirubin Total 0.5 0.3 - 1.2 mg/dL [facility] Alkaline Phosphatase 47 30 - 115 IU/L [facility] AST 22 10 - 40 IU/L [facility] ALT 27 10 - 40 IU/L [facility] 07/16/2013 10:3 0 AM EST 07/16/2013 11:04 AM EST us Ru Lopez MD LAB BLOOD ORDERABLES Final Re sult [facility] [address] [place] [address], from Last 3 Months or Most Recently Relevant to Health Maintenance Insurance [facility]ICARE [facility] Care Teams Animal Stunner Relationship Specialty Start Date End Date Issac Gagnon [address] [place] [address] PCP - General Family Medicine 07/18/24
--- OUTSIDE RECORDS SUMMARY | 2024-11-21 10:25 | XMS_ITS | Clinical Summary ---
Author Organization [facility] Address [address] [address] Phone Care Team Providers Care Fbi Special Agent Name Role Phone Issac Gagnon MD Primary Care Provider [phone] Allergies Active Allergy Reactions Criticality Noted Date [...] Hypercholesterolemia 08/26/2019 021 Hypertensive heart disease w [facility] congestive heart failure 08/26/2019 07/01/2021 Administration [...] Office Visit [facility] [address] [address] April Sesay ARNP [address] [address] Health Maintenance Due Date Last [...] PM EDT) Hemoglobin A1C 6.4(H) (4.0-5.6) % [facility] Comment: MONITORING: In known diabetic patients, hemoglobin A1c targets should be discussed with health care provider. DIAGNOSTIC USE: ??The [place] Diabetes Association (ADA) and the World Health [...] Supplement 1 Testing performed or reported by [facility] Reference [employer], a Service of [facility], [address] [place] [address] Bhupendra Casey MD, Timekeeper Supervisor [facility]# [id number] Blood (Blood, Venous) 02/12/2022 1:46 PM EDT 02/12/2022 1:50 PM EDT us Yeyo Desai MD LAB BLOOD ORDERABLES Final Resul t [facility] from Last 3 Months or Most Recently Relevant to Health Maintenance Insurance Medicare [facility] Medicare [facility] Medicare [facility] Care Teams Fbi Special Agent Relationship Specialty Start Date End Date Issac Gagnon MD [address] [place] [address] PCP - General Family Medicine 05/05/23
--- OUTSIDE RECORDS SUMMARY | 2024-11-21 10:25 | XMS_ITS | Clinical Summary ---
Author Organization [facility] Address [address] [place] [address] Care Team Providers Care Driver License Technician Name Role Phone Unavailable Primary Care Provider Unavailabl e Encounters Date Type Department Care Team Description 09/23/2024 Telephone Corporate Relations Manager - [address] [facility] [phone] Bertha Duvall RN Medicare Annual Wellness Visit Subsequent from Last 3 Months Surgical History Surgery Date Site/Laterality Comments CHOLECYSTECTOMY 2016 PROCEDURE: HISTORICAL CHOLECYSTECTOMY COLONOSCOPY 2007 PROCEDURE: HISTORICAL COLONOSCOPY; COMMENT: Pleet; diverticulosis. COLONOSCOPY 2015 PROCEDURE: HISTORICAL COLONOSCOPY; COMMENT: Manuel; negative OTHER SURGICAL HISTORY 01/03/2019 PROCEDURE: [facility]G RADIOLOGIC EXAM SWALLOW FUNCTION CONTRAST STUDY; COMMENT: Normal at [facility]. UPPER GASTROINTESTINAL ENDOSCOPY 03/23/2019 PROCEDURE: [place] UPPER GI ENDOSCOPY PERFORMED; COMMENT: small inlet [...] disease, with long-term current use of insulin ([facility]) HTN (hypertension) 10/01/2009 DX:HTN (hyper tension) Diverticulosis large intesti ne w/o perforation or abscess w/o bleeding 10/26/2020 DX:Diverticulosis large intestine w/o perforation or abscess w/o bleeding Liver nodule 01/25/2021 DX:Liver nodule Mild persistent asthma witho ut complication 01/25/2021 DX:Mild persistent asthma wi thout complication Pulmonary nodule 01/25/2021 DX:Pulmonary no dule Coronary artery disease invo lving redding coronary artery of redding heart without angina pectoris 01/25/2021 DX:Coronary artery disease i nvolving redding coronary artery of redding heart without angina pectoris Type 2 diabetes mellitus wit h cataract ([facility] V24, [facility] V28) 02/04/2021 DX:Type 2 diabetes mellitus with cataract ([facility]) Anxiety 07/31/2008 DX:Anxiety BPH (benign prostatic hyperplasia) 02/04/2021 DX:BPH (benign prostatic hyperplasia); COMMENT: Sees Dr. Rebolledo [facility] Carpal tunnel syndrome 10/05/2008 DX:Carpal tunnel syndrome; COMMENT: S/p surgery. Cataract 02/04/2021 DX:Cataract; COM MENT: Sees Dr. Mesa Chronic kidney disease, stag e 3b ([facility] V24, [facility] V28) 01/25/2021 DX:Chronic kidney disease, stage 3b ([facility]); COMMENT: Follows w/ Dr. Yeyo [...] surgery 04/12/2010 DX:S/P shou lder surgery; COMMENT: [facility] 01/03. Ascending aorta dilatation ( [facility] V24) 05/29/2021 DX:Ascending aorta dilatatio n ([facility]); COMMENT: CT chest (05/29/2021): 4 [...]
--- OUTSIDE RECORDS SUMMARY | 2024-11-21 10:25 | XMS_ITS | Clinical Summary ---
Author Organization [facility] Address [address] [place] [address] Care Team Providers Care Customer Energy Specialist Name Role Phone Unavailable Primary Care Provider [...]
--- OUTSIDE RECORDS SUMMARY | 2024-11-21 10:25 | XMS_ITS | Patient Health Record ---
Author Organization [facility] Address [address] [place] [address] Care Team Providers Care Assistant Men'S Soccer Coach Name Role Phone Chelsi Issac Primary Care Provider Yuli Naylor Unavailable [phone] Allergies No Known Allergies Reason For Referral [...] Status Risk Notes Problem Acquired hallux valgus (95953220) Hallux valgus (acquired), left foot (M20.12) Active confirmed Problem Gout (03098429) Gout, unspecifie d (M10.9) Active confirmed Problem Polyneuropathy due to type 2 diabetes mellitus (850720134) Type 2 diabetes mellitus with diabetic polyneuropathy (E11.42) Active confirmed Problem [id number] Neuropathic ul cer of right foot, limited [...] Date Coverage End Date Medicare National Govt [employer] [address] [place] [address] [id number] Amarjit Oswald Self - patient is the insured 5 [employer]) [address] [place] [address] [id number] DarekAmarjit Self - patient is the [...]
== END 2024-11-18 09:24 | disposition home or self-care (01) ==
LOC: HO.HOSX 09:23
PROVIDERS: Visit Provider Physician Assistant
DX: M25.512 Pain in left shoulder (principal); E11.40 Type 2 diabetes mellitus with diabetic neuropathy, unspecified; Z79.4 Long term (current) use of insulin
CPT/HCPCS: 20610; 73030; 99202; J1010; J2003

== ENCOUNTER 2024-11-18 09:39 | Outpatient (AMB) | payer MEDICARE, OTHER, SELFPAY ==
--- OUTSIDE RECORDS SUMMARY | 2024-11-18 09:53 | XMS_ITS | Referral Summary ---
Author Organization [facility] Address [address] [place] [address] Care Team Providers Care Assistant Professor Surgical Technology Name Role Phone Issac Gagnon Primary Care Provider [phone] Encounters Date Type Department Care Team Description 08/25/2024 1:00 PM EST Office Visit [facility] [address] [place] [id number] Xavi Beasley MD Failed back syndrome (Primary Dx) from Last 3 Months Allergies Active Allergy Reactions Criticality Noted Date Comments Other Unknown Dust Mite Extract SOLN Molds/Smuts Extract SOLN Medications atorvastatin (LIPITOR) 40 mg tablet Take 40 mg by mouth daily. 07/14/2016 Active pen needle 31 gauge x 3/16 use as directed 3 times daily 07/06/2016 Active benazepril (LOTENSIN) 10 mg tablet Take 10 mg by mouth daily. 01/22/2016 Active FREESTYLE LANCETS MISC test 3-4 times a day as directed Dx: E 11.9 11/25/2011 Active blood glucose diagnostic (FREESTYLE LITE STRIPS) test strip In Vitro. TEST FOUR TIMES A DAY Dx: E11.9 11/25/2011 Active gabapentin (NEURONTIN) 300 mg capsule Take 300 mg by mouth nightly. 07/14/2016 Active insulin glargine (LANTUS SOLOSTAR) 100 unit/mL insulin pen INJECT 20 UNITS IN AM SQ, INCREASE BY 1 UNIT EVERY OTHER DAY TO ACHEIVE RANDOM BLOOD GLUCOSE < 180. MAX 40 UNITS DAILY 07/14/2016 Active metoprolol succinate XL (TOPROL XL) 25 mg tablet Take 25 mg by mouth daily. 07/14/2016 Active ranitidine (ZANTAC) 150 mg capsule Take 150 mg by mouth 2 times a day. 01/11/2016 Active ranitidine (ZANTAC) 150 mg tablet Take 150 mg by mouth 2 times a day. 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 Asthma 03/22/2012 Type 2 diabetes mellitus 02/20/2012 Overview (04/15/2017): HBA1C 6.7% ( 02/12/2012) Excessive sweating 11/24/2011 Pain, upper back 07/18/2010 Lower back pain 07/18/2010 Acute bronchitis 07/18/2010 Depression 07/18/2010 Dyslipidemia 07/18/2010 Benign essential hypertension 07/18/2010 Immunizations Immunization Administration Dates Next Due Tetanus Toxoid, Reduced Diph theria Toxoid, and Acellular Pertussis Vaccine, Adsorbed 01/07/2010 Social History Tobacco Use Types Packs/Day Years Used Date Smoking Tobacco: Never Comments:: Sex and Gender Information Value Date Recorded Sex Assigned at Male 07/18/2024 4:08 PM EST Legal Sex Male 8:53 AM EDT Gender Identity Male 07/18/2024 4:08 PM EST Sexual Orientation Not on file Last Filed Vital Signs Vital Sign Reading Time Taken Comments Blood Pressure 137/83 08/25/2024 1:02 PM EST Pulse 69 08/25/2024 1:02 PM EST Temperature 36.5 ??C (97.7 ??F) 01/11/2016 10:33 AM E DT Respiratory Rate 16 08/25/2024 1:02 PM EST Oxygen Saturation 98% 08/25/2024 1:02 PM EST Inhaled Oxygen Concentration - - Weight 93.4 kg (206 lb) 07/14/2016 10:03 AM EST Height 172.3 cm (5' 7.83 ) 07/14/2016 10:[address] Body Mass Index 31.48 07/14/2016 10:03 AM EST Plan of Treatment Not on file Procedures * Due to [place] [employer] law, this organization might not be sharing negative HIV tests. Procedure Name Priority Date/Time Associated Diagnosis Comments HEMOGLOBIN A1C Routine 01/11/2016 11:14 AM EDT COLONOSCOPY Routine 01/09/2016 12:00 AM EDT MICROALBUMIN, RANDOM URINE WITH CREATININE Routine 07/06/2015 10:58 AM EST DIABETES EYE EXAM Routine 07/06/2015 12:00 AM EST OCCULT BLOOD, FECAL (FIT) Routine 02/08/2014 12:00 PM EDT COMPREHENSIVE METABOLIC PANEL Routine 07/16/2013 10:30 AM EST from Last 3 Months or Most Recently Relevant to Health Maintenance Results * Due to [facility] law, this organization might not be sharing negative HIV tests. * (ABNORMAL) Hemoglobin A1c (01/11/2016 11:14 AM EDT) Hemoglobin A1C 6.7(H) <5.7 [facility] Comment: UNITS OF MEASURE: % of total Hgb According to ADA guidelines, hemoglobin A1c <7.0% represents optimal control in non- diabetic patients. Different metrics may apply to specific patient populations. Standards of Medical Care in Diabetes-2013. Diabetes Care. 2013;36:s11-s66 For the purpose of screening for the presence of diabetes <5.7% ? Consistent with the absence of diabetes 5.7-6.4% ?Consistent with increased risk for diabetes ?(prediabetes) >or=6.5% ?Consistent with diabetes This assay result is consistent with diabetes mellitus. Currently, no consensus exists for use of hemoglobin A1c for diagnosis of diabetes for children. eAG (MG/DL) 146 () (calc) [facility] eAG (MMOL/L) 8.1 () (calc) [facility] 01/11/2016 11:1 4 AM EDT 01/11/2016 12:39 PM EDT Ru Lopez MD LAB BLOOD ORDERABLES Final Re sult MANOJ LAWSON * COLONOSCOPY (01/09/2016 12:00 AM EDT) Colonoscopy 01/09/2016 OTHER 01/09/2016 us Historical Conversion Provider HEALTH MAINTENANC E Final Result OTHER * Microalbumin/Creatinine Urine, Random (07/06/2015 10:58 AM EST) Microalbumin Urine <1 mg/dL [facility] Creatinine Urine 103 22 - 328 mg/dL [facility] Albumin/Creat Ratio Unable to Calculate <30.0 mcg/mgCr [facility] 07/06/2015 10:5 8 AM EST 07/06/2015 11:31 AM EST Ru Lopez MD LAB URINE ORDERABLES Final Re sult Performing Organization Address [facility] Co de Phone Number [facility] [address] [place] [address], * DIABETES EYE EXAM (07/06/2015 12:00 AM EST) Eye Exam 07/06/2015 [facility] MANUAL RESULTS 07/06/2015 us Conversion Physician HEALTH MAINTENANCE Final Re sult [facility] MANUAL RESULTS * Occult Blood, Fecal (FIT) (02/08/2014 12:00 PM EDT) Occult Blood,Fecal Negative NEGATIVE FIT [facility] 02/08/2014 12:0 0 PM EDT 02/08/2014 10:45 PM EDT us Ru Lopez MD LAB BODY FLUIDS AND STOOLS OR DERABLES Final Result [facility] [address] [place] [address], * (ABNORMAL) Comprehensive Metabolic Panel (07/16/2013 10:30 AM EST) Sodium Blood 140 135 - 145 mmol/L [facility] Potassium Blood 4.9 3.5 - 5.3 mmol/L [facility] Chloride Blood 104 97 - 110 mmol/L [facility] Carbon Dioxide 29 24 - 32 mmol/L [facility] Gap 7 5 - 15 [facility] Glucose 156(H) 70 - 99 mg/dL [facility] BUN 16 7 - 23 mg/dL [facility] Creatinine 1.11 0.60 - 1.30 mg/dL [facility] eGFR Non- >60 >60 [facility] Comment: Units = mL/min/1.73 m2 Glomerular Filtration Rate (GFR) is estimated based on the IDMS-Traceable MDRD equation([facility]).For Americans multiply results by 1.210. Patients with CKD exhibit values less than 60mL/min/1.73 m2, while results less than 15mL/min/1.73 m2 are consistent with kidney failure. This MDRD equation is not recommended by [facility] for drug-dosing purposes or for children below 18 years of age. Calcium Blood 10.3 8.7 - 10.7 mg/dL [facility] Total Protein Blood 7.2 6.0 - 8.0 g/dL [facility] Albumin Blood 4.8 3.5 - 4.8 g/dL [facility] Bilirubin Total 0.5 0.3 - 1.2 mg/dL [facility] Alkaline Phosphatase 47 30 - 115 IU/L [facility] AST 22 10 - 40 IU/L [facility] ALT 27 10 - 40 IU/L [facility] 07/16/2013 10:3 0 AM EST 07/16/2013 11:04 AM EST us Ru Lopez MD LAB BLOOD ORDERABLES Final Re sult [facility] [address] [place] [address], from Last 3 Months or Most Recently Relevant to Health Maintenance Insurance MEDICARE [facility] Care Teams Assistant Professor Surgical Technology Relationship Specialty Start Date End Date Issac Gagnon [address] [place] [address] PCP - General Family Medicine 07/18/24
--- OUTSIDE RECORDS SUMMARY | 2024-11-18 09:53 | XMS_ITS | Encounter Summary ---
Author Organization [facility], Address [address] [place] [address] Phone Care Team Providers Care Knifer Up Name Role Phone Issac Gagnon MD Primary Care Provider [phone] Encounter Details Date Type Department Care Team (Late st Contact Info) Description 02/12/2022 Documentation Only [facility], [address] [place] [phone] Alberto Light PA Social History Tobacco Use Types Packs/Day Years Used Date Smoking Tobacco: Never Alcohol Use Standard Drinks/Week Comments No 0 (1 standard drink = 0.6 oz pur e alcohol) Sex and Gender Information Value Date Recorded Sex Assigned at Male 05/03/2023 3:27 PM EDT Legal Sex Male 4:33 PM EST Gender Identity Male 05/03/2023 3:27 PM EDT Sexual Orientation Straight 05/03/2023 3: 27 PM EDT documented as of this encounter Plan of Treatment Upcoming Encounters Date Type Department Care Team (Late st Contact Info) Description 01/24/2025 1:15 PM EDT Office Visit [facility] [address] [address] April Sesay ARNP [address] [phone] documented as of this encounter Visit Diagnoses Not on filedocumented in this encounter Care Teams Knifer Up Relationship Specialty Start Date End Date Issac Gagnon MD [address] [place] [id number] PCP - General Family Medicine 05/05/23 documented as of this encounter
--- OUTSIDE RECORDS SUMMARY | 2024-11-18 09:53 | XMS_ITS | Clinical Summary ---
Author Organization [facility] Address [address] [place] [address] Care Team Providers Care Purchasing Manager/Sales Name Role Phone Issac Gagnon Primary Care Provider [phone] Allergies Active Allergy Reactions Criticality Noted Date [...] 07/18/2010 Dyslipidemia 07/18/2010 Benign essential hypertension 07/18/2010 Encounters Date Type Department Care Team Description 08/25/2024 1:00 PM EST Office Visit [facility] [address] [place] [address] Xavi Beasley MD Failed back syndrome (Primary Dx) from Last 3 Months Immunizations Immunization Administration Dates Next Due Tetanus Toxoid, Reduced Diph theria Toxoid, and Acellular Pertussis Vaccine, Adsorbed 01/07/2010 Family History Medical History Relation Name Comments Other Father Paternal histor y of Lung Cancer Other Mother Maternal histor y of Diabetes Mellitus Relation Name Status Comments Father Mother Social History Tobacco Use Types Packs/Day Years [...] cm (5' 7.83 ) 07/14/2016 10:03 AM Bruno DON Body Mass Index 31.48 07/14/2016 10:03 AM EST Plan of Treatment Health Maintenance Due Date Last Done Comments Hepatitis C Screening 1950 Ophthalmology Exam 07/06/2016 07/06/2015 Hemoglobin A1C 08/15/2022 02/12/2022, 12/25, 07/06/2015, Additional history exists Alcohol/Substance Use Screening 07/27/2024 Depression Screening and Follow-Up 07/27/2024 Health Care Proxy Review 07/27/2024 Social Drivers of Health Annual Screening 07/27/2024 COVID-19 Vaccine ( season) 2024 05/12/2024, 06/23/2023, 04/29/2022, Additional history exists Basic Metabolic Panel 07/06/2025 07/06/2024 , 07/16/2013, 11/24/2011 Urine Microalbumin 07/06/2025 07/06/2024, 1 09/06/2014, 08/10/2014, Additional history exists DTaP,Tdap,and Td Vaccines (3 - Td or Tdap) 05/16/2030 05/16/2020, 01/07/2010 FOBT / Fit Test Discontinued 02/08/2014, 03/10/2012 Colon Cancer Screening Discontinued Colonoscopy Discontinued 01/09/2016 Pneumococcal Vaccine: 50+ Years Completed 10/08/2021, 04/25/2019, 06/26/2017, Additional history exists RSV Vaccine (60+ years old and patients) Completed 07/13/2023 Influenza Vaccine Completed 05/12/2024, , 04/15/2022, Additional history exists Zoster Vaccines Completed 05/12/2024, 03/28, 04/20/2020 Cologuard Discontinued Hepatitis B Vaccines Aged Out No long er eligible based on patient's age to complete this topic Sigmoidoscopy Discontinued Procedures * Due to [place] state law, this organization might not be sharing negative HIV tests. Procedure Name Priority Date/Time Associated Diagnosis Comments HEMOGLOBIN A1C Routine 01/11/2016 11:14 AM EDT HM COLONOSCOPY Routine 01/09/2016 12:00 AM EDT MICROALBUMIN, RANDOM URINE WITH CREATININE Routine 07/06/2015 10:58 AM EST DIABETES EYE EXAM Routine 07/06/2015 12:00 AM EST OCCULT BLOOD, FECAL (FIT) Routine 02/08/2014 12:00 PM EDT COMPREHENSIVE METABOLIC PANEL Routine 07/16/2013 10:30 AM EST from Last 3 Months or Most Recently Relevant to Health Maintenance Results * Due to [place] state law, this organization might not be sharing negative HIV tests. * (ABNORMAL) Hemoglobin A1c (01/11/2016 11:14 AM EDT) Pathologist [facility] Hemoglobin A1C 6.7(H) <5.7 [facility] Comment: UNITS OF MEASURE: % of total [...] for children. eAG (MG/DL) 146 () (calc) [facility] eAG (MMOL/L) 8.1 () (calc) [facility] 01/11/2016 11:1 4 AM EDT 01/11/2016 12:39 PM EDT us Ru Lopez MD LAB BLOOD ORDERABLES Final Re sult [facility] * COLONOSCOPY (01/09/2016 12:00 AM EDT) HM Colonoscopy 01/09/2016 OTHER 01/09/2016 us Historical Conversion Provider HEALTH MAINTENANC E Final Result OTHER * Microalbumin/Creatinine Urine, Random (07/06/2015 10:58 AM EST) Microalbumin Urine <1 mg/dL [facility] Creatinine Urine 103 22 - 328 mg/dL [facility] Albumin/Creat Ratio Unable to Calculate <30.0 mcg/mgCr [facility] 07/06/2015 10:5 8 AM EST 07/06/2015 11:31 AM EST us Ru Lopez MD LAB URINE ORDERABLES Final Re sult Performing Organization Address [facility] Co de Phone Number [facility] [address] [place] [address], * HM DIABETES EYE EXAM (07/06/2015 12:00 AM EST) HM Eye Exam 07/06/2015 [facility] MANUAL RESULTS 07/06/2015 us Conversion Physician HEALTH MAINTENANCE Final Re sult Performing Organization Address City/[facility]/ZIP Co de Phone Number [facility] MANUAL RESULTS * Occult Blood, Fecal (FIT) (02/08/2014 12:00 PM EDT) Occult Blood,Fecal Negative NEGATIVE FIT [facility] 02/08/2014 12:0 0 PM EDT 02/08/2014 10:45 PM EDT Ru Lopez MD LAB BODY FLUIDS AND STOOLS OR DERABLES Final Result Performing Organization Address [facility] Co de Phone Number [facility] [address] [place] [address], * (ABNORMAL) Comprehensive Metabolic Panel (07/16/2013 10:30 AM EST) Sodium Blood 140 135 - 145 mmol/L [facility] Potassium Blood 4.9 3.5 - 5.3 mmol/L [facility] Chloride Blood 104 97 - 110 mmol/L [facility] Carbon Dioxide 29 24 - 32 mmol/L [facility] Gap 7 5 - 15 [facility] Glucose 156(H) 70 - 99 mg/dL [facility] BUN 16 7 - 23 mg/dL [facility] Creatinine 1.11 0.60 - 1.30 mg/dL [facility] eGFR Non- >60 >60 [facility] Comment: Units [...] Calcium Blood 10.3 8.7 - 10.7 mg/dL [facility] Total Protein Blood 7.2 6.0 - 8.0 g/dL [facility] Albumin Blood 4.8 3.5 - 4.8 g/dL [facility] Bilirubin Total 0.5 0.3 - 1.2 mg/dL [facility] Alkaline Phosphatase 47 30 - 115 IU/L [facility] AST 22 10 - 40 IU/L [facility] ALT 27 10 - 40 IU/L [facility] 07/16/2013 10:3 0 AM EST 07/16/2013 11:04 AM EST Ru Lopez MD LAB BLOOD ORDERABLES Final Re sult [facility] [address] [place] [address], from Last 3 Months or Most Recently Relevant to Health Maintenance Insurance MEDICARE [facility] Care Teams Purchasing Manager/Sales Relationship Specialty Start Date End Date Issac Gagnon [address] [place] [address] PCP - General Family Medicine 07/18/24
--- OUTSIDE RECORDS SUMMARY | 2024-11-18 09:53 | XMS_ITS | Encounter Summary ---
Author Organization [facility], Address [address] [place] [address] Phone Care Team Providers Care Aquatics Coordinator Name Role Phone Issac Gagnon MD Primary Care Provider [phone] Encounter Details Date Type Department Care Team (Late st Contact Info) Description 07/31/2022 Documentation Only [facility], [address] [place] [phone] Alberto Light PA Social History Tobacco Use [...] Visit [facility] [address] [address] April Sesay ARNP [address] [phone] documented as of this encounter Visit Diagnoses Not on filedocumented in this encounter Care Teams Aquatics Coordinator Relationship Specialty Start Date End Date Issac Gagnon MD [address] [place] [id number] PCP - General Family Medicine 05/05/23 documented as of this encounter
--- OUTSIDE RECORDS SUMMARY | 2024-11-18 09:53 | XMS_ITS | Clinical Summary ---
Author Organization [facility] Address [address] [address] Phone Care Team Providers Care Regulatory Submissions Specialist Name Role Phone Issac Gagnon MD Primary Care Provider [phone] Allergies Active Allergy Reactions Criticality Noted Date Comments Cat Dander Other (see comments) 08/26/2019 Dog Epithelium Other (see comments) 08/26/2019 Dust Mite Extract Other (see comments) 08/26/19 20 Molds & Smuts Other (see comments) 08/26/2019 Pollen Extract Other (see comments) 08/26/2019 Medications atorvastatin (LIPITOR) 40 MG tablet Take 40 mg by mouth 1 (one) time each day 07/02/2019 Active omeprazole (PriLOSEC) [address] capsule Take 20 mg by mouth twice a day 06/08/2019 Active sertraline (ZOLOFT) 100 MG tablet Take 100 mg by mouth 1 (one) time each day Active gabapentin (NEURONTIN) 300 MG capsule Take 300 mg by mouth 1 (one) time each day Active traZODone (DESYREL) 50 MG tablet Take 50 mg by mouth every night Active Ozempic, 2 MG/DOSE, 8 MG/3ML solution pen-injector Inject 2 mg under the skin 1 (one) time per week 01/07/2024 Active Farxiga 10 MG tablet TAKE 1 TABLET BY MOUTH EVERY MORNING 90 tablet 2 03/01/2024 Active tiZANidine (ZANAFLEX) 2 MG capsule Take 2 mg by mouth if needed for muscle spasms Active Insulin Degludec (TRESIBA SC) Inject 16 mL under the skin 1 (one) time each day Active Active Problems Problem Noted Date Diagnosed Date Seborrheic keratosis 05/05/2023 05/05/2023 Posterior rhinorrhea 05/05/2023 05/05/2023 Patient encounter status 05/05/2023 023 Neuropathy due to type 2 diabetes mellitus 05/0505/05/2023 Moderate persistent asthma 05/05/202305/05 Stage 3a chronic kidney disease 05/05/2023 Renal osteodystrophy 05/05/2023 TIA, not otherwise specified 05/05/2023 Syncope 04/03/2023 05/05/2023 Low back pain 04/03/2023 05/05/2023 Pain in wrist 04/01/2023 05/05/2023 Gout 02/12/2022 Ascending aorta dilatation 05/29/2021 Overview (02/12/2022): CT chest (05/29/2021): 4 cm. Type 2 diabetes mellitus 01/25/2021 Stage 3b chronic kidney disease 08/02/2020 Renal disorder due to type 2 diabetes mellitus 0 08/26/2019 Hypertension 10/01/2009 Resolved Problems Problem Noted Date Diagnosed Date Resolved Date Hyperkalemia 03/11/2021 07/01/2021 Anemia 08/26/2019 01/31/2021 Type 2 diabetes mellitus wit h other diabetic kidney complication 08/26/2019 07/01/2021 Hypercholesterolemia 08/26/2019 021 Hypertensive heart disease w [facility] congestive heart failure 08/26/2019 07/01/2021 Administration of pneumococcal vaccine 08/26/2019 12/01/2019 Immunizations Immunization Administration Dates Next Due Influenza (IM) Preservative Free 05/16/2019 Influenza Split High Dose Pr eservative Free IM 06/28/2021,05/27/2017 Influenza, Unspecified 04/15/2022,2020,04/18/2020,04/25 Pfizer SARS-COV-2 04/29/2022,,10/15/2020,09/24 Pneumococcal Conjugate 13-Valent 04/25/2019 Pneumococcal Polysaccharide 10/08/2021, 7 SARS-CoV-2, Unspecified 04/15/2022 Shingrix 04/20/2020 Tdap 05/16/2020 Zoster 04/20/2020 Family History Medical History Relation Comments Cancer Father Lung, esophageal cancer, bleeding diathesis Hypertension Father Cancer Mother Diabetes Mother Hypertension Mother Kidney disease Mother Relation Status Comments Father Mother Unknown Social History Tobacco Use Types Packs/Day Years Used Date Smoking Tobacco: Never Tobacco Cessation:Counseling Given: Not Answered Alcohol Use Standard Drinks/Week Comments No 0 (1 standard drink = 0.6 oz pur e alcohol) Sex and Gender Information Value Date Recorded Sex Assigned at Male 05/03/2023 3:27 PM EDT Legal Sex Male 4:33 PM EST Gender Identity Male 05/03/2023 3:27 PM EDT Sexual Orientation Straight 05/03/2023 3: 27 PM EDT Last Filed Vital Signs Vital Sign Reading Time Taken Comments Blood Pressure 120/80 07/12/2024 2:56 PM EST Pulse 70 07/12/2024 2:56 PM EST Temperature - - Respiratory Rate 16 06/02/2019 12:00 PM EST Oxygen Saturation 99% 07/01/2023 3:27 PM EST Inhaled Oxygen Concentration - - Weight 82.6 kg (182 lb) 07/12/2024 2:56 PM EST Height 175.3 cm (5' 9 ) 02/17/2022 5:07 PM EDT Body Mass Index 26.88 02/17/2022 5:07 PM EDT Plan of Treatment Upcoming Encounters Date Type Department Care Team (Late st Contact Info) Description 01/24/2025 1:15 PM EDT Office Visit [facility] [address] [phone] April Sesay ARNP [address] [phone] Health Maintenance Due Date Last Done Comments Diabetes: Ophthalmology Exam 08/26/2019 Diabetes: Pedal Pulse Checked 08/26/2019 Diabetes: Sensory Foot Exam 08/26/2019 Diabetes: Visual Foot Exam 08/26/2019 Diabetes: Hemoglobin A1C 05/15/2022 022, 06/28/2021, 03/06/2021, Additional history exists Influenza Vaccine (Season Ended) 2025 04/15/2022, 06/28/2021, 06/28/2021, Additional history exists Pneumococcal Vaccine: 50+ Years Completed 10/08/2021, 04/25/2019, 06/26/2017 Pneumococcal Vaccine: Peds (0 to 5 Years) and At-Risk Patients (6 to 49 Years) Discontinued 10/08/2021, 04/25/2019, 06/26/2017 Hepatitis B Vaccine Aged Out No longe r eligible based on patient's age to complete this topic Procedures Procedure Name Priority Date/Time Associated Diagnosis Comments HEMOGLOBIN A1C Routine 02/12/2022 1:46 PM EDT Stage 3b chronic kidney disease (HCC) Renal disorder due to type 2 diabetes mellitus <Other diabetic kidney complication> (HCC) Hypertensive disorder from Last 3 Months or Most Recently Relevant to Health Maintenance Results * (ABNORMAL) Hemoglobin A1c (02/12/2022 1:46 PM EDT) Hemoglobin A1C 6.4(H) (4.0-5.6) % [facility] Comment: MONITORING: In known diabetic patients, hemoglobin A1c targets should be discussed with health care provider. DIAGNOSTIC USE: ??The [place] Diabetes Association (ADA) and the World Health Organization (WHO) recommend the use of HbA1c to diagnose diabetes using a threshold of 6.5%. Patients who have an HbA1c between 5.7% and 6.4% are considered at increased risk for developing diabetes in the future. CAUTION: Falsely low HbA1c results may be observed in patients with hemolytic anemia, homozygous forms of abnormal hemoglobin (e.g. SS, CC, SC), , recent blood loss or hemoglobin F greater than 7%. Fructosamine may be used as an alternate test in these cases. REFERENCE: ADA: Standards of Medical Care in Diabetes 2020, The Journal of Clinical and Applied Research and Education Volume 43, Supplement 1 Testing performed or reported by [facility] Reference [employer], a Service of [facility], [address] [place] [address] Bhupendra Casey MD, Clinical Case Manager [facility]# [id number] Blood (Blood, Venous) 02/12/2022 1:46 PM EDT 02/12/2022 1:50 PM EDT us Yeyo Desai MD LAB BLOOD ORDERABLES Final Resul t [facility] from Last 3 Months or Most Recently Relevant to Health Maintenance Insurance Medicare [facility] Medicare [facility] Medicare [facility] Care Teams Regulatory Submissions Specialist Relationship Specialty Start Date End Date Issac Gagnon MD [address] [place] [id number] PCP - General Family Medicine 05/05/23
--- OUTSIDE RECORDS SUMMARY | 2024-11-18 09:54 | XMS_ITS | Patient Health Record ---
Author Organization [facility] Address [address] [place] [address] Care Team Providers Care Inspector Hot Forgings Name Role Phone Chelsi Issac Primary Care Provider Yuli Naylor Unavailable [phone] Allergies No Known Allergies Reason For Referral No Information Medications Medication SIG (Take, Route, Frequency, Duration) Notes [...] ing Benazepril HCl 5 MG Orally Not-Taking Immunizations Vaccine Route Administration Date Status Comme nts Influenza Unknown 05/21/2022 Administered Social History Tobacco Use: Social History Observation Description Date Details (start date - stop date) Never Smoker NA - NA Tobacco Use/Smoking Question Answer Notes Are you a: nonsmoker Additional Findings: Tobacco Non-User Current no n-smoker Alcohol Screen Question Answer Notes Did you have a drink containing alcohol in the p ast year? No Points 0 Interpretation Negative Tobacco use other than smoking: Question Answer Notes Are you an other tobacco user? 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) Active confirmed Plan Of Treatment Pending Test Test Name Order Date X ray : Foot, left 3V 08/05/2019 X ray : Foot, right 3V 02/26/2023 X ray : Foot, right 3V 08/05/2019 Insurance Providers Payer Name Payer Address Payer Phone Subscriber Number Group Number Insured Name Patient Relationship to Insured Coverage Start Date Coverage End Date Medicare National Govt [employer] [address] [place] [address] [id number] Amarjit Oswald Self - patient is the insured [employer]) [address] [place] [address] [phone] [id number] DarekAmarjit Self - patient is the insured 9 Medical (General) History Medical History History ICD Code Anxiety asthma Back,Hip,and Knee pain Broken bones CAD (Cholesterol) Chicken pox Depression Diabetes mellitus Gall bladder problems Gout Headaches/Migraines Heart disease High blood pressure Kidney disease Measles Mumps Poor circulation chronic sinusitis Surgical History Surgery Date(Month/Year) disc surgery right elbow sx 1996 rotator cuff tear repair 2006 gall bladder 2018 left carpal tunnel surgery 02/17/2023
--- OUTSIDE RECORDS SUMMARY | 2024-11-18 09:54 | XMS_ITS | Clinical Summary ---
Author Organization [facility] Address [address] [place] [address] Care Team Providers Care Senior Investment Manager Name Role Phone Unavailable Primary Care Provider Unavailabl e Social History Tobacco Use Types Packs/Day Years Used Date Smoking Tobacco: Never Assessed Sex and Gender Information Value Date Recorded Sex Assigned at Not on file Legal Sex Male 4:12 PM EDT Gender Identity Not on file Sexual Orientation Not on file Plan of Treatment Health Maintenance Due Date Last Done Comments Hepatitis C Virus Screening 1950 DTaP/Tdap/Td Vaccines (1 - Tdap) 1967 Pneumococcal Vaccines 50+ (1 of 1 - PCV) 1998 Zoster (Shingles) Vaccine (1 of 2) 1998 RSV Vaccine 60 years and old er and Patients (1 - 1-dose 75+ series) 2023 COVID-19 Vaccine (2023-2 5 season) 2024 Hepatitis B Vaccines Aged Out No long er eligible based on patient's age to complete this topic
--- OUTSIDE RECORDS SUMMARY | 2024-11-18 09:54 | XMS_ITS | Clinical Summary ---
Author Organization [facility] Address [address] [place] [address] Care Team Providers Care Top Closer Name Role Phone Unavailable Primary Care Provider Unavailabl e Encounters Date Type Department Care Team Description 09/23/2024 Telephone [facility]aster - [address] [facility] [place] [id number] Bertha Duvall RN Medicare Annual Wellness Visit Subsequent from Last 3 Months Surgical History Surgery Date Site/Laterality Comments CHOLECYSTECTOMY 2016 PROCEDURE: HISTORICAL CHOLECYSTECTOMY COLONOSCOPY 2007 PROCEDURE: HISTORICAL COLONOSCOPY; COMMENT: Pleet; diverticulosis. COLONOSCOPY 2015 PROCEDURE: HISTORICAL COLONOSCOPY; COMMENT: Manuel; negative OTHER SURGICAL HISTORY 01/03/2019 PROCEDURE: CHG RADIOLOGIC EXAM SWALLOW FUNCTION CONTRAST STUDY; COMMENT: Normal at [facility]. UPPER GASTROINTESTINAL ENDOSCOPY 03/23/2019 PROCEDURE: TN UPPER GI ENDOSCOPY PERFORMED; COMMENT: small inlet patch in the upper esophagus. BACK SURGERY PROCEDURE: HISTORICAL BACK SURGERY; COMMENT: lumbar disc surgery ROTATOR CUFF REPAIR 2014 PROCEDURE: HISTORICAL ROTATOR CUFF REPAIR Medical History Medical History Date Comments Neck pain 04/10/2008 DX:Neck pain; CO MMENT: MRI with arthritis Low back pain 04/10/2008 DX:Low back pain ; COMMENT: Surgery 2003,2004 Dr. Flood Type 2 diabetes mellitus wit h chronic kidney disease, with long-term current use of insulin (CMS/HCC V24, CMS/HCC V28) 01/25/2021 DX:Type 2 diabetes mellitus with chronic kidney disease, with long-term current use of insulin ([facility]) HTN (hypertension) 10/01/2009 DX:HTN (hyper tension) Diverticulosis large intesti ne w/o perforation or abscess w/o bleeding 10/26/2020 DX:Diverticulosis large intestine w/o perforation or abscess w/o bleeding Liver nodule 01/25/2021 DX:Liver nodule Mild persistent asthma witho ut complication 01/25/2021 DX:Mild persistent asthma wi thout complication Pulmonary nodule 01/25/2021 DX:Pulmonary no dule Coronary artery disease invo lving [place] coronary artery of [place] heart without angina pectoris 01/25/2021 DX:Coronary artery disease i nvolving [place] coronary artery of [place] heart without angina pectoris Type 2 diabetes mellitus wit h cataract ([facility] V24, [facility] V28) 02/04/2021 DX:Type 2 diabetes mellitus with cataract ([facility]) Anxiety 07/31/2008 DX:Anxiety BPH (benign prostatic hyperplasia) 02/04/2021 DX:BPH (benign prostatic hyperplasia); COMMENT: Sees Dr. Rebolledo [facility] Carpal tunnel syndrome 10/05/2008 DX:Carpal tunnel syndrome; COMMENT: S/p surgery. Cataract 02/04/2021 DX:Cataract; COM MENT: Sees Dr. Mesa Chronic kidney disease, stag e 3b ([facility] V24, [facility] V28) 01/25/2021 DX:Chronic kidney disease, stage 3b ([facility]); COMMENT: Follows w/ Dr. 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 Menisceal tear, MRI ordered 06/2012 S/P shoulder surgery 04/12/2010 DX:S/P shou lder surgery; COMMENT: [facility]- 01/03. Ascending aorta dilatation ( [facility] V[facility]) 05/29/2021 DX:Ascending aorta dilatatio n ([facility]); COMMENT: CT chest (05/29/2021): 4 cm. Tubular adenoma of colon 12/26/2021 DX:Tubu lar adenoma of colon; COMMENT: Repeat 5 years. Family History Medical History Relation Name Comments Lung cancer Father Diabetes Mother Relation Name Status Comments Father Mother Social History Tobacco Use Types Packs/Day Years Used Date Smoking Tobacco: Never Smokeless Tobacco: Never Alcohol Use Standard Drinks/Week Comments No 0 (1 standard drink = 0.6 oz pur e alcohol) Sex and Gender Information Value Date Recorded Sex Assigned at Not on file Legal Sex Male 9:54 AM EST Gender Identity Not on file Sexual Orientation Not on file Obstetrics History Last Filed Vital Signs Vital Sign Reading Time Taken Comments Blood Pressure 134/74 06/20/2022 1:34 PM EST Sit ting R Arm Pulse 68 06/20/2022 1:34 PM EST Temperature - - Respiratory Rate - - Oxygen Saturation - - Inhaled Oxygen Concentration - - Weight 83.9 kg (185 lb) 09/19/2022 9:24 AM EST Height 172.7 cm (5' 8 ) 09/19/2022 9:24 AM EST Body Mass Index 28.13 09/19/2022 9:24 AM EST Plan of Treatment Health Maintenance Due Date Last Done Comments Diabetes: Annual GFR (Glomerular Filtration Rate) 1948 Diabetes: Annual Foot Exam 1958 Diabetes: Annual Retina Eye Exam 1958 Hepatitis A Vaccines (1 of 2 - Risk 2-dose series) 1967 Hepatitis B Vaccines (1 of 3 - Risk 3-dose series) 2008 Zoster Vaccines (2 of 2) 06/15/2020 04/20/2020 Cholesterol Screening (Lipid Panel) 06/29/2022 Colorectal Cancer Screening: Colonoscopy 06/29/2022 Depression Screening 06/29/2022 Falls Risk Assessment 06/29/2022 Hepatitis C Screening 06/29/2022 Medicare Annual Wellness Visit 06/29/2022 Social Influencers of Health Screening 06/29/2022 Hypertension/CHF/CAD Annual BMP Blood Test 07/06/2022 Diabetes: Annual Urine Albumin-Creatinine Ratio (uACR) 07/11/2022 Diabetes: Blood Sugar Control Test (HGBA1C) 07/11/2022 RSV Immunization Adult Patients (1 - 1-dose 75+ series) 2023 COVID-19 Vaccine ( season) 2024 04/29/2022, 05/08/2021, 10/15/2020, Additional history exists Influenza Vaccine (Season Ended) 2025 04/15/2022, 06/28/2021, 04/18/2020, Additional history exists DTaP,Tdap,and Td Vaccines (2 - Td or Tdap) 05/16/2030 05/16/2020 Pneumococcal Vaccine: 50+ Years Completed 10/08/2021, 05/08/2019, 09/09/2016 HIB Vaccines Aged Out No longer eligi ble based on patient's age to complete this topic HPV Vaccines Aged Out No longer eligi ble based on patient's age to complete this topic IPV Vaccines Aged Out No longer eligi ble based on patient's age to complete this topic MMR Vaccines Aged Out No longer eligi ble based on patient's age to complete this topic Meningococcal ACWY Vaccine Aged Out N o longer eligible based on patient's age to complete this topic Meningococcal B Vaccine Aged Out No l onger eligible based on patient's age to complete this topic RSV Immunization Patients Under 20 months Aged Out No longer eligible based on patient's age to complete this topic Varicella Vaccines Aged Out No longer eligible based on patient's age to complete this topic
--- NOTE | 2024-11-18 10:12 | A.OFFVIS_ITS ---
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 Patient reports ongoing pain for a while. States he has had a fall in the past and believes this may be the cause of his pain. He has sharp pain that radiates down his arm to his wrist. Denies numbness or tingling. Limited ROM. No other tx. Allergies animal dander Allergy (Intermediate, Verified 11/18/24 10:15) hayfever empagliflozin [From Jardiance] Allergy (Intermediate, Verified 11/18/24 10:15) Rash environmental allergies Allergy (Intermediate, Verified 11/18/24 10:15) hayfever mold Allergy (Intermediate, Verified 11/18/24 10:15) hayfever HPI HPI GAS PROVER LT shoulder pain: Details: Mr. Oswald is a 74-year-old right-hand dominant male who presents to the office today for evaluation of left shoulder pain. He reports that the pain has been present for quite some time, years even. He believes his pain began after a fall that he sustained roughly 2 years ago. Reports that he was going down the stairs and fell forward into a wall. Ever since then, he has had shoulder pain to some level of discomfort. Pain is worsened with activities. He is unable to perform overhead activities due to range of motion restrictions and pain. [facility] Medical History (Updated 11/18/24 @ 11:35 by Areli Duenas PA-C) Migraine Right foot drop Neuropathy GERD (gastroesophageal reflux disease) Type 2 diabetes mellitus Chronic renal insufficiency Asthma Lumbar back pain Hyperlipidemia CAD (coronary artery disease) Surgical History (Reviewed 11/18/24 @ 10:15 by Mackenzie Toledo [facility]) History of inguinal hernia repair, bilateral (03/02/24) H/O colonoscopy Hx of heart artery stent History of open reduction and internal fixation (ORIF) procedure Hx of arthroscopy of shoulder History of back surgery Hx of cholecystectomy History of back surgery Family History Father Lung cancer Social History Are you a primary health care law specialist to a significant other at home: No Do you presently have visiting nurse or other home services: No Unable to assess alcohol history related to: Unknown Patient Tobacco Use Status: Never used Tobacco Review of Systems Const All systems reviewed & are unremarkable except as noted in HPI and below Physical Exam Const General: cooperative, healthy appearing and no acute distress Resp Effort & Inspection: normal respiratory effort and able to speak in complete sentences Extrem Other: Left shoulder 90 degrees of forward flexion and abduction. External rotation to 45 degrees. Discomfort with cross-body reach. 2/5 strength with empty can. Negative drop-arm. NVI. Office Procedures AMB Joint Injection/Aspiration Joint Injection/Aspiration Primary Site: left shoulder Prep: site was prepped using aseptic technique, ethochloride spray was applied and injection warnings given Injected: 40 mg of, DepoMedrol, with 8 mL of (2% plain lido ) and in the subcromial space Approach Used: posterolateral Procedure: The patient tolerated the procedure well, but had some pain with the injection and there was some relief with the local anesthesia Coding 38956 - Large joint Procedure code (CPT) selection complete Assessment & Plan Assessment & Plan (1) Rotator cuff insufficiency of left shoulder: Code(s): M25.312 - Other instability, left shoulder Category: Medical (2) Type 2 diabetes mellitus: Comment: taking Farxiga & Tresiba insulin Code(s): E11.9 - Type 2 diabetes mellitus without complications Category: Medical Plan Mr. Oswald is a 74-year-old right-hand dominant male who presents to the office today for evaluation of left shoulder pain. He reports that the pain has been present for quite some time, years even. He believes his pain began after a fall that he sustained roughly 2 years ago. Reports that he was going down the stairs and fell forward into a wall. Ever since then, he has had shoulder pain to some level of discomfort. Pain is worsened with activities. He is unable to perform overhead activities due to range of motion restrictions and pain. The patient was offered a cortisone injection in the left shoulder with 40 mg of DepoMedrol. The patient was explained the risks, benefits, and alternatives to receiving this injection. After receiving consent for the injection, the patient had the procedure done while in the office today. The patient tolerated the procedure well with no complications. Due to the patient?s history of diabetes, they were instructed to monitor their blood glucose level. The patient was informed that they could see a rise in their numbers and if the numbers became too high, they were instructed to call their PCP. The patient was also informed that they could have facial flushing as a side effect of the injection, but this will pass. Follow-up will be p.r.n., or sooner if needed X-rays of the left shoulder which were obtained while in the office today and were reviewed by me, Areli Duenas PA-C, revealed no acute fracture or dislocation. Orders: Orders XR shoulder LT min 2V Today M25.519 - Pain in unspecified shoulder Coding Level of Care Code New Pt Level 4 (25726) Diagnoses Rotator cuff insufficiency of left shoulder M25.312 Type 2 diabetes mellitus E11.9 CPT Codes Coding - 21255 Large joint: 51958 - Large joint ([id number])
== END 2024-11-18 10:39 | disposition home or self-care (01) ==
LOC: HO.HOS 09:40
PROVIDERS: PCP Family Medicine; Visit Provider Physician Assistant
DX: M25.312 Other instability, left shoulder (principal); E11.9 Type 2 diabetes mellitus without complications
CPT/HCPCS: 20610; 99204

== ENCOUNTER → 2024-11-18 09:40 | Outpatient (BNV) | payer MEDICARE, OTHER, SELFPAY | PROVIDERS: Visit Provider Radiology Diagnostic Radiology | DX: M25.512 Pain in left shoulder (principal) | CPT/HCPCS: 73030 ==

== ENCOUNTER 2025-03-24 10:35 | Outpatient (REF) | payer MEDICARE, OTHER, SELFPAY ==
--- NOTE | ~2025-03-24 | XR_ITS ---
CLINICAL HISTORY: M96.1 - Postlaminectomy syndrome, not elsewhere classified --- Additional Notes or Special Instructions: AP lateral Exam: AP and lateral views of the lumbar spine. Comparison: None provided. Findings: Spinal fusion hardware spans from L4-S1. Posterior spinal fusion rods and pedicle screws are evident. Interbody cage device is seen at the L4-5 level. There is 3 mm of anterolisthesis of L4 on L5. There is 4 mm of retrolisthesis of L2 on L3. Moderate adjacent segment disease at L3-4 is evident. Mild convex right mid lumbar curvature. No acute compression fracture. No fracture of the surgical hardware. Impression: Postsurgical change and degenerative change as discussed above. Correlation with prior imaging studies suggested to assess for any interval change. This document has been electronically signed by: Giancarlo Vigil MD on 03/25/2025 09:00:48
== END 2025-03-24 10:36 | disposition home or self-care (01) ==
LOC: HO.HOSX 10:35
PROVIDERS: PCP Family Medicine; Visit Provider Neurological Surgery
DX: M96.1 Postlaminectomy syndrome, not elsewhere classified (principal); M51.362 Other intervertebral disc degeneration, lumbar region with discogenic back pain and lower extremity pain; M48.061 Spinal stenosis, lumbar region without neurogenic claudication; M21.371 Foot drop, right foot; Z98.1 Arthrodesis status
CPT/HCPCS: 72100; 99202

== ENCOUNTER 2025-03-24 10:35 | Outpatient (AMB) | payer MEDICARE, OTHER, SELFPAY ==
[2025-03-24 10:49] VITALS: BMI 27.4
--- NOTE | 2025-03-24 10:49 | HO.SPINEOV ---
Vital Signs 03/24/25 10:49 Height 5 ft 8 in Weight 180 lb BMI 27.4 Intake Visit Reasons: lower back pain Intake Note: Mr. Oswald is here today c/o Low back pain. Die Engraver Required: No Allergies animal dander Allergy (Intermediate, Verified 03/24/25 10:50) hayfever empagliflozin (From Jardiance) Allergy (Intermediate, Verified 03/24/25 10:50) Rash environmental allergies Allergy (Intermediate, Verified 03/24/25 10:50) hayfever mold Allergy (Intermediate, Verified 03/24/25 10:50) hayfever Physical Exam Vital Signs: BMI result Body Mass Index 27.4 Assessment & Plan Assessment & Plan (1) Failed back syndrome: Code(s): M96.1 - Postlaminectomy syndrome, not elsewhere classified Category: Medical Plan: Dear colleague On 03/24/2025, I saw for a 2nd opinion Mr. Curt Oswald with a chief complaint of severe right-sided back pain and bilateral leg pain. HPI: This 74-year-old male with extensive spinal history. He had 2 microdiskectomies with 20 years ago. He had a L4-5 transforaminal lumbar interbody fusion done, right-sided approach with Dr. De Guzman in 2022. He tells me that he had 3 additional surgeries in 4 days following this procedure. He is not sure why the procedures were done but there was something going on with the screws. He noticed a drop foot as soon as he was mobilizing after the procedure. The drop foot has not improved. The original complaint with severe back pain with radiating pain down the front of his thighs and shins. These pains have never improved despite the lumbar fusion. He also complains of proximal bilateral leg leg weakness. No pain numbness or weakness of the upper extremities. He comes in to see me for 2nd opinion. PMH: Hypertension, diabetes Medications: Tizanidine, atorvastatin, farxiga, gabapentin, insulin, omeprazole, sertraline, trazodone Allergies: NKDA Social history: Retired. Nonsmoker Physical Exam: Pleasant male in obvious agony. Height 5'8 weight 180 lb. He is in agony. While standing he has deviated towards the right side. There is pain on palpation over the right paravertebral area. They are well healed large paramedian incisions. Straight leg raise produces pain in the right buttock radiating down his leg. There is a grade 3/5 footdrop on the right side. Gait is disturbed. He walks in a flexed position. Radiological Studies: MRI done at [facility] on 02/01/2025 shows status post L4-5 transforaminal lumbar interbody fusion through a right-sided approach. In addition there is posterior instrumentation L4-S1 without a screw placement in the right L5 pedicle. This adjacent degenerative disc disease with spinal stenosis L3-4. A standing x-ray today shows that there is a mild extra scoliosis above the fusion. The screws seems to be in correct placement and no screw was seen in the right L5 pedicle Impression/Plan: This patient is suffering from severe back pain and bilateral leg pain with a new drop foot since a lumbar fusion surgery in 2022. The preoperative symptoms have not improved. He does have adjacent degenerative disc disease with spinal stenosis at L3-4 which could explain the proximal leg weakness as well as the radiating pain down the front of his thighs and shins. This is a complicated case and I requested from him to get all the studies done preoperatively for me to get the optimal clinical picture. He will return when he has the preoperative films. Thank you for allowing me to participate in your patients care. total time spent was 50 minutes in counseling ,coordination of plan, personal review of imaging, surgical decision making and subsequent plan Trae Henao MD, PhD Spine Fellowship Trained Neurosurgeon Director, [facility] Orders: Orders XR lumbar spine 2-3V Today M96.1 - Postlaminectomy syndrome, not elsewhere classified Coding Level of Care Code New Pt Level 4 (77763) Diagnoses Failed back syndrome M96.1
--- OUTSIDE RECORDS SUMMARY | 2025-03-24 11:14 | XMS_ITS | Clinical Summary ---
Author Organization [facility] Address [address] [place] [address] Care Team Providers Care Upholstery Cutter Name Role Phone Issac Gagnon Primary Care Provider [phone] Allergies Active Allergy Reactions Criticality Noted Date [...] 69 08/25/2024 1:02 PM EST Temperature 36.5 C (97.7 F) 01/11/2016 10:33 AM EDT Respiratory Rate 16 08/25/2024 1:02 PM EST [...] 2024 05/12/2024, 06/23/2023, 04/29/2022, Additional history exists Influenza Vaccine (#1) 2025 , 06/23/2023, 04/15/2022, Additional history exists Basic Metabolic Panel 07/06/2025 [...] (60+ years old and patients) Completed 07/13/2023 Zoster Vaccines Completed 05/12/2024, 03/28, 04/20/2020 Cologuard Discontinued Hepatitis B Vaccines Aged Out No long er eligible based on patient's age to complete this topic Sigmoidoscopy Discontinued Procedures * Due to [place] state law, this organization might not be [...] to Health Maintenance Results * Due to [place] state law, this organization might not be sharing negative HIV tests. * (ABNORMAL) Hemoglobin A1c (01/11/2016 11:14 AM EDT) Hemoglobin A1C 6.7(H) <5.7 [facility] Comment: UNITS OF MEASURE: % of total Hgb According to ADA guidelines, hemoglobin A1c <7.0% represents optimal control in non- diabetic patients. Different metrics may apply to specific patient populations. Standards of Medical Care in Diabetes-2013. Diabetes Care. 2013;36:s11-s66 For the purpose of screening for the presence of diabetes <5.7% Consistent with the absence of diabetes 5.7-6.4% Consistent with increased risk for diabetes (prediabetes) >or=6.5% Consistent with diabetes This assay result is consistent with diabetes mellitus. Currently, no consensus exists for use of hemoglobin A1c for diagnosis of diabetes for children. eAG (MG/DL) 146 () (calc) [facility] eAG (MMOL/L) 8.1 () (calc) [facility] 01/11/2016 11:1 4 AM EDT 01/11/2016 12:39 PM EDT Ru Lopez MD LAB BLOOD ORDERABLES Final Re sult [facility] * HM COLONOSCOPY (01/09/2016 12:00 AM EDT) HM Colonoscopy 01/09/2016 OTHER 01/09/2016 us Historical Conversion Provider HEALTH MAINTENANC E Final Result OTHER * Microalbumin/Creatinine Urine, Random (07/06/2015 10:58 AM EST) Microalbumin Urine <1 mg/dL [facility] Creatinine Urine 103 22 - 328 mg/dL [facility] Albumin/Creat Ratio Unable to Calculate <30.0 mcg/mgCr [facility] 07/06/2015 10:5 8 AM EST 07/06/2015 11:31 AM EST Ru Lopez MD LAB URINE ORDERABLES Final Re sult Performing Organization Address City/[facility]/ZIP Co de Phone Number [facility] [address] [place] [address], * HM DIABETES EYE EXAM (07/06/2015 12:00 AM EST) [facility] HM Eye Exam 07/06/2015 [facility] MANUAL RESULTS 07/06/2015 us Conversion Physician HEALTH MAINTENANCE Final Re sult Performing Organization Address [facility]/ZIP Co de Phone Number [facility] MANUAL RESULTS * Occult Blood, Fecal (FIT) (02/08/2014 12:00 PM EDT) [facility] Occult Blood,Fecal Negative NEGATIVE FIT [facility] 02/08/2014 12:0 0 PM EDT 02/08/2014 10:45 PM EDT Ru Lopez MD LAB BODY FLUIDS AND STOOLS OR DERABLES Final Result Performing Organization Address [facility] Co de Phone Number [facility] [address] [place] [address], * (ABNORMAL) Comprehensive Metabolic Panel (07/16/2013 10:30 AM EST) [facility] Sodium Blood 140 135 - 145 mmol/L [facility] Potassium Blood 4.9 3.5 - 5.3 mmol/L [facility] Chloride Blood 104 97 - 110 mmol/L [facility] Carbon Dioxide 29 24 - 32 mmol/L [facility] Gap 7 5 - 15 [facility] Glucose 156(H) 70 - 99 mg/dL [facility] BUN 16 7 - 23 mg/dL [facility] Creatinine 1.11 0.60 - 1.30 mg/dL [facility] eGFR Non- >60 >60 [facility] Comment: Units = [...] Calcium Blood 10.3 8.7 - 10.7 mg/dL [facility] Total Protein Blood 7.2 6.0 - 8.0 g/dL [facility] Albumin Blood 4.8 3.5 - 4.8 g/dL [facility] Bilirubin Total 0.5 0.3 - 1.2 mg/dL [facility] Alkaline Phosphatase 47 30 - 115 IU/L [facility] AST 22 10 - 40 IU/L [facility] ALT 27 10 - 40 IU/L [facility] 07/16/2013 10:3 0 AM EST 07/16/2013 11:04 AM EST us Ru Lopez MD LAB BLOOD ORDERABLES Final Re sult [facility] [address] [place] [address], from Last 3 Months or Most Recently Relevant to Health Maintenance Insurance MEDICARE [facility] Care Teams Upholstery Cutter Relationship Specialty Start Date End Date Issac Gagnon [address] [place] [address] PCP - General Family Medicine 07/18/24
--- OUTSIDE RECORDS SUMMARY | 2025-03-24 11:14 | XMS_ITS | Encounter Summary ---
Author Organization [facility], Address [address] [place] [address] Phone Care Team Providers Care Track Moving Machine Operator Name Role Phone Issac Gagnon MD Primary Care Provider [phone] Encounter Details Date Type Department Care Team (Late st Contact Info) Description 07/31/2022 Documentation Only [facility], [address] [place] [address] Alberto Light PA [address] [place] [phone] Social History Tobacco Use Types Packs/Day Years [...] Care Team (Late st Contact Info) Description 07/12/2025 10:15 AM EST Office Visit [facility] [address] [facility] [address] [place] [address] April Sesay ARNP [address] [address] documented as of this encounter Visit Diagnoses Not on filedocumented in this encounter Care Teams Track Moving Machine Operator Relationship Specialty Start Date End Date Issac Gagnon MD [address] [place] [address] PCP - General Family Medicine 05/05/23 documented as of this encounter
--- OUTSIDE RECORDS SUMMARY | 2025-03-24 11:14 | XMS_ITS | Encounter Summary ---
Author Organization [facility], Address [address] [place] [address] Phone Care Team Providers Care Insulation Estimator Name Role Phone Issac Gagnon MD Primary Care Provider [phone] Encounter Details Date Type Department Care Team (Late st Contact Info) Description 02/12/2022 Documentation Only [facility], [address] [place] [address] Alberto Light PA [address] [place] [phone] Social History Tobacco Use Types Packs/Day Years [...] Visit [facility] [address] [facility] [address] [place] [address] April Sesay ARNP [address] [address] documented as of this encounter Visit Diagnoses Not on filedocumented in this encounter Care Teams Insulation Estimator Relationship Specialty Start Date End Date Issac Gagnon MD [address] [place] [address] PCP - General Family Medicine 05/05/23 documented as of this encounter
--- OUTSIDE RECORDS SUMMARY | 2025-03-24 11:14 | XMS_ITS | Patient Health Record ---
Author Organization [facility] Address [address] [facility] [place] [address] Care Team Providers Care Traffic Analysis Technician Name Role Phone Chelsi Issac Primary Care Provider Yuli Naylor Unavailable [phone] Allergies No Known Allergies Reason For Referral [...] 1 tablet at bedtime Orally Once a day; Duration: 30 day(s) Not-Taking Trulicity 3 MG/0.5ML as directed Subcutaneous Active Allopurinol 100 MG TAKE 1 TABLET BY EVERY DAY; Duration: 90 Not-Taki ng Omeprazole 20 MG 1 capsule 30 minutes [...] 50 MG 1 tablet Orally Once a day; Duration: 30 day(s) Not-James ing Keflex 500 MG 1 capsule Orally aureliano ry 12 hrs; Duration: 7 days 02/26/2023 Active Allopurinol 100 MG 1 tablet Orally Once a day Active Atorvastatin Calcium 40 MG 1 tablet Orally Once a day; Duration: 30 day(s) Active PARoxetine HCl 20 MG 1 tablet in the mor francesca Orally Once a day; Duration: 30 day(s) Not-Taking Montelukast Sodium 10 MG 1 tablet Orally Once a day; Duration: 30 day(s) Not-James ing glipiZIDE 5 MG 1 tablet 30 minutes before breakfast Orally Once a day; Duration: 30 day(s) Not-Taking Benazepril HCl 5 MG Orally Not-Taking Immunizations [...] Status Risk Notes Problem Acquired hallux valgus (17130170) Hallux valgus (acquired), left foot (M20.12) Active confirmed Problem Gout (85544128) Gout, unspecifie d (M10.9) Active confirmed Problem Polyneuropathy due to type 2 diabetes mellitus (599601036) Type 2 diabetes mellitus with diabetic polyneuropathy (E11.42) Active confirmed Problem Neuropathic ulcer of right foot (disorder) ([id number] 2) Neuropathic ulcer of right foot, limited to [...] Date Coverage End Date Medicare National Govt [employer] [address] [facility] [place] [address] [id number] Amarjit Oswald Self - patient is the insured 5 [employer]) [address] [place] [address] [id number] Amarjit Oswald Self - patient is [...]
--- OUTSIDE RECORDS SUMMARY | 2025-03-24 11:14 | XMS_ITS | Clinical Summary ---
Author Organization [facility] Address [address] [address] Phone Care Team Providers Care Freelance Director Name Role Phone Issac Gagnon MD Primary Care Provider [phone] Allergies Active Allergy Reactions Criticality Noted Date [...] 50 mg by mouth every night Active Insulin Degludec (TRESIBA SC) Inject 16 mL under the skin 1 (one) time each day Active losartan (Cozaar) 25 MG tabletIndicatio ns:Stage 3a chronic kidney disease (HCC),Hypertens ion Take 1 tablet (25 mg total) by mouth 1 (one) time each day 30 tablet 11 01/10/2025 6 Active Farxiga 10 MG tablet TAKE 1 TABLET BY MOUTH EVERY MORNING 90 tablet 2 01/22/2025 Active Active Problems Problem Noted Date Diagnosed [...] Hypercholesterolemia 08/26/2019 021 Hypertensive heart disease w [facility] congestive heart failure 08/26/2019 07/01/2021 Administration of pneumococcal vaccine 08/26/2019 12/01/2019 Encounters Date Type Department Care Team Description 01/20/2025 Refill [facility] [address] [place] [id number] Rowdy Cerda MD 01/10/2025 1:00 PM EDT Office Visit [facility] [address] [facility] [address] [place] [phone] April Sesay ARNP Stage 3a chronic kidney disease (HCC) (Primary Dx); Hypertension 12/25/2024 Orders Only [facility] [address] [address] April SesayCHANA Stage 3a chronic kidney disease (HCC); Hypertension from Last 3 Months Immunizations Immunization Administration Dates Next Due Influenza [...] Sign Reading Time Taken Comments Blood Pressure 132/90 01/10/2025 12:52 PM EDT Pulse 66 01/10/2025 12:52 PM EDT Temperature - - Respiratory Rate 16 06/02/2019 12:00 PM EST Oxygen Saturation 99% 07/01/2023 3:27 PM EST Inhaled Oxygen Concentration - - Weight 85.3 kg (188 lb) 01/10/2025 12:52 PM EDT Height 175.3 cm (5' 9 ) 02/17/2022 5:07 PM EDT Body Mass Index 27.76 02/17/2022 5:07 PM EDT Plan of Treatment Upcoming Encounters Date Type Department Care Team (Late st Contact Info) Description 07/12/2025 10:15 AM EST Office Visit [facility] [address] [address] Lázaro AprilCHANA [address] [address] Health Maintenance Due Date Last Done Comments Diabetes: Ophthalmology Exam 08/26/2019 Diabetes: Pedal Pulse Checked 08/26/2019 Diabetes: Sensory Foot Exam 08/26/2019 Diabetes: Visual Foot Exam 08/26/2019 Diabetes: Hemoglobin A1C 05/15/2022 022, 06/28/2021, 03/06/2021, Additional history exists Influenza Vaccine (#1) 2025 2, 04/15/2022, 06/28/2021, Additional history exists Pneumococcal Vaccine: 50+ Years Completed 10/08/2021, 04/25/2019, 06/26/2017 Pneumococcal Vaccine: Peds (0 to 5 Years) and At-Risk Patients (6 to 49 Years) Discontinued 10/08/2021, 04/25/2019, 06/26/2017 Hepatitis B Vaccine Aged Out No longe r eligible based on patient's age to complete this topic Procedures Procedure Name Priority Date/Time Associated Diagnosis Comments VITAMIN D 25 HYDROXY Routine 01/10/2025 1:53 PM EDT Stage 3a chronic kidney disease (HCC) Hypertension PROTEIN / CREATININE RATIO, URINE Routine 01/10/2025 1:53 PM EDT Stage 3a chronic kidney disease (HCC) Hypertension URINE ALBUMIN / CREATININE RATIO Routine 01/10/2025 1:53 PM EDT Stage 3a chronic kidney disease (HCC) Hypertension RENAL FUNCTION PANEL Routine 01/10/2025 1:53 PM EDT Stage 3a chronic kidney disease (HCC) Hypertension PTH, INTACT Routine 01/10/2025 1:53 PM EDT Stage 3a chronic kidney disease (HCC) Hypertension CBC Routine 01/10/2025 1:53 PM EDT Stage 3a chronic kidney disease (HCC) Hypertension BASIC METABOLIC PANEL Routine 01/10/2025 1:52 PM EDT Stage 3a chronic kidney disease (HCC) Hypertension HEMOGLOBIN A1C Routine 02/12/2022 1:46 PM EDT Stage 3b chronic kidney disease (HCC) Renal disorder due to type 2 diabetes mellitus <Other diabetic kidney complication> (HCC) Hypertensive disorder from Last 3 Months or Most Recently Relevant to Health Maintenance Results * Vitamin D 25 hydroxy (01/10/2025 1:53 PM EDT) Vitamin D, 25-OH, Total 41.2 30.0 - 100.0 ng/mL [facility] Comment: Vitamin D deficiency has been defined by the [place] of [employer] and an Endocrine Society practice guideline as a level of serum 25-OH vitamin D less than 20 ng/mL (1,2). The Endocrine Society went on to further define vitamin D insufficiency as a level between 21 and 29 ng/mL (2). 1. IOM ([place] of [employer]). 2010. Dietary reference intakes for calcium and D. [place]: The National Academies Press. 2. Corinne MF, Mode [place], June DAVIS, et al. Evaluation, treatment, and prevention of vitamin D deficiency: an Endocrine Society clinical practice guideline. JCEM. 2010; 96(7):1911-30. Blood specimen (specimen) Venous blood / Unknown 01/10/2025 1:53 PM EDT 01/10/2025 April ZAYAS LAB BLOOD ORDERABLES Final Result [facility] [address] [place] [phone] * CBC (01/10/2025 1:53 PM EDT) WBC 6.6 3.4 - 10.8 x10E3/uL [facility] RBC 5.07 4.14 - 5.80 x10E6/uL [facility] Hemoglobin 15.5 13.0 - 17.7 g/dL [facility] Hematocrit 45.7 37.5 - 51.0 % [facility] MCV 90 79 - 97 fL [facility] MCH 30.6 26.6 - 33.0 pg [facility] MCHC 33.9 31.5 - 35.7 g/dL [facility] RDW 13.2 11.6 - 15.4 % [facility] Platelets 179 150 - 450 x10E3/uL [facility] Blood specimen (specimen) Venous blood / Unknown 01/10/2025 1:53 PM EDT 01/10/2025 [facility] LAB BLOOD ORDERABLES Final Result [facility] [address] [place] [address] * PTH, intact (01/10/2025 1:53 PM EDT) Pathologist [facility] PTH 61 15 - 65 pg/mL [facility] Blood specimen (specimen) Venous blood / Unknown 01/10/2025 1:53 PM EDT 01/10/2025 [facility] LAB BLOOD ORDERABLES Final Result [facility] [address] [place] [address] * (ABNORMAL) Renal function panel (01/10/2025 1:53 PM EDT) Creatinine 1.41(H) 0.76 - 1.27 mg/dL [facility] eGFR CKD-EPI CR 2020 52(L) >59 mL/min/1.7 3 [facility] Sodium 140 134 - 144 mmol/L [facility] Potassium 4.9 3.5 - 5.2 mmol/L [facility] Chloride 104 96 - 106 mmol/L [facility] Bicarbonate (CO2) 21 20 - 29 mmol/L [facility] Calcium 9.4 8.6 - 10.2 mg/dL [facility] Phosphorus 4.0 2.8 - 4.1 mg/dL [facility] Albumin 4.8 3.8 - 4.8 g/dL [facility] Glucose 122(H) 70 - 99 mg/dL [facility] BUN 30(H) 8 - 27 mg/dL [facility] BUN/Creatinine Ratio 21 10 - 24 [facility] Blood specimen (specimen) Venous blood / Unknown 01/10/2025 1:53 PM EDT 01/10/2025 April Sesay [facility] LAB BLOOD ORDERABLES Final Result [facility] [address] [place] [address] * (ABNORMAL) Basic metabolic panel (01/10/2025 1:52 PM EDT) Glucose 123(H) 70 - 99 mg/dL [facility] BUN 30(H) 8 - 27 mg/dL [facility] Creatinine 1.55(H) 0.76 - 1.27 mg/dL [facility] eGFR CKD-EPI CR 2020 46(L) >59 mL/min/1.7 3 [facility] BUN/Creatinine Ratio 19 10 - 24 [facility] Sodium 141 134 - 144 mmol/L [facility] Potassium 4.9 3.5 - 5.2 mmol/L [facility] Chloride 104 96 - 106 mmol/L [facility] Bicarbonate (CO2) 20 20 - 29 mmol/L [facility] Calcium 9.4 8.6 - 10.2 mg/dL [facility] Blood Venous blood / Unknown 01/10/2025 1:52 PM EDT 01/10/2025 April Lázaro [facility] LAB BLOOD ORDERABLES Final Result [facility] [address] [place] [address] * (ABNORMAL) Hemoglobin A1c (02/12/2022 1:46 PM EDT) Hemoglobin A1C 6.4(H) (4.0-5.6) % [facility] Comment: MONITORING: In known diabetic patients, hemoglobin A1c targets should be discussed with health care provider. DIAGNOSTIC USE: The [place] Diabetes Association (ADA) and the World Health [...] Supplement 1 Testing performed or reported by [facility], a Service of [facility], [address] [place] [id number] Bhupendra Casey MD, Cuff Matcher [facility]# [id number] Blood specimen (specimen) Venous blood / Unknown 02/12/2022 1:46 PM EDT 02/12/2022 1:50 PM EDT us Yeyo Desai MD LAB BLOOD ORDERABLES Final Resul t [facility] from Last 3 Months or Most Recently Relevant to Health Maintenance Insurance Medicare [facility] Medicare [facility] Medicare [facility] Care Teams Freelance Director Relationship Specialty Start Date End Date Issac Gagnon MD [address] [place] [address] [place] [id number] PCP - General Family Medicine 05/05/23
--- OUTSIDE RECORDS SUMMARY | 2025-03-24 11:14 | XMS_ITS | Clinical Summary ---
Author Organization [facility] Address [address] [place] [address] Care Team Providers Care Drill Sergeant Name Role Phone Unavailable Primary Care Provider Unavailabl e Surgical History Surgery Date Site/Laterality Comments CHOLECYSTECTOMY 2016 PROCEDURE: HISTORICAL CHOLECYSTECTOMY COLONOSCOPY 2007 PROCEDURE: HISTORICAL COLONOSCOPY; COMMENT: Pleet; diverticulosis. COLONOSCOPY 2015 PROCEDURE: HISTORICAL COLONOSCOPY; COMMENT: Manuel; negative OTHER SURGICAL HISTORY 01/03/2019 PROCEDURE: [facility] RADIOLOGIC EXAM SWALLOW FUNCTION CONTRAST STUDY; COMMENT: Normal at [facility]. UPPER GASTROINTESTINAL ENDOSCOPY 03/23/2019 PROCEDURE: [place] UPPER GI ENDOSCOPY PERFORMED; COMMENT: small inlet patch in the upper esophagus. BACK SURGERY PROCEDURE: HISTORICAL BACK SURGERY; COMMENT: lumbar disc surgery ROTATOR CUFF REPAIR 2014 PROCEDURE: HISTORICAL ROTATOR CUFF REPAIR Medical History Medical History Date Comments Neck pain 04/10/2008 DX:Neck pain; CO MMENT: MRI with arthritis Low back pain 04/10/2008 DX:Low back pain ; COMMENT: Surgery 2003,2004 Dr. Flodo Type 2 diabetes mellitus wit h chronic kidney disease, with long-term current use of insulin ([facility] V24, [facility] V28) 01/25/2021 DX:Type 2 diabetes mellitus with chronic kidney disease, with long-term current use of insulin ([facility]) HTN (hypertension) 10/01/2009 DX:HTN (hyper tension) Diverticulosis large intesti ne w/o perforation or abscess w/o bleeding 10/26/2020 DX:Diverticulosis large intestine w/o perforation or abscess w/o bleeding Liver nodule 01/25/2021 DX:Liver nodule Mild persistent asthma witho ut complication 01/25/2021 DX:Mild persistent asthma wi thout complication Pulmonary nodule 01/25/2021 DX:Pulmonary no dule Coronary artery disease invo lving [place] coronary artery of [place] heart without angina pectoris 01/25/2021 DX:Coronary artery disease i nvolving [place] coronary artery of [place] heart without angina pectoris Type 2 diabetes mellitus wit h cataract ([facility] V24, [facility] V28) 02/04/2021 DX:Type 2 diabetes mellitus with cataract ([facility]) Anxiety 07/31/2008 DX:Anxiety BPH (benign prostatic hyperplasia) 02/04/2021 DX:BPH (benign prostatic hyperplasia); COMMENT: Sees Dr. Rebolledo [facility] Carpal tunnel syndrome 10/05/2008 DX:Carpal tunnel syndrome; COMMENT: S/p surgery. Cataract 02/04/2021 DX:Cataract; COM MENT: Sees Dr. Mesa Chronic kidney disease, stag e 3b ([facility] V24, [facility] V28) 01/25/2021 DX:Chronic kidney disease, stage 3b ([facility]); COMMENT: Follows w/ Dr. Yeyo [...] surgery 04/12/2010 DX:S/P shou lder surgery; COMMENT: [facility] 01/03. Ascending aorta dilatation ( [facility] V24) 05/29/2021 DX:Ascending aorta dilatatio n ([facility]); COMMENT: CT chest (05/29/2021): 4 [...] Panel) 06/29/2022 Colorectal Cancer Screening: Colonoscopy 06/29/2022 Falls Risk Assessment 06/29/2022 Hepatitis C Screening 06/29/2022 Medicare Annual Wellness Visit 06/29/2022 Social Influencers of Health Screening 06/29/2022 Hypertension/CHF/CAD Annual BMP Blood Test 07/06/2022 Diabetes: Annual Urine Albumin-Creatinine Ratio (uACR) 07/11/2022 Diabetes: Blood Sugar Control Test (HGBA1C) 07/11/2022 RSV Immunization Adult Patients (1 - 1-dose 75+ series) 2023 COVID-19 Vaccine ( season) 2024 04/29/2022, 05/08/2021, 10/15/2020, Additional history exists Depression Screening 07/27/2024 Influenza Vaccine (#1) 2025 2, 06/28/2021, 04/18/2020, Additional history exists DTaP,Tdap,and Td [...]
--- OUTSIDE RECORDS SUMMARY | 2025-03-24 11:14 | XMS_ITS | Clinical Summary ---
Author Organization [facility] Address [address] [place] [address] Care Team Providers Care Gas Distribution Supervisor Name Role Phone Unavailable Primary Care Provider [...]
--- OUTSIDE RECORDS SUMMARY | 2025-03-24 11:14 | XMS_ITS ---
[facility] Care Team Organization Name Specialty Phone Email Start Date End Da te [facility] Xavi Duvall Primary Care 01/02/2023 03/14/20 24
== END 2025-03-24 12:24 | disposition home or self-care (01) ==
LOC: HO.HNS 10:35
PROVIDERS: PCP Family Medicine; Visit Provider Neurological Surgery
DX: M96.1 Postlaminectomy syndrome, not elsewhere classified (principal)
CPT/HCPCS: 99204

== ENCOUNTER → 2025-03-24 11:53 | Outpatient (BNV) | payer MEDICARE, OTHER, SELFPAY | PROVIDERS: PCP Family Medicine; Visit Provider Radiology Diagnostic Radiology | DX: M96.1 Postlaminectomy syndrome, not elsewhere classified (principal) | CPT/HCPCS: 72100 ==

== ENCOUNTER 2025-03-29 12:44 | Outpatient (AMB) | payer MEDICARE, OTHER, SELFPAY ==
--- NOTE | 2025-03-29 12:59 | HO.SPINEOV ---
Intake Visit Reasons: preoperatively records review Intake Note: Mr. Oswald is here today for his Preoperative Records Review. Fashion Illustrator Required: No Allergies animal dander Allergy (Intermediate, Verified 03/24/25 10:50) hayfever empagliflozin (From Jardiance) Allergy (Intermediate, Verified 03/24/25 10:50) Rash environmental allergies Allergy (Intermediate, Verified 03/24/25 10:50) hayfever mold Allergy (Intermediate, Verified 03/24/25 10:50) hayfever Assessment & Plan Assessment & Plan (1) Failed back syndrome: Code(s): M96.1 - Postlaminectomy syndrome, not elsewhere classified Category: Medical Plan Dear colleague, On 03/28/2025, I saw for follow-up Curt Oswald to review preoperative records and preoperative films. As you know, he suffering from back pain radiating down both legs. Specifically to the front of his thigh and nguyen. He had an L4-5 fusion done at [facility] in 2023 that gave him a right-sided footdrop and no improvement of his symptoms. A postoperative MRI of the lumbar spine shows adjacent L3-4 spinal stenosis, which involves the L4 nerve roots and therefore I am trying to figure out if this was already present before the L4-5 lumbar fusion. I reviewed the operative records of 11/13/2023, 11/16/2023 and 11/17/2023. He had the original L4-5 fusion done on 11/13/2023. He was brought back to the operating room on 11/16/2023 to revise the right L5 pedicle screw that was placed medially compressing the L5 nerve root. On 11/17/2023 he was brought back to surgery again as the L5 screw was still not in the correct position. The screw was removed and the fusion was extended to the S1 level. Unfortunately, he was not giving the preoperative MRI. Therefore he will request the MRI and we will see him back for comparison. I spent 30 minutes in his consult to review multiple imaging, including lumbar x-ray MRI and CT scan and answer questions. Trae Henao MD, PhD Spine Fellowship Trained Neurosurgeon Director, [facility] Coding Level of Care Code Est Pt Level 4 (47909) Diagnoses Failed back syndrome M96.1
--- OUTSIDE RECORDS SUMMARY | 2025-03-29 15:09 | XMS_ITS | Clinical Summary ---
Author Organization [facility] Address [address] [address] Phone Care Team Providers Care Quality Engineering Manager Name Role Phone Issac Gagnon MD Primary Care Provider [phone] Allergies Active Allergy Reactions Criticality Noted Date [...] Hypercholesterolemia 08/26/2019 021 Hypertensive heart disease w [facility] congestive heart failure 08/26/2019 07/01/2021 Administration of pneumococcal vaccine 08/26/2019 12/01/2019 Encounters Date Type Department Care Team Description 01/20/2025 Refill [facility] [address] [place] [phone] Rowdy Cerda MD 01/10/2025 1:00 PM EDT Office Visit [facility] [address] [place] [phone] April Sesay ARNP Stage 3a chronic kidney disease (HCC) (Primary Dx); Hypertension from Last 3 Months Immunizations Immunization [...] Office Visit [facility] [address] [address] LázaroAprilCHANA [address] [address] Health Maintenance Due Date Last [...] Total 41.2 30.0 - 100.0 ng/mL [facility] Comment: Vitamin D deficiency has been defined by the [place] of Medicine and an Endocrine Society practice guideline as a level of serum 25-OH vitamin D less than 20 ng/mL (1,2). The Endocrine Society went on to further define vitamin D insufficiency as a level between 21 and 29 ng/mL (2). 1. IOM ([place] of Medicine). 2010. Dietary reference intakes for calcium and D. [place]: The National Academies Press. 2. Corinne MF, Mode [place], June DAVIS, et al. Evaluation, treatment, and prevention of vitamin D deficiency: an Endocrine Society clinical practice guideline. JCEM. 2010; 96(7):1911-30. Blood specimen (specimen) Venous blood / Unknown 01/10/2025 1:53 PM EDT 01/10/2025 April Sesay [facility] LAB BLOOD ORDERABLES Final Result [facility] [address] [place] [address] * CBC (01/10/2025 1:53 PM EDT) WBC 6.6 3.4 - 10.8 x10E3/uL [facility] RBC 5.07 4.14 - 5.80 x10E6/uL [facility] Hemoglobin 15.5 13.0 - 17.7 g/dL [facility] Hematocrit 45.7 37.5 - 51.0 % [facility] MCV 90 79 - 97 fL [facility] MCH 30.6 26.6 - 33.0 pg [facility] MCHC 33.9 31.5 - 35.7 g/dL [facility] RDW 13.2 11.6 - 15.4 % [facility] Platelets 179 150 - 450 x10E3/uL [facility] Blood specimen (specimen) Venous blood / Unknown 01/10/2025 1:53 PM EDT 01/10/2025 [facility] LAB BLOOD ORDERABLES Final Result [facility] [address] [place] [address] * PTH, intact (01/10/2025 1:53 PM EDT) Pathologist [facility] PTH 61 15 - 65 pg/mL [facility] Blood specimen (specimen) Venous blood / Unknown 01/10/2025 1:53 PM EDT 01/10/2025 [employer] [facility] LAB BLOOD ORDERABLES Final Result [facility] [address] [place] [address] * (ABNORMAL) Renal function panel (01/10/2025 1:53 PM EDT) Creatinine 1.41(H) 0.76 - 1.27 mg/dL [facility] eGFR CKD-EPI CR 2020 52(L) >59 mL/min/1.7 3 [facility] Sodium 140 134 - 144 mmol/L [facility] Potassium 4.9 3.5 - 5.2 mmol/L [facility] Chloride 104 96 - 106 mmol/L [facility] Bicarbonate (CO2) 21 20 - 29 mmol/L [facility] Calcium 9.4 8.6 - 10.2 mg/dL [facility] Phosphorus 4.0 2.8 - 4.1 mg/dL [facility] Albumin 4.8 3.8 - 4.8 g/dL [facility] Glucose 122(H) 70 - 99 mg/dL [facility] BUN 30(H) 8 - 27 mg/dL [facility] BUN/Creatinine Ratio 21 10 - 24 [facility] Blood specimen (specimen) Venous blood / Unknown 01/10/2025 1:53 PM EDT 01/10/2025 April Sesay [facility] LAB BLOOD ORDERABLES Final Result [facility] [address] [place] [address] * (ABNORMAL) Basic metabolic panel (01/10/2025 1:52 PM EDT) Glucose 123(H) 70 - 99 mg/dL [facility] BUN 30(H) 8 - 27 mg/dL [facility] Creatinine 1.55(H) 0.76 - 1.27 mg/dL [facility] eGFR CKD-EPI CR 2020 46(L) >59 mL/min/1.7 3 [facility] BUN/Creatinine Ratio 19 10 - 24 [facility] Sodium 141 134 - 144 mmol/L [facility] Potassium 4.9 3.5 - 5.2 mmol/L [facility] Chloride 104 96 - 106 mmol/L [facility] Bicarbonate (CO2) 20 20 - 29 mmol/L [facility] Calcium 9.4 8.6 - 10.2 mg/dL [facility] Blood Venous blood / Unknown 01/10/2025 1:52 PM EDT 01/10/2025 April Sesay [facility] LAB BLOOD ORDERABLES Final Result [facility] [address] [place] [address] * (ABNORMAL) Hemoglobin A1c (02/12/2022 1:46 PM EDT) Hemoglobin A1C 6.4(H) (4.0-5.6) % [facility] Comment: MONITORING: In known diabetic patients, hemoglobin A1c targets should be discussed with health care provider. DIAGNOSTIC USE: The [place] Diabetes Association (ADA) and the World Health [...] Supplement 1 Testing performed or reported by [facility], a Service of [facility], [address] [place] [address] Bhupendra Casey MD, Supervisory Training Specialist [facility]# [id number] Blood specimen (specimen) Venous blood / Unknown 02/12/2022 1:46 PM EDT 02/12/2022 1:50 PM EDT us Yeyo Desai MD LAB BLOOD ORDERABLES Final Resul t [facility] from Last 3 Months or Most Recently Relevant to Health Maintenance Insurance Medicare [facility] Medicare [facility] Medicare [facility] Care Teams Quality Engineering Manager Relationship Specialty Start Date End Date Issac Gagnon MD [address] [place] [address] PCP - General Family Medicine 05/05/23
--- OUTSIDE RECORDS SUMMARY | 2025-03-29 15:09 | XMS_ITS | Encounter Summary ---
Author Organization [facility], Address [address] [place] [address] Phone Care Team Providers Care Mold Checker Name Role Phone Issac Gagnon MD Primary Care Provider [phone] Encounter Details Date Type Department Care Team (Late st Contact Info) Description 07/31/2022 Documentation Only [facility], [address] [place] [address] Alberto Light PA [address] [place] [phone] Social History Tobacco Use Types Packs/Day Years [...] Visit [facility] [address] [facility] [address] [place] [address] April Sesay ARNP [address] [address] documented as of this encounter Visit Diagnoses Not on filedocumented in this encounter Care Teams Mold Checker Relationship Specialty Start Date End Date Issac Gagnon MD [address] [place] [address] PCP - General Family Medicine 05/05/23 documented as of this encounter
--- OUTSIDE RECORDS SUMMARY | 2025-03-29 15:10 | XMS_ITS | Clinical Summary ---
Author Organization [facility] Address [address] [place] [address] Care Team Providers Care Cottonseed Meat Presser Name Role Phone Unavailable Primary Care Provider [...]
--- OUTSIDE RECORDS SUMMARY | 2025-03-29 15:10 | XMS_ITS | Clinical Summary ---
Author Organization [facility] Address [address] [place] [address] Care Team Providers Care Geodetic Survey Director Name Role Phone Unavailable Primary Care Provider Unavailabl e Surgical History Surgery Date Site/Laterality Comments CHOLECYSTECTOMY 2016 PROCEDURE: HISTORICAL CHOLECYSTECTOMY COLONOSCOPY 2007 PROCEDURE: HISTORICAL COLONOSCOPY; COMMENT: Pleet; diverticulosis. COLONOSCOPY 2015 PROCEDURE: HISTORICAL COLONOSCOPY; COMMENT: Manuel; negative OTHER SURGICAL HISTORY 01/03/2019 PROCEDURE: [facility] RADIOLOGIC EXAM SWALLOW FUNCTION CONTRAST STUDY; COMMENT: Normal at [facility]. UPPER GASTROINTESTINAL ENDOSCOPY 03/23/2019 PROCEDURE: [place] UPPER GI ENDOSCOPY PERFORMED; COMMENT: small inlet [...] disease, with long-term current use of insulin ([facility] V24, [facility] V28) 01/25/2021 DX:Type 2 diabetes mellitus with chronic kidney disease, with long-term current use of insulin ([facility]) HTN (hypertension) 10/01/2009 DX:HTN (hyper tension) Diverticulosis large intesti ne w/o perforation or abscess w/o bleeding 10/26/2020 DX:Diverticulosis large intestine w/o perforation or abscess w/o bleeding Liver nodule 01/25/2021 DX:Liver nodule Mild persistent asthma witho ut complication 01/25/2021 DX:Mild persistent asthma wi thout complication Pulmonary nodule 01/25/2021 DX:Pulmonary no dule Coronary artery disease invo lving [place] coronary artery of [place] heart without angina pectoris 01/25/2021 DX:Coronary artery disease i nvolving [place] coronary artery of [place] heart without angina pectoris Type 2 diabetes mellitus wit h cataract ([facility] V24, [facility] V28) 02/04/2021 DX:Type 2 diabetes mellitus with cataract ([facility]) Anxiety 07/31/2008 DX:Anxiety BPH (benign prostatic hyperplasia) 02/04/2021 DX:BPH (benign prostatic hyperplasia); COMMENT: Sees Dr. Rebolledo [facility] Carpal tunnel syndrome 10/05/2008 DX:Carpal tunnel syndrome; COMMENT: S/p surgery. Cataract 02/04/2021 DX:Cataract; COM MENT: Sees Dr. Mesa Chronic kidney disease, stag e 3b ([facility] V24, [facility] V28) 01/25/2021 DX:Chronic kidney disease, stage 3b ([facility]); COMMENT: Follows w/ Dr. 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 Menisceal tear, MRI ordered 06/2012 S/P shoulder surgery 04/12/2010 DX:S/P shou lder surgery; COMMENT: [facility] 01/03. Ascending aorta dilatation ( [facility] V24) 05/29/2021 DX:Ascending aorta dilatatio n ([facility]); COMMENT: CT chest (05/29/2021): 4 cm. Tubular [...] Patients (1 - 1-dose 75+ series) 2023 Depression Screening 07/27/2024 COVID-19 Vaccine ( - 2024- season) 2025 04/29/2022, 05/08/2021, 10/15/2020, Additional history exists Influenza Vaccine (#1) 2025 2, 06/28/2021, 04/18/2020, [...]
--- OUTSIDE RECORDS SUMMARY | 2025-03-29 15:10 | XMS_ITS | Encounter Summary ---
Author Organization [facility], Address [address] [place] [address] Phone Care Team Providers Care Lacer And Tier Name Role Phone Issac Gagnon MD Primary Care Provider [phone] Encounter Details Date Type Department Care Team (Late st Contact Info) Description 02/12/2022 Documentation Only [facility], [address] [place] [address] Alberto Light PA [address] [place] [address] Social History Tobacco Use Types Packs/Day Years [...] Visit [facility] [address] [facility] [address] [place] [address] April Sesay ARNP [address] [address] documented as of this encounter Visit Diagnoses Not on filedocumented in this encounter Care Teams Lacer And Tier Relationship Specialty Start Date End Date Issac Gagnon MD [address] [place] [address] PCP - General Family Medicine 05/05/23 documented as of this encounter
--- OUTSIDE RECORDS SUMMARY | 2025-03-29 15:10 | XMS_ITS | Clinical Summary ---
Author Organization [facility] Address [address] [place] [address] Care Team Providers Care Porter Sample Case Name Role Phone Issac Gagnon Primary Care Provider [phone] Allergies Active Allergy Reactions Criticality Noted Date [...] Annual Screening 07/27/2024 COVID-19 Vaccine ( season) 2025 05/12/2024, 06/23/2023, 04/29/2022, Additional history exists Influenza [...] topic Sigmoidoscopy Discontinued Procedures * Due to [place] state law, this organization might not be [...] to Health Maintenance Results * Due to [place] state law, this organization might not be sharing negative HIV tests. * (ABNORMAL) Hemoglobin A1c (01/11/2016 11:14 AM EDT) Hemoglobin A1C 6.7(H) <5.7 [facility] Comment: UNITS OF MEASURE: % of total [...] for children. eAG (MG/DL) 146 () (calc) [facility] eAG (MMOL/L) 8.1 () (calc) [facility] 01/11/2016 11:1 4 AM EDT 01/11/2016 12:39 PM EDT Ru Lopez MD LAB BLOOD ORDERABLES Final Re sult [facility] * HM COLONOSCOPY (01/09/2016 12:00 AM EDT) HM Colonoscopy 01/09/2016 OTHER 01/09/2016 us Historical Conversion Provider HEALTH MAINTENANC E Final Result OTHER * Microalbumin/Creatinine Urine, Random (07/06/2015 10:58 AM EST) Microalbumin Urine <1 mg/dL [facility] Creatinine Urine 103 22 - 328 mg/dL [facility] Albumin/Creat Ratio Unable to Calculate <30.0 mcg/mgCr [facility] 07/06/2015 10:5 8 AM EST 07/06/2015 11:31 AM EST Ru Lopez MD LAB URINE ORDERABLES Final Re sult Performing Organization Address City/[facility]/ZIP Co de Phone Number [facility] [address] [place] [address], * HM DIABETES EYE EXAM (07/06/2015 12:00 AM EST) [facility] HM Eye Exam 07/06/2015 [facility] MANUAL RESULTS 07/06/2015 us Conversion Physician HEALTH MAINTENANCE Final Re sult Performing Organization Address [facility]/ZIP Co de Phone Number [facility] MANUAL RESULTS * Occult Blood, Fecal (FIT) (02/08/2014 12:00 PM EDT) [facility] Occult Blood,Fecal Negative NEGATIVE FIT [facility] 02/08/2014 12:0 0 PM EDT 02/08/2014 10:45 PM EDT Ru Lopez MD LAB BODY FLUIDS AND STOOLS OR DERABLES Final Result Performing Organization Address [facility] Co de Phone Number [facility] [address] [place] [address], * (ABNORMAL) Comprehensive Metabolic Panel (07/16/2013 10:30 AM EST) [facility] Sodium Blood 140 135 - 145 mmol/L [facility] Potassium Blood 4.9 3.5 - 5.3 mmol/L [facility] Chloride Blood 104 97 - 110 mmol/L [facility] Carbon Dioxide 29 24 - 32 mmol/L [facility] Gap 7 5 - 15 [facility] Glucose 156(H) 70 - 99 mg/dL [facility] BUN 16 7 - 23 mg/dL [facility] Creatinine 1.11 0.60 - 1.30 mg/dL [facility] eGFR Non- >60 >60 [facility] Comment: Units = [...] Calcium Blood 10.3 8.7 - 10.7 mg/dL [facility] Total Protein Blood 7.2 6.0 - 8.0 g/dL [facility] Albumin Blood 4.8 3.5 - 4.8 g/dL [facility] Bilirubin Total 0.5 0.3 - 1.2 mg/dL [facility] Alkaline Phosphatase 47 30 - 115 IU/L [facility] AST 22 10 - 40 IU/L [facility] ALT 27 10 - 40 IU/L [facility] 07/16/2013 10:3 0 AM EST 07/16/2013 11:04 AM EST us Ru Lopez MD LAB BLOOD ORDERABLES Final Re sult [facility] [address] [place] [address], from Last 3 Months or Most Recently Relevant to Health Maintenance Insurance MEDICARE [facility] Care Teams Porter Sample Case Relationship Specialty Start Date End Date Issac Gagnon [address] [place] [address] PCP - General Family Medicine 07/18/24
--- OUTSIDE RECORDS SUMMARY | 2025-03-29 15:10 | XMS_ITS | Patient Health Record ---
Author Organization [facility] Address [address] [facility] [place] [address] Care Team Providers Care Receivable Clerk Name Role Phone Chelsi Issac Primary Care Provider Yuli Naylor Unavailable [phone] Allergies No Known Allergies Reason For Referral [...] Status Risk Notes Problem Acquired hallux valgus (39606621) Hallux valgus (acquired), left foot (M20.12) Active confirmed Problem Gout (71151930) Gout, unspecifie d (M10.9) Active confirmed Problem Polyneuropathy due to type 2 diabetes mellitus (244558346) Type 2 diabetes mellitus with diabetic polyneuropathy (E11.42) Active confirmed Problem Neuropathic ulcer of right foot (disorder) (0707134696174681 2) Neuropathic ulcer of right foot, limited [...] Medicare [employer] [address] [place] [address] [id number] Amarjit Oswald Self - patient is the insured 5 [employer]) [address] [place] [address] [phone] [id number] Amarjit Oswald Self - patient is [...]
== END 2025-03-29 13:58 | disposition home or self-care (01) ==
LOC: HO.HNS 12:44
PROVIDERS: PCP Family Medicine; Visit Provider Neurological Surgery
DX: M96.1 Postlaminectomy syndrome, not elsewhere classified (principal)
CPT/HCPCS: 99214

== ENCOUNTER → 2025-03-29 12:44 | Outpatient (BNVA) | payer MEDICARE, OTHER, SELFPAY | PROVIDERS: PCP Family Medicine; Visit Provider Neurological Surgery | DX: Z01.818 Encounter for other preprocedural examination (principal); M96.1 Postlaminectomy syndrome, not elsewhere classified | CPT/HCPCS: 99212 ==

== ENCOUNTER 2025-04-05 13:55 | Outpatient (AMB) | payer MEDICARE, OTHER, SELFPAY ==
--- NOTE | 2025-04-05 14:03 | HO.SPINEOV ---
Intake Visit Reasons: to review lumbar x-ray, MRI and CT scan Intake Note: Mr. Oswald is here today to review xray, mri and ct scan results. Prison Guard Supervisor Required: No Allergies animal dander Allergy (Intermediate, Verified 03/24/25 10:50) hayfever empagliflozin (From Jardiance) Allergy (Intermediate, Verified 03/24/25 10:50) Rash environmental allergies Allergy (Intermediate, Verified 03/24/25 10:50) hayfever mold Allergy (Intermediate, Verified 03/24/25 10:50) hayfever Assessment & Plan Assessment & Plan (1) Lumbar stenosis with neurogenic claudication: Code(s): M48.062 - Spinal stenosis, lumbar region with neurogenic claudication Category: Medical Plan Dear colleague, On 04/05/2025, I saw for follow-up Amarjit Oswald. He is status post L4-5 lumbar fusion with 2 revisions in another institution. I referred for detailed description to my previous note. Today he brings in his preoperative MRI to see if there was already L3-4 spinal stenosis that can explain his ongoing symptoms of radiating pain down the front of his legs into his shins. The preoperative MRI indeed shows moderate L3-4 spinal stenosis. The latest MRI continues to demonstrate the L3-4 spinal stenosis with an increase in lateral recess stenosis on the right side. The patient states that his right leg symptoms are currently worse than the left side. I do not know how much the injured L5 nerve root is playing a role in the increased pain. The patient is adamant that the radiating pattern is exactly the same as preoperatively. Therefore I am tempted to offer him an extension of his fusion to L3-4 through an oblique lumbar interbody fusion with a revision of his posterior instrumentation. I explained the procedure and expected hospital stay and postoperative course. He will discuss it with his and call my office if he wants to proceed. He is aware that with every spinal surgery performed, the success rate decreases despite addressing the correct pathology. I spent 35 minutes in his consult reviewing imaging and discussing plan of care. rTae Henao MD, PhD Spine Fellowship Trained Neurosurgeon Director, [facility] Coding Level of Care Code Est Pt Level 4 (34945) Diagnoses Lumbar stenosis with neurogenic claudication M48.062
--- OUTSIDE RECORDS SUMMARY | 2025-04-05 17:03 | XMS_ITS | Clinical Summary ---
Author Organization [facility] Address [address] [place] [address] Care Team Providers Care Conductor Pullman Name Role Phone Unavailable Primary Care Provider Unavailabl e Social History Tobacco Use Types Packs/Day Years Used Date Smoking Tobacco: Never Assessed Sex and Gender Information Value Date Recorded Sex Assigned at Not on file Legal Sex Male 4:12 PM EDT Gender Identity Not on file Sexual Orientation Not on file Plan of Treatment Health Maintenance Due Date Last Done Comments Advance Care Planning 1950 Hepatitis C Virus Screening 1950 DTaP/Tdap/Td Vaccines (1 - Tdap) 1967 Pneumococcal Vaccines 50+ (1 of 1 - PCV) 1998 Zoster (Shingles) Vaccine (1 of 2) 1998 RSV Vaccine 60 years and old er and Patients (1 - 1-dose 75+ series) 2023 COVID-19 Vaccine ( - 2023-2 5 season) 2025 Hepatitis B Vaccines Aged Out No long er eligible based on patient's age to complete this topic
--- OUTSIDE RECORDS SUMMARY | 2025-04-05 17:03 | XMS_ITS | Clinical Summary ---
Author Organization [facility] Address [address] [place] [address] Care Team Providers Care Marketing Systems Manager Name Role Phone Unavailable Primary Care Provider Unavailabl e Surgical History Surgery Date Site/Laterality Comments CHOLECYSTECTOMY 2016 PROCEDURE: HISTORICAL CHOLECYSTECTOMY COLONOSCOPY 2007 PROCEDURE: HISTORICAL COLONOSCOPY; COMMENT: Pleet; diverticulosis. COLONOSCOPY 2015 PROCEDURE: HISTORICAL COLONOSCOPY; COMMENT: Manuel; negative OTHER SURGICAL HISTORY 01/03/2019 PROCEDURE: [facility] RADIOLOGIC EXAM SWALLOW FUNCTION CONTRAST STUDY; COMMENT: Normal at [facility]. UPPER GASTROINTESTINAL ENDOSCOPY 03/23/2019 PROCEDURE: [place] UPPER GI ENDOSCOPY PERFORMED; COMMENT: small inlet [...] disease, with long-term current use of insulin ([facility] V24, [facility] V28) 01/25/2021 DX:Type 2 diabetes mellitus with chronic kidney disease, with long-term current use of insulin ([facility]) HTN (hypertension) 10/01/2009 DX:HTN (hyper tension) Diverticulosis large intesti ne w/o perforation or abscess w/o bleeding 10/26/2020 DX:Diverticulosis large intestine w/o perforation or abscess w/o bleeding Liver nodule 01/25/2021 DX:Liver nodule Mild persistent asthma witho ut complication 01/25/2021 DX:Mild persistent asthma wi thout complication Pulmonary nodule 01/25/2021 DX:Pulmonary no dule Coronary artery disease invo lving [place] coronary artery of [place] heart without angina pectoris 01/25/2021 DX:Coronary artery disease i nvolving [place] coronary artery of [place] heart without angina pectoris Type 2 diabetes mellitus wit h cataract ([facility] V24, [facility] V28) 02/04/2021 DX:Type 2 diabetes mellitus with cataract ([facility]) Anxiety 07/31/2008 DX:Anxiety BPH (benign prostatic hyperplasia) 02/04/2021 DX:BPH (benign prostatic hyperplasia); COMMENT: Sees Dr. Rebolledo [facility]- [facility] Carpal tunnel syndrome 10/05/2008 DX:Carpal tunnel syndrome; COMMENT: S/p surgery. Cataract 02/04/2021 DX:Cataract; COM MENT: Sees Dr. Mesa Chronic kidney disease, stag e 3b ([facility] V24, [facility] V28) 01/25/2021 DX:Chronic kidney disease, stage 3b ([facility]); COMMENT: Follows w/ Dr. [...] surgery 04/12/2010 DX:S/P shou lder surgery; COMMENT: [facility] 01/03. Ascending aorta dilatation ( [facility] V24) 05/29/2021 DX:Ascending aorta dilatatio n ([facility]); COMMENT: CT chest (05/29/2021): [...]
--- OUTSIDE RECORDS SUMMARY | 2025-04-05 17:03 | XMS_ITS | Patient Health Record ---
Author Organization [facility] Address [address] [facility] [address] Care Team Providers Care Ludlow Machine Operator Name Role Phone Chelsi Issac Primary Care Provider Yuli Naylor Unavailable [phone] Allergies No Known Allergies Reason For Referral [...] Status Risk Notes Problem Acquired hallux valgus (05663577) Hallux valgus (acquired), left foot (M20.12) Active confirmed Problem Gout (81315963) Gout, unspecifie d (M10.9) Active confirmed Problem Polyneuropathy due to type 2 diabetes mellitus (098089623) Type 2 diabetes mellitus with diabetic polyneuropathy (E11.42) Active confirmed Problem Neuropathic ulcer of right foot (disorder) ([id number] 2) Neuropathic ulcer of right foot, limited [...] Medicare National Govt Svcs Inc [address] [facility] [address] [id number] Amarjit Owsald Self - patient is the insured 5 [employer]) [address] [place] [address] [id number] Amarjit Oswald Self - patient is [...]
--- OUTSIDE RECORDS SUMMARY | 2025-04-05 17:03 | XMS_ITS | Encounter Summary ---
Author Organization [facility], Address [address] [place] [address] Phone Care Team Providers Care Law Reporter Name Role Phone Issac Gagnon MD Primary Care Provider [phone] Encounter Details Date Type Department Care Team (Late st Contact Info) Description 07/31/2022 Documentation Only [facility], [address] [place] [address] Alberto Light PA [address] [place] [phone] Social History Tobacco Use Types Packs/Day Years [...] [facility] [address] [facility] [address] [place] [address] April Sesay ARNP [address] [address] documented as of this encounter Visit Diagnoses Not on filedocumented in this encounter Care Teams Law Reporter Relationship Specialty Start Date End Date Issac Gagnon MD [address] [place] [address] PCP - General Family Medicine 05/05/23 documented as of this encounter
--- OUTSIDE RECORDS SUMMARY | 2025-04-05 17:03 | XMS_ITS | Clinical Summary ---
Author Organization [facility] Address [address] [place] [address] Care Team Providers Care Oilseed Meat Presser Name Role Phone Issac Gagnon Primary Care Provider [phone] Allergies Active Allergy Reactions Criticality Noted Date [...] topic Sigmoidoscopy Discontinued Procedures * Due to [place] state law, this organization might not be [...] to Health Maintenance Results * Due to [place] state law, this organization might not be sharing negative HIV tests. * (ABNORMAL) Hemoglobin A1c (01/11/2016 11:14 AM EDT) Hemoglobin A1C 6.7(H) <5.7 [facility] Comment: UNITS OF MEASURE: % [...] for children. eAG (MG/DL) 146 () (calc) [facility] eAG (MMOL/L) 8.1 () (calc) [facility] 01/11/2016 11:1 4 AM EDT 01/11/2016 12:39 PM EDT Ru Lopez MD LAB BLOOD ORDERABLES Final Re sult [facility] * HM COLONOSCOPY (01/09/2016 12:00 AM EDT) HM Colonoscopy 01/09/2016 OTHER 01/09/2016 us Historical Conversion Provider HEALTH MAINTENANC E Final Result OTHER * Microalbumin/Creatinine Urine, Random (07/06/2015 10:58 AM EST) Microalbumin Urine <1 mg/dL [facility] Creatinine Urine 103 22 - 328 mg/dL [facility] Albumin/Creat Ratio Unable to Calculate <30.0 mcg/mgCr [facility] 07/06/2015 10:5 8 AM EST 07/06/2015 11:31 AM EST Ru Lopez MD LAB URINE ORDERABLES Final Re sult Performing Organization Address City/[facility]/ZIP Co de Phone Number [facility] [address] [place] [address], * HM DIABETES EYE EXAM (07/06/2015 12:00 AM EST) [facility] HM Eye Exam 07/06/2015 [facility] MANUAL RESULTS 07/06/2015 us Conversion Physician HEALTH MAINTENANCE Final Re sult Performing Organization Address [facility]/ZIP Co de Phone Number [facility] MANUAL RESULTS * Occult Blood, Fecal (FIT) (02/08/2014 12:00 PM EDT) [facility] Occult Blood,Fecal Negative NEGATIVE FIT [facility] 02/08/2014 12:0 0 PM EDT 02/08/2014 10:45 PM EDT Ru Lopez MD LAB BODY FLUIDS AND STOOLS OR DERABLES Final Result Performing Organization Address [facility] Co de Phone Number [facility] [address] [place] [address], * (ABNORMAL) Comprehensive Metabolic Panel (07/16/2013 10:30 AM EST) [facility] Sodium Blood 140 135 - 145 mmol/L [facility] Potassium Blood 4.9 3.5 - 5.3 mmol/L [facility] Chloride Blood 104 97 - 110 mmol/L [facility] Carbon Dioxide 29 24 - 32 mmol/L [facility] Gap 7 5 - 15 [facility] Glucose 156(H) 70 - 99 mg/dL [facility] BUN 16 7 - 23 mg/dL [facility] Creatinine 1.11 0.60 - 1.30 mg/dL [facility] eGFR Non- >60 >60 [facility] Comment: Units = mL/min/1.73 [...] Calcium Blood 10.3 8.7 - 10.7 mg/dL [facility] Total Protein Blood 7.2 6.0 - 8.0 g/dL [facility] Albumin Blood 4.8 3.5 - 4.8 g/dL [facility] Bilirubin Total 0.5 0.3 - 1.2 mg/dL [facility] Alkaline Phosphatase 47 30 - 115 IU/L [facility] AST 22 10 - 40 IU/L [facility] ALT 27 10 - 40 IU/L [facility] 07/16/2013 10:3 0 AM EST 07/16/2013 11:04 AM EST us Ru Lopez MD LAB BLOOD ORDERABLES Final Re sult [facility] [address] [place] [address], from Last 3 Months or Most Recently Relevant to Health Maintenance Insurance MEDICARE [facility] Care Teams Oilseed Meat Presser Relationship Specialty Start Date End Date Issac Gagnon [address] [place] [address] PCP - General Family Medicine 07/18/24
--- OUTSIDE RECORDS SUMMARY | 2025-04-05 17:03 | XMS_ITS | Clinical Summary ---
Author Organization [facility] Address [address] [address] Phone Care Team Providers Care Manager Style Name Role Phone Issac Gagnon MD Primary Care Provider [phone] Allergies Active Allergy Reactions Criticality Noted Date [...] Hypercholesterolemia 08/26/2019 021 Hypertensive heart disease w [facility] congestive heart failure 08/26/2019 07/01/2021 Administration of pneumococcal vaccine 08/26/2019 12/01/2019 Encounters Date Type Department Care Team Description 01/20/2025 Refill [facility] [address] [place] [id number] Rowdy Cerda MD 01/10/2025 1:00 PM EDT Office Visit [facility] [address] [facility] [address] [place] [phone] April Sesay ARNP Stage 3a chronic kidney [...] Office Visit [facility] [address] [address] LázaroAprilCHANA [address] [address] Health Maintenance Due Date Last [...] Total 41.2 30.0 - 100.0 ng/mL [facility] Comment: Vitamin D deficiency has been defined by the [employer] of Medicine and an Endocrine Society practice guideline as a level of serum 25-OH vitamin D less than 20 ng/mL (1,2). The Endocrine Society went on to further define vitamin D insufficiency as a level between 21 and 29 ng/mL (2). 1. IOM (Aurora of Medicine). 2010. Dietary reference intakes for [...] LAB BLOOD ORDERABLES Final Result [facility] [address] [place] [address] * CBC (01/10/2025 1:53 PM EDT) WBC 6.6 3.4 - 10.8 x10E3/uL [facility] RBC 5.07 4.14 - 5.80 x10E6/uL [facility] Hemoglobin 15.5 13.0 - 17.7 g/dL [facility] Hematocrit 45.7 37.5 - 51.0 % [facility] MCV 90 79 - 97 fL [facility] MCH 30.6 26.6 - 33.0 pg [facility] MCHC 33.9 31.5 - 35.7 g/dL [facility] RDW 13.2 11.6 - 15.4 % [facility] Platelets 179 150 - 450 x10E3/uL [facility] Blood specimen (specimen) Venous blood / Unknown 01/10/2025 1:53 PM EDT 01/10/2025 [facility] LAB BLOOD ORDERABLES Final Result [facility] [address] [place] [address] * PTH, intact (01/10/2025 1:53 PM EDT) Pathologist [facility] PTH 61 15 - 65 pg/mL [facility] Blood specimen (specimen) Venous blood / Unknown 01/10/2025 1:53 PM EDT 01/10/2025 [employer] [facility] LAB BLOOD ORDERABLES Final Result [facility] [address] [place] [address] * (ABNORMAL) Renal function panel (01/10/2025 1:53 PM EDT) Creatinine 1.41(H) 0.76 - 1.27 mg/dL [facility] eGFR CKD-EPI CR 2020 52(L) >59 mL/min/1.7 3 [facility] Sodium 140 134 - 144 mmol/L [facility] Potassium 4.9 3.5 - 5.2 mmol/L [facility] Chloride 104 96 - 106 mmol/L [facility] Bicarbonate (CO2) 21 20 - 29 mmol/L [facility] Calcium 9.4 8.6 - 10.2 mg/dL [facility] Phosphorus 4.0 2.8 - 4.1 mg/dL [facility] Albumin 4.8 3.8 - 4.8 g/dL [facility] Glucose 122(H) 70 - 99 mg/dL [facility] BUN 30(H) 8 - 27 mg/dL [facility] BUN/Creatinine Ratio 21 10 - 24 [facility] Blood specimen (specimen) Venous blood / Unknown 01/10/2025 1:53 PM EDT 01/10/2025 April Sesay [facility] LAB BLOOD ORDERABLES Final Result [facility] [address] [place] [address] * (ABNORMAL) Basic metabolic panel (01/10/2025 1:52 PM EDT) Glucose 123(H) 70 - 99 mg/dL [facility] BUN 30(H) 8 - 27 mg/dL [facility] Creatinine 1.55(H) 0.76 - 1.27 mg/dL [facility] eGFR CKD-EPI CR 2020 46(L) >59 mL/min/1.7 3 [facility] BUN/Creatinine Ratio 19 10 - 24 [facility] Sodium 141 134 - 144 mmol/L [facility] Potassium 4.9 3.5 - 5.2 mmol/L [facility] Chloride 104 96 - 106 mmol/L [facility] Bicarbonate (CO2) 20 20 - 29 mmol/L [facility] Calcium 9.4 8.6 - 10.2 mg/dL [facility] Blood Venous blood / Unknown 01/10/2025 1:52 PM EDT 01/10/2025 April Sesay [facility] LAB BLOOD ORDERABLES Final Result [facility] [address] [place] [address] * (ABNORMAL) Hemoglobin A1c (02/12/2022 1:46 PM EDT) Hemoglobin A1C 6.4(H) (4.0-5.6) % [facility] Comment: MONITORING: In known diabetic patients, hemoglobin A1c targets should be discussed with health care provider. DIAGNOSTIC USE: The [place] Diabetes Association (ADA) and the World Health [...] Supplement 1 Testing performed or reported by [facility], a Service of [facility], [address] [place] [address] Bhupendra Casey MD, Pest Control Worker [facility]# [id number] Blood specimen (specimen) Venous blood / Unknown 02/12/2022 1:46 PM EDT 02/12/2022 1:50 PM EDT us Yeyo Desai MD LAB BLOOD ORDERABLES Final Resul t [facility] from Last 3 Months or Most Recently Relevant to Health Maintenance Insurance Medicare [facility] Medicare [facility] Medicare [facility] Care Teams Manager Style Relationship Specialty Start Date End Date Issac Gagnon MD [address] [place] [address] PCP - General Family Medicine 05/05/23
--- OUTSIDE RECORDS SUMMARY | 2025-04-05 17:03 | XMS_ITS | Encounter Summary ---
Author Organization [facility], Address [address] [place] [address] Phone Care Team Providers Care Repairer Welding Equipment Name Role Phone Issac Gagnon MD Primary Care Provider [phone] Encounter Details Date Type Department Care Team (Late st Contact Info) Description 02/12/2022 Documentation Only [facility] [place], [address] [place] [address] Alberto Light PA [address] [place] [phone] Social History Tobacco Use Types Packs/Day Years [...] Visit [facility] [address] [facility] [address] [place] [address] April Sesay ARNP [address] [address] documented as of this encounter Visit Diagnoses Not on filedocumented in this encounter Care Teams Repairer Welding Equipment Relationship Specialty Start Date End Date Issac Gagnon MD [address] [place] [address] PCP - General Family Medicine 05/05/23 documented as of this encounter
== END 2025-04-05 15:19 | disposition home or self-care (01) ==
LOC: HO.HNS 13:56
PROVIDERS: PCP Family Medicine; Visit Provider Neurological Surgery
DX: M48.062 Spinal stenosis, lumbar region with neurogenic claudication (principal)
CPT/HCPCS: 99214

== ENCOUNTER → 2025-04-05 13:55 | Outpatient (BNVA) | payer MEDICARE, OTHER, SELFPAY | PROVIDERS: PCP Family Medicine; Visit Provider Neurological Surgery | DX: M48.062 Spinal stenosis, lumbar region with neurogenic claudication (principal) | CPT/HCPCS: 99212 ==

== ENCOUNTER 2025-05-22 13:35 | Outpatient (AMB) | payer MEDICARE, OTHER, SELFPAY ==
--- NOTE | 2025-05-22 13:57 | A.OFFVIS_ITS ---
Intake Visit Reasons: OV - left shoulder pain, last inj 11/18/24 Intake Note: Amarjit is a 75 year old male who presents today for a follow up of his left shoulder pain, last injection 11/18/24. Patient reports ongoing pain since his injection. He states that his injection gave him relief for a month. Patient mentions that his pain came back worse. Allergies animal dander Allergy (Intermediate, Verified 03/24/25 10:50) hayfever empagliflozin (From Jardiance) Allergy (Intermediate, Verified 03/24/25 10:50) Rash environmental allergies Allergy (Intermediate, Verified 03/24/25 10:50) hayfever mold Allergy (Intermediate, Verified 03/24/25 10:50) hayfever HPI HPI OV - left shoulder pain, last inj 11/18/24: Details: Mr. Oswald is a 75-year-old male who presents to the office today for continued left upper extremity pain. Last cortisone injection into the subacromial space was performed on 11/18/2024. Patient reports that it did assist with his pain slightly for 1 months I did not completely alleviate his pain. He also endorses numbness and tingling in bilateral upper extremities. He reports occasional pain that will radiate down to the elbow. He endorses neck pain as well. [facility] Medical History (Updated 05/22/25 @ 14:44 by Areli Duenas PA-C) Migraine Right foot drop Neuropathy GERD (gastroesophageal reflux disease) Type 2 diabetes mellitus Chronic renal insufficiency Asthma Lumbar back pain Hyperlipidemia CAD (coronary artery disease) Surgical History History of inguinal hernia repair, bilateral (03/02/24) H/O colonoscopy Hx of heart artery stent History of open reduction and internal fixation (ORIF) procedure Hx of arthroscopy of shoulder History of back surgery Hx of cholecystectomy History of back surgery Family History Father Lung cancer Social History Are you a primary care transition mgr to a significant other at home: No Do you presently have visiting nurse or other home services: No Patient Tobacco Use Status: Never used Tobacco Review of Systems Const All systems reviewed & are unremarkable except as noted in HPI and below Physical Exam Const General: cooperative, healthy appearing and no acute distress Resp Effort & Inspection: normal respiratory effort and able to speak in complete sentences Extrem Other: Left shoulder 90 degrees of forward flexion and abduction. External rotation to 45 degrees. Discomfort with cross-body reach. 2/5 strength with empty can. Negative drop-arm. Reports numbness in all digits in bilateral upper extremities. Radiation of pain with cervical rotation from right to left that since pain down his upper spine as well as the left upper extremity. Assessment & Plan Assessment & Plan (1) Rotator cuff insufficiency of left shoulder: Code(s): M25.312 - Other instability, left shoulder Category: Medical (2) Cervical radiculopathy: Code(s): M54.12 - Radiculopathy, cervical region Category: Medical Plan Mr. Oswald is a 75-year-old male who presents to the office today for continued left upper extremity pain. Last cortisone injection into the subacromial space was performed on 11/18/2024. Patient reports that it did assist with his pain slightly for 1 months I did not completely alleviate his pain. He also endorses numbness and tingling in bilateral upper extremities. He reports occasional pain that will radiate down to the elbow. He endorses neck pain as well. While in the office today, we discussed the role of cervical spine involvement contributing to the patient's pain. I do feel the patient does have rotator cuff insufficiency of the left upper extremity. However, the patient has radiation of pain from the neck down to the elbow which is concerning for a neurological component. He reports that he had an EMG study that was performed roughly [address] Nunez. I did not see in our system however. I feel that the patient should follow up with Dr. Huitron for further evaluation of his C-spine contributing to his left upper extremity pain. Coding Level of Care Code Est Pt Level 3 (91174) Diagnoses Rotator cuff insufficiency of left shoulder M25.312 Cervical radiculopathy M54.12
--- OUTSIDE RECORDS SUMMARY | 2025-05-22 17:14 | XMS_ITS | Clinical Summary ---
Author Organization [facility] Address [address] [place] [address] Care Team Providers Care Compounder Name Role Phone Issac Gagnon Primary Care Provider [phone] Allergies Active Allergy Reactions Criticality Noted Date [...] topic Sigmoidoscopy Discontinued Procedures * Due to [place] state law, this organization might not be [...] to Health Maintenance Results * Due to [place] state law, this organization might not be sharing negative HIV tests. * (ABNORMAL) Hemoglobin A1c (01/11/2016 11:14 AM EDT) Hemoglobin A1C 6.7(H) <5.7 [facility] Comment: UNITS OF MEASURE: % [...] for children. eAG (MG/DL) 146 () (calc) [facility] eAG (MMOL/L) 8.1 () (calc) [facility] 01/11/2016 11:1 4 AM EDT 01/11/2016 12:39 PM EDT Ru Lopez MD LAB BLOOD ORDERABLES Final Re sult [facility] * HM COLONOSCOPY (01/09/2016 12:00 AM EDT) HM Colonoscopy 01/09/2016 OTHER 01/09/2016 us Historical Conversion Provider HEALTH MAINTENANC E Final Result OTHER * Microalbumin/Creatinine Urine, Random (07/06/2015 10:58 AM EST) Microalbumin Urine <1 mg/dL [facility] Creatinine Urine 103 22 - 328 mg/dL [facility] Albumin/Creat Ratio Unable to Calculate <30.0 mcg/mgCr [facility] 07/06/2015 10:5 8 AM EST 07/06/2015 11:31 AM EST Ru Lopez MD LAB URINE ORDERABLES Final Re sult Performing Organization Address City/[facility]/ZIP Co de Phone Number [facility] [address] [place] [address], * HM DIABETES EYE EXAM (07/06/2015 12:00 AM EST) [facility] HM Eye Exam 07/06/2015 [facility] MANUAL RESULTS 07/06/2015 us Conversion Physician HEALTH MAINTENANCE Final Re sult Performing Organization Address [facility]/ZIP Co de Phone Number [facility] MANUAL RESULTS * Occult Blood, Fecal (FIT) (02/08/2014 12:00 PM EDT) [facility] Occult Blood,Fecal Negative NEGATIVE FIT [facility] 02/08/2014 12:0 0 PM EDT 02/08/2014 10:45 PM EDT Ru Lopez MD LAB BODY FLUIDS AND STOOLS OR DERABLES Final Result Performing Organization Address [facility] Co de Phone Number [facility] [address] [place] [address], * (ABNORMAL) Comprehensive Metabolic Panel (07/16/2013 10:30 AM EST) [facility] Sodium Blood 140 135 - 145 mmol/L [facility] Potassium Blood 4.9 3.5 - 5.3 mmol/L [facility] Chloride Blood 104 97 - 110 mmol/L [facility] Carbon Dioxide 29 24 - 32 mmol/L [facility] Gap 7 5 - 15 [facility] Glucose 156(H) 70 - 99 mg/dL [facility] BUN 16 7 - 23 mg/dL [facility] Creatinine 1.11 0.60 - 1.30 mg/dL [facility] eGFR Non- >60 >60 [facility] Comment: Units = [...] Calcium Blood 10.3 8.7 - 10.7 mg/dL [facility] Total Protein Blood 7.2 6.0 - 8.0 g/dL [facility] Albumin Blood 4.8 3.5 - 4.8 g/dL [facility] Bilirubin Total 0.5 0.3 - 1.2 mg/dL [facility] Alkaline Phosphatase 47 30 - 115 IU/L [facility] AST 22 10 - 40 IU/L [facility] ALT 27 10 - 40 IU/L [facility] 07/16/2013 10:3 0 AM EST 07/16/2013 11:04 AM EST us Ru Lopez MD LAB BLOOD ORDERABLES Final Re sult [facility] [address] [place] [address], from Last 3 Months or Most Recently Relevant to Health Maintenance Insurance MEDICARE [facility] Care Teams Compounder Relationship Specialty Start Date End Date Issac Gagnon [address] [place] [address] PCP - General Family Medicine 07/18/24
--- OUTSIDE RECORDS SUMMARY | 2025-05-22 17:14 | XMS_ITS | Patient Health Record ---
Author Organization [facility] Address [address] [facility] [place] [address] Care Team Providers Care Pillow Agent Name Role Phone Chelsi Issac Primary Care Provider Yuli Naylor Unavailable [phone] Allergies No Known Allergies Reason For Referral [...] Status Risk Notes Problem Acquired hallux valgus (29697602) Hallux valgus (acquired), left foot (M20.12) Active confirmed Problem Gout (47814544) Gout, unspecifie d (M10.9) Active confirmed Problem Polyneuropathy due to type 2 diabetes mellitus (382683026) Type 2 diabetes mellitus with diabetic polyneuropathy (E11.42) Active confirmed Problem Neuropathic ulcer of right foot (disorder) ([id number] 2) Neuropathic ulcer of right foot, limited [...] Medicare National Govt [employer] [address] [facility] [place] [address] [id number] Amarjit Oswald Self - patient is the insured 5 [employer]) [address] [place] [address] [phone] [id number] Amarjit Oswald Self - patient is [...]
--- OUTSIDE RECORDS SUMMARY | 2025-05-22 17:14 | XMS_ITS | Clinical Summary ---
Author Organization [facility] Address [address] [address] Phone Care Team Providers Care Croze Cutter Name Role Phone Issac Gagnon MD Primary Care Provider [phone] Allergies Active Allergy Reactions Criticality Noted Date [...] 05/05/2023 Low back pain 04/03/2023 05/05/2023 Pain of wrist region 04/01/2023 Gout 02/12/2022 Ascending aorta dilatation 05/29/2021 Overview [...] 021 Hypertensive heart disease w [facility] congestive heart failure 08/26/2019 07/01/2021 Administration of [...] Visit [facility] [address] [address] April Sesay ARNP [address] [address] Health Maintenance Due Date Last [...] PM EDT) Hemoglobin A1C 6.4(H) (4.0-5.6) % [facility] Comment: MONITORING: In known diabetic patients, hemoglobin A1c targets should be discussed with health care provider. DIAGNOSTIC USE: The [place] [employer] (ADA) and the World Health [...] Supplement 1 Testing performed or reported by [facility], a Service of [facility], [address] [place] [address] Bhupendra Casey MD, Optics Test Technician [facility]# [id number] Blood specimen (specimen) Venous blood / Unknown 02/12/2022 1:46 PM EDT 02/12/2022 1:50 PM EDT us Yeyo Desai MD LAB BLOOD ORDERABLES Final Resul t [facility] from Last 3 Months or Most Recently Relevant to Health Maintenance Insurance Medicare [facility] Medicare [facility] Medicare [facility] Care Teams Croze Cutter Relationship Specialty Start Date End Date Issac Gagnon MD [address] [place] [address] PCP - General Family Medicine 05/05/23
--- OUTSIDE RECORDS SUMMARY | 2025-05-22 17:14 | XMS_ITS | Clinical Summary ---
Author Organization [facility] Address [address] [place] [address] Care Team Providers Care Lithographed Plate Inspector Name Role Phone Unavailable Primary Care Provider Unavailabl e Surgical History Surgery Date Site/Laterality Comments CHOLECYSTECTOMY 2016 PROCEDURE: HISTORICAL CHOLECYSTECTOMY COLONOSCOPY 2007 PROCEDURE: HISTORICAL COLONOSCOPY; COMMENT: Pleet; diverticulosis. COLONOSCOPY 2015 PROCEDURE: HISTORICAL COLONOSCOPY; COMMENT: Manuel; negative OTHER SURGICAL HISTORY 01/03/2019 PROCEDURE: CHG RADIOLOGIC EXAM SWALLOW FUNCTION CONTRAST STUDY; COMMENT: Normal at [facility]. UPPER GASTROINTESTINAL ENDOSCOPY 03/23/2019 PROCEDURE: [place] UPPER GI ENDOSCOPY PERFORMED; COMMENT: small inlet [...] disease, with long-term current use of insulin ([facility] V24, [facility] V28) 01/25/2021 DX:Type 2 diabetes mellitus [...] no dule Coronary artery disease invo lving [place] coronary artery of [place] heart without angina pectoris 01/25/2021 DX:Coronary artery disease i nvolving [place] coronary artery of [place] heart without angina pectoris Type 2 diabetes mellitus wit h cataract ([facility] V24, [facility] V28) 02/04/2021 DX:Type 2 diabetes mellitus with cataract ([facility]) Anxiety 07/31/2008 DX:Anxiety BPH (benign prostatic hyperplasia) 02/04/2021 DX:BPH (benign prostatic hyperplasia); COMMENT: Sees Dr. Rebolledo [facility]- [facility] Carpal tunnel syndrome 10/05/2008 DX:Carpal tunnel syndrome; COMMENT: S/p surgery. Cataract 02/04/2021 DX:Cataract; COM MENT: Sees Dr. Mesa Chronic kidney disease, stag e 3b ([facility] V24, [facility] V28) 01/25/2021 DX:Chronic kidney disease, stage 3b [...] surgery 04/12/2010 DX:S/P shou lder surgery; COMMENT: [facility] 01/03. Ascending aorta dilatation ( [facility] V24) 05/29/2021 DX:Ascending aorta dilatatio n ([facility] [...] Health Maintenance Due Date Last Done Comments Colorectal Cancer Screening: Colonoscopy 1948 Diabetes: Annual GFR (Glomerular Filtration Rate) 1948 Diabetes: Annual Foot Exam 1958 Diabetes: Annual Retina Eye Exam 1958 Hepatitis A Vaccines (1 of 2 - Risk 2-dose series) 1967 Hepatitis B Vaccines (1 of 3 - Risk 3-dose series) 2008 Zoster Vaccines (2 of 2) 06/15/2020 04/20/2020 Cholesterol Screening (Lipid Panel) 06/29/2022 Falls Risk Assessment 06/29/2022 Hepatitis C [...]
--- OUTSIDE RECORDS SUMMARY | 2025-05-22 17:14 | XMS_ITS | Clinical Summary ---
Author Organization [facility] Address [address] [place] [address] Care Team Providers Care Mirror Department Supervisor Name Role Phone Unavailable Primary Care [...] Vaccine (1 of 2) 1998 RSV Vaccine 50 years and old er and Patients (1 - 1-dose 75+ series) 2023 COVID-19 Vaccine ( - 2023-2 5 season) 2025 Hepatitis B Vaccines Aged Out No long er eligible based on patient's age to complete this topic
--- OUTSIDE RECORDS SUMMARY | 2025-05-22 17:14 | XMS_ITS | Encounter Summary ---
Author Organization [facility], Address [address] [place] [address] Phone Care Team Providers Care Field Automobile Adjuster Name Role Phone Issac Gagnon MD Primary Care Provider [phone] Encounter Details Date Type Department Care Team (Late st Contact Info) Description 02/12/2022 Documentation Only [facility], [address] [place] [address] Alberto Light PA [address] [place] [phone] Social History Tobacco Use Types Packs/Day Years [...] Visit [facility] [address] [facility] [address] [place] [address] April Sesay ARNP [address] [address] documented as of this encounter Visit Diagnoses Not on filedocumented in this encounter Care Teams Field Automobile Adjuster Relationship Specialty Start Date End Date Issac Gagnon MD [address] [place] [address] PCP - General Family Medicine 05/05/23 documented as of this encounter
--- OUTSIDE RECORDS SUMMARY | 2025-05-22 17:14 | XMS_ITS | Encounter Summary ---
Author Organization [facility], Address [address] [place] [address] Phone Care Team Providers Care Campus Aide Name Role Phone Issac Gagnon MD Primary Care Provider [phone] Encounter Details Date Type Department Care Team (Late st Contact Info) Description 07/31/2022 Documentation Only [facility], [address] [address] Alberto Light PA [address] [place] [phone] Social History Tobacco Use Types Packs/Day Years [...] [facility] [address] [facility] [address] [place] [address] April Sesay ARNP [address] [address] documented as of this encounter Visit Diagnoses Not on filedocumented in this encounter Care Teams Campus Aide Relationship Specialty Start Date End Date Issac Gagnon MD [address] [place] [address] PCP - General Family Medicine 05/05/23 documented as of this encounter
== END 2025-05-22 14:40 | disposition home or self-care (01) ==
LOC: HO.HOS 13:35
PROVIDERS: PCP Family Medicine; Visit Provider Physician Assistant
DX: M25.312 Other instability, left shoulder (principal); M54.12 Radiculopathy, cervical region
CPT/HCPCS: 99213

== ENCOUNTER → 2025-05-22 13:35 | Outpatient (BNVA) | payer MEDICARE, OTHER, SELFPAY | PROVIDERS: PCP Family Medicine; Visit Provider Physician Assistant | DX: M25.312 Other instability, left shoulder (principal); M54.12 Radiculopathy, cervical region | CPT/HCPCS: 99212 ==

== ENCOUNTER 2025-06-15 14:05 | Outpatient (AMB) | payer MEDICARE, OTHER, SELFPAY ==
--- NOTE | 2025-06-15 14:13 | MHC.OFFVIS ---
Intake Visit Reasons: OV: LT shoulder pain, last inj 11/18/24 Intake Note: Amarjit is a 75 year old male who presents today for a follow up of his left shoulder pain, last injection 11/18/24. Patient reports his pain is worse than before and it never goes away. Patient didn't make it to his appointment with [facility] due to thinking it wont help him. Allergies animal dander Allergy (Intermediate, Verified 06/15/25 14:14) hayfever empagliflozin (From Jardiance) Allergy (Intermediate, Verified 06/15/25 14:14) Rash environmental allergies Allergy (Intermediate, Verified 06/15/25 14:14) hayfever mold Allergy (Intermediate, Verified 06/15/25 14:14) hayfever HPI HPI OV: LT shoulder pain, last inj 11/18/24: Details: Mr. Oswald is a 75-year-old male who presents to the office today for follow up of left upper extremity pain, numbness and tingling. Patient was last seen in our office on 05/22/2025 and was referred to physiatry for further evaluation and treatment of cervical radiculopathy affecting the left upper extremity. Unfortunately, the patient canceled his appointment feeling as though this was not going to be helpful. He received a cortisone injection on 11/18/2024 which gave him some relief but then his pain returned. [facility] Medical History (Updated 05/22/25 @ 14:44 by Areli Duenas PA-C) Migraine Right foot drop Neuropathy GERD (gastroesophageal reflux disease) Type 2 diabetes mellitus Chronic renal insufficiency Asthma Lumbar back pain Hyperlipidemia CAD (coronary artery disease) Surgical History History of inguinal hernia repair, bilateral (03/02/24) H/O colonoscopy Hx of heart artery stent History of open reduction and internal fixation (ORIF) procedure Hx of arthroscopy of shoulder History of back surgery Hx of cholecystectomy History of back surgery Family History Father Lung cancer Social History Are you a primary before and after school daycare worker to a significant other at home: No Do you presently have visiting nurse or other home services: No Patient Tobacco Use Status: Never used Tobacco Review of Systems Const All systems reviewed & are unremarkable except as noted in HPI and below Physical Exam Const General: cooperative, healthy appearing and no acute distress Resp Effort & Inspection: normal respiratory effort and able to speak in complete sentences Extrem Other: Left shoulder 90 degrees of forward flexion and abduction. External rotation to 45 degrees. Discomfort with cross-body reach. 2/5 strength with empty can. Negative drop-arm. Reports numbness in all digits in bilateral upper extremities. Radiation of pain with cervical rotation from right to left that since pain down his upper spine as well as the left upper extremity. Psych Appearance: grossly normal Mental Status: mental status grossly normal Attitude: cooperative Assessment & Plan Assessment & Plan (1) Cervical radiculopathy: Code(s): M54.12 - Radiculopathy, cervical region Category: Medical Plan Mr. Oswald is a 75-year-old male who presents to the office today for follow up of left upper extremity pain, numbness and tingling. Patient was last seen in our office on 05/22/2025 and was referred to physiatry for further evaluation and treatment of cervical radiculopathy affecting the left upper extremity. Unfortunately, the patient canceled his appointment feeling as though this was not going to be helpful. He received a cortisone injection on 11/18/2024 which gave him some relief but then his pain returned. Again, in the office today I reassessed the patient he continues to have cervical radicular pain affecting the left upper extremity. Pain radiates from his neck down towards his elbow and forearm. He endorses numbness and tingling in bilateral upper extremities. I recommended obtaining an EMG but the patient did not want to move forward with this at this time. He states that he had an EMG that was done roughly [address] Nunez. Unfortunately, I do not see this in the chart. I encouraged the patient to follow up with physiatry for evaluation and treatment. His follow up with Orthopedics will be PRN. Coding Level of Care Code Est Pt Level 3 (41542) Diagnoses Cervical radiculopathy M54.12
--- OUTSIDE RECORDS SUMMARY | 2025-06-15 19:30 | XMS_ITS | Clinical Summary ---
Author Organization [facility] Address [address] [place] [address] Care Team Providers Care Immigration Attorney Name Role Phone Unavailable Primary Care Provider Unavailabl e Surgical History Surgery Date Site/Laterality Comments CHOLECYSTECTOMY 2016 PROCEDURE: HISTORICAL CHOLECYSTECTOMY COLONOSCOPY 2007 PROCEDURE: HISTORICAL COLONOSCOPY; COMMENT: Pleet; diverticulosis. COLONOSCOPY 2015 PROCEDURE: HISTORICAL COLONOSCOPY; COMMENT: Manuel; negative OTHER SURGICAL HISTORY 01/03/2019 PROCEDURE: [facility]G RADIOLOGIC EXAM SWALLOW FUNCTION CONTRAST STUDY; COMMENT: Normal at [facility]. UPPER GASTROINTESTINAL ENDOSCOPY 03/23/2019 PROCEDURE: [place] UPPER GI ENDOSCOPY PERFORMED; COMMENT: small inlet [...] disease, with long-term current use of insulin ([facility] V24, [facility] V28) 01/25/2021 DX:Type 2 diabetes mellitus with chronic kidney disease, with long-term current use of insulin ([facility]) HTN (hypertension) 10/01/2009 DX:HTN (hyper tension) Diverticulosis large intesti ne w/o perforation or abscess w/o bleeding 10/26/2020 DX:Diverticulosis large intestine w/o perforation or abscess w/o bleeding Liver nodule 01/25/2021 DX:Liver nodule Mild persistent asthma witho ut complication 01/25/2021 DX:Mild persistent asthma wi thout complication Pulmonary nodule 01/25/2021 DX:Pulmonary no dule Coronary artery disease invo lving [place] coronary artery of [place] heart without angina pectoris 01/25/2021 DX:Coronary artery disease i nvolving [place] coronary artery of [place] heart without angina pectoris Type 2 diabetes mellitus wit h cataract ([facility] V24, [facility] V28) 02/04/2021 DX:Type 2 diabetes mellitus with cataract ([facility]) Anxiety 07/31/2008 DX:Anxiety BPH (benign prostatic hyperplasia) 02/04/2021 DX:BPH (benign prostatic hyperplasia); COMMENT: Sees Dr. Rebolledo [facility]- [facility] Carpal tunnel syndrome 10/05/2008 DX:Carpal tunnel syndrome; COMMENT: S/p surgery. Cataract 02/04/2021 DX:Cataract; COM MENT: Sees Dr. Mesa Chronic kidney disease, stag e 3b ([facility] V24, [facility] V28) 01/25/2021 DX:Chronic kidney disease, stage 3b ([facility]); COMMENT: Follows w/ Dr. 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 Menisceal tear, MRI ordered 06/2012 S/P shoulder surgery 04/12/2010 DX:S/P shou lder surgery; COMMENT: [facility] 01/[facility]. Ascending aorta dilatation ( [facility] V24) 05/29/2021 DX:Ascending aorta dilatatio n ([facility]); COMMENT: CT chest (05/29/2021): 4 cm. Tubular [...]
--- OUTSIDE RECORDS SUMMARY | 2025-06-15 19:30 | XMS_ITS | Clinical Summary ---
Author Organization [facility] Address [address] [place] [address] Care Team Providers Care Roll Hand Name Role Phone Issac Gagnon Primary Care Provider [phone] Allergies Active Allergy Reactions Criticality Noted Date [...] Social Drivers of Health Annual Screening 07/27/2024 Influenza Vaccine (#1) 2025 , 06/23/2023, 04/15/2022, Additional history exists COVID-19 Vaccine ( season) 2025 05/12/2024, 06/23/2023, 04/29/2022, Additional history exists Basic Metabolic Panel 07/06/2025 07/06/2024 , 07/16/2013, 11/24/2011 Urine Microalbumin 07/06/2025 07/06/2024, 1 09/06/2014, 08/10/2014, Additional history exists Fall Risk Screening 08/25/2025 08/25/2024 DTaP,Tdap,and Td Vaccines (3 - Td or [...] topic Sigmoidoscopy Discontinued Procedures * Due to [place] state law, this organization might not be [...] to Health Maintenance Results * Due to [place] state law, this organization might not be sharing negative HIV tests. * (ABNORMAL) Hemoglobin A1c (01/11/2016 11:14 AM EDT) Hemoglobin A1C 6.7(H) <5.7 [facility] Comment: UNITS OF MEASURE: % of [...] for children. eAG (MG/DL) 146 () (calc) [facility] eAG (MMOL/L) 8.1 () (calc) [facility] 01/11/2016 11:1 4 AM EDT 01/11/2016 12:39 PM EDT Ru Lopez MD LAB BLOOD ORDERABLES Final Re sult [facility] * COLONOSCOPY (01/09/2016 12:00 AM EDT) Colonoscopy 01/09/2016 OTHER 01/09/2016 us Historical Conversion Provider HEALTH MAINTENANC E Final Result OTHER * Microalbumin/Creatinine Urine, Random (07/06/2015 10:58 AM EST) Microalbumin Urine <1 mg/dL [facility] Creatinine Urine 103 22 - 328 mg/dL [facility] Albumin/Creat Ratio Unable to Calculate <30.0 mcg/mgCr [facility] 07/06/2015 10:5 8 AM EST 07/06/2015 11:31 AM EST Ru Lopez MD LAB URINE ORDERABLES Final Re sult Performing Organization Address City/[facility]/ZIP Co de Phone Number [facility] [address] [place] [address], * HM DIABETES EYE EXAM (07/06/2015 12:00 AM EST) Pathologist [facility] HM Eye Exam 07/06/2015 [facility] MANUAL RESULTS 07/06/2015 us [facility] Physician HEALTH MAINTENANCE Final Re sult [facility] MANUAL RESULTS * Occult Blood, Fecal (FIT) (02/08/2014 12:00 PM EDT) Pathologist [facility] Occult Blood,Fecal Negative NEGATIVE FIT [facility] 02/08/2014 12:0 0 PM EDT 02/08/2014 10:45 PM EDT Ru Lopez MD LAB BODY FLUIDS AND STOOLS OR DERABLES Final Result Performing Organization Address City/[facility]/ZIP Co de Phone Number [facility] [address] [place] [address], * (ABNORMAL) Comprehensive Metabolic Panel (07/16/2013 10:30 AM EST) Pathologist [facility] Sodium Blood 140 135 - 145 mmol/L [facility] Potassium Blood 4.9 3.5 - 5.3 mmol/L [facility] Chloride Blood 104 97 - 110 mmol/L [facility] Carbon Dioxide 29 24 - 32 mmol/L [facility] Gap 7 5 - 15 [facility] Glucose 156(H) 70 - 99 mg/dL [facility] BUN 16 7 - 23 mg/dL [facility] Creatinine 1.11 0.60 - 1.30 mg/dL [facility] eGFR Non- >60 >60 [facility] Comment: Units [...] Calcium Blood 10.3 8.7 - 10.7 mg/dL [facility] Total Protein Blood 7.2 6.0 - 8.0 g/dL [facility] Albumin Blood 4.8 3.5 - 4.8 g/dL [facility] Bilirubin Total 0.5 0.3 - 1.2 mg/dL [facility] Alkaline Phosphatase 47 30 - 115 IU/L [facility] AST 22 10 - 40 IU/L [facility] ALT 27 10 - 40 IU/L [facility] 07/16/2013 10:3 0 AM EST 07/16/2013 11:04 AM EST us Ru Lopez MD LAB BLOOD ORDERABLES Final Re sult [facility] [address] [place] [address], from Last 3 Months or Most Recently Relevant to Health Maintenance Insurance MEDICARE [facility] Care Teams Roll Hand Relationship Specialty Start Date End Date Issac Gagnon [address] [place] [address] PCP - General Family Medicine 07/18/24
--- OUTSIDE RECORDS SUMMARY | 2025-06-15 19:30 | XMS_ITS | Encounter Summary ---
Author Organization [facility], Address [address] [place] [address] Phone Care Team Providers Care Delivery Driver Name Role Phone Issac Gagnon MD Primary Care Provider [phone] Encounter Details Date Type Department Care Team (Late st Contact Info) Description 07/31/2022 Documentation Only [facility], [address] [address] Alberto Light PA [address] [place] [phone] Social History Tobacco Use Types Packs/Day Years [...] Care Team (Late st Contact Info) Description 06/26/2025 Orders Only [facility] [address] [facility] [address] [place] [address] April Sesay ARNP [address] [address] Stage 3a chronic kidney disease (HCC); Hypertension 07/12/2025 10:15 AM EST Office Visit [facility] [address] [address] April Sesay ARNP [address] [address] documented as of this encounter Visit Diagnoses Not on filedocumented in this encounter Care Teams Delivery Driver Relationship Specialty Start Date End Date Issac Gagnon MD [address] [place] [address] PCP - General Family Medicine 05/05/23 documented as of this encounter
--- OUTSIDE RECORDS SUMMARY | 2025-06-15 19:30 | XMS_ITS | Encounter Summary ---
Author Organization [facility], Address [address] [place] [address] Phone Care Team Providers Care Hazmat Cdl Driver Name Role Phone Issac Gagnon MD Primary Care Provider [phone] Encounter Details Date Type Department Care Team (Late st Contact Info) Description 02/12/2022 Documentation Only [facility], [address] [place] [address] Alberto Light PA [address] [place] [phone] Social History Tobacco Use Types Packs/Day Years [...] Only [facility] [address] [facility] [address] [place] [address] April Sesay ARNP [address] [address] Stage 3a chronic kidney disease (HCC); Hypertension 07/12/2025 10:15 AM EST Office Visit [facility] [address] [address] April Sesay ARNP [address] [address] documented as of this encounter Visit Diagnoses Not on filedocumented in this encounter Care Teams Hazmat Cdl Driver Relationship Specialty Start Date End Date Issac Gagnon MD [address] [place] [address] PCP - General Family Medicine 05/05/23 documented as of this encounter
--- OUTSIDE RECORDS SUMMARY | 2025-06-15 19:30 | XMS_ITS | Clinical Summary ---
Author Organization [facility] Address [address] [address] Phone Care Team Providers Care Gear Changer Name Role Phone Issac Gagnon MD Primary Care Provider [phone] Allergies Active Allergy Reactions Criticality Noted Date [...] Hypercholesterolemia 08/26/2019 021 Hypertensive heart disease w [facility] congestive heart failure 08/26/2019 07/01/2021 Administration [...] Only [facility] [address] [address] April Sesay ARNP [address] [phone] Stage 3a chronic kidney disease (HCC); Hypertension 07/12/2025 10:15 AM EST Office Visit [facility] [address] [phone] April Sesay ARNP [address] [address] Health Maintenance Due Date Last Done Comments [...] PM EDT) Hemoglobin A1C 6.4(H) (4.0-5.6) % [facility] Comment: MONITORING: In known diabetic patients, hemoglobin A1c targets should be discussed with health care provider. DIAGNOSTIC USE: The [place] Diabetes Association (ADA) and the World Health [...] Supplement 1 Testing performed or reported by [facility], a Service of [facility], [address] [place] [address] Bhupendra Casey MD, Training Development Director [facility]# [id number] Blood specimen (specimen) Venous blood / Unknown 02/12/2022 1:46 PM EDT 02/12/2022 1:50 PM EDT us Yeyo Desai MD LAB BLOOD ORDERABLES Final Resul t [facility] from Last 3 Months or Most Recently Relevant to Health Maintenance Insurance Medicare [facility] Medicare [facility] Medicare [facility] Care Teams Gear Changer Relationship Specialty Start Date End Date Issac Gagnon MD [address] [place] [address] PCP - General Family Medicine 05/05/23
--- OUTSIDE RECORDS SUMMARY | 2025-06-15 19:30 | XMS_ITS | Patient Health Record ---
Author Organization [facility] Address [address] [place] [address] Care Team Providers Care Warehouse Foreman Name Role Phone Chelsi Issac Primary Care Provider Yuli Naylor Unavailable [phone] Allergies No Known Allergies Reason For Referral [...] Status Risk Notes Problem Acquired hallux valgus (93536460) Hallux valgus (acquired), left foot (M20.12) Active confirmed Problem Gout (63899524) Gout, unspecifie d (M10.9) Active confirmed Problem Polyneuropathy due to type 2 diabetes mellitus (704347607) Type 2 diabetes mellitus with diabetic polyneuropathy (E11.42) Active confirmed Problem Neuropathic ulcer of right foot (disorder) ([id number] 2) Neuropathic ulcer of right foot, limited [...] Medicare [employer] [address] [place] [address] [id number] Amarjit Oswald Self - patient is the insured [address]) [address] [place] [address] [phone] [id number] Amarjit Oswald Self - patient is [...]
--- OUTSIDE RECORDS SUMMARY | 2025-06-15 19:30 | XMS_ITS | Clinical Summary ---
Author Organization [facility] Address [address] [place] [address] Care Team Providers Care Ward Secretary Name Role Phone Unavailable Primary Care Provider [...]
== END 2025-06-15 14:28 | disposition home or self-care (01) ==
LOC: HO.HOS 14:06
PROVIDERS: PCP Family Medicine; Visit Provider Physician Assistant
DX: M54.12 Radiculopathy, cervical region (principal)
CPT/HCPCS: 99213

== ENCOUNTER → 2025-06-15 14:05 | Outpatient (BNVA) | payer MEDICARE, OTHER, SELFPAY | PROVIDERS: PCP Family Medicine; Visit Provider Physician Assistant | DX: M54.12 Radiculopathy, cervical region (principal); R20.0 Anesthesia of skin; R20.2 Paresthesia of skin; M25.511 Pain in right shoulder | CPT/HCPCS: 99212 ==

== ENCOUNTER 2025-06-26 14:17 | Outpatient (REF) | payer MEDICARE, OTHER, SELFPAY ==
[2025-06-26 16:06] LABS: Thyroid Stimulating Hormone 2.95 uIU/mL (0.32-4.0)
[2025-06-26 16:18] LABS: Folate 9.7 ng/mL (> or = 4.0); Vitamin B12 375 pg/mL (200-900)
[2025-07-01 16:43] LABS: ABETA 42/40 Ratio 0.190 (> OR = 0.170); Alzeheimer's Interpretation Low Likelihood; Tau protein phosphorylated 217 0.40 pg/mL (< OR = 0.15)
== END 2025-06-26 14:18 | disposition home or self-care (01) ==
LOC: HO.LAB 14:17
PROVIDERS: PCP Family Medicine; Visit Provider Psychiatry & Neurology Neurology
DX: G43.009 Migraine without aura, not intractable, without status migrainosus (principal); G47.00 Insomnia, unspecified; F32.A Depression, unspecified; G31.84 Mild cognitive impairment of uncertain or unknown etiology; M96.1 Postlaminectomy syndrome, not elsewhere classified
CPT/HCPCS: 36415; 82233; 82234; 82607; 82746; 84393; 84443; 99212

== ENCOUNTER 2025-06-26 14:17 | Outpatient (AMB) | payer MEDICARE, OTHER, SELFPAY ==
--- NOTE | 2025-06-26 14:37 | A.OFFVIS_ITS ---
Intake Visit Reasons: 1 year follow up Allergies animal dander Allergy (Intermediate, Verified 06/15/25 14:14) hayfever empagliflozin (From Jardiance) Allergy (Intermediate, Verified 06/15/25 14:14) Rash environmental allergies Allergy (Intermediate, Verified 06/15/25 14:14) hayfever mold Allergy (Intermediate, Verified 06/15/25 14:14) hayfever HPI Comments Details: 75 years old man with chronic depression, related insomnia, and migraine headaches. He is presenting for management of chronic pain, sleep disturbances, and headaches. The patient reports constant and miserable back pain. The patient has a history of three back surgeries performed within five days. The first surgery involved a misaligned screw that hit a nerve, the second was an unsuccessful attempt to reposition it, and during the third surgery, the screw was removed and not replaced. The patient was seen by a Dr. Henao who suggested another surgery on different disks, but the patient has declined further surgical intervention. The patient also reports pain in the knees, hips, and shoulders, which is thought to be from arthritis. Headaches occur daily but are noted to be less severe than they were previously. For sleep, the patient reports waking every 1.5 to 2 hours. Regarding mood, it was noted that the patient's mood makes other symptoms worse, and a referral to a therapist was suggested. The patient denies currently seeing a therapist or psychiatrist and does not believe they have in the past. The patient also notes issues with memory. Current medications include tizanidine for back pain which provides little relief, trazodone 50 mg for sleep, and sertraline 100 mg prescribed by the patient's primary care physician, Dr. Jain. The patient also takes gabapentin 600 mg in the morning, sometimes 600 mg in the afternoon, and 900 mg at night. The patient takes probiotics and MiraLAX. [facility] Medical History (Updated 06/26/25 @ 14:49 by Andre Nunez MD) Migraine Right foot drop Neuropathy GERD (gastroesophageal reflux disease) Type 2 diabetes mellitus Chronic renal insufficiency Asthma Lumbar back pain Hyperlipidemia CAD (coronary artery disease) Surgical History History of inguinal hernia repair, bilateral (03/02/24) H/O colonoscopy Hx of heart artery stent History of open reduction and internal fixation (ORIF) procedure Hx of arthroscopy of shoulder History of back surgery Hx of cholecystectomy History of back surgery Family History Father Lung cancer Social History Are you a primary medicare specialist to a significant other at home: No Do you presently have visiting nurse or other home services: No Patient Tobacco Use Status: Never used Tobacco Review of Systems Narrative - Musculoskeletal: Reports chronic back pain and pain in the knees, hips, and shoulders. - Neurological: Reports daily headaches and memory problems. - Psychiatric: Reports poor sleep with frequent awakenings and feeling miserable. - Gastrointestinal: Takes MiraLAX, suggesting constipation. Physical Exam Neuro Other: Mental Status: Alert and oriented to person, place, and time. Normal attention. Normal spontaneous speech, fluency, and comprehension. Flat affect. Cranial Nerves: CN II: Visual pitt full to confrontation, visual acuity intact. CN III, IV, : Pupils equal, round, reactive to light and accommodation. Extraocular movements are normal. CN V: Facial sensation is normal. CN VII: Facial movements symmetrical. CN VIII: Hearing intact to bedside conversation is normal. CN IX, X: Palate elevates symmetrically. CN XI: Shoulder shrug and head turn symmetrical. CN XII: Tongue midline without atrophy or fasciculations. Walking cautiously. Extrapyramidal: Full facial expressions and blinking. No rigidity. Movements are appropriate with no tremor or abnormality. Speech: Normal; no dysarthria or tremor. Assessment & Plan Assessment & Plan (1) Migraine without aura: Comment: Meds tried: topiramate, fioricet, sertraline, cannot take propranolol due to IDDM, verapamil due to CAD, Depakote Routine EEG at off in 2022: WNL MRI brain WO at [place] in Apr 2023: minimal MVD, mild atrophy NCV/EMG LTUE Moderately severe left median neuropathy across the Carpal tunnel. 02/20/22. CT brain WO at [facility] in Jun 2021: mild atrophy, PT MRI brain WO at [facility] in Jun 2021: mild MVD. Code(s): G43.009 - Migraine without aura, not intractable, without status migrainosus Category: Medical Qualifiers: Status migrainosus presence: without status migrainosus Intractability: not intractable Qualified Code(s): G43.009 - Migraine without aura, not intractable, without status migrainosus (2) Insomnia: Code(s): G47.00 - Insomnia, unspecified Category: Medical Qualifiers: Insomnia type: due to medical condition (3) Depression: Code(s): F32.A - Depression, unspecified Category: Medical Qualifiers: Depression Type: unspecified (4) MCI (mild cognitive impairment): Code(s): G31.84 - Mild cognitive impairment of uncertain or unknown etiology Category: Medical Plan Impression: a: Failed back syndrome b: Chronic depression c: Migraine d: MCI e: Insomnia Rec: a: B12/folate/TSH/Abeta amyloid screen b: Referral to behavioral therapy c: Trazodone 50mg 1-2 at bedtime d: Pain management through PCP or pain specialist for back issues Orders: Orders Thyroid Stimulating Hormone Today G31.84 - Mild cognitive impairment of uncertain or unknown etiology Vitamin B12 and Folate Today G31.84 - Mild cognitive impairment of uncertain or unknown etiology, M96.1 - Postlaminectomy syndrome, not elsewhere classified ABeta 42/40 p-tau 217 Eval Today G31.84 - Mild cognitive impairment of uncertain or unknown etiology Referrals Behavioral Health Referral F32.A - Depression, unspecified Medications: Changed From trazodone 50 mg PO BEDTIME 90 tabs 0RF To trazodone 100 mg (2 x 50 mg) PO BEDTIME 180 tabs 0RF Coding Level of Care Code Est Pt Level 4 (33841) Diagnoses Migraine without aura and without status migrainosus, not intractable G43.009 Status migrainosus presence: without status migrainosus Intractability: not intractable Insomnia G47.00 Insomnia type: due to medical condition Depression F32.A Depression Type: unspecified MCI (mild cognitive impairment) G31.84
--- OUTSIDE RECORDS SUMMARY | 2025-06-26 17:42 | XMS_ITS | Encounter Summary ---
Author Organization [facility], Address [address] [place] [address] Phone Care Team Providers Care Data Processing Auditor Name Role Phone Issac Gagnon MD Primary Care Provider [phone] Encounter Details Date Type Department Care Team (Late st Contact Info) Description 07/31/2022 Documentation Only [facility], [address] [place] [address] Alberto Light PA [address] [place] [phone] Social History Tobacco Use Types Packs/Day Years [...] [facility] [address] [facility] [address] [place] [address] April Sesay ARNP [address] [address] documented as of this encounter Visit Diagnoses Not on filedocumented in this encounter Care Teams Data Processing Auditor Relationship Specialty Start Date End Date Issac Gagnon MD [address] [place] [address] PCP - General Family Medicine 05/05/23 documented as of this encounter
--- OUTSIDE RECORDS SUMMARY | 2025-06-26 17:42 | XMS_ITS | Clinical Summary ---
Author Organization [facility] Address [address] [address] Phone Care Team Providers Care Manufacturing Group Leader Name Role Phone Issac Gagnon MD Primary Care Provider [phone] Allergies Active Allergy Reactions Criticality Noted Date [...] Hypercholesterolemia 08/26/2019 021 Hypertensive heart disease w [facility] congestive heart failure 08/26/2019 07/01/2021 Administration of pneumococcal vaccine 08/26/2019 12/01/2019 Encounters Date Type Department Care Team Description 06/26/2025 Orders Only [facility] [address] [phone] April Sesay ARNP Stage 3a chronic kidney disease (HCC); Hypertension [...] and [facility] [address] [address] April Sesay ARNP [address] [address] Health Maintenance Due Date Last [...] PM EDT) Hemoglobin A1C 6.4(H) (4.0-5.6) % [facility] Comment: MONITORING: In known diabetic patients, hemoglobin A1c targets should be discussed with health care provider. DIAGNOSTIC USE: The [place] Diabetes Association (ADA) and the World Health [...] Supplement 1 Testing performed or reported by [facility], a Service of [facility], [address] [place] [address] Bhupendra Casey MD, Psych Therapist [facility]# [id number] Blood specimen (specimen) Venous blood / Unknown 02/12/2022 1:46 PM EDT 02/12/2022 1:50 PM EDT us Yeyo Desai MD LAB BLOOD ORDERABLES Final Resul t [facility] from Last 3 Months or Most Recently Relevant to Health Maintenance Insurance Medicare [facility] Medicare [facility] Medicare [facility] Care Teams Manufacturing Group Leader Relationship Specialty Start Date End Date Issac Gagnon MD [address] [place] [address] PCP - General Family Medicine 05/05/23
--- OUTSIDE RECORDS SUMMARY | 2025-06-26 17:43 | XMS_ITS | Clinical Summary ---
Author Organization [facility] Address [address] [place] [address] Care Team Providers Care Mobile Ui Developer Name Role Phone Unavailable Primary Care Provider Unavailabl e Surgical History Surgery Date Site/Laterality Comments CHOLECYSTECTOMY 2016 PROCEDURE: HISTORICAL CHOLECYSTECTOMY COLONOSCOPY 2007 PROCEDURE: HISTORICAL COLONOSCOPY; COMMENT: Pleet; diverticulosis. COLONOSCOPY 2015 PROCEDURE: HISTORICAL COLONOSCOPY; COMMENT: Manuel; negative OTHER SURGICAL HISTORY 01/03/2019 PROCEDURE: CHG RADIOLOGIC EXAM SWALLOW FUNCTION CONTRAST STUDY; COMMENT: Normal at [facility]. UPPER GASTROINTESTINAL ENDOSCOPY 03/23/2019 PROCEDURE: FL UPPER GI ENDOSCOPY PERFORMED; COMMENT: small inlet [...] disease, with long-term current use of insulin ([facility] V24, [facility] V28) 01/25/2021 DX:Type 2 diabetes mellitus with chronic kidney disease, with long-term current use of insulin ([facility]) HTN (hypertension) 10/01/2009 DX:HTN (hyper tension) Diverticulosis large intesti ne w/o perforation or abscess w/o bleeding 10/26/2020 DX:Diverticulosis large intestine w/o perforation or abscess w/o bleeding Liver nodule 01/25/2021 DX:Liver nodule Mild persistent asthma witho ut complication 01/25/2021 DX:Mild persistent asthma wi thout complication Pulmonary nodule 01/25/2021 DX:Pulmonary no dule Coronary artery disease invo lving [place] coronary artery of [place] heart without angina pectoris 01/25/2021 DX:Coronary artery disease i nvolving [place] coronary artery of [place] heart without angina pectoris Type 2 diabetes mellitus wit h cataract ([facility] V24, [facility] V28) 02/04/2021 DX:Type 2 diabetes mellitus with cataract ([facility]) Anxiety 07/31/2008 DX:Anxiety BPH (benign prostatic hyperplasia) 02/04/2021 DX:BPH (benign prostatic hyperplasia); COMMENT: Sees Dr. Rebolledo [facility] Carpal tunnel syndrome 10/05/2008 DX:Carpal tunnel syndrome; COMMENT: S/p surgery. Cataract 02/04/2021 DX:Cataract; COM MENT: Sees Dr. Mesa Chronic kidney disease, stag e 3b ([facility] V24, [facility] V28) 01/25/2021 DX:Chronic kidney disease, stage 3b ([facility]); COMMENT: Follows w/ Dr. 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 Menisceal tear, MRI ordered 06/2012 S/P shoulder surgery 04/12/2010 DX:S/P shou lder surgery; COMMENT: [facility] 01/03. Ascending aorta dilatation ( [facility] V24) 05/29/2021 DX:Ascending aorta dilatatio n ([facility]); COMMENT: CT chest (05/29/2021): 4 cm. Tubular [...]
--- OUTSIDE RECORDS SUMMARY | 2025-06-26 17:43 | XMS_ITS | Encounter Summary ---
Author Organization [facility], Address [address] [place] [address] Phone Care Team Providers Care Back Filler Operator Name Role Phone Issac Gagnon MD Primary Care Provider [phone] Encounter Details Date Type Department Care Team (Late st Contact Info) Description 02/12/2022 Documentation Only [facility], [address] [place] [address] Alberto Light PA [address] [place] [phone] Social History Tobacco Use Types Packs/Day Years [...] Visit [facility] [address] [facility] [address] [place] [address] April Sesay ARNP [address] [address] documented as of this encounter Visit Diagnoses Not on filedocumented in this encounter Care Teams Back Filler Operator Relationship Specialty Start Date End Date Issac Gagnon MD [address] [place] [address] PCP - General Family Medicine 05/05/23 documented as of this encounter
--- OUTSIDE RECORDS SUMMARY | 2025-06-26 17:43 | XMS_ITS | Clinical Summary ---
Author Organization [facility] Address [address] [place] [address] Care Team Providers Care Floating Labor Gang Supervisor Name Role Phone Issac Gagnon Primary Care Provider [phone] Allergies Active Allergy Reactions Criticality Noted Date [...] topic Sigmoidoscopy Discontinued Procedures * Due to [place] state law, this organization might not be [...] to Health Maintenance Results * Due to [place] state law, this organization might not be sharing negative HIV tests. * (ABNORMAL) Hemoglobin A1c (01/11/2016 11:14 AM EDT) Hemoglobin A1C 6.7(H) <5.7 [facility] Comment: UNITS OF MEASURE: % of [...] for children. eAG (MG/DL) 146 () (calc) [facility] eAG (MMOL/L) 8.1 () (calc) [facility] 01/11/2016 11:1 4 AM EDT 01/11/2016 12:39 PM EDT Ru Lopez MD LAB BLOOD ORDERABLES Final Re sult [facility] * COLONOSCOPY (01/09/2016 12:00 AM EDT) Colonoscopy 01/09/2016 OTHER 01/09/2016 us Historical Conversion Provider HEALTH MAINTENANC E Final Result OTHER * Microalbumin/Creatinine Urine, Random (07/06/2015 10:58 AM EST) Microalbumin Urine <1 mg/dL [facility] Creatinine Urine 103 22 - 328 mg/dL [facility] Albumin/Creat Ratio Unable to Calculate <30.0 mcg/mgCr [facility] 07/06/2015 10:5 8 AM EST 07/06/2015 11:31 AM EST Ru Lopez MD LAB URINE ORDERABLES Final Re sult Performing Organization Address City/[facility]/ZIP Co de Phone Number [facility] [address] [place] [address], * HM DIABETES EYE EXAM (07/06/2015 12:00 AM EST) Pathologist [facility] HM Eye Exam 07/06/2015 [facility] MANUAL RESULTS 07/06/2015 us [facility] Physician HEALTH MAINTENANCE Final Re sult [facility] MANUAL RESULTS * Occult Blood, Fecal (FIT) (02/08/2014 12:00 PM EDT) Pathologist [facility] Occult Blood,Fecal Negative NEGATIVE FIT [facility] 02/08/2014 12:0 0 PM EDT 02/08/2014 10:45 PM EDT Ru Lopez MD LAB BODY FLUIDS AND STOOLS OR DERABLES Final Result Performing Organization Address City/[facility]/ZIP Co de Phone Number [facility] [address] [place] [address], * (ABNORMAL) Comprehensive Metabolic Panel (07/16/2013 10:30 AM EST) Pathologist [facility] Sodium Blood 140 135 - 145 mmol/L [facility] Potassium Blood 4.9 3.5 - 5.3 mmol/L [facility] Chloride Blood 104 97 - 110 mmol/L [facility] Carbon Dioxide 29 24 - 32 mmol/L [facility] Gap 7 5 - 15 [facility] Glucose 156(H) 70 - 99 mg/dL [facility] BUN 16 7 - 23 mg/dL [facility] Creatinine 1.11 0.60 - 1.30 mg/dL [facility] eGFR Non- >60 >60 [facility] Comment: Units = [...] Calcium Blood 10.3 8.7 - 10.7 mg/dL [facility] Total Protein Blood 7.2 6.0 - 8.0 g/dL [facility] Albumin Blood 4.8 3.5 - 4.8 g/dL [facility] Bilirubin Total 0.5 0.3 - 1.2 mg/dL [facility] Alkaline Phosphatase 47 30 - 115 IU/L [facility] AST 22 10 - 40 IU/L [facility] ALT 27 10 - 40 IU/L [facility] 07/16/2013 10:3 0 AM EST 07/16/2013 11:04 AM EST us Ru Lopez MD LAB BLOOD ORDERABLES Final Re sult [facility] [address] [place] [address], from Last 3 Months or Most Recently Relevant to Health Maintenance Insurance MEDICARE [facility] Care Teams Floating Labor Gang Supervisor Relationship Specialty Start Date End Date Issac Gagnon [address] [place] [address] PCP - General Family Medicine 07/18/24
--- OUTSIDE RECORDS SUMMARY | 2025-06-26 17:43 | XMS_ITS | Clinical Summary ---
Author Organization [facility] Address [address] [place] [address] Care Team Providers Care Cigarette Vendor Name Role Phone Unavailable Primary Care Provider [...]
--- OUTSIDE RECORDS SUMMARY | 2025-06-26 17:43 | XMS_ITS | Encounter Summary ---
Author Organization [facility] Address [address] [address] Phone Care Team Providers Care Crankshaft Balancer Name Role Phone Issac Gagnon MD Primary Care Provider [phone] Encounter Details Date Type Department Care Team (Late st Contact Info) Description 06/26/2025 Orders Only [facility] [address] [phone] April Sesay ARNP [address] [address] Stage 3a chronic kidney disease (HCC); Hypertension Social History Tobacco Use Types Packs/Day Years [...] Office Visit [facility] [address] [phone] April Sesay ARNP [address] [address] documented as of this encounter Visit Diagnoses Diagnosis Stage 3a chronic kidney disease (HCC) Hypertension documented in this encounter Care Teams Crankshaft Balancer Relationship Specialty Start Date End Date Issac Gagnon MD [address] [place] [address] PCP - General Family Medicine 05/05/23 documented as of this encounter
== END 2025-06-26 14:50 | disposition home or self-care (01) ==
LOC: HO.HSM 14:18
PROVIDERS: PCP Family Medicine; Visit Provider Psychiatry & Neurology Neurology
DX: G43.009 Migraine without aura, not intractable, without status migrainosus (principal); G47.00 Insomnia, unspecified; F32.A Depression, unspecified; G31.84 Mild cognitive impairment of uncertain or unknown etiology
CPT/HCPCS: 99214

== ENCOUNTER 2025-07-13 15:07 | Outpatient (AMB) | payer MEDICARE, OTHER, SELFPAY ==
--- OUTSIDE RECORDS SUMMARY | 2025-07-12 10:15 | XMS_ITS | Encounter Summary ---
Author Organization [facility] Address [address] [phone] Phone Care Team Providers Care Bet Taker Name Role Phone Issac Gagnon MD Primary Care Provider [phone] Reason for Visit * Reason Comments Chronic Kidney Disease Encounter Details Date Type Department Care Team ([facility] st Contact Info) Description 07/12/2025 10:15 AM EST Office Visit [facility]. [address] [phone] April Sesay ARNP [address] [phone] Stage 3a chronic kidney disease (HCC); Hypertension [...] PM EDT documented as of this encounter Last Filed Vital Signs Vital Sign Reading Time Taken Comments Blood Pressure 118/70 07/12/2025 10:49 AM EST Pulse 69 07/12/2025 10:25 AM EST Temperature - - Respiratory Rate - - Oxygen Saturation 98% 07/12/2025 10:25 AM EST Inhaled Oxygen Concentration - - Weight 85.7 kg (189 lb) 07/12/2025 10:25 AM EST Height - - Body Mass Index 27.91 02/17/2022 5:07 PM EDT documented in this encounter Functional Status * BP Answer Date of Assessment Author 118/70 07/12/2025 10:49 AM EST April Sesay ARNP * Pulse Answer Date of Assessment Author 69 07/12/2025 10:25 AM EST Vera Kamara * SpO2 Answer Date of Assessment Author 98 07/12/2025 10:25 AM EST Doron Kamaraota * Weight Answer Date of Assessment Author 3024 07/12/2025 10:25 AM EST Doron Kamaraota * BP Location Answer Date of Assessment Author Right upper arm 07/12/2025 10:49 AM EST April Sesay ARNP * BP Answer Date of Assessment Author 118/70 07/12/2025 10:49 AM EST April Sesay ARNP * Weight Answer Date of Assessment Author 3024 07/12/2025 10:25 AM EST Vera Kamara * BP Location Answer Date of Assessment Author Right upper arm 07/12/2025 10:49 AM EST April Sesay ARNP documented as of this encounter Progress Notes * April Sesay ARNP - 07/12/2025 10:15 AM EST Images from the original note were not included. Patient Name: mAarjit Oswald, Male Date of : 1950, 75 y.o. Date: 07/12/2025 [] New Patient [x] Established Patient [] New Hospital Follow Up [] Established Hospital Follow Up [] Telemed Visit [] H&P Referring MD: No primary care provider on file. PCP: Issac Gagnon MD Reason For Visit: CKD 3, DM , HTN Amarjit Oswald is a 75 y.o. male seen today in f/u RE: CKD 3 in setting of DM/HTN. Reports had spinal fusion of L4-L5 on 11/13/23 and has persistent low back pain with radiation down right leg. H/O DM x 10 yrs with assoc Neuropathy. S/P cardiac stent. H/O migraines. States has been taking Farxiga w/o problem. Mom had kidney disease, was on HD. Overall doing ok. 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 Stopped taking allupurinol as no gout attacks for years. The following portions of the patient's chart were reviewed in this encounter and updated as appropriate: Allergies Meds Problems Med Hx Surg Hx Fam Hx Constitutional: Negative for chills, fever, weight gain and weight loss. HENT: Negative for congestion, hearing loss and nosebleeds. Eyes: Negative for blurred vision and double vision. Respiratory: Negative for cough, shortness of breath and wheezing. Cardiovascular: Negative for chest pain, palpitations and leg swelling. Gastrointestinal: Negative for abdominal pain, blood in stool, constipation, diarrhea, nausea, vomiting and poor appetite. Genitourinary: Positive for frequency and nocturia. Negative for dysuria, flank pain, hematuria andurgency. Chronic, stable Musculoskeletal: Positive for back pain. Chronic low back with right leg pain - stable Skin: Negative for rash. Neurological: Negative for dizziness, tingling, numbness and headaches. Endo/Heme/Allergies: Negative for polydipsia. Does not bruise/bleed easily. Psychiatric/Behavioral: Negative. Full 13 point review of systems unremarkable except as noted above. Past Medical History: Diagnosis Date Asthma Chronic kidney disease Chronic obstructive pulmonary disease (HCC) Dementia (HCC) Depressive disorder Essential hypertension Gastroesophageal reflux disease Hyperlipidemia Ischemic heart disease CAD Pneumococcal vaccination 08/26/2019 Stented coronary artery Type 2 diabetes mellitus (HCC) Past Surgical History: Procedure Laterality Date INGUINAL HERNIA REPAIR Bilateral 03/2024 OTHER SURGICAL HISTORY Back Surgery 4x, stent Social History Tobacco Use Smoking status: Never Smokeless tobacco: Not on file Substance Use Topics Alcohol use: No Family History Problem Relation Age of Onset Diabetes Mother Cancer Father Lung, esophageal cancer, bleeding diathesis Kidney disease Mother Hypertension Father Hypertension Mother Cancer Mother Current Outpatient Medications Medication Sig Dispense Refill atorvastatin (LIPITOR) 40 MG tablet Take 40 mg by mouth 1 (one) time each day Farxiga 10 MG tablet TAKE 1 TABLET BY MOUTH EVERY MORNING 90 tablet 2 gabapentin (NEURONTIN) 300 MG capsule Take 300 mg by mouth 1 (one) time each day Insulin Degludec (TRESIBA SC) Inject 16 mL under the skin 1 (one) time each day omeprazole (PriLOSEC) [address] capsule Take 20 mg by mouth twice a day sertraline (ZOLOFT) 100 MG tablet Take 100 mg by mouth 1 (one) time each day traZODone (DESYREL) 50 MG tablet Take 50 mg by mouth every night No current facility-administered medications for this visit. Allergies Allergen Reactions Cat Dander Other (see comments) Dog Epithelium Other (see comments) Dust Mite Extract Other (see comments) Molds & Smuts Other (see comments) Pollen Extract Other (see comments) Objective: Vitals: 07/12/25 1025 07/12/25 1049 BP: 100/70 118/70 BP Location: Right upper arm Right upper arm Patient Position: Sitting Sitting BP Cuff Size: Adult Adult Pulse: 69 SpO2: 98% Weight: 189 lb (85.7 kg) BP the same on recheck Vitals reviewed. Constitutional: He is oriented to person, place, and time. He does not appear ill. No distress. HEENT: Mouth/Throat: Oropharynx is clear and moist. Eyes: Conjunctivae are normal. Neck: No JVD present. Cardiovascular: Normal rate, regular rhythm and normal heart sounds. No murmur heard.He exhibits no edema. Pulmonary/Chest: Effort normal and breath sounds normal. No respiratory distress. Abdominal: Soft. There is no abdominal tenderness. Neurological: He is alert and oriented to person, place, and time. Skin: Skin is warm and dry. No rash noted. No erythema. Psychiatric: He has a normal mood and affect. His behavior is normal. Judgment normal. EST GFR Date Value Ref Range Status 03/13/2021 38 ML/MIN/1.73 M2 Final Comment: Creatinine based estimated glomerular filtration rate (eGFR) is calculated using the Chronic Kidney Disease Epidemiology Collaboration (CKD-EPI). The CKD-EPI creatinine equation has not been validated in children (<18 years), women or in some racial or ethnic subgroups other than Caucasians and Americans. Testing performed or reported by [facility], a Service of [facility], [address] [place] [id number] Bhupendra Casey MD, Departure Clerk IA# [id number] eGFR Non-Afr Belarusian Date Value Ref Range Status 12/11/2023 57 Final Chemistry Lab Units 07/10/25 0950 01/10/25 1353 01/10/25 1352 07/06/24 0804 12/11/23 0000 CREATININE mg/dL 1.61* 1.41* 1.55* 1.43* 1.24 BUN mg/dL 31* 30* 30* 25 20 BUN / CREAT RATIO 19 21 17 -- EGFRNAFR -- -- -- -- 57 GLUCOSE mg/dL 128* 122* 123* 132* -- POTASSIUM mmol/L 5.2 4.9 4.9 4.4 4.5 SODIUM mmol/L 140 140 141 142 137 CO2 mmol/L 28 21 20 21 22 CHLORIDE mmol/L 102 104 104 105 -- ALBUMIN g/dL 4.8 4.8 -- 4.6 -- Bone Mineral Lab Units 07/10/25 0950 01/10/25 1353 01/10/25 1352 07/06/24 0804 12/11/23 0000 CALCIUM mg/dL 10.1 9.4 9.4 9.7 9.5 PHOSPHORUS mg/dL 4.3* 4.0 -- 3.7 -- MAGNESIUM mg/dL -- -- -- 2.3 -- PTH pg/mL 33 61 -- 39 -- VIT D 25 HYDROXY ng/mL -- 41.2 -- 40.0 -- CBC Lab Units 07/10/25 0950 01/10/25 1353 07/06/24 0804 12/11/23 0000 WBC AUTO x10E3/uL 5.9 6.6 5.8 -- RBC AUTO x10E6/uL 5.07 5.07 5.19 -- MCV fL 89 90 87 -- HEMATOCRIT % 45.1 45.7 45.1 37.1* HEMOGLOBIN g/dL 15.6 15.5 15.0 12.6* PLATELETS AUTO x10E3/uL 181 179 184 272 Urine Lab Units 07/10/25 0950 07/06/24 0804 PROT/CREAT RATIO UR mg/g creat Comment* 75 ALB MG/G CREAT UR mg/g creat <6 <4 Urine Lab Units 07/10/25 0950 07/06/24 0804 01/04/24 0000 PH U -- 6.0 -- COLOR U -- Yellow -- GLUCOSE UR -- 3+* -- WBC UR HPF /hpf -- None seen -- RBC UR HPF /hpf -- None seen -- PROTEIN UR mg/dL <4.0 5.0 Negative UROBILINOGEN UA mg/dL -- 0.2 -- PLAN: Assessment & Plan 74 Y/O M CKD 3A DIABETIC HYPERTENSIVE PATIENT CKD 3a: most c/w DN/HTN renal disease; stable creatinine and normal lytes; no anemia; no proteinuria; not on FRANCINE/ARB; on SGLT2i HTN: BP very well controlled off Losartan; goal BP < 130/80; no edema DM: Target Hgb A1c <7% Metabolic Bone Disease of CKD: cont to track CA, Phos, HCO3, PTH and vit D levels and treat accordingly; normal bone metabolism currently 1. Stage 3a chronic kidney disease (HCC) 2. Hypertension PLAN: No medication changes made today Remain off Losartan d/t very good BP on low side Monitor and track home BP for visits c/w Farxiga 10 mg QD Follow low NA diet Avoid Nephrotoxins Avoid NSAIDs/Decongestant medication Orders Placed This Encounter PTH, intact Renal function panel CBC Urine Protein / creatinine ratio Urine Albumin / Creatinine Ratio DISCONTD: losartan (Cozaar) 25 MG tablet Return in about 6 months (around 01/10/2026) for Next scheduled follow-up with CHANA Miner Cosigned by Fadi Decker MD at 07/12/2025 11:29 AM EST documented in this encounter Plan of Treatment Upcoming Encounters Date Type Department Care Team (Late st Contact Info) Description 01/10/2026 11:00 AM EDT Office Visit [facility] [address] [phone] April Sesay ARNP [address] [phone] Scheduled Orders Name Type Priority Associated Diagnoses Orde r Schedule PTH, intact Lab Routine Stage 3a chronic kidney disease (HCC) Hypertension Expected: 12/25/2025, Expires: 03/25/2026 Renal function panel Lab Routine Stage 3a chronic kidney disease (HCC) Hypertension Expected: 12/25/2025, Expires: 03/25/2026 CBC Lab Routine Stage 3a chronic kidney disease (HCC) Hypertension Expected: 12/25/2025, Expires: 03/25/2026 Urine Protein / creatinine ratio Lab Routine Stage 3a chronic kidney disease (HCC) Hypertension Expected: 12/25/2025, Expires: 03/25/2026 Urine Albumin / Creatinine Ratio Lab Routine Stage 3a chronic kidney disease (HCC) Hypertension Expected: 12/25/2025, Expires: 03/25/2026 documented as of this encounter Visit Diagnoses Diagnosis Stage 3a chronic kidney disease (HCC) Hypertension documented in this encounter Care Teams Bet Taker Relationship Specialty Start Date End Date Issac Gagnon MD [address] [place] [id number] PCP - General Family Medicine 05/05/23 documented as of this encounter
--- NOTE | 2025-07-13 15:28 | A.OFFVIS_ITS ---
Intake Visit Reasons: AFTER LABS OK PER [facility] TO DOUBLE BOOK Allergies animal dander Allergy (Intermediate, Verified 06/15/25 14:14) hayfever empagliflozin (From Jardiance) Allergy (Intermediate, Verified 06/15/25 14:14) Rash environmental allergies Allergy (Intermediate, Verified 06/15/25 14:14) hayfever mold Allergy (Intermediate, Verified 06/15/25 14:14) hayfever HPI Comments Details: 75 years old man with chronic depression, related insomnia, and migraine headaches. She is presenting for management of widespread chronic pain, associated low mood, and memory concerns. He reports his mood is not improving due to pain located in his neck, shoulder, and side, with an additional complaint that his skin hurts. He also experiences daily headaches and joint pain in his knees, wrists, fingers, and feet. The patient is currently taking sertraline, prescribed by his primary care physician, for his mood. He recalls taking prednisone a long time ago but does not believe it was helpful. He has not seen a counselor and has decided against seeing the pain management clinic. Regarding cognitive function, he reports being very forgetful but mentions that a previous test for Alzheimer's disease was negative. [facility] Medical History (Updated 07/13/25 @ 15:34 by Andre Nunez MD) Migraine Right foot drop Neuropathy GERD (gastroesophageal reflux disease) Type 2 diabetes mellitus Chronic renal insufficiency Asthma Lumbar back pain Hyperlipidemia CAD (coronary artery disease) Surgical History History of inguinal hernia repair, bilateral (03/02/24) H/O colonoscopy Hx of heart artery stent History of open reduction and internal fixation (ORIF) procedure Hx of arthroscopy of shoulder History of back surgery Hx of cholecystectomy History of back surgery Family History Father Lung cancer Social History Are you a primary respite care provider to a significant other at home: No Do you presently have visiting nurse or other home services: No Patient Tobacco Use Status: Never used Tobacco Review of Systems Narrative - Integumentary: Reports skin pain. - Musculoskeletal: Reports pain in the neck, shoulder, side, knees, wrists, fingers, and feet. - Neurological: Reports daily headaches and forgetfulness. - Psychiatric: Reports depressed mood secondary to pain. Physical Exam Neuro Other: Mental Status: Alert and oriented to person, place, and time. Normal attention. Normal spontaneous speech, fluency, and comprehension. Cranial Nerves: CN II: Visual pitt full to confrontation, visual acuity intact. CN III, IV, : Pupils equal, round, reactive to light and accommodation. Extraocular movements are normal. CN V: Facial sensation is normal. CN VII: Facial movements symmetrical. CN VIII: Hearing intact to bedside conversation is normal. CN IX, X: Palate elevates symmetrically. CN XI: Shoulder shrug and head turn symmetrical. CN XII: Tongue midline without atrophy or fasciculations. Extrapyramidal: Full facial expressions and blinking. No rigidity. Movements are appropriate with no tremor or abnormality. Speech: Normal; no dysarthria or tremor. Results Reviewed Results Reviewed: Laboratory Tests Laboratory Tests 06/26/25 15:04 Amyloidosis Interpret Low Likelihood Amyloid Beta 42 Peptide 60 Amyloid Beta 40 Peptide 316 Phosphorylated Tau 217 0.40 H 06/26/25 15:04 Vitamin B12 375 Folate 9.7 TSH 2.95 Assessment & Plan Assessment & Plan (1) Migraine without aura: Comment: Meds tried: topiramate, fioricet, sertraline, cannot take propranolol due to IDDM, verapamil due to CAD, Depakote Routine EEG at off in 2022: WNL MRI brain WO at [facility] in Apr 2023: minimal MVD, mild atrophy NCV/EMG LTUE Moderately severe left median neuropathy across the Carpal tunnel. 02/20/22. CT brain WO at [facility] in Jun 2021: mild atrophy, PT MRI brain WO at [facility] in Jun 2021: mild MVD. Code(s): G43.009 - Migraine without aura, not intractable, without status migrainosus Category: Medical Qualifiers: Status migrainosus presence: without status migrainosus Intractability: not intractable Qualified Code(s): G43.009 - Migraine without aura, not intractable, without status migrainosus (2) Failed back syndrome: Code(s): M96.1 - Postlaminectomy syndrome, not elsewhere classified Category: Medical (3) PMR (polymyalgia rheumatica): Code(s): M35.3 - Polymyalgia rheumatica Category: Medical Plan Impression: a: Failed back syndrome b: Chronic depression c: Migraine d: MCI e: Insomnia f: ?PMR Rec: a: Trazodone 50mg 1-2 at bedtime b: Sertraline through PCP c: SED rate, CRP, CPK d: Prednisone 20mg one a day for a month, then 1/2 a day I discussed with the patient that his widespread pain symptoms could be due to an underlying inflammatory condition. I explained that we would proceed with a blood test to investigate this further. I am prescribing a trial of prednisone, initially one tablet daily for one month, then tapering to half a tablet. We will have a follow-up appointment during that time to assess his response and determine the next steps. I advised him that the blood test request is in the system and he should have it done today. Orders: Orders CRP High Sensitivity Today M35.3 - Polymyalgia rheumatica Creatine Kinase Total Today M35.3 - Polymyalgia rheumatica Erythrocyte Sedimentation Rate Today M35.3 - Polymyalgia rheumatica Medications: New prednisone 20 mg PO DAILY 90 tabs 0RF Coding Level of Care Code Est Pt Level 4 (34346) Diagnoses Migraine without aura and without status migrainosus, not intractable G43.009 Status migrainosus presence: without status migrainosus Intractability: not intractable Failed back syndrome M96.1 PMR (polymyalgia rheumatica) M35.3
--- OUTSIDE RECORDS SUMMARY | 2025-07-13 19:10 | XMS_ITS | Clinical Summary ---
Author Organization [facility] Address [address] [address] Phone Care Team Providers Care Sports Instructor Name Role Phone Issac Gagnon MD Primary Care Provider [phone] Allergies Active Allergy Reactions Criticality Noted Date Comments Cat Dander Other (see comments) 08/26/2019 Dog Epithelium Other (see comments) 08/26/2019 Dust Mite Extract Other (see comments) 08/26/19 20 Molds & Smuts Other (see comments) 08/26/2019 Pollen Extract Other (see comments) 08/26/2019 Medications atorvastatin (LIPITOR) 40 MG tablet Take 40 mg by mouth 1 (one) time each day 07/02/20 19 Active omeprazole (PriLOSEC) [address] capsule Take 20 mg by mouth twice a day 06/08/20 19 Active sertraline (ZOLOFT) 100 MG tablet Take 100 mg by mouth 1 (one) time each day Active gabapentin (NEURONTIN) 300 MG capsule Take 300 mg by mouth 1 (one) time each day Active traZODone (DESYREL) 50 MG tablet Take 50 mg by mouth every night Active Insulin Degludec (TRESIBA SC) Inject 16 mL under the skin 1 (one) time each day Active Farxiga 10 MG tablet TAKE 1 TABLET BY MOUTH EVERY MORNING 90 tablet 2 01/23/20 25 Active losartan (Cozaar) 25 MG tabletIndicati ons:Stage 3a chronic kidney disease (HCC),Hyperten luma Take 1 tablet (25 mg total) by mouth 1 (one) time each day 30 tablet 11 01/11/20 25 025 Discontinued losartan (Cozaar) 25 MG tabletIndicati ons:Stage 3a chronic kidney disease (HCC),Hyperten luma Take 0.5 tablets (12.5 mg total) by mouth 1 (one) time each day 15 tablet 5 07/12/20 25 025 Discontinued(En tered in Error (does not appear on AVS)) Active Problems Problem Noted Date Diagnosed Date [...] Hypercholesterolemia 08/26/2019 021 Hypertensive heart disease w [facility] congestive heart failure 08/26/2019 07/01/2021 Administration of pneumococcal vaccine 08/26/2019 12/01/2019 Encounters Date Type Department Care Team Description 07/12/2025 10:15 AM EST Office Visit [facility] [address] [address] April Sesay SERGEANT OF OFFICERS Stage 3a chronic kidney disease (HCC); Hypertension 06/26/2025 Orders Only [facility] [address] [address] April Sesay SERGEANT OF OFFICERS Stage 3a chronic kidney disease (HCC); Hypertension [...] AM EST Temperature - - Respiratory Rate 16 06/02/2019 12:00 PM EST Oxygen Saturation 98% 07/12/2025 10:25 AM EST Inhaled Oxygen Concentration - - Weight 85.7 kg (189 lb) 07/12/2025 10:25 AM EST Height 175.3 cm (5' 9 ) 02/17/2022 5:07 PM EDT Body Mass Index 27.91 02/17/2022 5:07 PM EDT Plan of Treatment Upcoming Encounters Date Type Department Care Team (Late st Contact Info) Description 01/10/2026 11:00 AM EDT Office Visit [facility] [address] [address] April Sesay ARNP [address] [address] Health Maintenance Due Date Last [...] Procedure Name Priority Date/Time Associated Diagnosis Comments PROTEIN / CREATININE RATIO, URINE Routine 07/10/2025 9:50 AM EST Stage 3a chronic kidney disease (HCC) Hypertension URINE ALBUMIN / CREATININE RATIO Routine 07/10/2025 9:50 AM EST Stage 3a chronic kidney disease (HCC) Hypertension CBC Routine 07/10/2025 9:50 AM EST Stage 3a chronic kidney disease (HCC) Hypertension RENAL FUNCTION PANEL Routine 07/10/2025 9:50 AM EST Stage 3a chronic kidney disease (HCC) Hypertension PTH, INTACT Routine 07/10/2025 9:50 AM EST Stage 3a chronic kidney disease (HCC) Hypertension HEMOGLOBIN A1C Routine 02/12/2022 1:46 PM EDT Stage 3b chronic kidney disease (HCC) Renal disorder due to type 2 diabetes mellitus <Other diabetic kidney complication> (HCC) Hypertensive disorder from Last 3 Months or Most Recently Relevant to Health Maintenance Results * (ABNORMAL) Urine Protein / creatinine ratio (07/10/2025 9:50 AM EST) Creatinine, Ur 47.7 Not Estab. mg/dL [facility] Protein, Ur <4.0 Not Estab. mg/dL [facility] Comment:Verified by repeat analysis Urine Protein/Creatinin e Ratio Comment(A ) 0 - 200 mg/g creat [facility] Comment: This result is below the assay's limit of quantitation indicating a dilute specimen, potentially due to diurnal variation. Consider recollection at a time likely to provide a more concentrated urine. Urine Urine specimen obtained by clean catch procedure / Unknown 07/10/2025 9:50 AM EST 07/10/2025 April Sesay [facility] URINE ORDERABLES Final Result [facility] [address] [place] [address] * Urine Albumin / Creatinine Ratio (07/10/2025 9:50 AM EST) Albumin, Urine <3.0 Not Estab. ug/mL [facility] Albumin/Creatin ine Ratio <6 0 - 29 mg/g creat [facility] Comment: Normal: 0 - 29 Moderately increased: 30 - 300 Severely increased: >300 Urine Urine specimen obtained by clean catch procedure / Unknown 07/10/2025 9:50 AM EST 07/10/2025 April Sesay [facility] URINE ORDERABLES Final Result [facility] [address] [place] [address] * CBC (07/10/2025 9:50 AM EST) WBC 5.9 3.4 - 10.8 x10E3/uL [facility] RBC 5.07 4.14 - 5.80 x10E6/uL [facility] Hemoglobin 15.6 13.0 - 17.7 g/dL [facility] Hematocrit 45.1 37.5 - 51.0 % [facility] MCV 89 79 - 97 fL [facility] MCH 30.8 26.6 - 33.0 pg [facility] MCHC 34.6 31.5 - 35.7 g/dL [facility] RDW 12.7 11.6 - 15.4 % [facility] Platelets 181 150 - 450 x10E3/uL [facility] Blood Venous blood / Unknown 07/10/2025 9:50 AM EST 07/10/2025 April Sesay [facility] BLOOD ORDERABLES Final Result [facility] [address] [place] [address] * PTH, intact (07/10/2025 9:50 AM EST) PTH 33 15 - 65 pg/mL [facility] Blood Venous blood / Unknown 07/10/2025 9:50 AM EST 07/10/2025 us April DUDLEYP LAB BLOOD ORDERABLES Final Result [facility] [address], [address] [place] [address] * (ABNORMAL) Renal function panel (07/10/2025 9:50 AM EST) Glucose 128(H) 70 - 99 mg/dL [facility] BUN 31(H) 8 - 27 mg/dL [facility] Creatinine 1.61(H) 0.76 - 1.27 mg/dL [facility] eGFR CKD-EPI CR 2020 44(L) >59 mL/min/1.7 3 [facility] BUN/Creatinine Ratio 19 10 - 24 [facility] Sodium 140 134 - 144 mmol/L [facility] Potassium 5.2 3.5 - 5.2 mmol/L [facility] Chloride 102 96 - 106 mmol/L [facility] Bicarbonate (CO2) 28 20 - 29 mmol/L [facility] Calcium 10.1 8.6 - 10.2 mg/dL [facility] Phosphorus 4.3(H) 2.8 - 4.1 mg/dL [facility] Albumin 4.8 3.8 - 4.8 g/dL [facility] Blood Venous blood / Unknown 07/10/2025 9:50 AM EST 07/10/2025 us April Sesay [facility] LAB BLOOD ORDERABLES Final Result [facility] [address], [address] [place] [address] * (ABNORMAL) Hemoglobin A1c (02/12/2022 1:46 PM EDT) Hemoglobin A1C 6.4(H) (4.0-5.6) % [facility] Comment: MONITORING: In known diabetic patients, hemoglobin A1c targets should be discussed with health care provider. DIAGNOSTIC USE: The [place] Diabetes Association (ADA) and the World Health [...] Supplement 1 Testing performed or reported by [facility], a Service of [facility], [address] [place] [address] Bhupendra Casey MD, Guest Laundry Attendant [facility]# [id number] Blood specimen (specimen) Venous blood / Unknown 02/12/2022 1:46 PM EDT 02/12/2022 1:50 PM EDT us Yeyo Desai MD LAB BLOOD ORDERABLES Final Resul t [facility] from Last 3 Months or Most Recently Relevant to Health Maintenance [facility] Medicare [facility] Care Teams Sports Instructor Relationship Specialty Start Date End Date Issac Gagnon MD [address] [place] [address] [place] [address] PCP - General Family Medicine 05/05/23
--- OUTSIDE RECORDS SUMMARY | 2025-07-13 19:10 | XMS_ITS | Encounter Summary ---
Author Organization [facility], Address [address] [place] [address] Phone Care Team Providers Care Technical Aide Name Role Phone Issac Gagnon MD Primary Care Provider [phone] Encounter Details Date Type Department Care Team (Late st Contact Info) Description 07/31/2022 Documentation Only [facility], [address] [place] [address] Alberto Light PA [address] [place] [phone] Social History Tobacco Use Types Packs/Day Years [...] [facility] [address] [address] April Sesay ARNP [address] [address] documented as of this encounter Visit Diagnoses Not on filedocumented in this encounter Care Teams Technical Aide Relationship Specialty Start Date End Date Issac Gagnon MD [address] [place] [address] PCP - General Family Medicine 05/05/23 documented as of this encounter
--- OUTSIDE RECORDS SUMMARY | 2025-07-13 19:10 | XMS_ITS | Clinical Summary ---
Author Organization [facility] Address [address] [place] [address] Care Team Providers Care Oval Or Circular Glass Cutter Name Role Phone Issac Gagnon Primary Care Provider [phone] Allergies Active Allergy Reactions Criticality Noted Date [...] topic Sigmoidoscopy Discontinued Procedures * Due to [place] state law, this organization might not be [...] to Health Maintenance Results * Due to [place] state law, this organization might not be sharing negative HIV tests. * (ABNORMAL) Hemoglobin A1c (01/11/2016 11:14 AM EDT) Hemoglobin A1C 6.7(H) <5.7 [facility] Comment: UNITS OF MEASURE: % of [...] for children. eAG (MG/DL) 146 () (calc) [facility] eAG (MMOL/L) 8.1 () (calc) [facility] 01/11/2016 11:1 4 AM EDT 01/11/2016 12:39 PM EDT Ru Lopez MD LAB BLOOD ORDERABLES Final Re sult [facility] * COLONOSCOPY (01/09/2016 12:00 AM EDT) Colonoscopy 01/09/2016 OTHER 01/09/2016 us Historical Conversion Provider HEALTH MAINTENANC E Final Result OTHER * Microalbumin/Creatinine Urine, Random (07/06/2015 10:58 AM EST) Microalbumin Urine <1 mg/dL [facility] Creatinine Urine 103 22 - 328 mg/dL [facility] Albumin/Creat Ratio Unable to Calculate <30.0 mcg/mgCr [facility] 07/06/2015 10:5 8 AM EST 07/06/2015 11:31 AM EST Ru Lopez MD LAB URINE ORDERABLES Final Re sult Performing Organization Address City/[facility]/ZIP Co de Phone Number [facility] [address] [place] [address], * HM DIABETES EYE EXAM (07/06/2015 12:00 AM EST) Pathologist [facility] HM Eye Exam 07/06/2015 [facility] MANUAL RESULTS 07/06/2015 us [facility] Physician HEALTH MAINTENANCE Final Re sult [facility] MANUAL RESULTS * Occult Blood, Fecal (FIT) (02/08/2014 12:00 PM EDT) Pathologist [facility] Occult Blood,Fecal Negative NEGATIVE FIT [facility] 02/08/2014 12:0 0 PM EDT 02/08/2014 10:45 PM EDT Ru Lopez MD LAB BODY FLUIDS AND STOOLS OR DERABLES Final Result Performing Organization Address City/[facility]/ZIP Co de Phone Number [facility] [address] [place] [address], * (ABNORMAL) Comprehensive Metabolic Panel (07/16/2013 10:30 AM EST) Pathologist [facility] Sodium Blood 140 135 - 145 mmol/L [facility] Potassium Blood 4.9 3.5 - 5.3 mmol/L [facility] Chloride Blood 104 97 - 110 mmol/L [facility] Carbon Dioxide 29 24 - 32 mmol/L [facility] Gap 7 5 - 15 [facility] Glucose 156(H) 70 - 99 mg/dL [facility] BUN 16 7 - 23 mg/dL [facility] Creatinine 1.11 0.60 - 1.30 mg/dL [facility] eGFR Non- >60 >60 [facility] Comment: Units = [...] Calcium Blood 10.3 8.7 - 10.7 mg/dL [facility] Total Protein Blood 7.2 6.0 - 8.0 g/dL [facility] Albumin Blood 4.8 3.5 - 4.8 g/dL [facility] Bilirubin Total 0.5 0.3 - 1.2 mg/dL [facility] Alkaline Phosphatase 47 30 - 115 IU/L [facility] AST 22 10 - 40 IU/L [facility] ALT 27 10 - 40 IU/L [facility] 07/16/2013 10:3 0 AM EST 07/16/2013 11:04 AM EST us Ru Lopez MD LAB BLOOD ORDERABLES Final Re sult [facility] [address] [place] [address], from Last 3 Months or Most Recently Relevant to Health Maintenance Insurance MEDICARE [facility] Care Teams Oval Or Circular Glass Cutter Relationship Specialty Start Date End Date Issac Gagnon [address] [place] [address] PCP - General Family Medicine 07/18/24
--- OUTSIDE RECORDS SUMMARY | 2025-07-13 19:10 | XMS_ITS | Clinical Summary ---
Author Organization [facility] Address [address] [place] [address] Care Team Providers Care Global Marketing Intern Name Role Phone Unavailable Primary Care Provider [...] 75+ series) 2023 COVID-19 Vaccine ( - 2024-2 6 season) 2025 Hepatitis B Vaccines Aged Out No long er eligible based on patient's age to complete this topic
--- OUTSIDE RECORDS SUMMARY | 2025-07-13 19:10 | XMS_ITS | Clinical Summary ---
Author Organization [facility] Address [address] [place] [address] Care Team Providers Care Dietary Clerk Name Role Phone Unavailable Primary Care Provider Unavailabl e Surgical History Surgery Date Site/Laterality Comments CHOLECYSTECTOMY 2016 PROCEDURE: HISTORICAL CHOLECYSTECTOMY COLONOSCOPY 2007 PROCEDURE: HISTORICAL COLONOSCOPY; COMMENT: Pleet; diverticulosis. COLONOSCOPY 2015 PROCEDURE: HISTORICAL COLONOSCOPY; COMMENT: Manuel; negative OTHER SURGICAL HISTORY 01/03/2019 PROCEDURE: CHG RADIOLOGIC EXAM SWALLOW FUNCTION CONTRAST STUDY; COMMENT: Normal at [facility]. UPPER GASTROINTESTINAL ENDOSCOPY 03/23/2019 PROCEDURE: NV UPPER GI ENDOSCOPY PERFORMED; COMMENT: small inlet [...] disease, with long-term current use of insulin ([facility] V24, [facility] V28) 01/25/2021 DX:Type 2 diabetes mellitus with chronic kidney disease, with long-term current use of insulin ([facility]) HTN (hypertension) 10/01/2009 DX:HTN (hyper tension) Diverticulosis large intesti ne w/o perforation or abscess w/o bleeding 10/26/2020 DX:Diverticulosis large intestine w/o perforation or abscess w/o bleeding Liver nodule 01/25/2021 DX:Liver nodule Mild persistent asthma witho ut complication 01/25/2021 DX:Mild persistent asthma wi thout complication Pulmonary nodule 01/25/2021 DX:Pulmonary no dule Coronary artery disease invo [place]ving [place] coronary artery of [place] heart without angina pectoris 01/25/2021 DX:Coronary artery disease i nvolving [place] coronary artery of [place] heart without angina pectoris Type 2 diabetes mellitus wit h cataract ([facility] V24, [facility] V28) 02/04/2021 DX:Type 2 diabetes mellitus with cataract ([facility]) Anxiety 07/31/2008 DX:Anxiety BPH (benign prostatic hyperplasia) 02/04/2021 DX:BPH (benign prostatic hyperplasia); COMMENT: Sees Dr. Rebolledo [facility] Carpal tunnel syndrome 10/05/2008 DX:Carpal tunnel syndrome; COMMENT: S/p surgery. Cataract 02/04/2021 DX:Cataract; COM MENT: Sees Dr. Mesa Chronic kidney disease, stag e 3b ([facility] [place] V24, [facility] [place] V28) 01/25/2021 DX:Chronic kidney disease, stage 3b ([facility]); COMMENT: Follows w/ Dr. Yeyo [...] surgery 04/12/2010 DX:S/P shou lder surgery; COMMENT: [facility] 01/03. Ascending aorta dilatation ( [facility] V24) 05/29/2021 DX:Ascending aorta dilatatio n ([facility]); COMMENT: CT chest (05/29/2021): 4 [...] on file Sexual Orientation Not on file Last Filed [...] series) 2023 Depression Screening 07/27/2024 COVID-19 Vaccine (2024- season) 2025 04/29/2022, 05/08/2021, 10/15/2020, Additional history [...]
--- OUTSIDE RECORDS SUMMARY | 2025-07-13 19:10 | XMS_ITS | Patient Health Record ---
Author Organization [facility] Address [address] [place] [address] Care Team Providers Care Material Damage Appraiser Name Role Phone Chelsi Issac Primary Care Provider Yuli Naylor Unavailable [phone] Allergies No Known Allergies Reason For Referral [...] Status Risk Notes Problem Acquired hallux valgus (42809010) Hallux valgus (acquired), left foot (M20.12) Active confirmed Problem Gout (72457165) Gout, unspecifie d (M10.9) Active confirmed Problem Polyneuropathy due to type 2 diabetes mellitus (711990741) Type 2 diabetes mellitus with diabetic polyneuropathy (E11.42) Active confirmed Problem Neuropathic ulcer of right foot (disorder) (1887350298340441 2) Neuropathic ulcer of right foot, limited [...] Medicare [employer] [address] [facility] [place] [address] [id number] Amarjit Oswald Self - patient is the insured [address]) [address] [place] [address] [id number] Amarjit Oswald Self - patient is [...]
--- OUTSIDE RECORDS SUMMARY | 2025-07-13 19:10 | XMS_ITS | Encounter Summary ---
Author Organization [facility], Address [address] [place] [address] Phone Care Team Providers Care Clinical Informatics Manager Name Role Phone Issac Gagnon MD Primary Care Provider [phone] Encounter Details Date Type Department Care Team (Late st Contact Info) Description 02/12/2022 Documentation Only [facility], [address] [address] Alberto Light PA [address] [place] [phone] Social History Tobacco Use Types Packs/Day Years [...] Visit [facility] [address] [address] April Sesay ARNP [address] [address] documented as of this encounter Visit Diagnoses Not on filedocumented in this encounter Care Teams Clinical Informatics Manager Relationship Specialty Start Date End Date Issac Gagnon MD [address] [place] [address] PCP - General Family Medicine 05/05/23 documented as of this encounter
== END 2025-07-13 15:41 | disposition home or self-care (01) ==
LOC: HO.HSM 15:08
PROVIDERS: PCP Family Medicine; Visit Provider Psychiatry & Neurology Neurology
DX: G43.009 Migraine without aura, not intractable, without status migrainosus (principal); M96.1 Postlaminectomy syndrome, not elsewhere classified; M35.3 Polymyalgia rheumatica
CPT/HCPCS: 99214

== ENCOUNTER 2025-07-13 15:07 | Outpatient (REF) | payer MEDICARE, OTHER, SELFPAY | END 2025-07-13 15:08 | disposition home or self-care (01) | LOC: HO.LAB 15:07 | PROVIDERS: PCP Family Medicine; Visit Provider Psychiatry & Neurology Neurology | DX: G43.009 Migraine without aura, not intractable, without status migrainosus (principal); M96.1 Postlaminectomy syndrome, not elsewhere classified; M35.3 Polymyalgia rheumatica | CPT/HCPCS: 36415; 82550; 85652; 86141; 99212 ==